=== PATIENT | male | born 1945 | race Caucasian/White ===

== ENCOUNTER 2016-09-13 16:12 | Inpatient (IN) | payer OTHER ==
--- NOTE | 2016-09-13 18:20 | PDOC ---
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 Patient has been experiencing symptoms for the past two days. He complains of pain, swelling, and redness that extends from his ankles to his thighs bilaterally. The patient has a secondary complaint of new shortness of breath that started two days ago. Denies chest pain, palpitations, dizziness, headache, lightheadedness, fever, chills, nausea, vomiting, or diarrhea. Patient was recently transfused at [facility] one week ago for anemia. <Lyssa Gonzalez - Last Filed: 09/13/16 22:50> <Blanca Mccartney - Last Filed: 09/14/16 03:38> - General Chief Complaint: Edema Stated Complaint: LEG PAIN Time Seen by Provider: 09/13/16 17:25 Past History <Lyssa Gonzalez - Last Filed: 09/13/16 22:50> - Past Medical History Anemia: Yes GI Disorders: Yes (gerd) HTN: Yes Hypercholesterolemia: Yes Psychiatric Problems: Yes - Psycho/Social/Smoking Cessation Hx Suicidal Ideation: No Smoking History: Never smoked <Blanca Mccartney - Last Filed: 09/14/16 03:38> - Past Medical History Allergies/Adverse Reactions: Allergies Allergy/AdvReac Type Severity Reaction Status Date / Time No Known Allergies Allergy Verified 09/13/16 16:19 Home Medications: Ambulatory Orders Acetaminophen [Pain Relief] 650 mg PO Q6H PRN 09/13/16 Bacitracin 30 gm TP DAILY 09/13/16 Bimatoprost [Lumigan] 1 drop IO DAILY 09/13/16 Brimonidine Tartrate [Alphagan 0.2% -] 1 drop OD TID 09/13/16 Cholecalciferol (Vitamin D3) [Vitamin D3] 50,000 unit PO WEEKLY 09/13/16 Dorzolamide/Timolol/Pf [Cosopt Pf Eye Drops] 1 each OP BID 09/13/16 Ferrous Sulfate 325 mg PO DAILY 09/13/16 Hydrocortisone 1% Cream [Hytone 1% Cream -] 1 applic TP DAILY 09/13/16 Metoprolol Tartrate 25 mg PO BID 09/13/16 Omeprazole 20 mg PO DAILY 09/13/16 Petrolatum,White [Aquaphor with Natural Healing] 50 gm TP DAILY 09/13/16 Simvastatin 10 mg PO HS 09/13/16 Tramadol HCl 50 mg PO BID PRN 09/13/16 Review of Systems - Review of Systems Comments:: 09/13/16 18:41 CONSTITUTIONAL: Absent: fever, chills, diaphoresis, generalized weakness, malaise, loss of appetite HEENT: Absent: rhinorrhea, nasal congestion, throat pain, throat swelling, difficulty swallowing, mouth swelling, ear pain, eye pain, visual changes CARDIOVASCULAR: Absent: chest pain, syncope, palpitations, irregular heart rate, lightheadedness , peripheral edema RESPIRATORY: Present: shortness of breath Absent: cough, dyspnea with exertion, orthopnea, wheezing, stridor, hemoptysis GASTROINTESTINAL: Absent: abdominal pain, abdominal distension, nausea, vomiting, diarrhea, constipation, melena, hematochezia GENITOURINARY: Absent: dysuria, frequency, urgency, hesitancy, hematuria, flank pain, genital pain MUSCULOSKELETAL: Present: lower extremity pain, swelling, redness Absent: myalgia, arthralgia SKIN: Absent: rash, itching, pallor HEMATOLOGIC/IMMUNOLOGIC: Absent: easy bleeding, easy bruising, lymphadenopathy, frequent infections ENDOCRINE: Absent: unexplained weight gain, unexplained weight loss, heat intolerance, cold intolerance NEUROLOGIC: Absent: headache, focal weakness or paresthesia, dizziness, unsteady gait, seizure, mental status changes, bladder or bowel incontinence. PSYCHIATRIC: Absent: anxiety, depression, suicidal or homicidal ideation, hallucinations <Lyssa Gonzalez - Last Filed: 09/13/16 22:50> *Physical Exam - Vital Signs Last Vital Signs Temp Pulse Resp BP Pulse Ox 98.3 F 104 H 18 160/101 98 09/13/16 16:20 09/13/16 16:20 09/13/16 16:20 09/13/16 16:20 09/13/16 16:20 - Physical Exam Comments: 09/13/16 18:42 GENERAL: Well developed, well nourished. Awake and alert. No acute distress. HEENT: Normocephalic, atraumatic. PERRLA, EOMI. No conjunctival pallor. Sclera are non- icteric. Moist mucous membranes. Oropharynx is clear. NECK: Supple. Full ROM. No JVD. Carotid pulses 2+ and symmetric, without bruits. No thyromegaly. No lymphadenopathy. CARDIOVASCULAR: Tachycardic. No murmurs, rubs, or gallops. Distal pulses are 2+ and symmetric. PULMONARY: No evidence of respiratory distress. Lungs clear to auscultation bilaterally. No wheezing, rales or rhonchi. ABDOMINAL: Soft. Non-tender. Non-distended. No rebound or guarding. No organomegaly. Normoactive bowel sounds. MUSCULOSKELETAL: Normal range of motion at all joints. No bony deformities or tenderness. No CVA tenderness. EXTREMITIES: 3+ pitting edema lower extremities bilaterally. Chronic venous stasis with venous stasis ulcers. Erythema from ankles to thighs bilaterally. SKIN: Warm and dry. Normal capillary refill. No rashes. No jaundice. NEUROLOGICAL: Alert, awake, appropriate. Poor historian. Cranial nerves 2-12 intact. Normal speech. PSYCHIATRIC: Cooperative. Good eye contact. Appropriate mood and affect. <Lyssa Gonzalez - Last Filed: 09/13/16 22:50> - Vital Signs Last Vital Signs Temp Pulse Resp BP Pulse Ox 98.3 F 104 H 18 160/101 98 09/13/16 16:20 09/13/16 16:20 09/13/16 16:20 09/13/16 16:20 09/13/16 16:20 <Blanca Mccartney - Last Filed: 09/14/16 03:38> Heart Score/ECG Review #1 09/13/16 22:50 Sinus tachycardia at 109 bpm Possible Inferior infarct, age undetermined Abnormal ECG <Lyssa Gonzalez - Last Filed: 09/13/16 22:50> ED Treatment Course - LABORATORY CBC & Chemistry Diagram: 09/13/16 18:55 09/13/16 18:55 <Lyssa Gonzalez - Last Filed: 09/13/16 22:50> - LABORATORY CBC & Chemistry Diagram: 09/13/16 18:55 09/13/16 18:55 <Blanca Mccartney - Last Filed: 09/14/16 03:38> *DC/Admit/Observation/Transfer - Attestations Scribe Attestion: 09/13/16 18:44 Documentation prepared by Lyssa Gonzalez, acting as medical microbiologist for Blanca Mccartney MD. <Lyssa Gonzalez - Last Filed: 09/13/16 22:50> - Discharge Dispostion Admit: Yes <Blanca Mccartney - Last Filed: 09/14/16 03:38> Diagnosis at time of Disposition: Venous (peripheral) insufficiency Cellulitis Qualifiers: Site of cellulitis: extremity Site of cellulitis of extremity: lower extremity Laterality: unspecified laterality Qualified Code(s): L03.119 - Cellulitis of unspecified part of limb Anemia Qualifiers: Anemia type: unspecified type Qualified Code(s): D64.9 - Anemia, unspecified - Referrals Referrals: Dania Ralph MD [Primary Care Provider] -
[2016-09-13] MEDS ORDERED: PIPERACILLIN/TAZOB 3.375 GM 3.375 GM in DEXTROSE 5%-WATER - 50 ML IVPB ONE (18:57)
[2016-09-13 19:11] LABS: VENOUS PH 7.37 (7.32-7.42)
[2016-09-13 19:12] LABS: VENOUS BLOOD GAS HCO3 26.3 meq/L (19-25)
[2016-09-13 19:29] LABS: URINE APPEARANCE CLEAR; URINE BILIRUBIN NEGATIVE (NEGATIVE); URINE BLOOD NEGATIVE (NEGATIVE); URINE COLOR STRAW; URINE GLUCOSE (UA) NEGATIVE (NEGATIVE); URINE KETONE NEGATIVE (NEGATIVE); URINE NITRITE NEGATIVE (NEGATIVE); URINE PROTEIN NEGATIVE (NEGATIVE); URINE UROBILINOGEN NEGATIVE E.U./dl (0.2-1.0)
[2016-09-13] MEDS ORDERED: PIPERACILLIN/TAZOB 3.375 GM 50 ML IVPB ONE (19:31)
[2016-09-13 19:32] LABS: URINE LEUK ESTERASE TRACE (NEGATIVE)
[2016-09-13 19:37] LABS: URINE RBC <1 /hpf (0-3); URINE WBC 6 /hpf (3-5)
[2016-09-13 19:49] LABS: BASOPHIL 1.1 % (0-2.0); EOSINOPHIL 2.7 % (0-4.5); MCH 23.6 pg (25.7-33.7); MEAN CELL VOLUME 76.1 fl (80-96); MEAN PLT VOLUME 7.3 fl (7.5-11.1); NEUTROPHILS 75.7 % (42.8-82.8); PLATELET COUNT 335 K/MM3 (134-434); RDW 18.1 % (11.9-15.9)
[2016-09-13 20:09] LABS: INR 1.08 (0.82-1.09); PROTHROMBIN TIME (PATIENT) 11.9 SEC (9.98-11.88)
[2016-09-13 20:12] LABS: ACTIVATED PTT 25.8 SECONDS (26.9-34.4)
[2016-09-13 20:21] LABS: ALBUMIN 2.6 g/dl (3.4-5.0); ANION GAP 9 (8-16); CALCIUM 8.9 mg/dL (8.5-10.1); CO2 26 mmol/L (21-32); GLUCOSE,RANDOM 83 mg/dL (74-106)
[2016-09-13 20:28] LABS: ALK PHOS 73 U/L (45-117); BILIRUBIN,TOTAL 0.2 mg/dL (0.2-1.0); COCKROFT - GAULT 59.53; CREATININE 1.6 mg/dL (0.7-1.3); SGOT/AST 27 U/L (15-37); SGPT/ALT 20 U/L (12-78); TOT PROT 6.3 g/dl (6.4-8.2); TROPONIN I < 0.02 ng/ml (0.00-0.05)
[2016-09-13] MEDS ORDERED: FUROSEMIDE 40 MG/4 ML INJECTABLE VIAL IVPUSH ONE (21:48)
[2016-09-13] MEDS ORDERED: METOPROLOL SUCCINATE 25 MG TAB.SR.24H (FP) PO ONE (21:49)
[2016-09-13] MEDS ORDERED: METOPROLOL SUCCINATE 50 MG TAB.SR.24H (FP) ONE (21:56)
[2016-09-13] MEDS ORDERED: FUROSEMIDE 40 MG/4 ML INJECTABLE VIAL ONE (21:57)
--- NOTE | 2016-09-13 22:20 | PN ---
<Yosi Alcantara - Last Filed: 09/13/16 22:19> Teaching Attending Note Name of Resident: Stefania Coronel ATTENDING PHYSICIAN STATEMENT I saw and evaluated the patient. I reviewed the resident's note and discussed the case with the resident. I agree with the resident's findings and plan as documented. SUBJECTIVE: OBJECTIVE: ASSESSMENT AND PLAN: <MarianneWard - Last Filed: 09/14/16 00:21> Teaching Attending Note ATTENDING PHYSICIAN STATEMENT I saw and evaluated the patient. I reviewed the resident's note and discussed the case with the resident. I agree with the resident's findings and plan as documented. 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 The patient reports associated shortness of breath for two days in duration. The patient was sent to the Emergency Department from [facility] to receive antibiotics. He complained of pain, swelling, and redness that extends from his ankles to his thighs bilaterally. Denied chest pain, palpitations, dizziness, headache, lightheadedness, fever, chills, nausea, vomiting, or diarrhea. PAST MEDICAL HISTORY: As per HPI. Patient transfused 1 week ago at [facility] for anemia. PAST SURGICAL HISTORY: No significant history reported FAMILY HISTORY: No pertinent history reported SOCIAL HISTORY: Denied smoking. ALLERGIES: NKDA MEDICATIONS: Reviewed OBJECTIVE: Last Vital Signs: 3 Temp Pulse Resp BP Pulse Ox 98.3 F 104 H 18 160/101 98 09/13/16 16:20 09/13/16 16:20 09/13/16 16:20 09/13/16 16:20 09/13/16 16:20 Physical Exam: GEN: NAD HEENT: NCAT, PERRL CARD: RRR, S1 S2 RESP: CTAB ABD:+ Obese, distended abdomen, soft, nontender to palpation. EXT: - CCE SKIN: Erythema and edema bilateral lower extremity reaching mid thigh with +2 pitting edema bilaterally also with weeping skin. +2 pulses bilateral. Labs: CBCD 3 WBC 9.0 K/mm3 (4.0-10.0) 09/13/16 18:55 RBC 3.55 M/mm3 (4.00-5.60) L 09/13/16 18:55 Hgb 8.4 GM/dL (11.7-16.9) L 09/13/16 18:55 Hct 27.0 % (35.4-49) L 09/13/16 18:55 MCV 76.1 fl (80-96) L 09/13/16 18:55 MCHC 31.0 g/dl (32.0-35.9) L 09/13/16 18:55 RDW 18.1 % (11.9-15.9) H 09/13/16 18:55 Plt Count 335 K/MM3 (134-434) 09/13/16 18:55 MPV 7.3 fl (7.5-11.1) L 09/13/16 18:55 CMP 3 Sodium 144 mmol/L (136-145) 09/13/16 18:55 Potassium 4.0 mmol/L (3.5-5.1) 09/13/16 18:55 Chloride 109 mmol/L (98-107) H 09/13/16 18:55 Carbon Dioxide 26 mmol/L (21-32) 09/13/16 18:55 Anion Gap 9 (8-16) 09/13/16 18:55 BUN 25 mg/dL (7-18) H 09/13/16 18:55 Creatinine 1.6 mg/dL (0.7-1.3) H 09/13/16 18:55 Creat Clearance w eGFR 43.20 (>60) 09/13/16 18:55 Calcium 8.9 mg/dL (8.5-10.1) 09/13/16 18:55 Total Bilirubin 0.2 mg/dL (0.2-1.0) 09/13/16 18:55 AST 27 U/L (15-37) 09/13/16 18:55 ALT 20 U/L (12-78) 09/13/16 18:55 Alkaline Phosphatase 73 U/L (45-117) 09/13/16 18:55 Total Protein 6.3 g/dl (6.4-8.2) L 09/13/16 18:55 Albumin 2.6 g/dl (3.4-5.0) L 09/13/16 18:55 Imaging: EXAM: X-RAY CHEST Impression: No focal lung consolidation or pleural effusions. Cardiomegaly and/ or pericardial effusion. THIS DOCUMENT HAS BEEN ELECTRONICALLY SIGNED Ronit Schreiber M.D. 09/13/2016 23: 42 EST. ASSESSMENT AND PLAN: 70 year old male past medical history who presents with bilateral lower extremity cellulitis 1. Bilaterally lower extremity cellulitis- Status post vancomycin zosyn in ED - Duplex bilateral lower extremities - ID consult - Continue antibiotics - Follow up cultures - Repeat lactic acid 2. SOB - increased bmp ? CHF - ECHO - Trend trops/EKG - Status post lasix 40 mg IV 3. Anemia - microcytic - Follow up iron studies - Stool cultures - Outpatient follow up with GI 4. CKD - unknown baseline creatinine - Monitor - Trend - Avoid nephrotoxins 5. [place] - Continue home medications 6. HTN - Continue home medications 7. FEN - Sodium restricted diet - Daily weights - Strict I&O Admit to med surg. Documentation prepared by Ward Lopes, acting as territory sales manager medical for Dr. Yosi Alcantara MD.
[2016-09-13] MEDS ORDERED: VANCOMYCIN 1,000 MG in DEXTROSE 5%-WATER - 250 ML IVPB STA (22:23)
--- NOTE | 2016-09-13 22:26 | HP ---
CHIEF COMPLAINT: "my legs are swollen" PCP: assigned doc at [facility] HISTORY OF PRESENT ILLNESS: This is a 70 yo M with PMH of anemia, GI ulcer (recent bleed 3 w ago), GERD, HTN , glaucoma, CKD, venous insufficiency and R eye blindness (glaucoma), who presents from [facility] due to b/l LE edemam, redness and pain x 2 days. The affected areas include circumrefentioal ankles, calfs and medial thighs. This has occured in [facility] past a few yrs ago, at [facility] time jona was treated with abx and received transfusion. [facility] and gi bleed, found to have bleedign gi ulcer for which he received endoscopy (unknown if any intervention done) and transfusions. He has since stopped bleeding in stool but never returned to baseline in terms of energy. reports continued dyspnea with exertion but not at rest. denies cough, orthopnea, palpitations, chest pain or weight gain. Denies f /c, dizziness, headache, lightheadedness, abd pain, increased abd size, nausea, vomiting, constipation, diarrhea, melena, hemoatochezia, dysuria. Deneis EtOH use, hepatitis history, easy bleeding or bruising. Last colonoscopy <5 yrs ago removed benign polyps. ER course was notable for: (1)labs (2)cxr (b/l congestion) ekg (wnl) (3)lasix 20, vanco, zosyn, toprol xl 25 Recent Travel: denies PAST MEDICAL HISTORY: as above PAST SURGICAL HISTORY: inguinal hernia repair Social History: [place] resident Smoking:denies Alcohol:denies Drugs: denies Hepatitis history: denies Family History: HTN Allergies No Known Allergies Allergy (Verified 09/13/16 16:19) HOME MEDICATIONS: Home Medications Medication Instructions Recorded Acetaminophen [Pain Relief] 650 mg PO Q6H PRN 09/13/16 Bacitracin 30 gm TP DAILY 09/13/16 Bimatoprost [Lumigan] 1 drop IO DAILY 09/13/16 Brimonidine Tartrate [Alphagan 1 drop OD TID 09/13/16 0.2% -] Cholecalciferol (Vitamin D3) 50,000 unit PO WEEKLY 09/13/16 [Vitamin D3] Dorzolamide/Timolol/Pf [Cosopt Pf 1 each OP BID 09/13/16 Eye Drops] Ferrous Sulfate 325 mg PO DAILY 09/13/16 Hydrocortisone 1% Cream [Hytone 1% 1 applic TP DAILY 09/13/16 Cream -] Metoprolol Tartrate 25 mg PO BID 09/13/16 Omeprazole 20 mg PO DAILY 09/13/16 Petrolatum,White [Aquaphor with 50 gm TP DAILY 09/13/16 Natural Healing] Simvastatin 10 mg PO HS 09/13/16 Tramadol HCl 50 mg PO BID PRN 09/13/16 REVIEW OF SYSTEMS CONSTITUTIONAL: Absent: fever, chills, diaphoresis, weight change HEENT: Absent: rhinorrhea, nasal congestion, throat pain CARDIOVASCULAR: Absent: chest pain, syncope, palpitations, irregular heart rate, lightheadedness , peripheral edema RESPIRATORY: Absent: cough, shortness of breath, orthopnea, wheezing, stridor, hemoptysis GASTROINTESTINAL: Absent: abdominal pain, abdominal distension, nausea, vomiting, diarrhea, constipation, melena, hematochezia GENITOURINARY: Absent: dysuria MUSCULOSKELETAL: Absent: myalgia, arthralgia SKIN: Absent: rash, itching, pallor HEMATOLOGIC/IMMUNOLOGIC: Absent: easy bleeding, easy bruising ENDOCRINE: Absent: unexplained weight gain, unexplained weight loss NEUROLOGIC: Absent: headache, focal weakness or paresthesias PSYCHIATRIC: Absent: anxiety, depression PHYSICAL EXAMINATION Vital Signs - 24 hr 09/13/16 16:20 Temperature 98.3 F Pulse Rate 104 H Respiratory 18 Rate Blood Pressure 160/101 O2 Sat by Pulse 98 Oximetry (%) GENERAL: Awake, alert, and fully oriented, in no acute distress. HEAD: Normal with no signs of trauma. EYES: Pupils equal, round and reactive to light, extraocular movements intact, sclera anicteric, conjunctiva clear. No lid lag. EARS, NOSE, THROAT: Moist mucous membranes. NECK: supple LUNGS: Breath sounds equal, clear to auscultation bilaterally. HEART: Regular rate and rhythm, normal S1 and S2 ABDOMEN: Soft, nontender, distended, normoactive bowel sounds, no guarding, no rebound, no masses. +hepatomegaly, + fluid wave, + caput medusa MUSCULOSKELETAL: No CVA tenderness. UPPER EXTREMITIES: 2+ pulses, warm, well-perfused. No cyanosis. No clubbing. No peripheral edema. LOWER EXTREMITIES: 2+ pulses, 3#+ pitting edema up to knee, weeping skin, erythema circumferenctial up to knee and medial up to groin b/l. tender, warm NEUROLOGICAL: Cranial nerves II-XII grossly intact. Normal speech. PSYCHIATRIC: Cooperative. Good eye contact. Appropriate mood and affect. SKIN: lesions as above Laboratory Results - last 24 hr 09/13/16 09/13/16 09/13/16 18:40 18:40 18:55 WBC 9.0 RBC 3.55 L Hgb 8.4 L Hct 27.0 L MCV 76.1 L MCHC 31.0 L RDW 18.1 H Plt Count 335 MPV 7.3 L Neutrophils % 75.7 Lymphocytes % 13.4 Monocytes % 7.1 Eosinophils % 2.7 Basophils % 1.1 INR 1.08 PTT (Actin FS) 25.8 L VBG pH POC VBG pCO2 POC VBG pO2 Mixed VBG HCO3 Sodium Potassium Chloride Carbon Dioxide Anion Gap BUN Creatinine Creat Clearance w eGFR Random Glucose Lactic Acid 1.0 Calcium Total Bilirubin AST ALT Alkaline Phosphatase Creatine Kinase Troponin I Total Protein Albumin Urine Color Urine Appearance Urine pH Ur Specific [place] Urine Protein Urine Glucose (UA) Urine Ketones Urine Blood Urine Nitrite Urine Bilirubin Urine Urobilinogen Ur Leukocyte Esterase Urine RBC Urine WBC 09/13/16 09/13/16 09/13/16 18:55 18:55 19:00 WBC RBC Hgb Hct MCV MCHC RDW Plt Count MPV Neutrophils % Lymphocytes % Monocytes % Eosinophils % Basophils % INR PTT (Actin FS) VBG pH 7.37 POC VBG pCO2 46.5 POC VBG pO2 18.7 L* Mixed VBG HCO3 26.3 H Sodium 144 Potassium 4.0 Chloride 109 H Carbon Dioxide 26 Anion Gap 9 BUN 25 H Creatinine 1.6 H Creat Clearance w eGFR 43.20 Random Glucose 83 Lactic Acid Calcium 8.9 Total Bilirubin 0.2 AST 27 ALT 20 Alkaline Phosphatase 73 Creatine Kinase 132 Troponin I < 0.02 Total Protein 6.3 L Albumin 2.6 L Urine Color Straw Urine Appearance Clear Urine pH 6.0 Ur Specific [place] <= 1.005 Urine Protein Negative Urine Glucose (UA) Negative Urine Ketones Negative Urine Blood Negative Urine Nitrite Negative Urine Bilirubin Negative Urine Urobilinogen Negative Ur Leukocyte Esterase Trace H Urine RBC <1 Urine WBC 6 ASSESSMENT/PLAN: This is a 70 yo M with PMH of anemia, GI ulcer (recent bleed 3 w ago), GERD, HTN , glaucoma, CKD, venous insufficiency and R eye blindness (glaucoma), who presents from [facility] due to b/l LE edemam, redness and pain x 2 days. Meds need to be reconciled LE cellulitis -no white count or fever -vanco/zosyn -dulplex r/o dvt -ID consult Volume overloaded -possibly cardiac cause: CXR congestion, cardiomegaly, RV appears enlarged; BNP 953; trop negative (trend) -TTE -lasix 20 IV in ER; will give another 40 IV -AM CXR -strict i and o/daily weights Anemia -HGB 8.9 recently transfused in setting of GIB -per PCP/ER doc conversation this is baseline; would confirm -denies rectal bleed; check stool for occult blood CKD -bun/creat 25/1.6 -per PCP/ER doc convo this is baseline; would confirm HTN -cont lopressor 25 bid GERD -PPI 40 d HLD -lipitor 10 hs Glaucoma -continue home eye drops FEN diurese lytes stable Na restricted diet no hep due to recent rectal bleed and no scd due to severe LE edema; PPi Dispo: adm med cade Problem List - Problem (1) Anemia Code(s): D64.9 - ANEMIA, UNSPECIFIED Qualifiers: Anemia type: unspecified type Qualified Code(s): D64.9 - Anemia, unspecified (2) Cellulitis Code(s): L03.90 - CELLULITIS, UNSPECIFIED Qualifiers: Site of cellulitis: extremity Site of cellulitis of extremity: lower extremity Laterality: unspecified laterality Qualified Code(s): L03.119 - Cellulitis of unspecified part of limb (3) Venous (peripheral) insufficiency Code(s): I87.2 - VENOUS INSUFFICIENCY (CHRONIC) (PERIPHERAL) (4) HTN (hypertension) Code(s): I10 - ESSENTIAL (PRIMARY) HYPERTENSION (5) Glaucoma Code(s): H40.9 - UNSPECIFIED GLAUCOMA (6) CKD (chronic kidney disease) Code(s): N18.9 - CHRONIC KIDNEY DISEASE, UNSPECIFIED (7) GERD (gastroesophageal reflux disease) Code(s): K21.9 - GASTRO-ESOPHAGEAL REFLUX DISEASE WITHOUT ESOPHAGITIS Visit type - Emergency Visit Emergency Visit: Yes ED Registration Date: 09/14/16 Care time: The patient presented to the Emergency Department on the above date and was hospitalized for further evaluation of their emergent condition. - New Patient This patient is new to me today: Yes Date on this admission: 09/14/16 - Critical Care Critical Care patient: No
[2016-09-13] MEDS ORDERED: FUROSEMIDE 40 MG/4 ML INJECTABLE VIAL IVPB ONE (23:41)
[2016-09-14] MEDS ORDERED: PIPERACILLIN/TAZOB 2.25 GM 2.25 GM in DEXTROSE 5%-WATER - 50 ML IVPB ONE ×2 (02:00→08:00)
[2016-09-14] MEDS ORDERED: oxyCODONE HCL 5 MG TABLET ONE (03:07)
[2016-09-14] MEDS ORDERED: FUROSEMIDE 40 MG/4 ML INJECTABLE VIAL ONE (03:07)
[2016-09-14] MEDS: oxyCODONE HCL 5 MG TABLET PO PRN ×2 (03:15→12:20)
[2016-09-14] MEDS: PATIENT'S OWN MEDICATION (NON-FORMULARY) (Dorzolamide/Timolol/Pf [Cosopt Pf Eye Drops] 1 E OP SCH (04:29)
[2016-09-14 06:42] VITALS: BMI 33.4
[2016-09-14 08:12] LABS: MCH 23.6 pg (25.7-33.7); MCHC 31.1 g/dl (32.0-35.9); MEAN CELL VOLUME 75.9 fl (80-96); MEAN PLT VOLUME 6.8 fl (7.5-11.1); PLATELET COUNT 299 K/MM3 (134-434); RDW 17.7 % (11.9-15.9); WHITE BLOOD COUNT 7.9 K/mm3 (4.0-10.0)
--- NOTE | 2016-09-14 08:14 | PN ---
Progress Note (short form) - Note Progress Note: ID Full note dictated Selected Entries 09/14/16 09/14/16 05:11 06:28 Temperature 98.1 F Pulse Rate 91 H Blood Pressure 125/76 Blood Pressure 116/84 [Left Arm] Exam with Bilateral edema and confluent cellulitis Microbiology Laboratory Tests 09/13/16 09/13/16 18:55 18:55 WBC 9.0 Hgb 8.4 L Hct 27.0 L Plt Count 335 Creat Clearance w eGFR 43.20 Assessment Cellulitis staph Strep ? Plan Cultures sent Cefazolin should be adequet [facility] Mani [facility] Problem List - Problems (1) CKD (chronic kidney disease) Code(s): N18.9 - CHRONIC KIDNEY DISEASE, UNSPECIFIED (2) Cellulitis Code(s): L03.90 - CELLULITIS, UNSPECIFIED Qualifiers: Site of cellulitis: extremity Site of cellulitis of extremity: lower extremity Laterality: unspecified laterality Qualified Code(s): L03.119 - Cellulitis of unspecified part of limb
[2016-09-14 08:39] LABS: CALCIUM 8.8 mg/dL (8.5-10.1); COCKROFT - GAULT 55.4; CREATININE 1.8 mg/dL (0.7-1.3); MAGNESIUM 1.9 mg/dL (1.8-2.4); PHOSPHOROUS 4.4 mg/dL (2.5-4.9)
--- NOTE | 2016-09-14 08:52 | CONS ---
INFECTIOUS DISEASE CONSULTATION DATE OF CONSULTATION: 09/14/2016 This is a 70-year-old male who was admitted with chief complaint of lower extremity redness and swelling for 2-3 days. Past medical history includes recent GI bleeding several weeks ago from an ulcer, GERD, hypertension, glaucoma, chronic kidney disease, venous insufficiency. He is brought now with redness and swelling of his legs in the absence of fever or chills. He was apparently recently at [facility] where he had an endoscopy done for upper GI bleeding. He may have received blood transfusions at that time. Here, he was afebrile and given a dose of vancomycin and Zosyn. Currently, he is alert, in no distress, sitting up, eating his breakfast. He denies any other localizing complaints. PAST MEDICAL HISTORY: As noted above. Also, include inguinal hernia repair. MEDICATIONS: Include multiple eye drops, metoprolol, omeprazole, simvastatin, tramadol. ALLERGIES: None known. SOCIAL HISTORY: Denies smoking, alcohol use. No substance abuse. HIV status unknown. FAMILY HISTORY: Reviewed and noncontributory. REVIEW OF SYSTEMS: Respiratory: No shortness of breath, cough, orthopnea. Cardiac: No chest pain, syncope, palpitations. Positive edema. Gastrointestinal: No abdominal pain, nausea, vomiting, blood per rectum. Genitourinary: No dysuria, hematuria, or urinary frequency. PHYSICAL EXAMINATION: Vital Signs: His temperature was 98.3, pulse 104, respirations 18, blood pressure 160/101. Neck: Supple without adenopathy. Lungs: Clear to P&A. Heart: S1, S2. Regular rhythm without audible murmur or gallop. Abdomen: Soft, nontender. No guarding or rebound. Extremities: With 2+ to 3+ pitting edema up to the knee. Confluent erythema also up to the knee bilaterally. LABORATORY DATA: The white count is 9.0, hemoglobin 8.4, platelets of 335. BUN 25, creatinine 1.6. Urinalysis: RBC 1, WBCs 6. Blood and urine cultures pending. ASSESSMENT: A 70-year-old male who presents with bilateral lower extremity cellulitis. No fever, chills, evidence for sepsis. Clinically, he appears stable at this time. Would treat him with cefazolin 1 g IV q.8 hours. I do not see the need for vancomycin and Zosyn at this time. Blood cultures have been sent. Encourage to elevate the legs. KOLE LEE M.D. CHING/[id number]
[2016-09-14] MEDS: PANTOPRAZOLE 40 MG TABLET (FP) PO SCH (12:21)
[2016-09-14] MEDS: CEFAZOLIN (PRE-DOCKED) 50 ML IVPB SCH ×2 (12:21→18:04)
[2016-09-14] MEDS: METOPROLOL TARTRATE 25 MG TABLET (FP) PO SCH ×2 (12:21→21:53)
--- NOTE | 2016-09-14 12:38 | PN ---
Physical Exam: SUBJECTIVE: Patient seen and examined at bedside. Patient c/o pain and swelling to BLE and bloating to abdomen. Denies PND, change in exercise tolerance or shortness of breath. OBJECTIVE: Vital Signs Period Temp Pulse Resp BP Sys/Shah Pulse Ox Last 24 Hr 98.1 F-98.2 F 91-100 18 116-125/76-84 96-97 GENERAL: The patient is awake, alert, and fully oriented, in no acute distress. HEAD: Normal with no signs of trauma. EYES: PERRL, extraocular movements intact, sclera anicteric, conjunctiva clear. No ptosis. ENT: Ears normal, nares patent, oropharynx clear without exudates, moist mucous membranes. NECK: Trachea midline, full range of motion, supple. LUNGS: Breath sounds equal, clear to auscultation bilaterally, no wheezes, no crackles, no accessory muscle use. HEART: Regular rate and rhythm, S1, S2 without murmur, rub or gallop. No JVD observed. ABDOMEN: Soft, nontender, distended, normoactive bowel sounds, no guarding, no rebound, no hepatosplenomegaly, no masses. +bloating EXTREMITIES: 2+ pulses, warm, well-perfused, 3+ piting edema extending to left groin and mid-thigh on the right. Erythema present to BLE extending into popliteal fossa on BLE. No streaking present. NEUROLOGICAL: Cranial nerves II through XII grossly intact. Normal speech, gait not observed. PSYCH: Normal mood, normal affect. SKIN: Warm, dry, normal turgor, no rashes or lesions noted Laboratory Results - last 24 hr 3 09/14/16 09/14/16 09/14/16 07:17 07:17 07:17 WBC 7.9 RBC 3.48 L Hgb 8.2 L Hct 26.4 L MCV 75.9 L MCHC 31.1 L RDW 17.7 H Plt Count 299 MPV 6.8 L Sodium 145 Potassium 3.3 L Chloride 107 Carbon Dioxide 26 Anion Gap 12 BUN 24 H Creatinine 1.8 H Random Glucose 92 Calcium 8.8 Phosphorus 4.4 Magnesium 1.9 Blood Type O POSITIVE Active Medications 3 Generic Name Dose Route Start Last Admin Trade Name Freq PRN Reason Stop Dose Admin Atorvastatin Calcium 10 mg 09/14/16 22:00 Lipitor - PO HS CHARLETTE Brimonidine Tartrate 1 drop 09/14/16 06:00 Alphagan 0.2% - OD TID CHARLETTE Cefazolin Sodium 50 mls @ 100 mls/hr 09/14/16 10:00 09/14/16 12:21 Ancef 1gm Ivpb (Pre-Docked) IVPB 100 mls/hr Q8H-IV CHARLETTE Administration Metoprolol Tartrate 25 mg 09/14/16 10:00 09/14/16 12:21 Lopressor - PO 25 mg BID CHARLETTE Administration Non-Formulary Medication 1 drop 09/14/16 10:00 Bimatoprost [Lumigan] IO DAILY CHARLETTE Non-Formulary Medication 1 each 09/14/16 00:30 09/14/16 04:29 Dorzolamide/Timolol/Pf [Cosopt Pf Eye Drops] OP Not Given BID CHARLETTE Oxycodone HCl 5 mg 09/13/16 23:41 09/14/16 12:20 Roxicodone - PO 5 mg Q4H PRN Administration PAIN Pantoprazole Sodium 40 mg 09/14/16 10:00 09/14/16 12:21 Protonix - PO 40 mg DAILY CHARLETTE Administration IMAGING: BLE u/s with doppler as read by Dr Rodriguez: There is no evidence of DVT in both lower extremities. Echo read by Chiquis: LV wall motion, size, thickness and function normal EF- 66.4% Trace to mild TR Trace to mild MR ASSESSMENT/PLAN: A: This is a 70 yo man with PMH HTN, GERD, glaucoma, HLD and recurrent cellulitis of BLE who presents with recurrence of weeping cellulitis to BLE. Given 3+ pitting pedal edema, elevated BNP and normal echo patient with diastolic HF. P: 1. Cellulitis - Continue cefazolin - elevate lower extremities - outline of cellulitis marked to evaluated progression/improvement of cellulitis - ID Mani following 2. Diastolic HF - start Lasix - trend trops - daily weights - cards Avtar consult ordered 3. HTN - well controlled - home meds 4. Glaucoma -home meds 5. HLD - home meds 6. F/E/N - cardiac diet - replete PRN 7. PPX - SQ Lovenox - PPI Dispo: This patient requires continued inpatient evaluation of acute medical conditions. Code Status: FULL CODE Visit type - Emergency Visit Emergency Visit: Yes ED Registration Date: 09/14/16 Care time: The patient presented to the Emergency Department on the above date and was hospitalized for further evaluation of their emergent condition. - New Patient This patient is new to me today: Yes Date on this admission: 09/14/16 - Critical Care Critical Care patient: No
[2016-09-14] MEDS: BRIMONIDINE TARTRATE 0.2% OPHTHALMIC 5 ML BOTTLE OD SCH ×2 (15:00→21:54)
[2016-09-14] MEDS ORDERED: ENOXAPARIN NA (PORCINE) 40 MG/0.4 ML DISP.SYRIN SQ SCH (15:15)
--- NOTE | 2016-09-14 15:55 | EKG ---
Test Reason : Blood Pressure : / mmHG Vent. Rate : 109 BPM Atrial Rate : 109 BPM P-R Int : 152 ms QRS Dur : 068 ms QT Int : 344 ms P-R-T Axes : 046 007 014 degrees QTc Int : 463 ms SINUS TACHYCARDIA POSSIBLE INFERIOR INFARCT , AGE UNDETERMINED ABNORMAL ECG NO PREVIOUS ECGS AVAILABLE Confirmed by ANGELA MOROCHO, STEPHANY ([id number]) on 09/14/2016 3:54:38 PM Referred By: Confirmed By:STEPHANY MILLER MD
--- NOTE | 2016-09-14 17:17 | CON.CARD ---
Consult Consult Specialty:: Cardiology Reason for Consultation:: Edema - History of Present Illness History of Present Illness: 70 yo M with anemia, GI ulcer (recent bleed 3 w ago), GERD, HTN, glaucoma, CKD, venous insufficiency and R eye blindness (glaucoma), lives at assisted living due to b/l LE edemam, redness and pain x 2 days. [facility] and [facility], found to have GI bleed which he received endoscopy and transfusions. He denies cough, orthopnea, palpitations , chest pain or dyspena. At baseline ambulats with a rolator. He has frequent lower extremity swelling managed with compression stockings. Echocardiogram today showed preserved LV systolic function and no significant valvular dysfunction. PASP reprtedyl was normal. ECG was noraml. Negative Lext duplex. BNP is mildly elevated. - History Source History Provided By: Patient, Medical Record Limitations to Obtaining History: No Limitations - Past Medical History Renal/: Yes: Renal Inusuff Heme/Onc: Yes: Anemia - Alcohol/Substance Use Hx Alcohol Use: No - Smoking History Smoking history: Never smoked Home Medications - Allergies Allergies/Adverse Reactions: Allergies Allergy/AdvReac Type Severity Reaction Status Date / Time No Known Allergies Allergy Verified 09/13/16 16:19 - Home Medications Home Medications: Ambulatory Orders Acetaminophen [Pain Relief] 650 mg PO Q6H PRN 09/13/16 Bacitracin 30 gm TP DAILY 09/13/16 Bimatoprost [Lumigan] 1 drop IO DAILY 09/13/16 Brimonidine Tartrate [Alphagan 0.2% -] 1 drop OD TID 09/13/16 Cholecalciferol (Vitamin D3) [Vitamin D3] 50,000 unit PO WEEKLY 09/13/16 Dorzolamide/Timolol/Pf [Cosopt Pf Eye Drops] 1 each OP BID 09/13/16 Ferrous Sulfate 325 mg PO DAILY 09/13/16 Hydrocortisone 1% Cream [Hytone 1% Cream -] 1 applic TP DAILY 09/13/16 Metoprolol Tartrate 25 mg PO BID 09/13/16 Omeprazole 20 mg PO DAILY 09/13/16 Petrolatum,White [Aquaphor with Natural Healing] 50 gm TP DAILY 09/13/16 Simvastatin 10 mg PO HS 09/13/16 Tramadol HCl 50 mg PO BID PRN 09/13/16 Review of Systems - Review of Systems Constitutional: reports: No Symptoms Eyes: reports: No Symptoms HENT: reports: No Symptoms Neck: reports: Decreased ROM Cardiovascular: reports: No Symptoms Respiratory: reports: No Symptoms Gastrointestinal: reports: No Symptoms Genitourinary: reports: No Symptoms Musculoskeletal: reports: Back Pain, Decreased ROM Neurological: reports: No Symptoms Endocrine: reports: No Symptoms Vital Signs: Vital Signs Temperature 97.4 F L 09/14/16 14:30 Pulse Rate 103 H 09/14/16 14:30 Respiratory Rate 18 09/14/16 08:00 Blood Pressure 156/98 09/14/16 14:30 O2 Sat by Pulse Oximetry (%) 96 09/14/16 09:00 Constitutional: Yes: Well Nourished, No Distress, Calm Eyes: Yes: WNL HENT: Yes: WNL Neck: Yes: WNL Respiratory: Yes: Regular, CTA Bilaterally Gastrointestinal: Yes: Normal Bowel Sounds Renal/: Yes: WNL Cardiovascular: Yes: Regular Rate and Rhythm JVD: No Carotid Bruit: No PMI: Non-Displaced Heart Sounds: Yes: S1, S2 Extremities: Yes: Erythema Edema: Yes Edema: LLE: 1+, RLE: 1+ - Other Data Labs, Other Data: CBC, BMP 09/14/16 07:17 09/14/16 07:17 INR, PTT INR 1.08 (0.82-1.09) 09/13/16 18:40 Troponin, BNP 09/13/16 09/13/16 18:40 18:55 Troponin I < 0.02 B-Natriuretic Peptide 953.50 H NSR no STT changes Echo: Report Reviewed Ejection Fraction %: LVEF > or = 40 % Imaging - Results Chest X-ray: Report Reviewed (No infiltrates.) EKG: Image Reviewed Problem List - Problems (1) CKD (chronic kidney disease) Code(s): N18.9 - CHRONIC KIDNEY DISEASE, UNSPECIFIED (2) Venous (peripheral) insufficiency Code(s): I87.2 - VENOUS INSUFFICIENCY (CHRONIC) (PERIPHERAL) Assessment/Plan Asked to evaluate patient for edema and mildly elevated Pro-BNP in the setting of moderate renal insufficiency. BNP elevation is probably elevated from his CKD and not likely due to HFpEF. Agree with low dose diuretics, Abx and eventual compression stockings. He has a chronic history of intermittent edema possibly due to venous insufficiency. Will see as needed.
[2016-09-14] MEDS: ATORVASTATIN CA 10 MG TABLET (FP) PO SCH (21:53)
[2016-09-15] MEDS: CEFAZOLIN (PRE-DOCKED) 50 ML IVPB SCH ×3 (01:51→17:50)
[2016-09-15] MEDS: BRIMONIDINE TARTRATE 0.2% OPHTHALMIC 5 ML BOTTLE OD SCH ×2 (05:45→21:41)
[2016-09-15] MEDS: FUROSEMIDE 40 MG/4 ML INJECTABLE VIAL IVPUSH SCH ×2 (05:45→14:15)
[2016-09-15] MEDS ORDERED: FUROSEMIDE 40 MG/4 ML INJECTABLE VIAL IVPUSH SCH (06:00)
[2016-09-15 08:24] LABS: EOSINOPHIL 2.8 % (0-4.5); MCH 23.5 pg (25.7-33.7); MCHC 31.4 g/dl (32.0-35.9); MEAN CELL VOLUME 74.9 fl (80-96); MEAN PLT VOLUME 6.9 fl (7.5-11.1); NEUTROPHILS 73.3 % (42.8-82.8); PLATELET COUNT 304 K/MM3 (134-434); WHITE BLOOD COUNT 7.8 K/mm3 (4.0-10.0)
[2016-09-15 08:59] LABS: CALCIUM 8.4 mg/dL (8.5-10.1); COCKROFT - GAULT 60.88; CREATININE 1.7 mg/dL (0.7-1.3)
[2016-09-15] MEDS: oxyCODONE HCL 5 MG TABLET PO PRN ×2 (09:03→21:53)
--- NOTE | 2016-09-15 09:38 | PN ---
Progress Note, Physician Chief Complaint: ID LE cellulitis improving Cefazolin day 2 - Current Medication List Current Medications: Active Medications Atorvastatin Calcium (Lipitor -) 10 mg PO HS ON LICENSE OF [facility] Last Admin: 09/14/16 21:53 Dose: 10 mg Brimonidine Tartrate (Alphagan 0.2% -) 1 drop OD TID ON LICENSE OF [facility] Last Admin: 09/15/16 05:45 Dose: 1 drop Furosemide (Lasix Injection -) 20 mg IVPUSH BID@0600,1400 ON LICENSE OF [facility] Last Admin: 09/15/16 05:45 Dose: 20 mg Cefazolin Sodium (Ancef 1gm Ivpb (Pre-Docked)) 50 mls @ 100 mls/hr IVPB Q8H-IV ON LICENSE OF [facility] Last Admin: 09/15/16 01:51 Dose: 100 mls/hr Metoprolol Tartrate (Lopressor -) 25 mg PO BID ON LICENSE OF [facility] Last Admin: 09/14/16 21:53 Dose: 25 mg Non-Formulary Medication (Bimatoprost [Lumigan]) 1 drop IO DAILY ON LICENSE OF [facility] Non-Formulary Medication (Dorzolamide/Timolol/Pf [Cosopt Pf Eye Drops]) 1 each OP BID ON LICENSE OF [facility] Last Admin: 09/14/16 04:29 Dose: Not Given Oxycodone HCl (Roxicodone -) 5 mg PO Q4H PRN PRN Reason: PAIN Last Admin: 09/15/16 09:03 Dose: 5 mg Pantoprazole Sodium (Protonix -) 40 mg PO DAILY ON LICENSE OF [facility] Last Admin: 09/14/16 12:21 Dose: 40 mg Potassium Chloride (Potassium Chloride Oral Liquid) 40 meq PO ONCE ONE Stop: 09/15/16 09:27 - Objective Vital Signs: Vital Signs Temperature 98.2 F 09/15/16 06:01 Pulse Rate 97 H 09/15/16 06:01 Respiratory Rate 20 09/15/16 06:01 Blood Pressure 134/95 09/15/16 06:01 O2 Sat by Pulse Oximetry (%) 96 09/14/16 22:00 Constitutional: Yes: Well Nourished, No Distress HENT: Yes: WNL, Atraumatic Neck: Yes: WNL, Supple Cardiovascular: Yes: Regular Rate and Rhythm, S1, S2 Respiratory: Yes: WNL, Regular, CTA Bilaterally Gastrointestinal: Yes: WNL, Normal Bowel Sounds, Soft. No: Tenderness, Tenderness, Rebound Extremities: Yes: Erythema Edema: Yes Labs: CBC, BMP 09/15/16 07:30 09/15/16 07:30 INR, PTT INR 1.08 (0.82-1.09) 09/13/16 18:40 Problem List - Problems (1) CKD (chronic kidney disease) Code(s): N18.9 - CHRONIC KIDNEY DISEASE, UNSPECIFIED (2) Cellulitis Code(s): L03.90 - CELLULITIS, UNSPECIFIED Qualifiers: Site of cellulitis: extremity Site of cellulitis of extremity: lower extremity Laterality: unspecified laterality Qualified Code(s): L03.119 - Cellulitis of unspecified part of limb Assessment/Plan Microbiology 09/13/16 18:50 Blood - Peripheral Venous Blood Culture - Preliminary NO GROWTH OBTAINED AFTER 24 HOURS, INCUBATION TO CONTINUE FOR 4 DAYS. 09/13/16 18:50 Blood - Peripheral Venous Blood Culture - Preliminary NO GROWTH OBTAINED AFTER 24 HOURS, INCUBATION TO CONTINUE FOR 4 DAYS. Laboratory Tests 09/15/16 09/15/16 07:30 07:30 WBC 7.8 Plt Count 304 BUN 25 H Creatinine 1.7 H Assessment Bilateral LE cellulitis draining superficial wounds ulcer Plan Continue to Elevate Once his wounds dry up should use compression stockings Cefazolin Mani MOROCHO
[2016-09-15] MEDS ORDERED: POTASSIUM CHLORIDE ORAL LIQUID 20 MEQ/15 ML PO ONE (10:00)
--- NOTE | 2016-09-15 10:10 | PN ---
Physical Exam: SUBJECTIVE: Patient seen and examined. Having some bilateral lower ext pain with relieved with Oxycodone OBJECTIVE: Lovenox d/cd as has recent history of GI bleeding Physical therapy requested PT OOB to chair Vital Signs Period Temp Pulse Resp BP Sys/Shah Pulse Ox Last 24 Hr 97.4 F-98.9 F 94-109 16-20 134-156/92-98 96 GENERAL: The patient is awake, alert, and fully oriented, in no acute distress. HEAD: Normal with no signs of trauma. EYES: PERRL, extraocular movements intact, sclera anicteric, conjunctiva clear. No ptosis. ENT: Ears normal, nares patent, oropharynx clear without exudates, moist mucous membranes. NECK: Trachea midline, full range of motion, supple. LUNGS: Breath sounds equal, clear to auscultation bilaterally, no wheezes, no crackles, no accessory muscle use. HEART: Regular rate and rhythm ABDOMEN: Soft, nontender, distended, normoactive bowel sounds EXTREMITIES: 2+ pulses, warm, well-perfused, 3+ bilateral pitting LE cellulitis draining superficial wounds and ulcerations NEUROLOGICAL: Normal speech, gait not observed. PSYCH: Normal mood, normal affect. Laboratory Results - last 24 hr 09/15/16 09/15/16 07:30 07:30 WBC 7.8 RBC 3.47 L Hgb 8.2 L Hct 26.0 L MCV 74.9 L MCHC 31.4 L RDW 18.0 H Plt Count 304 MPV 6.9 L Neutrophils % 73.3 Lymphocytes % 15.2 Monocytes % 7.7 Eosinophils % 2.8 Basophils % 1.0 Sodium 143 Potassium 3.4 L Chloride 107 Carbon Dioxide 26 Anion Gap 10 BUN 25 H Creatinine 1.7 H Random Glucose 95 Calcium 8.4 L Active Medications Generic Name Dose Route Start Last Admin Trade Name Freq PRN Reason Stop Dose Admin Atorvastatin Calcium 10 mg 09/14/16 22:00 09/14/16 21:53 Lipitor - PO 10 mg HS CHARLETTE Administration Brimonidine Tartrate 1 drop 09/14/16 06:00 09/15/16 05:45 Alphagan 0.2% - OD 1 drop TID CHARLETTE Administration Furosemide 20 mg 09/15/16 06:00 09/15/16 05:45 Lasix Injection - IVPUSH 20 mg BID@0600,1400 CHARLETTE Administration Cefazolin Sodium 50 mls @ 100 mls/hr 09/14/16 10:00 09/15/16 01:51 Ancef 1gm Ivpb (Pre-Docked) IVPB 100 mls/hr Q8H-IV CHARLETTE Administration Metoprolol Tartrate 25 mg 09/14/16 10:00 09/14/16 21:53 Lopressor - PO 25 mg BID CHARLETTE Administration Non-Formulary Medication 1 drop 09/14/16 10:00 Bimatoprost [Lumigan] IO DAILY CHARLETTE Non-Formulary Medication 1 each 09/14/16 00:30 09/14/16 04:29 Dorzolamide/Timolol/Pf [Cosopt Pf Eye Drops] OP Not Given BID CHARLETTE Oxycodone HCl 5 mg 09/13/16 23:41 09/15/16 09:03 Roxicodone - PO 5 mg Q4H PRN Administration PAIN Pantoprazole Sodium 40 mg 09/14/16 10:00 09/14/16 12:21 Protonix - PO 40 mg DAILY CHARLETTE Administration ASSESSMENT/PLAN: Patient is a 70 year old male with a past medical history of hypertension, GERD , recent GI bleed 3 weeks ago, venous insufficiency, glaucoma, HLD and recurrent cellulitis of bilateral lower extremity. He presents to the ER on with recurrence of bilateral lower ext. weeping cellulitis with redness and pain x 2 days. ID: Cellulitis of bilateral lower extremities - acute on chronic Assessment/Plan: Cellulitis of bilateral LE continues to improve, less redness , still having weeping edema On Cefazolin since 09/14 WBC within normal limits Lactic acid wnl Outline marking of cellulites noted ID following Elevated lower extremities on 2-3 pillows Monitor vitals, labs Cardiology: Diastolic (congestive) Heart failure - chronic Assessment/Plan: Elevated BNP Chest xray with vascular congestion + bilateral lower ext edema with cellulitis Treatment with Lasix 20mg push BID daily weights, strict intake and output, monitor labs Has history of lower ext edema managed with compression stockings Troponon negative x 1 BNP 953 Cardiology notes reviewed Hypertension - chronic Assessment/Plan: On Lopressor 25mg PO BID Monitor and titrate as needed Renal: Chronic Kidney Disease Assessment/Plan: Monitor BUN/Creat while on diuretics Monitor intake and output F.E.N. Fluids: tolerating PO Electrolytes: monitor and replete Nutrition: Heart healthy diet Prophylaxis: GI: Protonix DVT: recent hx of GI bleed, defer AC. SCDs bilaterally once cellulitis improves Disposition: Continues to require inpatient hospitalization. Full Code. Visit type - Emergency Visit Emergency Visit: Yes ED Registration Date: 09/14/16 Care time: The patient presented to the Emergency Department on the above date and was hospitalized for further evaluation of their emergent condition. - New Patient This patient is new to me today: Yes Date on this admission: 09/16/16 - Critical Care Critical Care patient: No - Discharge Referral Referred to [facility] No
[2016-09-15] MEDS ORDERED: PT OWN MED DRAWER 7, Y5N ONE (10:14)
[2016-09-15] MEDS: PANTOPRAZOLE 40 MG TABLET (FP) PO SCH (10:33)
[2016-09-15] MEDS: METOPROLOL TARTRATE 25 MG TABLET (FP) PO SCH ×2 (10:33→21:40)
[2016-09-15] MEDS: ATORVASTATIN CA 10 MG TABLET (FP) PO SCH (21:40)
[2016-09-16] MEDS: CEFAZOLIN (PRE-DOCKED) 50 ML IVPB SCH ×3 (02:21→17:36)
[2016-09-16] MEDS: FUROSEMIDE 40 MG/4 ML INJECTABLE VIAL IVPUSH SCH ×2 (05:42→13:07)
[2016-09-16] MEDS: BRIMONIDINE TARTRATE 0.2% OPHTHALMIC 5 ML BOTTLE OD SCH ×3 (05:43→21:00)
[2016-09-16 07:37] LABS: BASOPHIL 0.8 % (0-2.0); EOSINOPHIL 1.6 % (0-4.5); MCH 23.7 pg (25.7-33.7); MCHC 31.5 g/dl (32.0-35.9); MEAN CELL VOLUME 75.2 fl (80-96); MEAN PLT VOLUME 7.2 fl (7.5-11.1); NEUTROPHILS 75.8 % (42.8-82.8); PLATELET COUNT 335 K/MM3 (134-434); RDW 17.9 % (11.9-15.9); WHITE BLOOD COUNT 9.6 K/mm3 (4.0-10.0)
[2016-09-16 09:02] LABS: ALBUMIN 2.9 g/dl (3.4-5.0); CALCIUM 8.6 mg/dL (8.5-10.1); COCKROFT - GAULT 60.43; CREATININE 1.7 mg/dL (0.7-1.3)
[2016-09-16 09:04] LABS: BILIRUBIN,TOTAL 0.3 mg/dL (0.2-1.0); TOT PROT 6.7 g/dl (6.4-8.2)
[2016-09-16] MEDS: PANTOPRAZOLE 40 MG TABLET (FP) PO SCH (10:05)
[2016-09-16] MEDS: oxyCODONE HCL 5 MG TABLET PO PRN ×2 (10:05→20:55)
[2016-09-16] MEDS: METOPROLOL TARTRATE 25 MG TABLET (FP) PO SCH ×2 (10:06→21:01)
--- NOTE | 2016-09-16 13:10 | PN ---
Physical Exam: SUBJECTIVE: Patient seen and examined. He is eager to go back to the assisted living. Denies any pain or shortness of breath. States he feels well and misses his activities at the facility. OBJECTIVE: Bilateral lower ext cellulitis continues to improve, having weeping edema Vital Signs Period Temp Pulse Resp BP Sys/Shah Pulse Ox Last 24 Hr 97.8 F-98.3 F 100-110 18-20 133-165/87-96 96 GENERAL: The patient is awake, alert, and fully oriented, in no acute distress. HEAD: Normal with no signs of trauma. EYES: PERRL, extraocular movements intact, sclera anicteric, conjunctiva clear. No ptosis. ENT: Ears normal, nares patent, oropharynx clear without exudates, moist mucous membranes. NECK: Trachea midline, full range of motion, supple. LUNGS: Breath sounds equal, clear to auscultation bilaterally, no wheezes, no crackles, no accessory muscle use. HEART: Regular rate and rhythm ABDOMEN: Soft, nontender, distended, normoactive bowel sounds EXTREMITIES: +weeping edema, 2+ pulses, warm, well-perfused, 3+ bilateral pitting LE cellulitis draining superficial wounds and ulcerations NEUROLOGICAL: Normal speech, gait not observed. PSYCH: Normal mood, normal affect. Laboratory Results - last 24 hr 09/16/16 09/16/16 06:25 06:25 WBC 9.6 RBC 3.76 L Hgb 8.9 L Hct 28.3 L MCV 75.2 L MCHC 31.5 L RDW 17.9 H Plt Count 335 MPV 7.2 L Neutrophils % 75.8 Lymphocytes % 11.6 D Monocytes % 10.2 Eosinophils % 1.6 Basophils % 0.8 Sodium 142 Potassium 3.6 Chloride 102 Carbon Dioxide 30 Anion Gap 10 BUN 27 H Creatinine 1.7 H Creat Clearance w eGFR 40.28 Random Glucose 90 Calcium 8.6 Total Bilirubin 0.3 D AST 24 ALT 18 Alkaline Phosphatase 75 Total Protein 6.7 Albumin 2.9 L Active Medications Generic Name Dose Route Start Last Admin Trade Name Freq PRN Reason Stop Dose Admin Atorvastatin Calcium 10 mg 09/14/16 22:00 09/15/16 21:40 Lipitor - PO 10 mg HS CHARLETTE Administration Brimonidine Tartrate 1 drop 09/14/16 06:00 09/16/16 05:43 Alphagan 0.2% - OD 1 drop TID CHARLETTE Administration Furosemide 20 mg 09/15/16 06:00 09/16/16 05:42 Lasix Injection - IVPUSH 20 mg BID@0600,1400 CHARLETTE Administration Cefazolin Sodium 50 mls @ 100 mls/hr 09/14/16 10:00 09/16/16 10:07 Ancef 1gm Ivpb (Pre-Docked) IVPB 100 mls/hr Q8H-IV CHARLETTE Administration Metoprolol Tartrate 25 mg 09/14/16 10:00 09/16/16 10:06 Lopressor - PO 25 mg BID CHARLETTE Administration Non-Formulary Medication 1 drop 09/14/16 10:00 Bimatoprost [Lumigan] IO DAILY CHARLETTE Non-Formulary Medication 1 each 09/14/16 00:30 09/14/16 04:29 Dorzolamide/Timolol/Pf [Cosopt Pf Eye Drops] OP Not Given BID CHARLETTE Oxycodone HCl 5 mg 09/13/16 23:41 09/16/16 10:05 Roxicodone - PO 5 mg Q4H PRN Administration PAIN Pantoprazole Sodium 40 mg 09/14/16 10:00 09/16/16 10:05 Protonix - PO 40 mg DAILY CHARLETTE Administration ASSESSMENT/PLAN: Patient is a 70 year old male with a past medical history of hypertension, GERD , recent GI bleed 3 weeks ago, venous insufficiency, glaucoma, HLD and recurrent cellulitis of bilateral lower extremity. He presents to the ER on with recurrence of bilateral lower ext. weeping cellulitis with redness and pain x 2 days. ID: Cellulitis of bilateral lower extremities - acute on chronic Assessment/Plan: Cellulitis of bilateral LE continues to improve, less redness , still having weeping edema On Cefazolin since 09/14 WBC within normal limits Lactic acid wnl Outline marking of cellulites noted ID following Elevated lower extremities on 2-3 pillows Monitor vitals, labs Cardiology: Diastolic (congestive) Heart failure - chronic Assessment/Plan: Elevated BNP Chest xray with vascular congestion + bilateral lower ext edema with cellulitis Treatment with Lasix 20mg push BID daily weights, strict intake and output, monitor labs Has history of lower ext edema managed with compression stockings Troponon negative x 1 BNP 953 Cardiology notes reviewed Hypertension - chronic Assessment/Plan: On Lopressor 25mg PO BID Monitor and titrate as needed Renal: Chronic Kidney Disease Assessment/Plan: Monitor BUN/Creat while on diuretics Monitor intake and output F.E.N. Fluids: tolerating PO Electrolytes: monitor and replete Nutrition: Heart healthy diet Prophylaxis: GI: Protonix DVT: recent hx of GI bleed, defer AC. SCDs bilaterally once cellulitis improves Disposition: Continues to require inpatient hospitalization. Full Code. Visit type - Emergency Visit Emergency Visit: Yes ED Registration Date: 09/14/16 Care time: The patient presented to the Emergency Department on the above date and was hospitalized for further evaluation of their emergent condition. - New Patient This patient is new to me today: Yes Date on this admission: 09/16/16 - Critical Care Critical Care patient: No - Discharge Referral Referred to [facility] Med P.C.: No
--- NOTE | 2016-09-16 15:31 | PN ---
Progress Note, Physician History of Present Illness: Reports significant improvement in LE cellulitis Feels much better No c/o leg pain - Current Medication List Current Medications: Active Medications Atorvastatin Calcium (Lipitor -) 10 mg PO HS [facility] Last Admin: 09/15/16 21:40 Dose: 10 mg Brimonidine Tartrate (Alphagan 0.2% -) 1 drop OD TID [facility] Last Admin: 09/16/16 13:08 Dose: 1 drop Furosemide (Lasix Injection -) 20 mg IVPUSH BID@0600,1400 [facility] Last Admin: 09/16/16 13:07 Dose: 20 mg Cefazolin Sodium (Ancef 1gm Ivpb (Pre-Docked)) 50 mls @ 100 mls/hr IVPB Q8H-IV [facility] Last Admin: 09/16/16 10:07 Dose: 100 mls/hr Metoprolol Tartrate (Lopressor -) 25 mg PO BID [facility] Last Admin: 09/16/16 10:06 Dose: 25 mg Non-Formulary Medication (Bimatoprost [Lumigan]) 1 drop IO DAILY [facility] Non-Formulary Medication (Dorzolamide/Timolol/Pf [Cosopt Pf Eye Drops]) 1 each OP BID [facility] Last Admin: 09/14/16 04:29 Dose: Not Given Oxycodone HCl (Roxicodone -) 5 mg PO Q4H PRN PRN Reason: PAIN Last Admin: 09/16/16 10:05 Dose: 5 mg Pantoprazole Sodium (Protonix -) 40 mg PO DAILY [facility] Last Admin: 09/16/16 10:05 Dose: 40 mg - Objective Vital Signs: Vital Signs Temperature 97.3 F L 09/16/16 14:51 Pulse Rate 94 H 09/16/16 14:51 Respiratory Rate 18 09/16/16 09:00 Blood Pressure 114/96 09/16/16 14:51 O2 Sat by Pulse Oximetry (%) 96 09/15/16 22:00 Constitutional: Yes: No Distress, Obese Cardiovascular: Yes: Regular Rate and Rhythm, S1, S2 Respiratory: Yes: CTA Bilaterally Gastrointestinal: Yes: Normal Bowel Sounds, Soft, Abdomen, Obese Extremities: Yes: Other (resolving erythema LE bilaterally) Edema: Yes Edema: LLE: 2+, RLE: 2+ Labs: CBC, BMP 09/16/16 06:25 09/16/16 06:25 INR, PTT INR 1.08 (0.82-1.09) 09/13/16 18:40 Assessment/Plan Bilateral LE cellulitis- improving Azotemia Continue cefazolin IV Anticipate switch to po in am
[2016-09-16] MEDS ORDERED: PT OWN MED DRAWER 7, Y5N ONE (20:54)
[2016-09-16] MEDS: ATORVASTATIN CA 10 MG TABLET (FP) PO SCH (21:01)
[2016-09-17] MEDS: CEFAZOLIN (PRE-DOCKED) 50 ML IVPB SCH ×2 (02:12→09:45)
[2016-09-17] MEDS ORDERED: PT OWN MED DRAWER 7, Y5N ONE ×2 (06:13→14:10)
[2016-09-17] MEDS: BRIMONIDINE TARTRATE 0.2% OPHTHALMIC 5 ML BOTTLE OD SCH ×4 (06:21→14:25)
[2016-09-17] MEDS: FUROSEMIDE 40 MG/4 ML INJECTABLE VIAL IVPUSH SCH ×2 (06:21→14:24)
[2016-09-17 08:09] LABS: BASOPHIL 0.9 % (0-2.0); EOSINOPHIL 3.5 % (0-4.5); MCH 23.8 pg (25.7-33.7); MCHC 31.9 g/dl (32.0-35.9); MEAN CELL VOLUME 74.7 fl (80-96); NEUTROPHILS 71.2 % (42.8-82.8); PLATELET COUNT 328 K/MM3 (134-434); WHITE BLOOD COUNT 8.4 K/mm3 (4.0-10.0)
[2016-09-17 08:36] LABS: ALBUMIN 2.7 g/dl (3.4-5.0)
[2016-09-17 08:40] LABS: BILIRUBIN,TOTAL 0.3 mg/dL (0.2-1.0); CALCIUM 8.6 mg/dL (8.5-10.1); COCKROFT - GAULT 55.18; CREATININE 1.8 mg/dL (0.7-1.3); TOT PROT 6.3 g/dl (6.4-8.2)
[2016-09-17] MEDS: PANTOPRAZOLE 40 MG TABLET (FP) PO SCH (09:45)
[2016-09-17] MEDS: METOPROLOL TARTRATE 25 MG TABLET (FP) PO SCH (09:45)
[2016-09-17] MEDS ORDERED: POTASSIUM CHLORIDE TABS 20 MEQ TABLET.ER (FP) PO SCH (11:00)
--- NOTE | 2016-09-17 13:55 | PN ---
Progress Note, Physician History of Present Illness: OOB in chair No c/o leg pain No fever/ chills - Current Medication List Current Medications: Active Medications Atorvastatin Calcium (Lipitor -) 10 mg PO HS [facility] Last Admin: 09/16/16 21:01 Dose: 10 mg Brimonidine Tartrate (Alphagan 0.2% -) 1 drop OD TID [facility] Last Admin: 09/17/16 07:43 Dose: Not Given Furosemide (Lasix Injection -) 20 mg IVPUSH BID@0600,1400 [facility] Last Admin: 09/17/16 06:21 Dose: 20 mg Cefazolin Sodium (Ancef 1gm Ivpb (Pre-Docked)) 50 mls @ 100 mls/hr IVPB Q8H-IV [facility] Last Admin: 09/17/16 09:45 Dose: 100 mls/hr Metoprolol Tartrate (Lopressor -) 25 mg PO BID [facility] Last Admin: 09/17/16 09:45 Dose: 25 mg Non-Formulary Medication (Bimatoprost [Lumigan]) 1 drop IO DAILY [facility] Non-Formulary Medication (Dorzolamide/Timolol/Pf [Cosopt Pf Eye Drops]) 1 each OP BID [facility] Last Admin: 09/14/16 04:29 Dose: Not Given Oxycodone HCl (Roxicodone -) 5 mg PO Q4H PRN PRN Reason: PAIN Last Admin: 09/16/16 20:55 Dose: 5 mg Pantoprazole Sodium (Protonix -) 40 mg PO DAILY [facility] Last Admin: 09/17/16 09:45 Dose: 40 mg Potassium Chloride (K-Dur -) 20 meq PO DAILY [facility] - Objective Vital Signs: Vital Signs Temperature 97.9 F 09/17/16 09:42 Pulse Rate 91 H 09/17/16 11:19 Respiratory Rate 18 09/17/16 09:42 Blood Pressure 134/90 09/17/16 09:42 O2 Sat by Pulse Oximetry (%) 95 09/17/16 11:19 Constitutional: Yes: No Distress Cardiovascular: Yes: Regular Rate and Rhythm, S1, S2 Respiratory: Yes: CTA Bilaterally Gastrointestinal: Yes: Normal Bowel Sounds, Soft, Abdomen, Obese. No: Tenderness Extremities: Yes: Other (resolving erythema/ warmth LE bilaterally) Edema: Yes Edema: LLE: 2+, RLE: 2+ Labs: CBC, BMP 06/03/17 06:30 09/17/16 06:30 INR, PTT INR 1.08 (0.82-1.09) 09/13/16 18:40 Assessment/Plan Bilateral LE cellulitis- improving Azotemia Discontinue cefazolin IV Keflex 500mg po tid x 7d Outpatient follow up
[2016-09-17] MEDS ORDERED: CEPHALEXIN MONOHYDRATE 500 MG CAPSULE (UD) PO SCH (14:00)
--- NOTE | 2016-09-17 14:22 | DS ---
Physical Exam: SUBJECTIVE: Patient seen and examined. States he feels well. Asking to go back to assisted living today. OBJECTIVE: Discharge back to [facility] today Vital Signs Period Temp Pulse Resp BP Sys/Shah Pulse Ox Last 24 Hr 97.3 F-98.5 F 88-112 18-20 114-140/84-96 95-96 PHYSICAL EXAM GENERAL: The patient is awake, alert, and fully oriented, in no acute distress. HEAD: Normal with no signs of trauma. EYES: PERRL, extraocular movements intact, sclera anicteric, conjunctiva clear. No ptosis. ENT: Ears normal, nares patent, oropharynx clear without exudates, moist mucous membranes. NECK: Trachea midline, full range of motion, supple. LUNGS: Breath sounds equal, clear to auscultation bilaterally, no wheezes, no crackles, no accessory muscle use. HEART: Regular rate and rhythm ABDOMEN: Soft, nontender, distended, normoactive bowel sounds EXTREMITIES: no weeping edema, 2+ pulses, warm, well-perfused, 2+ bilateral pitting LE cellulitis improving PSYCH: Normal mood, normal affect. LABS Laboratory Results - last 24 hr 09/17/16 09/17/16 06:30 06:30 WBC 8.4 RBC 3.57 L Hgb 8.5 L Hct 26.6 L MCV 74.7 L MCHC 31.9 L RDW 18.0 H Plt Count 328 MPV 7.0 L Neutrophils % 71.2 Lymphocytes % 15.4 D Monocytes % 9.0 Eosinophils % 3.5 D Basophils % 0.9 Sodium 142 Potassium 3.5 Chloride 103 Carbon Dioxide 30 Anion Gap 9 BUN 31 H Creatinine 1.8 H Creat Clearance w eGFR 37.71 Random Glucose 85 Calcium 8.6 Total Bilirubin 0.3 AST 25 ALT 13 D Alkaline Phosphatase 70 Total Protein 6.3 L Albumin 2.7 L HOSPITAL COURSE: Date of Admission:09/14/16 Date of Discharge: 09/17/16 ASSESSMENT/PLAN: Patient is a 70 year old male with a past medical history of hypertension, GERD , recent GI bleed 3 weeks ago, venous insufficiency, glaucoma, HLD and recurrent cellulitis of bilateral lower extremity. He presents to the ER on with recurrence of bilateral lower ext. weeping cellulitis with redness and pain x 2 days. ID: Cellulitis of bilateral lower extremities - improving Assessment/Plan: Cellulitis of bilateral LE continues to improve, less redness , no weeping edema today On Cefazolin since 09/14, but will be discharged on Keflex 300mg TID x 7 days WBC within normal limits, afebrile Lactic acid wnl Cleared by ID for discharge Cardiology: Diastolic (congestive) Heart failure - chronic Assessment/Plan: Elevated BNP Chest xray with vascular congestion + bilateral lower ext edema with cellulitis Treatment with Lasix 20mg BID to continue as outpatient Patient to follow up with his electrical maintenance supervisor as an outpatient Repeat CBC/CMP/BunCreat as outpatient to monitor kidney function Potassium supplements daily Hypertension - chronic Assessment/Plan: On Lopressor 25mg PO BID Monitor and titrate as needed Renal: Chronic Kidney Disease Assessment/Plan: PCP follow up on discharge Disposition: Discharge back to [facility] Independent/Assisted living with PCP and continued cardiology follow up. Minutes to complete discharge: 60 Discharge Summary Reason For Visit: CELLULITIS ANEMIA VENOUS INSUFFIENCY Current Active Problems Anemia (Acute) CKD (chronic kidney disease) (Acute) Cellulitis (Acute) GERD (gastroesophageal reflux disease) (Acute) Glaucoma (Acute) HTN (hypertension) (Acute) Venous (peripheral) insufficiency (Acute) Condition: Improved - Instructions Diet, Activity, Other Instructions: Mr. Foster: Your have been prescribed antibiotics of Keflex 500mg by mouth three times daily (every 8 hours) for 7 days total. Please examine your legs daily for continued improvement. If for some reason your leg swelling and redness worsen, please return to the ER. Once your legs fully heal, please continue the compression devices. You have also been started on Lasix 20mg twice per day. Please follow up with your electrical maintenance supervisor within 1 week after discharge for continued care. Lasix helps release any swelling in your legs but it can also deplete your potassium. Please take your potassium supplement daily. You will also need repeat blood work with your primary care physician within 3 days after discharge to check your CBC, CMP and your kidney function. Please take the Ultram (Tramadol) for any pain or discomfort. You have this medication profiled with your existing pharmacy. Please follow up with your electrical maintenance supervisor for continued care. If you have questions, please call me. Kathy Reeves INSTRUCTIONAL DESIGN TECHNOLOGIST [phone] Referrals: Dania Ralph MD [Primary Care Provider] - Disposition: [facility] - Home Medications Comprehensive Discharge Medication List: Ambulatory Orders Acetaminophen [Pain Relief] 650 mg PO Q6H PRN 09/13/16 Bacitracin 30 gm TP DAILY 09/13/16 Bimatoprost [Lumigan] 1 drop IO DAILY 09/13/16 Brimonidine Tartrate [Alphagan 0.2% -] 1 drop OD TID 09/13/16 Cholecalciferol (Vitamin D3) [Vitamin D3] 50,000 unit PO WEEKLY 09/13/16 Dorzolamide/Timolol/Pf [Cosopt Pf Eye Drops] 1 each OP BID 09/13/16 Ferrous Sulfate 325 mg PO DAILY 09/13/16 Hydrocortisone 1% Cream [Hytone 1% Cream -] 1 applic TP DAILY 09/13/16 Metoprolol Tartrate 25 mg PO BID 09/13/16 Omeprazole 20 mg PO DAILY 09/13/16 Petrolatum,White [Aquaphor with Natural Healing] 50 gm TP DAILY 09/13/16 Simvastatin 10 mg PO HS 09/13/16 Tramadol HCl 50 mg PO BID PRN 09/13/16 Atorvastatin Ca [Lipitor] 10 mg PO HS #30 tablet 09/17/16 Cephalexin Monohydrate [Keflex -] 500 mg PO TID #30 cap 09/17/16 Furosemide [Lasix] 20 mg PO BID #60 tablet 09/17/16 Potassium Chloride [K-Dur -] 20 meq PO DAILY #30 tab 09/17/16 This patient is new to me today: No Emergency Visit: Yes ED Registration Date: 09/14/16 Care time: The patient presented to the Emergency Department on the above date and was hospitalized for further evaluation of their emergent condition. Critical Care patient: No - Discharge Referral Referred to [facility] Med P.C.: No
[2016-09-17 15:01] VITALS: BP 139/93; PULSE 102; TEMP 98
[2016-09-17] MEDS: PATIENT'S OWN MEDICATION (NON-FORMULARY) (Dorzolamide/Timolol/Pf [Cosopt Pf Eye Drops] 1 E OP SCH (18:25)
[2016-09-17] MEDS: PATIENT'S OWN MEDICATION (NON-FORMULARY) (Bimatoprost [Lumigan] 1 DROP) IO SCH (18:25)
== END 2016-09-17 15:16 | disposition home or self-care (01) | DRG 603 ==
LOC: JER 16:12 → JERBED 09-14 03:39 → J6S 09-14 05:50
PROVIDERS: ADMIT Internal Medicine; ATTEND Nurse Practitioner Family
DX: L03.116 Cellulitis of left lower limb (principal); I50.32 Chronic diastolic (congestive) heart failure; L03.115 Cellulitis of right lower limb; D64.9 Anemia, unspecified; K21.9 Gastro-esophageal reflux disease without esophagitis; H40.9 Unspecified glaucoma; I87.2 Venous insufficiency (chronic) (peripheral); E78.5 Hyperlipidemia, unspecified; R00.0 Tachycardia, unspecified; D63.1 Anemia in chronic kidney disease; N18.9 Chronic kidney disease, unspecified
CPT/HCPCS: 36415; 71010-TC; 80048; 80053; 81003; 81015; 82550; 82803; 83605; 83735; 83880; 84100; 84484; 85025; 85027; 85610; 85730; 86850; 86900; 86901; 87040; 87086; 87186; 93005; 93010; 93306-TC; 93970-TC; 97116-GP; 97162; 99285-25

== ENCOUNTER 2016-09-17 17:39 | Observation (INO) | payer OTHER ==
--- NOTE | 2016-09-17 18:51 | PDOC ---
History of Present Illness - General Chief Complaint: RX Refill Stated Complaint: SICK Time Seen by Provider: 09/17/16 18:37 - History of Present Illness Initial Comments: 09/17/16 19:38 CHIEF COMPLAINT: leg pain, rx refill HISTORY OF PRESENT ILLNESS: 70 yo M with PMH of anemia, GI ulcer (recent bleed 3 w ago), GERD, HTN, glaucoma, CKD, venous insufficiency and R eye blindness ( glaucoma), was discharged this morning from this hospital after diagnosis of cellulitis and inpatient stay x 3 days for IV antibiotics and bounced back from assisted living facility due to inability to fill medication. Patient currently complains of pain to his legs. Discussed with assistant paralegal at [facility] living [facility], who states that there is no corrections caseworker to accept patient back to the facility until Monday and therefore he may not return until then. REVIEW OF SYSTEMS General/Constitutional: Denies fever or chills. Denies weakness Musculoskeletal: Pain to legs. PHYSICAL EXAM General Appearance: Well-appearing, appropriately dressed, OOB and ambulating around ER with walker. Respiratory/Chest: Lungs CTAB. Cardiovascular: RRR. S1, S2. Musculoskeletal/Extremities: Cellulitis to b/l LE. Normal inspection. FROM of all extremities, normal capillary refill. Pelvis Stable. No CVA tenderness. No tenderness to extremities, pedal edema, swelling, erythema or deformity. Integumentary: See MSK. Appropriate color, dry, warm. No cyanosis, erythema, jaundice or rash Neurologic: editor II-XII intact. Fully oriented, alert. Appropriate mood/affect. Motor strength 5/5. No appreciable EOM palsy, facial droop or sensory deficit. Past History - Past Medical History Allergies/Adverse Reactions: Allergies Allergy/AdvReac Type Severity Reaction Status Date / Time No Known Allergies Allergy Verified 09/17/16 18:01 Home Medications: Ambulatory Orders Acetaminophen [Pain Relief] 650 mg PO Q6H PRN 09/13/16 Bacitracin 30 gm TP DAILY 09/13/16 Bimatoprost [Lumigan] 1 drop IO DAILY 09/13/16 Brimonidine Tartrate [Alphagan 0.2% -] 1 drop OD TID 09/13/16 Cholecalciferol (Vitamin D3) [Vitamin D3] 50,000 unit PO WEEKLY 09/13/16 Dorzolamide/Timolol/Pf [Cosopt Pf Eye Drops] 1 each OP BID 09/13/16 Ferrous Sulfate 325 mg PO DAILY 09/13/16 Omeprazole 20 mg PO DAILY 09/13/16 Petrolatum,White [Aquaphor with Natural Healing] 50 gm TP DAILY 09/13/16 Simvastatin 10 mg PO HS 09/13/16 Tramadol HCl 50 mg PO BID PRN 09/13/16 Anemia: Yes GI Disorders: Yes (gerd) HTN: Yes Hypercholesterolemia: Yes Psychiatric Problems: Yes Other medical history: cellulitis both legs - Psycho/Social/Smoking Cessation Hx Anxiety: No Suicidal Ideation: No Smoking History: Never smoked Information on smoking cessation initiated: No Hx Alcohol Use: No Drug/Substance Use Hx: No Substance Use Type: None *Physical Exam - Vital Signs Last Vital Signs Temp Pulse Resp BP Pulse Ox 98.1 F 118 H 18 130/88 97 09/17/16 17:53 09/17/16 17:53 09/17/16 17:53 09/17/16 17:53 09/17/16 18:33 Medical Decision Making - Medical Decision Making 09/17/16 19:16 Patient was discharged from hospitalist service today but sent back from assisted living due to inability to obtain medications until Monday. Patient was prescribed Keflex and Lasix. Will give one dose of medications here and return to assisted living. Assisted living refuses to accept patient. Per RN supervisor dairy sanitation, will admit for observation for medication until patient can be readmitted to facility. 09/17/16 19:55 Discussed case with hospitalist attending Alexa, who accepts patient for observation. *DC/Admit/Observation/Transfer Diagnosis at time of Disposition: Cellulitis - Discharge Dispostion Admit: Yes
[2016-09-17] MEDS ORDERED: FUROSEMIDE 20 MG TABLET (FP) PO ONE (19:18)
[2016-09-17] MEDS ORDERED: CEPHALEXIN MONOHYDRATE 500 MG CAPSULE (UD) PO ONE (19:18)
[2016-09-17] MEDS ORDERED: oxyCODONE HCL 5 MG TABLET PO ONE (19:27)
--- NOTE | 2016-09-17 19:59 | HP ---
Admitting History and Physical - Admission Chief Complaint: cellulitis History of Present Illness: 70 yo M with PMH of anemia, GI ulcer (recent bleed 3 w ago), GERD, HTN, glaucoma , CKD, venous insufficiency and R eye blindness (glaucoma), was discharged this morning from this hospital after diagnosis of cellulitis and inpatient stay x 3 days for IV antibiotics and bounced back from assisted living facility due to inability to fill medication, moreover there was a problem with communication between social media campaign manager at [facility]. He reports "electric" pain to BL knees and thighs 11/24. Reports improvement with oxycodone. NO aggravating factors. Josiah f/v/c/n/ d. Denies sob, CP, heart palps, syncope. PMH/PSH: anemia, GI ulcer (recent bleed 3 w ago), GERD, HTN, glaucoma, CKD, venous insufficiency and R eye blindness (glaucoma), cellulitis Social History: [place] resident Smoking:denies Alcohol:denies Drugs: denies Hepatitis history: denies Family History: HTN Ros neg except for HPI PE: Gen- obese, in nad Hent-at/nc, trena, neck supple trachea midline Resp- lungs ctab, no wheeze, no ronchi, no rales, no cyanosis Cards- tachy, no JVD, BLE edema +2, peripheral pulses palpable BLE SKin- erythema BLE, open area to R chan, small blisters to BLE. increased warmth BLE. Psych- cooperative, no agitation Neuro- cn2-12 grossly intact, no facial droop, speech clear no seizures GI- obese, soft non-tender, no rebound no guarding, no rigidity Prob list cellulitis anemia CKD Venous insufficiency Gerd imaging reviewed ekg A/p- 70 yo M with PMH of anemia, GI ulcer (recent bleed 3 w ago), GERD, HTN, glaucoma, CKD, venous insufficiency and R eye blindness (glaucoma), was discharged this morning from this hospital after diagnosis of cellulitis and inpatient stay x 3 days for IV antibiotics and bounced back from assisted living facility due to inability to fill medication, moreover there was a problem with communication between social media campaign manager at [facility]. 1. Cellulitis both LE Apparent diminishment of redness to BLE as evidenced by demarcation of redness on previous admission Had IV ABX x 3days while INPT here Leg elevation Continue Keflex as prescribed on DC 2. Anemia possibly related to CKD V Recent GIB H/H Appears stable No s/s of bleeding Cont Iron supplement Monitor CBC 3. CKD Appears stable during recent stay Monitor BMP 4. Venous insufficiency Continue Lasix 5. Tachycardia ? Pain, ?infection, ?PE Sinus rhythm, NO significant change prior EKG Echo from 08/2015 showed no sig valve disease, or systolic dysfunction No prior history of PE, Duplex neg for DVT Denies SOB, CP -PE less likely FU troponin Consider Cardiology consult 6. Gerd Cont PPI DVT prophy OOB, Hep SQ Dispo- Bounce back from [facility]. Will need coordination with [facility] social media campaign manager for dispo. History Source: Patient, Medical Record Limitations to Obtaining History: No Limitations - Past Medical History Renal/: Yes: Renal Inusuff Heme/Onc: Yes: Anemia - Smoking History Smoking history: Never smoked - Alcohol/Substance Use Hx Alcohol Use: No Home Medications - Allergies Allergies/Adverse Reactions: Allergies Allergy/AdvReac Type Severity Reaction Status Date / Time No Known Allergies Allergy Verified 09/17/16 18:01 - Home Medications Home Medications: Ambulatory Orders Acetaminophen [Pain Relief] 650 mg PO Q6H PRN 09/13/16 Bacitracin 30 gm TP DAILY 09/13/16 Bimatoprost [Lumigan] 1 drop IO DAILY 09/13/16 Brimonidine Tartrate [Alphagan 0.2% -] 1 drop OD TID 09/13/16 Cholecalciferol (Vitamin D3) [Vitamin D3] 50,000 unit PO WEEKLY 09/13/16 Dorzolamide/Timolol/Pf [Cosopt Pf Eye Drops] 1 each OP BID 09/13/16 Ferrous Sulfate 325 mg PO DAILY 09/13/16 Omeprazole 20 mg PO DAILY 09/13/16 Petrolatum,White [Aquaphor with Natural Healing] 50 gm TP DAILY 09/13/16 Simvastatin 10 mg PO HS 09/13/16 Tramadol HCl 50 mg PO BID PRN 09/13/16 Physical Examination Vital Signs: Vital Signs Temperature 98.1 F 09/17/16 17:53 Pulse Rate 118 H 09/17/16 17:53 Respiratory Rate 18 09/17/16 17:53 Blood Pressure 130/88 09/17/16 17:53 O2 Sat by Pulse Oximetry (%) 97 09/17/16 18:33 Visit type - Emergency Visit Emergency Visit: Yes ED Registration Date: 09/17/16 Care time: The patient presented to the Emergency Department on the above date and was hospitalized for further evaluation of their emergent condition. - New Patient This patient is new to me today: Yes Date on this admission: 09/18/16 - Critical Care Critical Care patient: No
[2016-09-17] MEDS ORDERED: traMADol HCL 50 MG TABLET PO PRN (20:07)
[2016-09-17] MEDS ORDERED: ONDANSETRON 4 MG/2 ML VIAL IVPB PRN (20:13)
[2016-09-17] MEDS ORDERED: FUROSEMIDE 40 MG TABLET (FP) ONE (20:23)
[2016-09-17] MEDS ORDERED: oxyCODONE HCL 5 MG TABLET ONE (20:24)
[2016-09-17] MEDS ORDERED: CEPHALEXIN MONOHYDRATE 250 MG CAPSULE (FP) ONE (20:24)
[2016-09-17] MEDS ORDERED: METOPROLOL TARTRATE 25 MG TABLET (FP) PO SCH (22:00)
[2016-09-17] MEDS: ATORVASTATIN CA 10 MG TABLET (FP) PO SCH (23:02)
[2016-09-18 02:33] VITALS: BMI 33.4
[2016-09-18] MEDS: ACETAMINOPHEN 325 MG TABLET (FP) PO PRN ×2 (03:49→21:19)
[2016-09-18] MEDS: oxyCODONE HCL 5 MG TABLET PO PRN ×2 (03:50→21:18)
[2016-09-18 04:11] LABS: ANION GAP 14 (8-16); CALCIUM 8.5 mg/dL (8.5-10.1); CO2 27 mmol/L (21-32); COCKROFT - GAULT 52.5; CREATININE 1.9 mg/dL (0.7-1.3); GLUCOSE,RANDOM 88 mg/dL (74-106)
[2016-09-18] MEDS: CEPHALEXIN MONOHYDRATE 500 MG CAPSULE (UD) PO SCH ×3 (06:00→21:18)
[2016-09-18] MEDS ORDERED: BRIMONIDINE TARTRATE 0.2% OPHTHALMIC 5 ML BOTTLE OD SCH (06:00)
[2016-09-18] MEDS: FUROSEMIDE 20 MG TABLET (FP) PO SCH ×2 (06:00→13:48)
[2016-09-18] MEDS: BRIMONIDINE TARTRATE 0.2% OPHTHALMIC 5 ML BOTTLE OU SCH ×3 (06:55→21:17)
[2016-09-18] MEDS ORDERED: METOPROLOL TARTRATE 25 MG TABLET (FP) PO SCH (07:16)
[2016-09-18] MEDS ORDERED: METOPROLOL TARTRATE 50 MG TABLET (FP) PO SCH (07:21)
[2016-09-18 07:50] LABS: TROPONIN I < 0.02 ng/ml (0.00-0.05)
[2016-09-18 08:57] LABS: EOSINOPHIL 2.5 % (0-4.5); MCH 23.8 pg (25.7-33.7); MEAN CELL VOLUME 74.4 fl (80-96); MEAN PLT VOLUME 7.2 fl (7.5-11.1); NEUTROPHILS 75.3 % (42.8-82.8); PLATELET COUNT 341 K/MM3 (134-434); WHITE BLOOD COUNT 9.5 K/mm3 (4.0-10.0)
[2016-09-18] MEDS ORDERED: PATIENT'S OWN MEDICATION (NON-FORMULARY) (Dorzolamide/Timolol/Pf [Cosopt Pf Eye Drops] 1 E OP SCH (10:00)
[2016-09-18] MEDS ORDERED: PANTOPRAZOLE 20 MG TABLET (FP) PO SCH ×2 (10:00→10:47)
[2016-09-18] MEDS: METOPROLOL TARTRATE 50 MG TABLET (FP) PO SCH ×2 (10:20→21:18)
[2016-09-18] MEDS: HEPARIN NA (PORCINE) 5,000 UNITS/ML 1ML VIAL SQ SCH ×2 (10:20→21:18)
[2016-09-18] MEDS: FERROUS SO4 325 MG TABLET (FP) PO SCH (10:20)
[2016-09-18] MEDS: TIMOLOL 0.5% OPHTHALMIC SOL 5 ML BOTTLE OU SCH (10:23)
[2016-09-18] MEDS: DORZOLAMIDE 2% HCL OPHTHALMIC SOLUTION 10 ML BOTTLE OU SCH (10:25)
--- NOTE | 2016-09-18 10:49 | PN ---
Physical Exam: SUBJECTIVE: Patient seen and examined. He is sitting in the chair, in no acute distress. Eager to return to the assisted living facility. Was discharge yesterday but since no dairy grazer was available, he was returned to [facility] under observation. OBJECTIVE: Discharge yesterday, but pt returned from the facility after no dairy grazer was available to accept patient ER notes reviewed Vital Signs Period Temp Pulse Resp BP Sys/Shah Pulse Ox Last 24 Hr 98.1 F 113 18-18 147/98 97 GENERAL: The patient is awake, alert, and fully oriented, in no acute distress. HEAD: Normal with no signs of trauma. EYES: PERRL, extraocular movements intact, sclera anicteric, conjunctiva clear. No ptosis. ENT: Ears normal, nares patent, oropharynx clear without exudates, moist mucous membranes. NECK: Trachea midline, full range of motion, supple. LUNGS: Breath sounds equal, clear to auscultation bilaterally, no wheezes, no crackles, no accessory muscle use. HEART: Regular rate and rhythm ABDOMEN: Soft, nontender, distended, normoactive bowel sounds EXTREMITIES: no weeping edema, 2+ pulses, warm, well-perfused, 2+ bilateral pitting LE cellulitis improving PSYCH: Normal mood, normal affect. Laboratory Results - last 24 hr 09/18/16 09/18/16 03:00 07:30 WBC 9.5 RBC 3.63 L Hgb 8.6 L Hct 27.0 L MCV 74.4 L MCHC 32.0 RDW 18.0 H Plt Count 341 MPV 7.2 L Neutrophils % 75.3 Lymphocytes % 13.4 Monocytes % 7.8 Eosinophils % 2.5 Basophils % 1.0 Sodium 143 Potassium 4.0 Chloride 102 Carbon Dioxide 27 Anion Gap 14 BUN 41 H D Creatinine 1.9 H Random Glucose 88 Calcium 8.5 Creatine Kinase 77 Troponin I < 0.02 Active Medications Generic Name Dose Route Start Last Admin Trade Name Freq PRN Reason Stop Dose Admin Acetaminophen 650 mg 09/17/16 20:13 09/18/16 03:49 Tylenol - PO 650 mg Q6H PRN Administration FEVER OR PAIN Atorvastatin Calcium 10 mg 09/17/16 22:00 09/17/16 23:02 Lipitor - PO 10 mg HS CHARLETTE Administration Brimonidine Tartrate 1 drop 09/18/16 06:00 09/18/16 06:55 Alphagan 0.2% - OU 1 drop TID CHARLETTE Administration Cephalexin HCl 500 mg 09/18/16 06:00 09/18/16 06:00 Keflex - PO 500 mg TID CHARLETTE Administration Dorzolamide HCl 1 drop 09/18/16 10:00 09/18/16 10:25 Trusopt 2% OU 1 drop DAILY CHARLETTE Administration Ferrous Sulfate 325 mg 09/18/16 10:00 09/18/16 10:20 Feosol - PO 325 mg DAILY CHARLETTE Administration Furosemide 20 mg 09/18/16 06:00 09/18/16 06:00 Lasix - PO 20 mg BID@0600,1400 CHARLETTE Administration Heparin Sodium (Porcine) 5,000 unit 09/18/16 10:00 09/18/16 10:20 Heparin - SQ 5,000 unit BID CHARLETTE Administration Latanoprost 1 drop 09/18/16 22:00 Xalatan 0.005% Eye Drops - OU HS [facility] Metoprolol Tartrate 25 mg 09/18/16 07:31 09/18/16 10:20 Lopressor - PO 25 mg BID [facility] Administration Ondansetron HCl 4 mg 09/17/16 20:13 Zofran Injection IVPB Q4H PRN NAUSEA AND/OR VOMITING Oxycodone HCl 5 mg 09/17/16 20:33 09/18/16 03:50 Roxicodone - PO 5 mg Q6H PRN Administration PAIN Pantoprazole Sodium 40 mg 09/18/16 10:47 Protonix - PO DAILY [facility] Pantoprazole Sodium 20 mg 09/18/16 10:48 Protonix - PO 09/18/16 10:49 ONCE ONE Timolol Maleate 1 drop 09/18/16 10:00 09/18/16 10:23 Timoptic 0.5% OU 1 drop DAILY CHARLETTE Administration Tramadol HCl 50 mg 09/17/16 20:07 Ultram - PO BID PRN PAIN ASSESSMENT/PLAN: Patient is a 70 year old male with a past medical history of hypertension, GERD , recent GI bleed 3 weeks ago, venous insufficiency, glaucoma, HLD and recurrent cellulitis of bilateral lower extremity. He presents to the ER on with recurrence of bilateral lower ext. weeping cellulitis with redness and pain x 2 days. ID: Cellulitis of bilateral lower extremities - improving Assessment/Plan: Cellulitis of bilateral LE continues to improve, less redness , no weeping edema today On Cefazolin since 09/14 Was discharged on 09/17 with Keflex 300mg TID x 7 days WBC within normal limits, afebrile Lactic acid wnl on last admission Cleared by ID for discharge, but pt returned from facility and placed under observation Anticipate discharge tomorrow Cardiology: Diastolic (congestive) Heart failure - chronic Assessment/Plan: Elevated BNP Chest xray with vascular congestion + bilateral lower ext edema with cellulitis Treatment with Lasix 20mg BID to continue as outpatient Patient to follow up with his bread dough mixer as an outpatient Repeat CBC/CMP/BunCreat as outpatient to monitor kidney function Potassium supplements daily Hypertension - chronic Assessment/Plan: On Lopressor 25mg PO BID Monitor and titrate as needed Tachycardia - likely chronic Assessment/Plan: Likely secondary to anemia Negative for DVT, denies chest pain Troponins x 2 negative Software Analyst evaluated patient today Pt to follow up with his bread dough mixer within 1 week after discharge On metroprol 25mg BID Renal Chronic Kidney Disease Assessment/Plan: On Lasix, unknown baseline creatinine Creat 1.8, on Lasix 20mg BID for CHF Monitor BMP Hematology Anemia likely related to chronic kidney disease Assessment/Plan: Recent GI bleed apx 3 weeks prior s/p 2 units of prbc No signs of bleeding, continue iron supplements Monitor CBC as outpatient hmg/hc.10/11 On Ferrous sulfate 325mg daily Increase Protonix to 40mg daily Patient remains asymptomatic Last colonoscpy 4 years ago, will send GI referral on d/c, pt in agreement Disposition: Discharge back to [facility] Independent/Assisted living with PCP and continued cardiology follow up. Patient should also see a GI physician for follow up on anemia and GI ulcers. Protonix increased to 40mg daily. Visit type - Emergency Visit Emergency Visit: Yes ED Registration Date: 09/17/16 Care time: The patient presented to the Emergency Department on the above date and was hospitalized for further evaluation of their emergent condition. - New Patient This patient is new to me today: No - Critical Care Critical Care patient: No - Discharge Referral Referred to [facility] Med P.C.: No
[2016-09-18] MEDS ORDERED: PANTOPRAZOLE 20 MG TABLET (FP) PO ONE (11:10)
--- NOTE | 2016-09-18 16:28 | EKG ---
Test Reason : Blood Pressure : / mmHG Vent. Rate : 111 BPM Atrial Rate : 111 BPM P-R Int : 128 ms QRS Dur : 068 ms QT Int : 340 ms P-R-T Axes : 026 008 045 degrees QTc Int : 462 ms POOR DATA QUALITY, INTERPRETATION MAY BE ADVERSELY AFFECTED SINUS TACHYCARDIA POSSIBLE LEFT ATRIAL ENLARGEMENT POSSIBLE INFERIOR INFARCT (CITED ON OR BEFORE 13-SEP-2016) ABNORMAL ECG WHEN COMPARED WITH ECG OF 13-SEP-2016 19:21, NO SIGNIFICANT CHANGE WAS FOUND Confirmed by RYNAN WIN MD ([id number]) on 09/18/2016 4:27:38 PM Referred By: Confirmed By:RYANN WIN MD
[2016-09-18] MEDS ORDERED: PT OWN MED DRAWER 7, Y5N ONE ×2 (17:28→21:06)
--- NOTE | 2016-09-18 17:28 | CON.CARD ---
Consult Consult Specialty:: Cardiology Referred by:: Hospitalist Reason for Consultation:: Cardiac evaluation - Past Medical History Renal/: Yes: Renal Inusuff - Alcohol/Substance Use Hx Alcohol Use: No - Smoking History Smoking history: Never smoked Home Medications - Allergies Allergies/Adverse Reactions: Allergies Allergy/AdvReac Type Severity Reaction Status Date / Time No Known Allergies Allergy Verified 09/17/16 18:01 - Home Medications Home Medications: Ambulatory Orders Acetaminophen [Pain Relief] 650 mg PO Q6H PRN 09/13/16 Bacitracin 30 gm TP DAILY 09/13/16 Bimatoprost [Lumigan] 1 drop IO DAILY 09/13/16 Brimonidine Tartrate [Alphagan 0.2% -] 1 drop OD TID 09/13/16 Cholecalciferol (Vitamin D3) [Vitamin D3] 50,000 unit PO WEEKLY 09/13/16 Dorzolamide/Timolol/Pf [Cosopt Pf Eye Drops] 1 each OP BID 09/13/16 Ferrous Sulfate 325 mg PO DAILY 09/13/16 Omeprazole 20 mg PO DAILY 09/13/16 Petrolatum,White [Aquaphor with Natural Healing] 50 gm TP DAILY 09/13/16 Simvastatin 10 mg PO HS 09/13/16 Tramadol HCl 50 mg PO BID PRN 09/13/16 Vital Signs: Vital Signs Temperature 97.7 F 09/18/16 14:00 Pulse Rate 101 H 09/18/16 14:00 Respiratory Rate 18 09/18/16 14:00 Blood Pressure 150/99 09/18/16 14:00 O2 Sat by Pulse Oximetry (%) 97 09/18/16 13:16 - Other Data Labs, Other Data: CBC, BMP 09/18/16 07:30 09/18/16 03:00 Troponin, BNP 09/18/16 03:00 Troponin I < 0.02 Troponin, BNP 09/18/16 03:00 Troponin I < 0.02
[2016-09-18] MEDS: ATORVASTATIN CA 10 MG TABLET (FP) PO SCH (21:18)
[2016-09-18] MEDS ORDERED: LATANOPROST 0.005% OPHTH SOLN 2.5ML BOTTLE OU SCH (22:00)
[2016-09-19] MEDS: FUROSEMIDE 20 MG TABLET (FP) PO SCH ×2 (06:18→14:09)
[2016-09-19] MEDS: CEPHALEXIN MONOHYDRATE 500 MG CAPSULE (UD) PO SCH ×2 (06:18→14:09)
[2016-09-19] MEDS: BRIMONIDINE TARTRATE 0.2% OPHTHALMIC 5 ML BOTTLE OU SCH ×2 (06:18→14:12)
[2016-09-19] MEDS ORDERED: PT OWN MED DRAWER 7, Y5N ONE (09:43)
[2016-09-19] MEDS: METOPROLOL TARTRATE 50 MG TABLET (FP) PO SCH (09:46)
[2016-09-19] MEDS: HEPARIN NA (PORCINE) 5,000 UNITS/ML 1ML VIAL SQ SCH (09:46)
[2016-09-19] MEDS: FERROUS SO4 325 MG TABLET (FP) PO SCH (09:46)
[2016-09-19] MEDS: TIMOLOL 0.5% OPHTHALMIC SOL 5 ML BOTTLE OU SCH (09:47)
[2016-09-19] MEDS: DORZOLAMIDE 2% HCL OPHTHALMIC SOLUTION 10 ML BOTTLE OU SCH (09:48)
[2016-09-19] MEDS ORDERED: PANTOPRAZOLE 40 MG TABLET (FP) PO SCH (10:00)
--- NOTE | 2016-09-19 12:26 | DS ---
Physical Exam: SUBJECTIVE: Patient seen and examined OBJECTIVE: Vital Signs Period Temp Pulse Resp BP Sys/Shah Pulse Ox Last 24 Hr 97 F-98.2 F 80-107 18-20 138-154/63-99 97-97 PHYSICAL EXAM GENERAL: The patient is awake, alert, and fully oriented, in no acute distress. HEAD: Normal with no signs of trauma. EYES: PERRL, extraocular movements intact, sclera anicteric, conjunctiva clear. No ptosis. ENT: Ears normal, nares patent, oropharynx clear without exudates, moist mucous membranes. NECK: Trachea midline, full range of motion, supple. LUNGS: Breath sounds equal, clear to auscultation bilaterally, no wheezes, no crackles, no accessory muscle use. HEART: Regular rate and rhythm ABDOMEN: Soft, nontender, distended, normoactive bowel sounds EXTREMITIES: no weeping, 2+ pulses, warm, well-perfused, 2+ bilateral pitting edema LABS CBCD WBC 9.5 K/mm3 (4.0-10.0) 09/18/16 07:30 RBC 3.63 M/mm3 (4.00-5.60) L 09/18/16 07:30 Hgb 8.6 GM/dL (11.7-16.9) L 09/18/16 07:30 Hct 27.0 % (35.4-49) L 09/18/16 07:30 MCV 74.4 fl (80-96) L 09/18/16 07:30 MCHC 32.0 g/dl (32.0-35.9) 09/18/16 07:30 RDW 18.0 % (11.9-15.9) H 09/18/16 07:30 Plt Count 341 K/MM3 (134-434) 09/18/16 07:30 MPV 7.2 fl (7.5-11.1) L 09/18/16 07:30 CMP Sodium 143 mmol/L (136-145) 09/18/16 03:00 Potassium 4.0 mmol/L (3.5-5.1) 09/18/16 03:00 Chloride 102 mmol/L (98-107) 09/18/16 03:00 Carbon Dioxide 27 mmol/L (21-32) 09/18/16 03:00 Anion Gap 14 (8-16) 09/18/16 03:00 BUN 41 mg/dL (7-18) H D 09/18/16 03:00 Creatinine 1.9 mg/dL (0.7-1.3) H 09/18/16 03:00 Calcium 8.5 mg/dL (8.5-10.1) 09/18/16 03:00 HOSPITAL COURSE: Date of Admission:09/17/16 Date of Discharge: 09/19/16 Patient is a 70 year old male with a past medical history of hypertension, GERD , recent GI bleed 3 weeks ago, venous insufficiency, glaucoma, HLD and recurrent cellulitis of bilateral lower extremity. He was hospitalized from -09/17/16 for bilateral lower extremity cellulitis. He was treated with IV Cefazolin and then discharged to [facility] on Monday09/17/16 with a prescription for Keflex for an additional 7 days of treatment. Upon arriving at [facility] transport was advised the [facility] does not accept residents back on the weekends. Patient was returned to the hospital where he remained over the weekend. Cellulitis of bilateral lower extremities Continued Keflex Diastolic heart failure, chronic Continued PO lasix Hypertension Continued lopressor 25mg PO BID Chronic Kidney Disease Stable Minutes to complete discharge: 35 Discharge Summary Reason For Visit: CELLULITIS Current Active Problems Cellulitis (Acute) Condition: Improved - Instructions Diet, Activity, Other Instructions: Mr. Foster: Your have been prescribed antibiotics of Keflex 500mg by mouth three times daily (every 8 hours) for 7 days total. Please examine your legs daily for continued improvement. If for some reason your leg swelling and redness worsen, please return to the ER. Once your legs fully heal, please continue the compression devices. You have also been started on Lasix 20mg twice per day. Please follow up with your investigator cash shortage within 1 week after discharge for continued care. Lasix helps release any swelling in your legs but it can also deplete your potassium. Please take your potassium supplement daily. You will also need repeat blood work with your primary care physician within 3 days after discharge to check your CBC, CMP and your kidney function. Please take the Ultram (Tramadol) for any pain or discomfort. You have this medication profiled with your existing pharmacy. Please follow up with your investigator cash shortage for continued care. Referrals: Dania Ralph MD [Staff Physician] - Disposition: CARE HOME FACILITY - Home Medications Comprehensive Discharge Medication List: Ambulatory Orders Acetaminophen [Pain Relief] 650 mg PO Q6H PRN 09/13/16 Bacitracin 30 gm TP DAILY 09/13/16 Bimatoprost [Lumigan] 1 drop IO DAILY 09/13/16 Brimonidine Tartrate [Alphagan 0.2% -] 1 drop OD TID 09/13/16 Cholecalciferol (Vitamin D3) [Vitamin D3] 50,000 unit PO WEEKLY 09/13/16 Dorzolamide/Timolol/Pf [Cosopt Pf Eye Drops] 1 each OP BID 09/13/16 Ferrous Sulfate 325 mg PO DAILY 09/13/16 Omeprazole 20 mg PO DAILY 09/13/16 Petrolatum,White [Aquaphor with Natural Healing] 50 gm TP DAILY 09/13/16 Simvastatin 10 mg PO HS 09/13/16 Tramadol HCl 50 mg PO BID PRN 09/13/16 Cephalexin Monohydrate [Keflex -] 500 mg PO TID #18 tab 09/19/16 Furosemide [Lasix -] 20 mg PO BID #60 tablet 09/19/16 Metoprolol Tartrate [Lopressor -] 25 mg PO BID #60 tablet 09/19/16 This patient is new to me today: Yes Date on this admission: 09/21/16 Emergency Visit: No Critical Care patient: No - Discharge Referral Referred to [facility] No
[2016-09-19 17:16] VITALS: BP 138/92; PULSE 98; TEMP 98.2
== END 2016-09-19 18:05 ==
LOC: JER 17:39 → JERBED 19:55 → INTOOBSV 19:55 → UNDOADMIN 20:00 → JERBED 20:00 → J6S 21:18
PROVIDERS: ADMIT Internal Medicine; ATTEND Nurse Practitioner Acute Care
PROC: 3E013GC Introduction of Other Therapeutic Substance into Subcutaneous Tissue, Percutaneous Approach (ICD-10-PCS; principal; 2016-09-17)
DX: L03.116 Cellulitis of left lower limb (principal); L03.115 Cellulitis of right lower limb; I12.9 Hypertensive chronic kidney disease with stage 1 through stage 4 chronic kidney disease, or unspecified chronic kidney disease; N18.9 Chronic kidney disease, unspecified; K21.9 Gastro-esophageal reflux disease without esophagitis; K25.9 Gastric ulcer, unspecified as acute or chronic, without hemorrhage or perforation; H26.9 Unspecified cataract; I87.2 Venous insufficiency (chronic) (peripheral); H54.41 Blindness, right eye, normal vision left eye; D64.9 Anemia, unspecified; R00.0 Tachycardia, unspecified
CPT/HCPCS: 36415; 80048; 82550; 84484; 85025; 93005; 93010; 99283-25; G0378; J1644

== ENCOUNTER 2016-09-29 20:45 | Inpatient (IN) | payer OTHER ==
[2016-09-29 20:58] VITALS: BMI 31.9
[2016-09-29] MEDS ORDERED: VANCOMYCIN 1,500 MG in DEXTROSE 5%-WATER - 500 ML IVPB ONE (21:28)
[2016-09-29] MEDS ORDERED: ACETAMINOPHEN 500 MG TABLET (FP) PO ONE (22:18)
--- NOTE | 2016-09-29 22:19 | PDOC ---
History of Present Illness - History of Present Illness Initial Comments: 09/29/16 22:47 Patient is a 70 year old male from [facility] with significant medical hx of HTN, GERD, recent GI bleed (3 weeks ago), venous insufficiency, glaucoma, and recurrent cellulitis of lower extremities who is returning to the ED for bilateral cellulitis. Patient has been hospitalized twice for cellulitis over the past month. He was admitted from 09/14-09/17 and again from 09/17-09/19. He was treated with IV Cefazolin during his first stay and discharged back to the assisted living facility with a prescription for seven day course of Keflex. The patient returned to the hospital because the [facility] does not accept patients back over the weekend. Patient is arriving today complaining of chills , weakness, and lower extremity pain, swelling, and redness. The patient states that he completed his seven day course of antibiotics but his symptoms have not resolved. Patient has a rectal temperature of 101 in the ED. <Lyssa Gonzalez - Last Filed: 09/29/16 22:47> <Timothy Echeverria - Last Filed: 09/30/16 01:46> - General Chief Complaint: Weakness Stated Complaint: FEVER Time Seen by Provider: 09/29/16 20:49 Past History <Lyssa Gonzalez - Last Filed: 09/29/16 22:47> - Past Medical History Anemia: Yes GI Disorders: Yes (gerd) HTN: Yes Hypercholesterolemia: Yes Psychiatric Problems: Yes - Psycho/Social/Smoking Cessation Hx Anxiety: No Suicidal Ideation: No Smoking History: Unknown if ever smoked Have you smoked in the past 12 months: No Information on smoking cessation initiated: No Hx Alcohol Use: No Drug/Substance Use Hx: No Substance Use Type: None <Timothy Echeverria - Last Filed: 09/30/16 01:46> - Past Medical History Allergies/Adverse Reactions: Allergies Allergy/AdvReac Type Severity Reaction Status Date / Time No Known Allergies Allergy Verified 09/29/16 20:49 Home Medications: Ambulatory Orders Acetaminophen [Pain Relief] 650 mg PO Q6H PRN 09/13/16 Bacitracin 30 gm TP DAILY 09/13/16 Bimatoprost [Lumigan] 1 drop IO DAILY 09/13/16 Brimonidine Tartrate [Alphagan 0.2% -] 1 drop OD TID 09/13/16 Cholecalciferol (Vitamin D3) [Vitamin D3] 50,000 unit PO WEEKLY 09/13/16 Dorzolamide/Timolol/Pf [Cosopt Pf Eye Drops] 1 each OP BID 09/13/16 Ferrous Sulfate 325 mg PO DAILY 09/13/16 Omeprazole 20 mg PO DAILY 09/13/16 Petrolatum,White [Aquaphor with Natural Healing] 50 gm TP DAILY 09/13/16 Simvastatin 10 mg PO HS 09/13/16 Tramadol HCl 50 mg PO BID PRN 09/13/16 Cephalexin Monohydrate [Keflex -] 500 mg PO TID #18 tab 09/19/16 Furosemide [Lasix -] 20 mg PO BID #60 tablet 09/19/16 Metoprolol Tartrate [Lopressor -] 25 mg PO BID #60 tablet 09/19/16 Review of Systems - Review of Systems Comments:: 09/29/16 22:48 CONSTITUTIONAL: Fever, chills, weakness EYES: No visual changes ENT: No ear pain, no sore throat CARDIOVASCULAR: No chest pain, no palpitations RESPIRATORY: No cough, no SOB GI: No abdominal pain, no nausea, no vomiting, no constipation, no diarrhea GENITOURINARY: No dysuria, no frequency, no hematuria MUSKULOSKELETAL: No backpain, no joint pain EXTREMITIES: Bilateral lower extremity swelling, redness, and pain SKIN: No rash NEURO: No headache <Lyssa Gonzalez - Last Filed: 09/29/16 22:47> *Physical Exam - Vital Signs Last Vital Signs Temp Pulse Resp BP Pulse Ox 98.9 F 120 H 24 137/93 100 09/29/16 20:49 09/29/16 21:55 09/29/16 20:49 09/29/16 20:49 09/29/16 21:55 <Lyssa Gonzalez - Last Filed: 09/29/16 22:47> - Vital Signs Last Vital Signs Temp Pulse Resp BP Pulse Ox 98.9 F 122 H 24 137/93 97 09/29/16 20:49 09/29/16 20:49 09/29/16 20:49 09/29/16 20:49 09/29/16 20:49 - Physical Exam Comments: 09/30/16 01:20 EXAMINATION CONSTITUTIONAL: Awake, alert, morbidly obesse, in mild distress HEAD: Normocephalic; atraumatic EYES: PERRL; EOM intact ENMT: External appears normal; mm-dry NECK: Supple; non-tender; no jvd CARD: tachycardic; Normal S1, S2; no murmurs, rubs, or gallops RESP: Normal chest excursion with respiration; breath sounds clear and equal bilaterally; no wheezes, rhonchi, or rales ABD: Soft, non-distended; non-tender; no palpable organomegaly, no palpable hernias : + extensive erythema within the perineum wtih satelite lesions c/w candidiasis EXT:+ well demarcated erythema of the lower extr b/l (L>R); warm to touch, tender to palpation b/l; with several clear fluid filled vesicles b/l; distal pulses intact SKIN: Warm, dry, see above NEURO: No focal neurological deficiencies. <Timothy Echeverria - Last Filed: 09/30/16 01:46> ED Treatment Course - LABORATORY CBC & Chemistry Diagram: 09/29/16 21:55 09/29/16 22:16 - ADDITIONAL ORDERS Additional order review: 09/29/16 21:55 RBC 3.42 L MCV 73.5 L MCHC 31.6 L RDW 17.5 H MPV 7.7 Neutrophils % 63.6 Lymphocytes % 16.4 D Monocytes % 18.1 H D Eosinophils % 1.0 Basophils % 0.9 <Lyssa Gonzalez - Last Filed: 09/29/16 22:47> - LABORATORY CBC & Chemistry Diagram: 09/29/16 21:55 09/29/16 21:55 - RADIOLOGY Radiology Studies Ordered: Category Date Time Status CHEST X-RAY PORTABLE* [RAD] Stat Radiology 09/29/16 21:26 Ordered <Timothy Echeverria - Last Filed: 09/30/16 01:46> Medical Decision Making - Medical Decision Making 09/30/16 01:44 Patient is morbidly obese 70-year-old male with multiple combination presents with fever, shaking chills and worsening lower extremity cellulitis that has failed outpatient treatment with by mouth cephalexin. In the ER, patient is febrile, tachycardic, in mild to moderate distress. Physical evaluation of lower extremities reveals worsening erythema (more pronounced on the left), extending beyond the previously noted gorman. Patient also has extensive perineal erythema with numerous satellite lesions consistent with cutaneous candidiasis. CBC reveals no evidence of leukocytosis and persistent moderate anemia with hematocrit of 25. Lactic acid is within normal limit. Urinalysis reveals pyuria with numerous yeast and red cells. Blood and urine cultures been obtained. Patient has received IV fluids and acetaminophen. We'll administer IV vancomycin for suspected gram-positive cellulitis and IV Zosyn for gram- negative coverage of urosepsis. We'll also administer nystatin cream to the perineum. Will admit. <Timothy Echeverria - Last Filed: 09/30/16 01:46> *DC/Admit/Observation/Transfer - Attestations Scribe Attestion: 09/29/16 22:48 Documentation prepared by Lyssa Gonzalez, acting as medical appliance maker for Timothy Echeverria MD. <Lyssa Gonzalez - Last Filed: 09/29/16 22:47> - Discharge Dispostion Admit: Yes <Timothy Echeverria - Last Filed: 09/30/16 01:46> Diagnosis at time of Disposition: Candidiasis of perineum Cellulitis Qualifiers: Site of cellulitis: extremity Site of cellulitis of extremity: lower extremity Laterality: unspecified laterality Qualified Code(s): L03.119 - Cellulitis of unspecified part of limb Urinary tract infection Qualifiers: Urinary tract infection type: acute cystitis Hematuria presence: with hematuria Qualified Code(s): N30.01 - Acute cystitis with hematuria Acute renal failure Qualifiers: Acute renal failure type: unspecified Qualified Code(s): N17.9 - Acute kidney failure, unspecified - Discharge Dispostion Condition at time of disposition: Fair - Referrals Referrals: Dania Ralph MD [Primary Care Provider] -
[2016-09-29 22:36] LABS: BASOPHIL 0.9 % (0-2.0); MCH 23.2 pg (25.7-33.7); MCHC 31.6 g/dl (32.0-35.9); MEAN CELL VOLUME 73.5 fl (80-96); MEAN PLT VOLUME 7.7 fl (7.5-11.1); NEUTROPHILS 63.6 % (42.8-82.8); PLATELET COUNT 288 K/MM3 (134-434); RDW 17.5 % (11.9-15.9); WHITE BLOOD COUNT 6.3 K/mm3 (4.0-10.0)
[2016-09-29] MEDS ORDERED: ACETAMINOPHEN 325 MG TABLET (FP) ONE (22:42)
[2016-09-29 22:46] LABS: URINE APPEARANCE CLOUDY; URINE BILIRUBIN NEGATIVE (NEGATIVE); URINE COLOR YELLOW; URINE GLUCOSE (UA) NEGATIVE (NEGATIVE); URINE KETONE NEGATIVE (NEGATIVE); URINE NITRITE NEGATIVE (NEGATIVE); URINE UROBILINOGEN NEGATIVE E.U./dl (0.2-1.0)
[2016-09-29 22:51] LABS: INR 1.22 (0.82-1.09); PROTHROMBIN TIME (PATIENT) 13.5 SEC (9.98-11.88)
[2016-09-29 22:56] LABS: URINE BLOOD 2+ (NEGATIVE); URINE LEUK ESTERASE 3+ (NEGATIVE); URINE PROTEIN 2+ (NEGATIVE)
[2016-09-29 23:03] LABS: URINE BACTERIA RARE /hpf (NONE SEEN); URINE RBC 13 /hpf (0-3); URINE WBC 951 /hpf (3-5); YEAST MANY
[2016-09-29 23:04] LABS: ALBUMIN 2.6 g/dl (3.4-5.0); ANION GAP 12 (8-16); BILIRUBIN,TOTAL 0.4 mg/dL (0.2-1.0); CALCIUM 8.5 mg/dL (8.5-10.1); CO2 24 mmol/L (21-32); GLUCOSE,RANDOM 118 mg/dL (74-106); SGOT/AST 20 U/L (15-37); SGPT/ALT 16 U/L (12-78); TOT PROT 6.5 g/dl (6.4-8.2)
[2016-09-29 23:05] LABS: ALK PHOS 67 U/L (45-117)
[2016-09-29] MEDS ORDERED: SODIUM CHLORIDE 500 ML IV STA (23:39)
[2016-09-29] MEDS ORDERED: PIPERACILLIN/TAZOB 2.25 GM 2.25 GM in DEXTROSE 5%-WATER - 50 ML IVPB ONE (23:40)
[2016-09-29] MEDS ORDERED: NYSTATIN 100000 UNIT/GM TOPICAL OINTMENT 15 GM TUBE TP ONE (23:45)
--- NOTE | 2016-09-30 00:10 | PN ---
<Samara Blood - Last Filed: 09/30/16 00:10> Teaching Attending Note Name of Resident: Whitney Zepeda <Rafaela Chávez - Last Filed: 09/30/16 02:55> Teaching Attending Note ATTENDING PHYSICIAN STATEMENT I saw and evaluated the patient. I reviewed the resident's note and discussed the case with the resident. I agree with the resident's findings and plan as documented. SUBJECTIVE: 70 yo M with a PMHx of recurrent LE cellulitis who presents with worsening bilateral LE cellulitis today. The patient reports pain, swelling and redness to his lower extremities with associated chills and weakness. Patient notes he was recently hospitalized for the same complaint on 09/17-09/19 and was treated with IV Cefazolin. Patient was discharged with seven day course of Keflex which he has completed. Patient denies any relief after the abx course and presents for further evaluation. He denies chest pain, headache or dizziness. He denies nausea, vomit, diarrhea or constipation. He denies dysuria, frequency, urgency or hematuria. 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 PERRLA, EOMI. Moist mucosa. No JVD LUNGS: No distress, speaks full sentences, clear to auscultation bilaterally HEART: Regular rate and rhythm, normal S1 and S2, no murmurs, rubs or gallops, peripheral pulses normal and equal bilaterally. ABDOMEN: +Distended. Soft, nontender, normoactive bowel sounds. No guarding, no rebound. No masses EXTREMITIES: +Bilateral extremities erythematous up to the knee. Bilateral LE warmth and erythema with 1+ pitting edema. Normal inspection, Normal range of motion. No clubbing or cyanosis. NEUROLOGICAL: Cranial nerves II through XII grossly intact. Normal speech, normal gait, no focal sensorimotor deficits SKIN: Warm, Dry, normal turgor, no rashes or lesions noted. Laboratory Results - last 24 hr 09/29/16 09/29/16 09/29/16 21:55 21:55 21:55 WBC 6.3 D RBC 3.42 L Hgb 7.9 L Hct 25.1 L MCV 73.5 L MCHC 31.6 L RDW 17.5 H Plt Count 288 MPV 7.7 Neutrophils % 63.6 Lymphocytes % 16.4 D Monocytes % 18.1 H D Eosinophils % 1.0 Basophils % 0.9 INR 1.22 H Sodium Potassium Chloride Carbon Dioxide Anion Gap BUN Creatinine Creat Clearance w eGFR Random Glucose Lactic Acid Calcium Total Bilirubin AST ALT Alkaline Phosphatase Total Protein Albumin Urine Color Yellow Urine Appearance Cloudy Urine pH 6.0 Urine Protein 2+ H Urine Glucose (UA) Negative Urine Ketones Negative Urine Blood 2+ H Urine Nitrite Negative Urine Bilirubin Negative Urine Urobilinogen Negative Ur Leukocyte Esterase 3+ H D Urine RBC 13 Urine WBC 951 Urine Bacteria Rare Urine Yeast Many 09/29/16 09/29/16 21:55 21:55 WBC RBC Hgb Hct MCV MCHC RDW Plt Count MPV Neutrophils % Lymphocytes % Monocytes % Eosinophils % Basophils % INR Sodium 142 Potassium 3.6 Chloride 106 Carbon Dioxide 24 Anion Gap 12 BUN 40 H Creatinine 3.0 H D Creat Clearance w eGFR 20.91 Random Glucose 118 H D Lactic Acid 1.4 Calcium 8.5 Total Bilirubin 0.4 D AST 20 ALT 16 D Alkaline Phosphatase 67 Total Protein 6.5 Albumin 2.6 L Urine Color Urine Appearance Urine pH Urine Protein Urine Glucose (UA) Urine Ketones Urine Blood Urine Nitrite Urine Bilirubin Urine Urobilinogen Ur Leukocyte Esterase Urine RBC Urine WBC Urine Bacteria Urine Yeast Imaging: Chest XR Impression: Official read still pending ASSESSMENT AND PLAN: Sepsis secondary to cellulitis and UTI IVF NS Vanco and Zosyn renally adjusted ID consult- Mani Follow cultures Tylenol PRN SHIVAM Stage II Get Urine electrolytes Calculate FeNa Renal US Anemia Monitor hemoglobin FOBT DVT PPx Compression stockings Documentation prepared by Rafaela Chávez, acting as nuclear medicine medical director for Samara Blood MD.
[2016-09-30] MEDS ORDERED: traMADol HCL 50 MG TABLET PO PRN (00:53)
[2016-09-30] MEDS ORDERED: RANITIDINE HCL 150 MG TABLET (FP) PO ONE (00:54)
[2016-09-30] MEDS: SODIUM CHLORIDE 1,000 ML IV SCH ×2 (01:46→22:03)
[2016-09-30] MEDS ORDERED: RANITIDINE HCL 150 MG TABLET (FP) PO SCH (01:56)
--- NOTE | 2016-09-30 04:01 | HP ---
CHIEF COMPLAINT: fever, chills PCP: HISTORY OF PRESENT ILLNESS: This is a 70 year old male from [facility] with a significant past medical history of recurrent bilateral cellulitis, venous insufficiency presents tot he emergency room complaining of fever, chills and bilateral pain and redness. Patient was recently here (09/14-09/17 and again from 09/17-09/19) at [facility] , treated for bilateral leg cellulitis (cefazolin), discharged on 7 days of keflex, which he completed. Patient states that at his facility, he felt feverish and chills so he was sent her by ambulance. He has noticed that is has been getting harder for him to walk due to the pain of bilateral legs. Patient denies chest pain, sob, abdominal pain Patient admits to increased urinary frequency q1h; denies dysuria or hematuria ER course was notable for: rectal temp of 101; tachycardia; RR 24 (1)hemoglobin7/9/Hct 25 (2)BUN/Cr 40/3.0 (3)UA +LE; +WBC, +RBC Recent Travel: PAST MEDICAL HISTORY: HTN, GERD, recent GI bleed (3 weeks ago), venous insufficiency, glaucoma, and recurrent cellulitis of lower extremities PAST SURGICAL HISTORY: Social History: Smoking:no Alcohol:no Drugs: no Family History: Allergies No Known Allergies Allergy (Verified 09/29/16 20:49) HOME MEDICATIONS: Home Medications Medication Instructions Recorded Acetaminophen [Pain Relief] 650 mg PO Q6H PRN 09/13/16 Bacitracin 30 gm TP DAILY 09/13/16 Bimatoprost [Lumigan] 1 drop IO DAILY 09/13/16 Brimonidine Tartrate [Alphagan 1 drop OD TID 09/13/16 0.2% -] Cholecalciferol (Vitamin D3) 50,000 unit PO WEEKLY 09/13/16 [Vitamin D3] Dorzolamide/Timolol/Pf [Cosopt Pf 1 each OP BID 09/13/16 Eye Drops] Ferrous Sulfate 325 mg PO DAILY 09/13/16 Omeprazole 20 mg PO DAILY 09/13/16 Petrolatum,White [Aquaphor with 50 gm TP DAILY 09/13/16 Natural Healing] Simvastatin 10 mg PO HS 09/13/16 Tramadol HCl 50 mg PO BID PRN 09/13/16 Cephalexin Monohydrate [Keflex -] 500 mg PO TID #18 tab 09/19/16 Furosemide [Lasix -] 20 mg PO BID #60 tablet 09/19/16 Metoprolol Tartrate [Lopressor -] 25 mg PO BID #60 tablet 09/19/16 REVIEW OF SYSTEMS CONSTITUTIONAL: Positive: fever, chills, Absent: diaphoresis, generalized weakness, malaise, loss of appetite, weight change HEENT: Absent: rhinorrhea, nasal congestion, throat pain, throat swelling, difficulty swallowing, mouth swelling, ear pain, eye pain, visual changes CARDIOVASCULAR: Absent: chest pain, syncope, palpitations, irregular heart rate, lightheadedness , peripheral edema RESPIRATORY: Absent: cough, shortness of breath, dyspnea with exertion, orthopnea, wheezing, stridor, hemoptysis GASTROINTESTINAL: Absent: abdominal pain, abdominal distension, nausea, vomiting, diarrhea, constipation, melena, hematochezia GENITOURINARY: Absent: dysuria, frequency, urgency, hesitancy, hematuria, flank pain, genital pain MUSCULOSKELETAL: POSitive:bilateral leg pain, swelling Absent: myalgia, arthralgia, joint swelling, back pain, neck pain SKIN: Positive: erythema b/l legs; Absent: rash, itching, pallor HEMATOLOGIC/IMMUNOLOGIC: Absent: easy bleeding, easy bruising, lymphadenopathy, frequent infections ENDOCRINE: Absent: unexplained weight gain, unexplained weight loss, heat intolerance, cold intolerance NEUROLOGIC: Absent: headache, focal weakness or paresthesias, dizziness, unsteady gait, seizure, mental status changes, bladder or bowel incontinence PSYCHIATRIC: Absent: anxiety, depression, suicidal or homicidal ideation, hallucinations. PHYSICAL EXAMINATION Vital Signs - 24 hr 09/30/16 02:33 Temperature 99 F Pulse Rate [ 97 H Right Radial] Respiratory 28 H Rate Blood Pressure 134/92 [Right Arm] O2 Sat by Pulse 100 Oximetry (%) GENERAL: Awake, alert, and fully oriented, in no acute distress. HEAD: Normal with no signs of trauma. NECK: Normal range of motion, supple without lymphadenopathy, JVD, or masses. LUNGS: Breath sounds equal, clear to auscultation bilaterally. No wheezes, and no crackles. No accessory muscle use. HEART: Regular rate and rhythm, normal S1 and S2 without murmur, rub or gallop. ABDOMEN: Soft, nontender, distended, normoactive bowel sounds, no guarding, no rebound, no masses. No hepatomegaly or splenomegaly. UPPER EXTREMITIES: 2+ pulses, warm, well-perfused. No cyanosis. No clubbing. No peripheral edema. LOWER EXTREMITIES: 2+ pulses, warm, well-perfused. No calf tenderness. Bilateral leg erythema extending proximally to the knees, trace edema b/l; small skin tear of left chan [id number] no draining or pus NEUROLOGICAL: Cranial nerves II-XII intact. Normal speech. Normal gait. PSYCHIATRIC: Cooperative. Good eye contact. Appropriate mood and affect. Skin: bilateral skin irritation? vs fungal infection of groin; red raised areas Current Medications Generic Name Dose Route Start Last Admin Trade Name Freq PRN Reason Stop Dose Admin Acetaminophen 650 mg 09/30/16 00:48 Tylenol - PO Q4H PRN FEVER OR PAIN Atorvastatin Calcium 10 mg 09/30/16 22:00 Lipitor - PO HS CHARLETTE Ferrous Sulfate 325 mg 09/30/16 10:00 Feosol - PO DAILY CHARLETTE Furosemide 20 mg 09/30/16 06:00 Lasix - PO BIDLASIX CHARLETTE Sodium Chloride 1,000 mls @ 100 mls/hr 09/30/16 01:00 09/30/16 01:46 Normal Saline - IV 100 mls/hr ASDIR CHARLETTE Administration Vancomycin HCl 1,250 mg/ 250 mls @ 250 mls/hr 09/30/16 22:00 Dextrose IVPB 09/30/16 22:59 ONCE ONE Protocol Metoprolol Tartrate 25 mg 09/30/16 10:00 Lopressor - PO BID CHARLETTE Pantoprazole Sodium 20 mg 09/30/16 10:00 Protonix - PO DAILY CHARLETTE Piperacillin Sod/Tazobactam Sod 3.375 gm 09/30/16 06:00 Zosyn 3.375gm Ivpb (Pre-Docked) IVPB Q8H-IV CHARLETTE Protocol Ranitidine HCl 150 mg 09/30/16 01:56 Zantac - PO DAILY CHARLETTE ASSESSMENT/PLAN: 70 year old male with recurrent bilateral leg cellulitis, failed outpatient treatment, with urinary tract infection. #sepsis secondary to leg cellulitis and UTI: -IVF, Tylenol 650mg q4h prn -stat dose vanc/zosyn given in ER -continue IV vanco ordered 1250mg IV due to current renal functioning; check trough before 4th dose -continue IV zosyn 3.35mg IV q5h -ID consulted -await blood and urine culuture -previous urine culture positive for pseudomonus; sensitive #Acute on chronic kidney injury possibly secondary to sepsis -previous admissions Cr 1.6-1.9 -currently Cr 3.0 -urine electrolytes; urine creatinine -calculate FeNA -renal/bladder US #Chronic anemia: -trend H/H -transfuse of <7.0 -cont iron supplement #hypertension: -furosemide 20mg daily #erythema bilateral groin region: -may be secondary to irritation from urine -or possible fungal infection -topical nystatin FEN: Fluids: NS 100mls/hr Electrolytes:wnl Diet: low sodium VTE: compression stocking; hold due to recent bleed; Disposition: cont management / med surg Problem List - Problem (1) Urinary tract infection Code(s): N39.0 - URINARY TRACT INFECTION, SITE NOT SPECIFIED Qualifiers: Urinary tract infection type: acute cystitis Hematuria presence: with hematuria Qualified Code(s): N30.01 - Acute cystitis with hematuria (2) Anemia Code(s): D64.9 - ANEMIA, UNSPECIFIED Qualifiers: Anemia type: unspecified type Qualified Code(s): D64.9 - Anemia, unspecified (3) CKD (chronic kidney disease) Code(s): N18.9 - CHRONIC KIDNEY DISEASE, UNSPECIFIED (4) GERD (gastroesophageal reflux disease) Code(s): K21.9 - GASTRO-ESOPHAGEAL REFLUX DISEASE WITHOUT ESOPHAGITIS (5) Glaucoma Code(s): H40.9 - UNSPECIFIED GLAUCOMA (6) HTN (hypertension) Code(s): I10 - ESSENTIAL (PRIMARY) HYPERTENSION Qualifiers: Hypertension type: essential hypertension Qualified Code(s): I10 - Essential (primary) hypertension (7) Venous (peripheral) insufficiency Code(s): I87.2 - VENOUS INSUFFICIENCY (CHRONIC) (PERIPHERAL) (8) Sepsis affecting skin Code(s): A41.9 - SEPSIS, UNSPECIFIED ORGANISM (9) Rash Code(s): R21 - RASH AND OTHER NONSPECIFIC SKIN ERUPTION Visit type - Emergency Visit Emergency Visit: Yes ED Registration Date: 09/30/16 Care time: The patient presented to the Emergency Department on the above date and was hospitalized for further evaluation of their emergent condition. - New Patient This patient is new to me today: Yes Date on this admission: 09/30/16 - Critical Care Critical Care patient: No
[2016-09-30] MEDS ORDERED: HEPARIN NA (PORCINE) 5,000 UNITS/ML 1ML VIAL SQ SCH (06:00)
[2016-09-30] MEDS ORDERED: FUROSEMIDE 20 MG TABLET (FP) PO SCH (06:00)
[2016-09-30] MEDS ORDERED: PIPERACILLIN/TAZOB 3.375 GM/50 ML PRE-DOCKED IVPB ONE (06:15)
[2016-09-30] MEDS ORDERED: INSULIN SLIDING SCALE (NOVOLOG) 1 VIAL SQ SCH (07:00)
--- NOTE | 2016-09-30 07:53 | PN ---
Physical Exam: SUBJECTIVE: Patient seen and examined at bed side at bed side this morning. Patient mentioned that he started noticing redness on the lower extremity since few days, which has been progressively getting worse. He has a h/o cellulitis in the past and wanted to know the ultimate cure. Patient mentioned he did have chills but no recorded temp or rigors. No urinary symptoms. Today, he says the swelling and redness is the same as compared to yesterday. He normally walks with a cane but since the illness hasn't been able to walk at all. Was given Lasix for lower ext edema and he was compliant with the meds. Denies chest pain, sob, cough, palpitation, abdominal pain, nausea or vomiting. OBJECTIVE: Vital Signs Period Temp Pulse Resp BP Sys/Shah Pulse Ox Last 24 Hr 97.7 F-99 F 93-97 20-28 130-144/83-92 100-100 GENERAL: Moderately obese male, lying comfortably in bed, awake, alert, and fully oriented, in no acute distress. HEAD: Normal with no signs of trauma. EYES: EOM intact, no pallor or icterus, Complete loss of vision in the right eye. ENT: Ears normal, moist mucous membranes. NECK: Supple. LUNGS: Breath sounds equal, clear to auscultation bilaterally, no wheezes, no crackles, no accessory muscle use. HEART: Regular rate and rhythm, S1, S2 without murmur, rub or gallop. ABDOMEN: Soft, nontender, nondistended, normoactive bowel sounds, no guarding, no rebound, no hepatosplenomegaly, no masses. EXTREMITIES: B/L lower extremity pitting edema upto the mid calf Left>right; erythmatous below the knee upto the ankle, small skin tear on the chan, tender to palpation , 2+ pulses, warm, well-perfused, chronic venous stasis-color change. NEUROLOGICAL: No facial droop, bulk/tone normal; Power-upper ext-5/5; lower ext- 3/5 (likely due to the swelling and tenderness couldn't perform well), Cranial nerves II through XII grossly intact. Normal speech, gait not observed. PSYCH: Normal mood, normal affect. SKIN: Warm, dry, normal turgor, no rashes or lesions noted Active Medications Generic Name Dose Route Start Last Admin Trade Name Freq PRN Reason Stop Dose Admin Acetaminophen 650 mg 09/30/16 00:48 Tylenol - PO Q4H PRN FEVER OR PAIN Atorvastatin Calcium 10 mg 09/30/16 22:00 Lipitor - PO HS CHARLETTE Ferrous Sulfate 325 mg 09/30/16 10:00 Feosol - PO DAILY CHARLETTE Furosemide 20 mg 09/30/16 06:00 09/30/16 06:09 Lasix - PO 20 mg BIDLASIX CHARLETTE Administration Sodium Chloride 1,000 mls @ 100 mls/hr 09/30/16 01:00 09/30/16 01:46 Normal Saline - IV 100 mls/hr ASDIR CHARLETTE Administration Vancomycin HCl 1,250 mg/ 250 mls @ 166.667 mls/hr 09/30/16 22:00 Dextrose IVPB 09/30/16 23:29 ONCE ONE Protocol Metoprolol Tartrate 25 mg 09/30/16 10:00 Lopressor - PO BID CHARLETTE Pantoprazole Sodium 20 mg 09/30/16 10:00 Protonix - PO DAILY CHARLETTE Piperacillin Sod/Tazobactam Sod 3.375 gm 09/30/16 06:00 Zosyn 3.375gm Ivpb (Pre-Docked) IVPB Q8H-IV CHARLETTE Protocol ASSESSMENT/PLAN: Patient is a 70 year old male, a resident of assisted living in [facility], with recurrent bilateral leg cellulitis, failed outpatient treatment, with urinary tract infection. # Sepsis secondary to leg cellulitis Recurrent cellulitis, failed outpatient treatment. Has no urinary symptoms On IV NS @ 100mls/hr IV zosyn 3.35mg IV Q8H, as per ID ID consult appreciated Urine culture/ Blood culture pending A1c pending # Asymptomatic UTI with retention of urine USG renal and bladder USG: Urinary bladder overly distented with a vol of 2441 cc; B/L renal hydronephrosis UA WBC 951; RBC 13, 2 + ptn IV hydration and IV Zosyn (Day 1. to change as per urine c/s) previous urine culture positive for pseudomonus; sensitive # New onset DVT on right popliteal vein with total occlusion of distal left popliteal vein Duplex of B/L lower ext. Protocol started with Heparin, normal platelet count Do not know if its provoke or unprovoked, needs more investigation # SHIVAM likely due to prerenal vs obstructive Baseline creatinine 1.6 ( 09/13/16) Stopped Lasix (was on lasix for b/l leg swelling) Renal ultrasound: Moderate b/l renal hydronephrosis Bladder scan 999mls # Microcytic Anemia H/H 7.4/23.7 Watch for bleeding as patient is on Heparin Iron studies Transfuse if Hb , 7gm/dl or if he is actively bleeding # Fungal infection in the groin area Topical nystatin # FEN: IV NS 100mls/hr Electrolytes to be repeated tomorrow. Low sodium diet # Prophylaxis For DVT: Already For GI: Pantoprazole 20mg Daily # Code Status: Full Code # Dispo: Admitted in Med-Surg. Duration of stay unknown. Call placed to [facility] (Assisted living)- [phone] to confirm medication, couldn't reach them. Please try again tomorrow. Illness, Investigation and Plan of care explained to the patient. He verbalized understanding. Case seen and examined with Dr. Lebron. Visit type - Emergency Visit Emergency Visit: Yes ED Registration Date: 09/30/16 Care time: The patient presented to the Emergency Department on the above date and was hospitalized for further evaluation of their emergent condition. - New Patient This patient is new to me today: Yes Date on this admission: 09/30/16 - Critical Care Critical Care patient: No
--- NOTE | 2016-09-30 09:37 | EKG ---
Test Reason : Blood Pressure : / mmHG Vent. Rate : 111 BPM Atrial Rate : 111 BPM P-R Int : 150 ms QRS Dur : 068 ms QT Int : 344 ms P-R-T Axes : 051 000 039 degrees QTc Int : 467 ms SINUS TACHYCARDIA Possible right ventricular hypertrophy Confirmed by JOEY PATEL MD ([id number]) on 09/30/2016 9:37:10 AM Referred By: Confirmed By:JOEY PATEL MD
[2016-09-30] MEDS: PANTOPRAZOLE 20 MG TABLET (FP) PO SCH (09:42)
[2016-09-30] MEDS: FERROUS SO4 325 MG TABLET (FP) PO SCH (09:42)
[2016-09-30] MEDS: METOPROLOL TARTRATE 25 MG TABLET (FP) PO SCH ×2 (09:42→22:04)
[2016-09-30] MEDS: ACETAMINOPHEN 325 MG TABLET (FP) PO PRN ×2 (09:44→23:39)
[2016-09-30] MEDS ORDERED: PT OWN MED DRAWER 7, Y5N ONE (09:44)
--- NOTE | 2016-09-30 11:55 | PN ---
Progress Note (short form) - Note Progress Note: ID Consult dictated Recurrent LE cellulitis UTI Azotemia Pending c/s, empiric vanco/ zosyn, adjusted for renal failure
[2016-09-30] MEDS ORDERED: VANCOMYCIN 1 GRAM (PRE-DOCKED) 250 ML IVPB ONE (11:57)
--- NOTE | 2016-09-30 12:38 | CONS ---
DATE OF CONSULTATION: DATE OF DICTATION: 09/30/2016 HISTORY OF PRESENT ILLNESS: The patient is a 70-year-old male with a history of lower extremity venous stasis dermatitis and recurrent cellulitis of the lower extremities, now readmitted with bilateral lower extremity cellulitis. The patient was recently hospitalized at [facility] from September 14 through September 19 with bilateral lower extremity cellulitis. He was empirically treated with IV cefazolin with clinical improvement. He was discharged to his assisted living facility on p.o. Keflex. Patient reports that despite the oral antibiotic therapy he noted recurrent lower extremity erythema, warmth, and swelling associated with subjective fever. He returned to the emergency room where according to the notes he had a fever of 101. This, however, could not be verified according to the present notes. He complains of generalized weakness, subjective fever, and chills. He denies any traumatic injury. No urinary tract complaints. He denies dysuria or hematuria. Urinalysis in the emergency room revealed many white cells. PAST MEDICAL HISTORY: Positive for hypertension, gastroesophageal reflux, GI bleeding, history of chronic venostasis dermatitis, lower extremities bilaterally. ALLERGIES: No known allergies. MEDICATIONS: Include Tylenol, bacitracin, Lumigan, iron, omeprazole, simvastatin, tramadol, Lasix, Lopressor. SOCIAL HISTORY: He resides in an assisted living facility. Denies active tobacco or alcohol use. SYSTEMS REVIEW:Neurologic: No loss of consciousness, seizure activity, focal weakness. Cardiac: Negative chest pain or palpitations.Respiratory: Negative for cough or sputum production. Gastrointestinal: Negative vomiting or diarrhea. Genitourinary: Positive pyuria. Denies dysuria or hematuria. LABORATORY DATA: White count 6.3, hematocrit 25.1, platelet count 288. BUN 40, creatinine 3.0. Urinalysis: 951 white cells. Cultures are pending. Previous urine culture had grown Pseudomonas which was felt to be a contaminant or colonizer. PHYSICAL EXAMINATION: General: He is awake and alert. He is not acutely toxic appearing. Vital Signs: Temperature 98.7, blood pressure 144/83, pulse 96, regular, respiration 20 per minute. HEENT: Sclerae anicteric. Cardiac: Heart sounds S1, S2. Lungs: Clear bilaterally. No rhonchi, rales, or wheezing. Abdomen: Obese, soft, nontender. No mass, rebound, or rigidity. There is a fungal rash present in the inguinal areas bilaterally.Extremities: Lower extremity edema 2+ bilaterally with evidence of chronic venostasis dermatitis. Positive erythema, warmth, and swelling involving bilateral lower extremities, left greater than right. No crepitus or fluctuance. No lymphangitic streaking. IMPRESSION: 1. Recurrent lower extremity cellulitis. 2. Chronic venostasis dermatitis. 3. Urinary tract infection. 4. Azotemia. 5. Fungal infection of the groin. RECOMMENDATIONS: Pending cultures, empiric antibiotic coverage with vancomycin and Zosyn adjusted for renal failure. Elevation. Analgesics. Diuretic therapy. Will follow. Thank you for the kind referral. JOEY PUGH M.D. [id number]
[2016-09-30] MEDS: PIPERACILLIN/TAZOB 2.25 GM 50 ML IVPB SCH ×2 (13:15→17:49)
[2016-09-30 13:25] LABS: BASOPHIL 1.9 % (0-2.0); EOSINOPHIL 5.7 % (0-4.5); MCH 23.2 pg (25.7-33.7); MCHC 31.1 g/dl (32.0-35.9); MEAN CELL VOLUME 74.7 fl (80-96); MEAN PLT VOLUME 7.1 fl (7.5-11.1); NEUTROPHILS 57.9 % (42.8-82.8); PLATELET COUNT 239 K/MM3 (134-434); RDW 17.6 % (11.9-15.9); WHITE BLOOD COUNT 4.6 K/mm3 (4.0-10.0)
[2016-09-30] MEDS ORDERED: ENOXAPARIN NA (PORCINE) 40 MG/0.4 ML DISP.SYRIN SQ SCH (15:30)
[2016-09-30] MEDS: HEPARIN - 25,000 UNIT in SODIUM CHLORIDE 495 ML IV SCH (17:16)
--- NOTE | 2016-09-30 17:40 | PN ---
Teaching Attending Note Name of Resident: Chel Mack ATTENDING PHYSICIAN STATEMENT I saw and evaluated the patient. I reviewed the resident's note and discussed the case with the resident. I agree with the resident's findings and plan as documented. SUBJECTIVE: c/o swelling of b/l LE OBJECTIVE: Vital Signs Temperature 98.1 F 09/30/16 16:59 Pulse Rate 89 09/30/16 16:59 Respiratory Rate 20 09/30/16 16:59 Blood Pressure 132/67 09/30/16 16:59 O2 Sat by Pulse Oximetry (%) 100 09/30/16 07:39 GENERAL: Moderately obese male, lying comfortably in bed, awake, alert, and fully oriented, in no acute distress. HEAD: Normal with no signs of trauma. EYES: EOM intact, no pallor or icterus, Complete loss of vision in the right eye. ENT: Ears normal, moist mucous membranes. NECK: Supple. LUNGS: Breath sounds equal, clear to auscultation bilaterally, no wheezes, no crackles, no accessory muscle use. HEART: Regular rate and rhythm, S1, S2 without murmur, rub or gallop. ABDOMEN: Soft, nontender, nondistended, normoactive bowel sounds, no guarding, no rebound, no hepatosplenomegaly, no masses. EXTREMITIES: B/L lower extremity pitting edema upto the mid calf Left>right; erythmatous below the knee upto the ankle, small skin tear on the chan, tender to palpation , 2+ pulses, warm, well-perfused, chronic venous stasis-color change. Left leg edema > right NEUROLOGICAL: No facial droop, bulk/tone normal; Power-upper ext-5/5; lower ext- 3/5 (likely due to the swelling and tenderness couldn't perform well), Cranial nerves II through XII grossly intact. Normal speech, gait not observed. PSYCH: Normal mood, normal affect. SKIN: b/l LE erythema and cellulitis CBC, BMP 09/30/16 12:55 09/29/16 21:55 ASSESSMENT AND PLAN: 1. B/L le swelling - secondary to B/L DVT with possible superimposed recurrent cellulitis. Provoked by venous stasis and infection . * occult blood stool * initiate anticoagulation with heparin * if ARF resolves may consider Xarelto * IV antibiotics * cultures 2. ARF - multifactorial - secondary to diuretics and urinary retention. * chavez * IVF * monitor creatinine 3. UTI - likely 2/2 UA retention 4. Anemia, microcytic - * stool occult blood * monitor CBC * iron profile * transfuse if further drop * will consider IV iron
[2016-09-30 21:43] LABS: URINE CREATININE 29.6 mg/dL (20-370)
[2016-09-30] MEDS ORDERED: VANCOMYCIN 1,250 MG in DEXTROSE 5%-WATER - 250 ML IVPB ONE (22:00)
[2016-09-30] MEDS: ATORVASTATIN CA 10 MG TABLET (FP) PO SCH (22:04)
[2016-09-30] MEDS: BRIMONIDINE TARTRATE 0.2% OPHTHALMIC 5 ML BOTTLE OU SCH (23:38)
[2016-10-01] MEDS: HEPARIN NA (PORCINE) 5,000 UNITS/ML 1ML VIAL IVPUSH PRN ×3 (02:29→17:50)
[2016-10-01] MEDS: PIPERACILLIN/TAZOB 2.25 GM 50 ML IVPB SCH ×3 (02:30→18:23)
[2016-10-01] MEDS: SODIUM CHLORIDE 1,000 ML IV SCH (03:39)
[2016-10-01] MEDS ORDERED: PT OWN MED DRAWER 7, Y5N ONE ×6 (06:11→23:37)
[2016-10-01] MEDS: BRIMONIDINE TARTRATE 0.2% OPHTHALMIC 5 ML BOTTLE OU SCH ×3 (06:33→22:05)
[2016-10-01] MEDS: PIPERACILLIN/TAZOB 3.375 GM/50 ML PRE-DOCKED IVPB SCH (07:29)
[2016-10-01] MEDS: TAMSULOSIN HCL 0.4 MG CAP.ER.24H (FP) PO SCH (07:57)
[2016-10-01 08:38] LABS: EOSINOPHIL 5.1 % (0-4.5); MCH 23.7 pg (25.7-33.7); MCHC 32.3 g/dl (32.0-35.9); MEAN CELL VOLUME 73.4 fl (80-96); MEAN PLT VOLUME 7.6 fl (7.5-11.1); PLATELET COUNT 250 K/MM3 (134-434); RDW 17.4 % (11.9-15.9); WHITE BLOOD COUNT 4.7 K/mm3 (4.0-10.0)
--- NOTE | 2016-10-01 08:40 | PN ---
Physical Exam: SUBJECTIVE: Patient seen and examined. c/o pain in his legs. wants to get out bed to chair. denies SOB, chest pain, headache, abdominal pain, n/v, fevers. OBJECTIVE: Vital Signs Period Temp Pulse Resp BP Sys/Shah Pulse Ox Last 24 Hr 98.1 F-99.0 F 86-108 20-20 132-140/67-88 GENERAL: The patient is awake, alert, and fully oriented, in no acute distress. EYES:EOMI, sclera anicteric, conjunctiva clear. No ptosis. ENT: oropharynx clear without exudates, moist mucous membranes. LUNGS: Breath sounds equal, clear to auscultation bilaterally, no wheezes, no crackles, no accessory muscle use. HEART: Regular rate and rhythm, S1, S2 without murmur, rub or gallop. ABDOMEN: Soft, nontender, + fluid wave with engorged abdominal veins, normoactive bowel sounds, no guarding, EXTREMITIES: 2+ radail and DP pulses, warm, well-perfused, no edema, left anterior lower leg with 1cm x 1cm scab and erythema decreased from marker line, right lower leg with decreased erythema from marker line. ttp in right knee. Laboratory Results - last 24 hr 09/30/16 09/30/16 10/01/16 12:55 18:06 00:16 WBC 4.6 RBC 3.18 L Hgb 7.4 L Hct 23.7 L MCV 74.7 L MCHC 31.1 L RDW 17.6 H Plt Count 239 MPV 7.1 L Neutrophils % 57.9 Lymphocytes % 18.4 Monocytes % 16.1 H Eosinophils % 5.7 H D Basophils % 1.9 PTT (Actin FS) 28.3 Ur Random Sodium 81 Ur Random Potassium 13.5 Ur Random Chloride 74 Urine Creatinine 29.6 Active Medications Generic Name Dose Route Start Last Admin Trade Name Freq PRN Reason Stop Dose Admin Acetaminophen 650 mg 09/30/16 00:48 09/30/16 23:39 Tylenol - PO 650 mg Q4H PRN Administration FEVER OR PAIN Atorvastatin Calcium 10 mg 09/30/16 22:00 09/30/16 22:04 Lipitor - PO 10 mg HS CHARLETTE Administration Brimonidine Tartrate 1 drop 09/30/16 22:45 10/01/16 06:33 Alphagan 0.2% - OU 1 drop TID CHARLETTE Administration Ferrous Sulfate 325 mg 09/30/16 10:00 09/30/16 09:42 Feosol - PO 325 mg DAILY CHARLETTE Administration Heparin Sodium (Porcine) 1,000 unit 09/30/16 16:04 Heparin - IVPUSH PRN PRN Heparin Heparin Sodium (Porcine) 5,000 unit 09/30/16 16:04 10/01/16 02:29 Heparin - IVPUSH 5,000 unit PRN PRN Administration Heparin Sodium Chloride 1,000 mls @ 100 mls/hr 09/30/16 01:00 10/01/16 03:39 Normal Saline - IV Not Given ASDIR CHARLETTE Piperacillin Sod/Tazobactam Sod 50 mls @ 100 mls/hr 09/30/16 12:00 10/01/16 02: 30 Zosyn 2.25gm Ivpb (Pre-Docked) IVPB 100 mls/hr Q8H-IV CHARLETTE Administration Protocol Heparin Sodium (Porcine) 25, 500 mls @ 20 mls/hr 09/30/16 16:15 10/01/16 02:29 000 unit/ Sodium Chloride IV 1,150 unit/hr TITR CHARLETTE Titration Protocol 1,000 UNIT/HR Metoprolol Tartrate 25 mg 09/30/16 10:00 09/30/16 22:04 Lopressor - PO 25 mg BID CHARLETTE Administration Pantoprazole Sodium 20 mg 09/30/16 10:00 09/30/16 09:42 Protonix - PO 20 mg DAILY CHARLETTE Administration Tamsulosin HCl 0.4 mg 10/01/16 08:30 10/01/16 07:57 Flomax - PO 0.4 mg DAILY@0830 CHARLETTE Administration ASSESSMENT/PLAN: 70 year old man with anemia, GIB, GERD, HTN, glaucoma, CKD, venous insufficiency and R eye blindness (glaucoma) who is a resident of assisted living in [facility], with recurrent bilateral leg cellulitis, failed outpatient treatment, found to have DVT, UTI and urinary retention. # DVT on right popliteal vein with total occlusion of distal left popliteal vein Duplex of B/L lower ext seen this admission on heparin drip, once renal function has recovered, plan to start lovenox, repeat BMP tomorrow to reassess - r/o GI bleed, serial stool occult and h/h monitoring #B/l lower leg cellulitis - improved, IV zosyn 3.35mg IV Q8H, as per ID # SHIVAM likely due to prerenal vs obstructive with hydronephrosis IVF, changed to 1/2 NS due to elevated sodium, potassium repleted #urinary retention flomax daily trial void tomorrow # Microcytic Anemia transfuse if Hb < 7gm/dl or if he is actively bleeding # Fungal infection in the groin area Topical nystatin #GERD ppi 20mg daily Diet Low sodium diet Activity: encourage OOB to chair Visit type - Emergency Visit Emergency Visit: No - New Patient This patient is new to me today: Yes Date on this admission: 10/01/16 - Critical Care Critical Care patient: No
[2016-10-01 08:57] LABS: ANION GAP 12 (8-16); CO2 24 mmol/L (21-32); CREATININE 1.6 mg/dL (0.7-1.3); GLUCOSE,RANDOM 96 mg/dL (74-106)
[2016-10-01] MEDS: FERROUS SO4 325 MG TABLET (FP) PO SCH (09:18)
[2016-10-01] MEDS: PANTOPRAZOLE 20 MG TABLET (FP) PO SCH (09:18)
[2016-10-01] MEDS: METOPROLOL TARTRATE 25 MG TABLET (FP) PO SCH ×2 (09:18→22:05)
[2016-10-01] MEDS ORDERED: POTASSIUM CHLORIDE ORAL LIQUID 20 MEQ/15 ML PO ONE (12:15)
[2016-10-01] MEDS: SODIUM CHLORIDE 0.45% 1,000 ML IV SCH (13:11)
[2016-10-01] MEDS ORDERED: IRON SUCROSE INJECTION 100 MG in SODIUM CHLORIDE 95 ML IVPB ONE (15:43)
--- NOTE | 2016-10-01 16:10 | PN ---
Teaching Attending Note Name of Resident: Dave Forrest ATTENDING PHYSICIAN STATEMENT I saw and evaluated the patient. I reviewed the resident's note and discussed the case with the resident. I agree with the resident's findings and plan as documented. SUBJECTIVE:reports fatigue , no CP, no bleeding pain is not controlled OBJECTIVE: Vital Signs Temperature 97.8 F 10/01/16 15:24 Pulse Rate 99 H 10/01/16 15:24 Respiratory Rate 20 10/01/16 15:24 Blood Pressure 111/77 10/01/16 15:24 O2 Sat by Pulse Oximetry (%) 100 10/01/16 09:00 GENERAL: Moderately obese male, lying comfortably in bed, awake, alert, and fully oriented, in no acute distress. HEAD: Normal with no signs of trauma. EYES: EOM intact, no pallor or icterus, Complete loss of vision in the right eye. ENT: Ears normal, moist mucous membranes. NECK: Supple. LUNGS: Breath sounds equal, clear to auscultation bilaterally, no wheezes, no crackles, no accessory muscle use. HEART: Regular rate and rhythm, S1, S2 without murmur, rub or gallop. ABDOMEN: Soft, nontender, nondistended, normoactive bowel sounds, no guarding, no rebound, no hepatosplenomegaly, no masses. EXTREMITIES: B/L lower extremity pitting edema upto the mid calf Left>right; erythmatous below the knee upto the ankle, small skin tear on the chan, tender to palpation , 2+ pulses, warm, well-perfused, chronic venous stasis-color change. Left leg edema > right NEUROLOGICAL: No facial droop, bulk/tone normal; Power-upper ext-5/5; lower ext- 3/5 (likely due to the swelling and tenderness couldn't perform well), Cranial nerves II through XII grossly intact. Normal speech, gait not observed. PSYCH: Normal mood, normal affect. SKIN: b/l LE erythema and cellulitis CBC, BMP 10/01/16 06:35 10/01/16 06:35 ASSESSMENT AND PLAN: 1. B/L le swelling - secondary to B/L DVT with possible superimposed recurrent cellulitis. DVT is provoked by venous stasis, prolonged immobilization and infection . Needs anticoagulation . Xarelto could be an option but patient states history of gastritis/? ulcers and colonic polyps and has microcytic anemia. Occult bleeding needs to be ruled out . * if ARF resolves may consider Xarelto * IV antibiotics * cultures * change heparin drip to Lovenox since renal function has improved 2. ARF - multifactorial - secondary to diuretics and urinary retention. * chavez * IVF * monitor creatinine 3. UTI -2/2 chronic urinary retention * on IV antibiotics 4. Anemia, microcytic -iron deficiency, no active bleeding noted . * stool occult blood ordered * monitor CBC * iron profile * transfuse if further drop * IV Iron 5. Urinary retention - likely BPH * voiding trial on monday night, if fails -will d/c with chavez with referral to urology * flomax 6. Hypokalemia * supplement K IV * repeat K and mag
[2016-10-01] MEDS: KCL 10 MEQ IVPB 100 ML IVPB SCH ×3 (16:12→23:42)
[2016-10-01] MEDS: HEPARIN - 25,000 UNIT in SODIUM CHLORIDE 495 ML IV SCH (16:20)
[2016-10-01] MEDS: ACETAMINOPHEN 325 MG TABLET (FP) PO PRN (19:46)
[2016-10-01] MEDS: ATORVASTATIN CA 10 MG TABLET (FP) PO SCH (22:05)
[2016-10-01] MEDS ORDERED: KCL 10 MEQ IVPB 100 ML IVPB SCH (23:45)
[2016-10-02] MEDS: HEPARIN NA (PORCINE) 5,000 UNITS/ML 1ML VIAL IVPUSH PRN
[2016-10-02] MEDS: PIPERACILLIN/TAZOB 2.25 GM 50 ML IVPB SCH ×3 (01:44→18:19)
[2016-10-02] MEDS: SODIUM CHLORIDE 0.45% 1,000 ML IV SCH ×2 (03:30→11:19)
[2016-10-02] MEDS ORDERED: PT OWN MED DRAWER 7, Y5N ONE ×3 (05:21→18:38)
[2016-10-02] MEDS: BRIMONIDINE TARTRATE 0.2% OPHTHALMIC 5 ML BOTTLE OU SCH ×3 (05:43→21:41)
[2016-10-02 08:25] LABS: EOSINOPHIL 4.4 % (0-4.5); MCH 23.3 pg (25.7-33.7); MCHC 31.6 g/dl (32.0-35.9); MEAN CELL VOLUME 73.7 fl (80-96); MEAN PLT VOLUME 7.4 fl (7.5-11.1); NEUTROPHILS 70.6 % (42.8-82.8); PLATELET COUNT 266 K/MM3 (134-434); RDW 16.9 % (11.9-15.9); WHITE BLOOD COUNT 7.3 K/mm3 (4.0-10.0)
[2016-10-02] MEDS: TAMSULOSIN HCL 0.4 MG CAP.ER.24H (FP) PO SCH (08:38)
[2016-10-02 08:44] LABS: TROPONIN I < 0.02 ng/ml (0.00-0.05)
[2016-10-02] MEDS: PANTOPRAZOLE 20 MG TABLET (FP) PO SCH (09:59)
[2016-10-02] MEDS: FERROUS SO4 325 MG TABLET (FP) PO SCH (09:59)
[2016-10-02] MEDS: METOPROLOL TARTRATE 25 MG TABLET (FP) PO SCH ×2 (09:59→21:41)
--- NOTE | 2016-10-02 12:18 | PN ---
Physical Exam: SUBJECTIVE: Patient seen and examined oob to chair. OBJECTIVE: Vital Signs Period Temp Pulse Resp BP Sys/Shah Pulse Ox Last 24 Hr 97.8 F-98.4 F 81-99 20-20 111-135/77-86 100 GENERAL: The patient is awake, alert, and fully oriented, in no acute distress. HEAD: Normal with no signs of trauma. EYES: PERRL, extraocular movements intact, sclera anicteric, conjunctiva clear. No ptosis. LUNGS: Breath sounds equal, clear to auscultation bilaterally, no wheezes, no crackles, no accessory muscle use. HEART: Regular rate and rhythm, S1, S2 without murmur, rub or gallop. ABDOMEN: Soft, nontender, nondistended, normoactive bowel sounds, no guarding, no rebound, no hepatosplenomegaly, no masses. : chavez in place draining clear yellow urine EXTREMITIES: 2+ pulses, warm, well-perfused, no edema. Venous stasis changes bilaterally. No erythema. NEUROLOGICAL: Cranial nerves II through XII grossly intact. Normal speech, gait not observed. Laboratory Results - last 24 hr 10/01/16 10/01/16 10/02/16 16:05 23:00 06:30 WBC RBC Hgb Hct MCV MCHC RDW Plt Count MPV Neutrophils % Lymphocytes % Monocytes % Eosinophils % Basophils % PTT (Actin FS) 43.2 H 40.7 H 50.1 H Creatine Kinase Troponin I 10/02/16 10/02/16 06:30 06:30 WBC 7.3 D RBC 3.31 L Hgb 7.7 L Hct 24.4 L MCV 73.7 L MCHC 31.6 L RDW 16.9 H Plt Count 266 MPV 7.4 L Neutrophils % 70.6 Lymphocytes % 16.0 D Monocytes % 8.0 Eosinophils % 4.4 Basophils % 1.0 PTT (Actin FS) Creatine Kinase 35 L Troponin I < 0.02 Active Medications Generic Name Dose Route Start Last Admin Trade Name Freq PRN Reason Stop Dose Admin Acetaminophen 650 mg 09/30/16 00:48 10/01/16 19:46 Tylenol - PO 650 mg Q4H PRN Administration FEVER OR PAIN Atorvastatin Calcium 10 mg 09/30/16 22:00 10/01/16 22:05 Lipitor - PO 10 mg HS CHARLETTE Administration Brimonidine Tartrate 1 drop 09/30/16 22:45 10/02/16 05:43 Alphagan 0.2% - OU 1 drop TID CHARLETTE Administration Ferrous Sulfate 325 mg 09/30/16 10:00 10/02/16 09:59 Feosol - PO 325 mg DAILY CHARLETTE Administration Heparin Sodium (Porcine) 1,000 unit 09/30/16 16:04 10/02/16 00:00 Heparin - IVPUSH 1,000 unit PRN PRN Administration Heparin Heparin Sodium (Porcine) 5,000 unit 09/30/16 16:04 10/01/16 11:49 Heparin - IVPUSH 5,000 unit PRN PRN Administration Heparin Piperacillin Sod/Tazobactam Sod 50 mls @ 100 mls/hr 09/30/16 12:00 10/02/16 09: 59 Zosyn 2.25gm Ivpb (Pre-Docked) IVPB 100 mls/hr Q8H-IV CHARLETTE Administration Protocol Heparin Sodium (Porcine) 25, 500 mls @ 20 mls/hr 09/30/16 16:15 10/02/16 08:38 000 unit/ Sodium Chloride IV 1,400 unit/hr TITR CHARLETTE Titration Protocol 1,000 UNIT/HR Sodium Chloride 1,000 mls @ 100 mls/hr 10/01/16 11:00 10/02/16 03:30 1/2 Normal Saline IV 100 mls/hr ASDIR CHARLETTE Administration Metoprolol Tartrate 25 mg 09/30/16 10:00 10/02/16 09:59 Lopressor - PO 25 mg BID CHARLETTE Administration Pantoprazole Sodium 20 mg 09/30/16 10:00 10/02/16 09:59 Protonix - PO 20 mg DAILY CHARLETTE Administration Tamsulosin HCl 0.4 mg 10/01/16 08:30 10/02/16 08:38 Flomax - PO 0.4 mg DAILY@0830 CHARLETTE Administration ASSESSMENT/PLAN 70 year-old male with a PMH of HTN, recent GI bleed (3 weeks ago), venous insufficiency, recurrent LE cellulitis , and CKD. Admitted for bilateral DVT and cellulitis. Bilateral DVT, likely provoked --on heparin drip --patient states he is wheelchair bound at assisted living facility, prolonged immobilization, infection --long-term anticoagulation needs to be addressed Microcytic anemia h/o GI bleed --h/h 7.7-->7.9 since admission --occult stool ordered --continue protonix --continue Feosol Acute kidney injury Bilateral hydronephrosis Urinary retention --US renal and bladder showed post-void residual 2441 ccs; bilateral hydronephrosis --Cr 3.0 on admission, now 1.3 (baseline 1.6) --d/c chavez in morning, voiding trial --continue Flomax Pseudomonas UTI --09/29 urine culture + pseudomonas --continue Zosyn Hypokalemia --repleted Fungal infection in the groin area --topical nystatin F/E/N Fluids: stop IV fluids; PO intake adequate Electrolytes: replete as indicated Nutrition: low sodium diet DVT prophylaxis: on heparin drip Physical therapy evaluation Daily PT Dispo: continues to require inpatient care. Full Code. Visit type - Emergency Visit Emergency Visit: Yes ED Registration Date: 09/30/16 Care time: The patient presented to the Emergency Department on the above date and was hospitalized for further evaluation of their emergent condition. - New Patient This patient is new to me today: Yes Date on this admission: 10/02/16 - Critical Care Critical Care patient: No
[2016-10-02 13:43] LABS: ANION GAP 12 (8-16); CO2 22 mmol/L (21-32); CREATININE 1.3 mg/dL (0.7-1.3); GLUCOSE,RANDOM 97 mg/dL (74-106)
[2016-10-02] MEDS ORDERED: POTASSIUM CHLORIDE TABS 20 MEQ TABLET.ER (FP) PO ONE (14:15)
[2016-10-02] MEDS: HEPARIN - 25,000 UNIT in SODIUM CHLORIDE 495 ML IV SCH (16:20)
[2016-10-02] MEDS ORDERED: INSULIN (NOVOLOG) ASPART 100 UNITS/ML 10ML VIAL ONE (18:38)
[2016-10-02] MEDS ORDERED: INSULIN DETEMIR 100 UNITS/ML MDV SQ ONE (18:38)
[2016-10-02] MEDS: ATORVASTATIN CA 10 MG TABLET (FP) PO SCH (21:41)
[2016-10-03] MEDS: SODIUM CHLORIDE 0.45% 1,000 ML IV SCH ×3 (02:17→15:30)
[2016-10-03] MEDS: HEPARIN - 25,000 UNIT in SODIUM CHLORIDE 495 ML IV SCH ×2 (02:18→18:50)
[2016-10-03] MEDS: PIPERACILLIN/TAZOB 2.25 GM 50 ML IVPB SCH ×4 (02:19→17:17)
[2016-10-03] MEDS: ACETAMINOPHEN 325 MG TABLET (FP) PO PRN (05:21)
[2016-10-03] MEDS: BRIMONIDINE TARTRATE 0.2% OPHTHALMIC 5 ML BOTTLE OU SCH ×3 (06:25→22:37)
[2016-10-03 07:28] LABS: MCH 23.2 pg (25.7-33.7); MCHC 31.7 g/dl (32.0-35.9); MEAN CELL VOLUME 73.3 fl (80-96); MEAN PLT VOLUME 7.2 fl (7.5-11.1); PLATELET COUNT 281 K/MM3 (134-434); RDW 17.2 % (11.9-15.9); WHITE BLOOD COUNT 8.9 K/mm3 (4.0-10.0)
[2016-10-03 07:31] LABS: MCH 23.2 pg (25.7-33.7); MCHC 31.6 g/dl (32.0-35.9); MEAN CELL VOLUME 73.4 fl (80-96); MEAN PLT VOLUME 7.3 fl (7.5-11.1); PLATELET COUNT 281 K/MM3 (134-434); RDW 17.1 % (11.9-15.9); WHITE BLOOD COUNT 9.2 K/mm3 (4.0-10.0)
[2016-10-03] MEDS: HEPARIN NA (PORCINE) 5,000 UNITS/ML 1ML VIAL IVPUSH PRN ×2 (08:44→15:48)
[2016-10-03 09:00] LABS: ALBUMIN 2.2 g/dl (3.4-5.0); ALK PHOS 60 U/L (45-117); ANION GAP 10 (8-16); BILIRUBIN,TOTAL 0.2 mg/dL (0.2-1.0); CO2 23 mmol/L (21-32); CREATININE 1.1 mg/dL (0.7-1.3); GLUCOSE,RANDOM 80 mg/dL (74-106); MAGNESIUM 1.4 mg/dL (1.8-2.4); SGOT/AST 17 U/L (15-37); SGPT/ALT 17 U/L (12-78); TOT PROT 5.8 g/dl (6.4-8.2)
[2016-10-03] MEDS: TAMSULOSIN HCL 0.4 MG CAP.ER.24H (FP) PO SCH (09:28)
[2016-10-03] MEDS: FERROUS SO4 325 MG TABLET (FP) PO SCH (09:28)
[2016-10-03] MEDS: METOPROLOL TARTRATE 25 MG TABLET (FP) PO SCH ×2 (09:28→22:37)
[2016-10-03 10:08] LABS: SERUM IRON 11 ug/dL (38-169); TOTAL IRON BINDING CAPACITY 234 ug/dL (250-450); UIBC 223 ug/dL (111-343)
[2016-10-03] MEDS: PANTOPRAZOLE SODIUM 100 ML IVPB SCH (10:51)
[2016-10-03] MEDS ORDERED: oxyCODONE HCL 5 MG TABLET PO ONE (11:34)
[2016-10-03 14:01] LABS: ANISOCYTOSIS 2+; HYPOCHROMIA 2+; MICROCYTOSIS 1+; PLATELET COMMENT2 NO CLOTTING DETECTED; PLATELET ESTIMATE ADEQUATE (NORMAL); POLYCHROMASIA 1+
--- NOTE | 2016-10-03 15:01 | PN ---
Progress Note, Physician History of Present Illness: OOB in chair No c/o leg pain No fever/ chills Dalton catheter in place; urine clear - Current Medication List Current Medications: Active Medications Acetaminophen (Tylenol -) 650 mg PO Q4H PRN PRN Reason: FEVER OR PAIN Last Admin: 10/03/16 05:21 Dose: 650 mg Atorvastatin Calcium (Lipitor -) 10 mg PO HS CHARLETTE Last Admin: 10/02/16 21:41 Dose: 10 mg Brimonidine Tartrate (Alphagan 0.2% -) 1 drop OU TID CHARLETTE Last Admin: 10/03/16 06:25 Dose: 1 drop Ferrous Sulfate (Feosol -) 325 mg PO DAILY [facility] Last Admin: 10/03/16 09:28 Dose: 325 mg Heparin Sodium (Porcine) (Heparin -) 1,000 unit IVPUSH PRN PRN PRN Reason: Heparin Last Admin: 10/03/16 08:44 Dose: 1,000 unit Heparin Sodium (Porcine) (Heparin -) 5,000 unit IVPUSH PRN PRN PRN Reason: Heparin Last Admin: 10/01/16 11:49 Dose: 5,000 unit Piperacillin Sod/Tazobactam Sod (Zosyn 2.25gm Ivpb (Pre-Docked)) 50 mls @ 100 mls/hr IVPB Q8H-IV CHARLETTE PRN Reason: Protocol Last Admin: 10/03/16 09:28 Dose: 100 mls/hr Heparin Sodium (Porcine) 25, (000 unit/ Sodium Chloride) 500 mls @ 20 mls/hr IV TITR CHARLETTE; 1,000 UNIT/HR PRN Reason: Protocol Last Titration: 10/03/16 08:39 Dose: 1,600 unit/hr Sodium Chloride (1/2 Normal Saline) 1,000 mls @ 100 mls/hr IV ASDIR CHARLETTE Last Admin: 10/03/16 12:05 Dose: Not Given Pantoprazole Sodium (Protonix 40mg Ivpb (Pre-Docked)) 100 mls @ 200 mls/hr IVPB DAILY [facility] Last Admin: 10/03/16 10:51 Dose: 200 mls/hr Metoprolol Tartrate (Lopressor -) 25 mg PO BID [facility] Last Admin: 10/03/16 09:28 Dose: 25 mg Tamsulosin HCl (Flomax -) 0.4 mg PO DAILY@0830 [facility] Last Admin: 10/03/16 09:28 Dose: 0.4 mg - Objective Vital Signs: Vital Signs Temperature 98.4 F 10/03/16 09:30 Pulse Rate 94 H 10/03/16 09:30 Respiratory Rate 20 10/03/16 09:30 Blood Pressure 134/78 10/03/16 09:30 O2 Sat by Pulse Oximetry (%) 100 10/03/16 09:00 Constitutional: Yes: No Distress Cardiovascular: Yes: Regular Rate and Rhythm, S1, S2 Respiratory: Yes: CTA Bilaterally Gastrointestinal: Yes: Normal Bowel Sounds, Soft. No: Tenderness Extremities: Yes: Other (decreased swelling, LE bilaterally Erythema LE resolved. + Stasis dermatitis) Labs: CBC, BMP 10/03/16 06:00 10/03/16 06:00 INR, PTT INR 1.22 (0.82-1.09) H 09/29/16 21:55 Assessment/Plan Recurrent LE cellulitis Bilateral LE DVT Urinary retention Azotemia- resolved UTI Pseudomonas Continue zosyn additional 24hr
[2016-10-03] MEDS ORDERED: PT OWN MED DRAWER 7, Y5N ONE ×2 (15:26→21:52)
--- NOTE | 2016-10-03 16:27 | PN ---
Teaching Attending Note Name of Resident: Chel Mack ATTENDING PHYSICIAN STATEMENT I saw and evaluated the patient. I reviewed the resident's note and discussed the case with the resident. I agree with the resident's findings and plan as documented. SUBJECTIVE: reports intermittent melena since his last admission to [facility] 3 weeks ago , has no abd pain, has no fever or chills. very poor historian. has no N/V. denies other bleed. was transfused blood due to melena . never had colonoscopy . no SOB. OBJECTIVE: NAD CV : RRR lungs CTAB ext : resolving erythema over legs . no TTP . minimal edema on legs , no increased warmth ASSESSMENT AND PLAN: 70 y/o man with h/o recent GI bleed , HTN, recurrent LE cellulitis , who presented with LE edema and erythema , he was found to have b/l LE cellulitis and DVT 1- b/l LE cellulitis : cont zosyn . much imporved 2- b/l LE DVT : cont heparin gtt. d/w pt his options of AC x 3-6 months vs IVC filter . he chose IVC filter heme w/u as out pt 3- microcytic anemia : likley from iron def , 2/2 GI bleed. ferritin is NL likely due to recent transfusion will need repeat iron studies 4- GI bleed : last EGD at [facility] . d/w Dr. Calix, who performed it , showed gastritis with erosions . colonoscopy never done for colo on Monday start clears . 5- pseudomonas UTI: cont zosyn 6- urinary retention with B/l Armstrong: could be due to BPH and UTI. will give voiding trial tomorrow cont ABx cont flomax PT eval
--- NOTE | 2016-10-03 16:28 | PN ---
Progress Note (short form) - Note Progress Note: GI CONSULTATION: PLEASE SEE COMPLETE DICTATION PT KNOWN TO ME FROM RECENT [facility]ITAL[facility] 08/2016 FOR MELANA/GI BLEED WITH HGB 6.5 REQ. 2 U PRBC;S EGD NOTED MILD GASTRITIS AND SHALLOW ANTRAL EROSIONS----UNCLEAR THE SOURCE OF BLEED AND COLONOSCOPY WAS STRONGLY ADVISED PT D/C AND TO BE DONE OUTPATIENT---HE HAS NOT F/U WITH US AND HAD AN APPOINTMENT 09/14/16 BUT HE DID NOT SHOW FOR APPOINTMENT NOW WITH CELLULITIS AND DVT ON A/C HGB 8 UNCHANGED FROM RECENT NO RECENT BLEEDING STOOL DOYLE G++ RECC: WOULD ADVISE DX COLONOSCOPY PRIOR TO CARE HOME A/C START CLEARS OUR TEAM WILL ARRANGE FOR 10/05 NPO AT ID TUE FOR COLON 10/05 ON 10/04 AT 1PM GOLYTLY 4 LITERS PO ON 10/04 AT 7PM DULCOLAX TABS 4 PO x 1 WILL HOLD HEPARIN 90 MIN PRIOR TO COLONOSCOPY THANKSCAMILO MD
--- NOTE | 2016-10-03 17:36 | PN ---
Addendum entered and electronically signed by Rosy Mackny, EVA 10/03/16 17 :59: Colace and Senna ordered for constipation. Original Note: Physical Exam: SUBJECTIVE: Patient seen and examined at bed side this morning. Said he wanted something for his b/l leg pain. He said oxycodone helped him during his last hospitalization. Denies chest pain, sob, cough, palpitation, abdominal pain, nausea or vomiting. Hasn't moved his bowel. Bladder habit normal. Sleep disturbed. Appetite normal. OBJECTIVE: Vital Signs Period Temp Pulse Resp BP Sys/Shah Pulse Ox Last 24 Hr 97.9 F-98.4 F 89-107 20-20 124-134/78-86 100-100 GENERAL: Moderately obese male, lying comfortably in bed, awake, alert, and fully oriented, in no acute distress. HEAD: Normal with no signs of trauma. EYES: EOM intact, no pallor or icterus, Complete loss of vision in the right eye. ENT: Ears normal, moist mucous membranes. NECK: Supple. LUNGS: Breath sounds equal, clear to auscultation bilaterally, no wheezes, no crackles, no accessory muscle use. HEART: Regular rate and rhythm, S1, S2 without murmur, rub or gallop. ABDOMEN: Soft, nontender, nondistended, normoactive bowel sounds, no guarding, no rebound, no hepatosplenomegaly, no masses. EXTREMITIES: B/L lower extremity pitting edema upto the mid calf Left>right resolving; erythmatous below the knee upto the ankle, small skin tear on the chan, tender to palpation, 2+ pulses, warm, well-perfused, chronic venous stasis-color change. NEUROLOGICAL: No facial droop, bulk/tone normal; Power-upper ext-5/5; lower ext- 3/5 (likely due to the swelling and tenderness couldn't perform well), Cranial nerves II through XII grossly intact. Normal speech, gait not observed. PSYCH: Normal mood, normal affect. SKIN: Warm, dry, normal turgor, no rashes or lesions noted Laboratory Results - last 24 hr 10/01/16 10/03/16 10/03/16 06:35 06:00 06:00 WBC 8.9 RBC 3.36 L Hgb 7.8 L Hct 24.6 L MCV 73.3 L MCHC 31.7 L RDW 17.2 H Plt Count 281 MPV 7.2 L Neutrophils % Lymphocytes % Monocytes % Eosinophils % Band Neutrophils Platelet Estimate Platelet Comment Polychromasia Hypochromic-Microcytic Anisocytosis Microcytosis PTT (Actin FS) 45.7 H Sodium Potassium Chloride Carbon Dioxide Anion Gap BUN Creatinine Creat Clearance w eGFR Random Glucose Calcium Magnesium Iron 11 L TIBC 234 L Iron Saturation 5 L Ferritin Total Bilirubin AST ALT Alkaline Phosphatase Total Protein Albumin 10/03/16 10/03/16 10/03/16 06:00 06:00 14:00 WBC 9.2 RBC 3.42 L Hgb 7.9 L Hct 25.1 L MCV 73.4 L MCHC 31.6 L RDW 17.1 H Plt Count 281 MPV 7.3 L Neutrophils % 60.0 Lymphocytes % 20.0 D Monocytes % 7.0 Eosinophils % 10.0 H D Band Neutrophils 3.0 Platelet Estimate Adequate Platelet Comment No clotting detected Polychromasia 1+ Hypochromic-Microcytic 2+ Anisocytosis 2+ Microcytosis 1+ PTT (Actin FS) Sodium 142 Potassium 3.4 L Chloride 109 H Carbon Dioxide 23 Anion Gap 10 BUN 13 Creatinine 1.1 Creat Clearance w eGFR > 60 Random Glucose 80 Calcium 8.0 L Magnesium 1.4 L D Iron TIBC Iron Saturation Ferritin 159.321 Total Bilirubin 0.2 D AST 17 ALT 17 Alkaline Phosphatase 60 Total Protein 5.8 L Albumin 2.2 L 10/03/16 15:00 WBC RBC Hgb Hct MCV MCHC RDW Plt Count MPV Neutrophils % Lymphocytes % Monocytes % Eosinophils % Band Neutrophils Platelet Estimate Platelet Comment Polychromasia Hypochromic-Microcytic Anisocytosis Microcytosis PTT (Actin FS) 46.0 H Sodium Potassium Chloride Carbon Dioxide Anion Gap BUN Creatinine Creat Clearance w eGFR Random Glucose Calcium Magnesium Iron TIBC Iron Saturation Ferritin Total Bilirubin AST ALT Alkaline Phosphatase Total Protein Albumin Active Medications Generic Name Dose Route Start Last Admin Trade Name Freq PRN Reason Stop Dose Admin Acetaminophen 650 mg 09/30/16 00:48 10/03/16 05:21 Tylenol - PO 650 mg Q4H PRN Administration FEVER OR PAIN Atorvastatin Calcium 10 mg 09/30/16 22:00 10/02/16 21:41 Lipitor - PO 10 mg HS CHARLETTE Administration Brimonidine Tartrate 1 drop 09/30/16 22:45 10/03/16 15:30 Alphagan 0.2% - OU 1 drop TID CHARLETTE Administration Ferrous Sulfate 325 mg 09/30/16 10:00 10/03/16 09:28 Feosol - PO 325 mg DAILY CHARLETTE Administration Heparin Sodium (Porcine) 1,000 unit 09/30/16 16:04 10/03/16 15:48 Heparin - IVPUSH 1,000 unit PRN PRN Administration Heparin Heparin Sodium (Porcine) 5,000 unit 09/30/16 16:04 10/01/16 11:49 Heparin - IVPUSH 5,000 unit PRN PRN Administration Heparin Piperacillin Sod/Tazobactam Sod 50 mls @ 100 mls/hr 09/30/16 12:00 10/03/16 17: 17 Zosyn 2.25gm Ivpb (Pre-Docked) IVPB 100 mls/hr Q8H-IV CHARLETTE Administration Protocol Heparin Sodium (Porcine) 25, 500 mls @ 20 mls/hr 09/30/16 16:15 10/03/16 15:50 000 unit/ Sodium Chloride IV 1,700 unit/hr TITR CHARLETTE Titration Protocol 1,000 UNIT/HR Sodium Chloride 1,000 mls @ 100 mls/hr 10/01/16 11:00 10/03/16 15:30 1/2 Normal Saline IV 100 mls/hr ASDIR CHARLETTE Administration Pantoprazole Sodium 100 mls @ 200 mls/hr 10/03/16 10:00 10/03/16 10:51 Protonix 40mg Ivpb (Pre-Docked) IVPB 200 mls/hr DAILY CHARLETTE Administration Metoprolol Tartrate 25 mg 09/30/16 10:00 10/03/16 09:28 Lopressor - PO 25 mg BID CHARLETTE Administration Tamsulosin HCl 0.4 mg 10/01/16 08:30 10/03/16 09:28 Flomax - PO 0.4 mg DAILY@0830 CHARLETTE Administration ASSESSMENT/PLAN: Patient is a 70 year old male, a resident of assisted living in [facility], with recurrent bilateral leg cellulitis, failed outpatient treatment, with urinary tract infection, HTN, recent GI bleed (3 weeks ago), venous insufficiency, recurrent LE cellulitis , and CKD # Sepsis secondary to leg cellulitis- Resolving Recurrent cellulitis, failed outpatient treatment. Has no urinary symptoms On IV 1/2NS @ 100mls/hr IV zosyn 3.35mg IV Q8H Day 4, as per ID Blood culture negative # Urinary tract infection with urinary retention-Pseudomonas Patient is asymptomatic IV hydration and IV Zosyn (sensitive as per c/s) Dalton in place, voiding trials tomorrow. # SHIVAM likely due to prerenal vs obstructive Baseline creatinine 1.6 ( 09/13/16) Stopped Lasix (was on lasix for b/l leg swelling) Renal ultrasound: Moderate b/l renal hydronephrosis # New onset DVT on right popliteal vein with total occlusion of distal left popliteal vein Duplex of B/L lower ext. Protocol started with Heparin, normal platelet count. Since patient has a recent h/o GI Bleed, recent PRBC transfusion, not a candidate of joint terminal attack controller anticoagulation. Hence, IR guided IVC filter to be placed possibly tomorrow. Do not know if its provoke or unprovoked, needs more investigation # Recent GI Bleed (3 weeks ago) EGD was done [address] Robin, has a h/o melena/GI bleed with Hb of 6.5, s/p 2 U PRBC; GI consult appreciated who recommended: Clears tomorrow, colonoscopy on 10/05 ; hold heparin 90 mins prior colonoscopy and preparation for colonoscopy No active bleeding this admission # Microcytic Anemia H/H 7.9/25.1 Watch for bleeding as patient is on Heparin Transfuse if Hb , 7gm/dl or if he is actively bleeding # Fungal infection in the groin area and the nails Topical nystatin # FEN: IV 1/2 NS 100mls/hr Electrolytes to be repeated tomorrow. Low sodium diet # Prophylaxis For DVT: Already For GI: Pantoprazole 20mg Daily # Code Status: Full Code # Dispo: Admitted in Med-Surg. Duration of stay unknown. Call placed to [facility] (Assisted living)- [phone] to confirm medication and to get some more information, couldn't reach them today 10/03/16. Will try again tomorrow. Illness, Investigation and Plan of care explained to the patient. He verbalized understanding. Case seen and examined with Dr. Wooten. Visit type - Emergency Visit Emergency Visit: Yes ED Registration Date: 09/30/16 Care time: The patient presented to the Emergency Department on the above date and was hospitalized for further evaluation of their emergent condition. - New Patient This patient is new to me today: No - Critical Care Critical Care patient: No
[2016-10-03] MEDS ORDERED: SENNOSIDES 8.6MG TABLET (FP) PO PRN (17:59)
[2016-10-03] MEDS ORDERED: DOCUSATE SODIUM 100 MG CAPSULE (FP) PO PRN (17:59)
[2016-10-03] MEDS: ATORVASTATIN CA 10 MG TABLET (FP) PO SCH (22:37)
[2016-10-03] MEDS ORDERED: guaiFENesin/CODEINE 10 ML UNIT-DOSE CUPS PO ONE (23:27)
[2016-10-04] MEDS: PIPERACILLIN/TAZOB 2.25 GM 50 ML IVPB SCH ×3 (02:01→18:22)
[2016-10-04] MEDS: BRIMONIDINE TARTRATE 0.2% OPHTHALMIC 5 ML BOTTLE OU SCH ×3 (06:31→21:30)
--- NOTE | 2016-10-04 06:45 | CONS ---
DATE OF CONSULTATION: 10/03/2016 REASON FOR CONSULTATION: I was asked by Dr. Wooten to evaluate the patient for anemia. HISTORY OF PRESENT ILLNESS: The patient is a 70-year-old white male who is a fair informant. Apparently, I had seen him recently at [facility] exactly one month ago. At that time, he presented with GI bleeding. He had a past medical history of hypertension, anemia, reflux, ulcer disease, and he reported having an NSAID-related GI bleed several years ago. He warranted blood transfusions at that time. He underwent an endoscopy. He is not certain of the findings. He believes he had a colonoscopy at [place] a few years ago, and again, he was unaware of the findings. When I saw the patient a month ago, he was having black stool on and off for two weeks, weakness and dizziness. He was noted to be quite anemic when he presented. He had a post-hydration hemoglobin of 6.9. He received 2 units of packed cells, and it went to 8.2. At that time, the remainder of the CBC was normal. When I had seen him, he was hemodynamically stable, he was not on any anticoagulation, and he had been taking some NSAIDs only. I performed an upper endoscopy that revealed some shallow gastric ulcerations and gastritis without other significant findings. I was uncertain that was the etiology of his bleed, and I had strongly advised an outpatient colonoscopy. At that time, he was certainly guaiac positive, as I said he had presented with melena, but he had not followed up with us. It is unclear whether he had been compliant with his medication. The patient tells me now that he had come to [facility]. He had developed a bad cellulitis bilaterally and was being treated for that and was found to have bilateral deep vein venous thromboses. The patient is now on IV heparin and is going to be on long-term anticoagulation per his report. The patients other past medical history is noted for dyslipidemia and depression. He has not had any significant nausea, vomiting, or abdominal pain. He has not seen black tarry stools or bright red blood per rectum. He has not had change in bowel habits. He denies significant straining, forcing, or diarrhea. MEDICATIONS: The patients current medications in the hospital include Alphagan Eye Drops, Flomax, Tylenol, Zosyn, heparin IV, Lipitor, Lopressor, iron, Protonix, and IV fluid. PHYSICAL EXAMINATION: General: The patient is in absolutely no acute distress. He is sitting up. He is breathing easily. Vital signs: He is afebrile. His vital signs are stable. His heart rate has been in the 90s. His blood pressure is 124/79. HEENT: Sclerae anicteric. Neck: Supple. Heart: Regular. Abdomen: Soft. There are bowel sounds. It is not distended. There is no mass, rebound, or guarding. There is no tenderness to deep palpation at all. Rectal: Examination reveals stool that is bai and guaiac positive. LABORATORY DATA: Notable in that his hemoglobin has been 7.9 throughout the few days he has been in the hospital with a platelet count of 281,000, and a white count of 9.2. His INR is 1.2, and his chemistries are unrevealing except for a potassium of 3.4. His BUN and creatinine are normal as are his liver enzymes. IMPRESSION: It is my impression that the patient is a 70-year-old gentleman with hypertension, dyslipidemia, who presented to [facility] with a gastrointestinal bleed a month ago. He had been on nonsteroidals at that time. The upper endoscopy was really nonrevealing. He was advised to have colonoscopy and has not done such. It is unclear when his last colonoscopy was performed. He did require packed cell blood transfusions at that time. He now comes in with bilateral deep venous thrombosis to [place] and was started on anticoagulation, and the concern is that he will be on anticoagulation, and we need to assess his colon to make sure he does not have an occult lesion that has been slowly bleeding. At the present time, he is hemodynamically stable. He is not having active bleeding. The stool was bai, but guaiac positive, and while he is on heparin, it would probably be a fine time to evaluate the colon. I suggest that we could stop the heparin for about 90 minutes prior to colonoscopy. The patient agrees to take a bowel prep tomorrow and will proceed with a colonoscopy on Monday. We will continue to be available to aid and manage this patient. At the present time, I have discussed with the hospitalist, Dr. Wooten. We will start the patient on a clear liquid diet and then initiate a bowel prep on October 04. REINALDO PAGE M.D. CLEVE/[id number]
[2016-10-04 06:54] LABS: MCH 22.7 pg (25.7-33.7); MCHC 30.5 g/dl (32.0-35.9); MEAN CELL VOLUME 74.5 fl (80-96); MEAN PLT VOLUME 7.2 fl (7.5-11.1); PLATELET COUNT 280 K/MM3 (134-434); RDW 17.2 % (11.9-15.9); WHITE BLOOD COUNT 11.5 K/mm3 (4.0-10.0)
[2016-10-04 08:12] LABS: ANION GAP 8 (8-16); CALCIUM 7.9 mg/dL (8.5-10.1); CO2 24 mmol/L (21-32); CREATININE 1.2 mg/dL (0.7-1.3); GLUCOSE,RANDOM 85 mg/dL (74-106)
[2016-10-04 08:33] LABS: MAGNESIUM 1.3 mg/dL (1.8-2.4)
[2016-10-04] MEDS ORDERED: MAGNESIUM SULF 50% (8.12 MEQ/2 ML-1 GM VIAL) IVPB ONE (08:39)
[2016-10-04] MEDS ORDERED: oxyCODONE HCL 5 MG TABLET PO ONE (08:45)
[2016-10-04] MEDS: FERROUS SO4 325 MG TABLET (FP) PO SCH (09:00)
[2016-10-04] MEDS: TAMSULOSIN HCL 0.4 MG CAP.ER.24H (FP) PO SCH (09:02)
[2016-10-04] MEDS: METOPROLOL TARTRATE 25 MG TABLET (FP) PO SCH ×2 (09:02→21:30)
[2016-10-04] MEDS ORDERED: POLYETHYLENE GLYCOL 3350 119 GM BTL PO SCH (10:00)
[2016-10-04] MEDS: PANTOPRAZOLE SODIUM 100 ML IVPB SCH (11:01)
--- NOTE | 2016-10-04 11:05 | PN ---
Progress Note, Physician History of Present Illness: OOB in chair No c/o leg pain Chavez catheter just removed Awaiting IVC filter, colonscopy Afebrile; WBC slightly elevated - Current Medication List Current Medications: Active Medications Acetaminophen (Tylenol -) 650 mg PO Q4H PRN PRN Reason: FEVER OR PAIN Last Admin: 10/03/16 05:21 Dose: 650 mg Atorvastatin Calcium (Lipitor -) 10 mg PO HS CHARLETTE Last Admin: 10/03/16 22:37 Dose: 10 mg Brimonidine Tartrate (Alphagan 0.2% -) 1 drop OU TID CHARLETTE Last Admin: 10/04/16 06:31 Dose: 1 drop Docusate Sodium (Colace -) 100 mg PO BID PRN PRN Reason: CONSTIPATION Ferrous Sulfate (Feosol -) 325 mg PO DAILY [facility] Last Admin: 10/04/16 09:00 Dose: 325 mg Heparin Sodium (Porcine) (Heparin -) 1,000 unit IVPUSH PRN PRN PRN Reason: Heparin Last Admin: 10/03/16 15:48 Dose: 1,000 unit Heparin Sodium (Porcine) (Heparin -) 5,000 unit IVPUSH PRN PRN PRN Reason: Heparin Last Admin: 10/01/16 11:49 Dose: 5,000 unit Piperacillin Sod/Tazobactam Sod (Zosyn 2.25gm Ivpb (Pre-Docked)) 50 mls @ 100 mls/hr IVPB Q8H-IV CHARLETTE PRN Reason: Protocol Last Admin: 10/04/16 10:49 Dose: 100 mls/hr Heparin Sodium (Porcine) 25, (000 unit/ Sodium Chloride) 500 mls @ 20 mls/hr IV TITR CHARLETTE; 1,000 UNIT/HR PRN Reason: Protocol Last Titration: 10/04/16 08:37 Dose: 1,700 unit/hr Metoprolol Tartrate (Lopressor -) 25 mg PO BID CHARLETTE Last Admin: 10/04/16 09:02 Dose: 25 mg Pantoprazole Sodium (Protonix -) 40 mg PO DAILY [facility] Polyethylene Glycol (Miralax (For Daily Use) -) 17 gm PO BID CHARLETTE Last Admin: 10/04/16 09:02 Dose: Not Given Senna (Senna -) 2 tab PO HS PRN PRN Reason: CONSTIPATION Tamsulosin HCl (Flomax -) 0.4 mg PO DAILY@0830 [facility] Last Admin: 10/04/16 09:02 Dose: 0.4 mg - Objective Vital Signs: Vital Signs Temperature 99.1 F 10/04/16 06:07 Pulse Rate 95 H 10/04/16 06:07 Respiratory Rate 10/04/16 06:07 Blood Pressure 127/83 10/04/16 06:07 O2 Sat by Pulse Oximetry (%) 97 10/03/16 21:00 Constitutional: Yes: No Distress Eyes: Yes: Conjunctiva Clear Cardiovascular: Yes: Regular Rate and Rhythm, S1, S2 Respiratory: Yes: CTA Bilaterally Gastrointestinal: Yes: Normal Bowel Sounds, Soft, Abdomen, Obese. No: Tenderness Extremities: Yes: Other (decreased LE edema bilaterally; erythema resolved) Labs: CBC, BMP 10/04/16 06:15 10/04/16 06:15 INR, PTT INR 1.22 (0.82-1.09) H 09/29/16 21:55 Assessment/Plan Recurrent LE cellulitis- resolved Bilateral LE DVT Urinary retention S/P removal of chavez catheter Azotemia- resolved UTI Pseudomonas Continue zosyn additional 48hr
[2016-10-04] MEDS: HEPARIN - 25,000 UNIT in SODIUM CHLORIDE 495 ML IV SCH (11:08)
--- NOTE | 2016-10-04 12:17 | PN ---
Teaching Attending Note Name of Resident: Chel Mack ATTENDING PHYSICIAN STATEMENT I saw and evaluated the patient. I reviewed the resident's note and discussed the case with the resident. I agree with the resident's findings and plan as documented. SUBJECTIVE: no pain , no fever or chills. has constipation no bleeding OBJECTIVE: NAD CV : RRR lungs CTAB ext : resolving erythema over legs . no TTP . minimal edema on legs , no increased warmth ASSESSMENT AND PLAN: 70 y/o man with h/o recent GI bleed , HTN, recurrent LE cellulitis , who presented with LE edema and erythema , he was found to have b/l LE cellulitis and DVT 1- B/l LE cellulitis : cont zosyn . WBC is slightly higher today , but no fever . Will monitor 2- B/l LE DVT : cont heparin gtt. Again, d/w pt his options of AC x 3-6 months vs IVC filter . he chose IVC filter which is probably a safer option given his GI bleed , and hb of 7.6 heme w/u as out pt 3- Microcytic anemia : likley from iron def , 2/2 GI bleed. ferritin is NL likely due to recent transfusion and acute phase reactant will need repeat iron studies as out pt 4- GI bleed : last EGD at [facility] showed gastritis with erosions . Colonoscopy tomorrow clears and bowel prep today . DC IVF tomorrow 5- Pseudomonas UTI: cont zosyn 6- Urinary retention with B/l [place]: could be due to BPH and UTI. remove chavez for voiding trial cont ABx cont flomax PT eval Dispo : pending work up
--- NOTE | 2016-10-04 13:38 | PN ---
Physical Exam: SUBJECTIVE: Patient seen and examined at bed side this morning. Patient said he hasn't moved the bowel since few days. Has lower extremity pain, yesterday it resolved after one dose of oxycodone. Denies chest pain, sob, cough, palpitation , abdominal pain, nausea or vomiting. Sleep/Appetite normal. OBJECTIVE: Vital Signs Period Temp Pulse Resp BP Sys/Shah Pulse Ox Last 24 Hr 97.9 F-99.1 F 95-114 20-20 99-129/70-83 97 GENERAL: Moderately obese male, lying comfortably in bed, awake, alert, and fully oriented, in no acute distress. HEAD: Normal with no signs of trauma. EYES: EOM intact, no pallor or icterus, Complete loss of vision in the right eye. ENT: Ears normal, moist mucous membranes. NECK: Supple. LUNGS: Breath sounds equal, clear to auscultation bilaterally, no wheezes, no crackles, no accessory muscle use. HEART: Regular rate and rhythm, S1, S2 without murmur, rub or gallop. ABDOMEN: Soft, nontender, nondistended, normoactive bowel sounds, no guarding, no rebound, no hepatosplenomegaly, no masses. EXTREMITIES: B/L lower extremity pitting edema upto the mid calf Left>right resolving; erythmatous below the knee upto the ankle, small skin tear on the chan, tender to palpation, 2+ pulses, warm, well-perfused, chronic venous stasis-color change. NEUROLOGICAL: No facial droop, bulk/tone normal; Power-upper ext-5/5; lower ext- 3/5 (likely due to the swelling and tenderness couldn't perform well), Cranial nerves II through XII grossly intact. Normal speech, gait not observed. PSYCH: Normal mood, normal affect. SKIN: Warm, dry, normal turgor, no rashes or lesions noted Laboratory Results - last 24 hr 10/01/16 10/03/16 10/03/16 06:35 06:00 14:00 WBC 9.2 RBC 3.42 L Hgb 7.9 L Hct 25.1 L MCV 73.4 L MCHC 31.6 L RDW 17.1 H Plt Count 281 MPV 7.3 L Neutrophils % 60.0 Lymphocytes % 20.0 D Monocytes % 7.0 Eosinophils % 10.0 H D Band Neutrophils 3.0 Platelet Estimate Adequate Platelet Comment No clotting detected Polychromasia 1+ Hypochromic-Microcytic 2+ Anisocytosis 2+ Microcytosis 1+ PTT (Actin FS) Sodium Potassium Chloride Carbon Dioxide Anion Gap BUN Creatinine Random Glucose Calcium Magnesium Transferrin 182 L Ferritin 159.321 10/03/16 10/03/16 10/04/16 15:00 21:40 06:15 WBC 11.5 H RBC 3.36 L Hgb 7.6 L Hct 25.0 L MCV 74.5 L MCHC 30.5 L RDW 17.2 H Plt Count 280 MPV 7.2 L Neutrophils % Lymphocytes % Monocytes % Eosinophils % Band Neutrophils Platelet Estimate Platelet Comment Polychromasia Hypochromic-Microcytic Anisocytosis Microcytosis PTT (Actin FS) 46.0 H 51.1 H Sodium Potassium Chloride Carbon Dioxide Anion Gap BUN Creatinine Random Glucose Calcium Magnesium Transferrin Ferritin 10/04/16 10/04/16 10/04/16 06:15 06:15 06:15 WBC RBC Hgb Hct MCV MCHC RDW Plt Count MPV Neutrophils % Lymphocytes % Monocytes % Eosinophils % Band Neutrophils Platelet Estimate Platelet Comment Polychromasia Hypochromic-Microcytic Anisocytosis Microcytosis PTT (Actin FS) 57.0 H Sodium 142 Potassium 3.6 Chloride 110 H Carbon Dioxide 24 Anion Gap 8 BUN 18 D Creatinine 1.2 Random Glucose 85 Calcium 7.9 L Magnesium 1.3 L Cancelled Transferrin Ferritin Active Medications Generic Name Dose Route Start Last Admin Trade Name Freq PRN Reason Stop Dose Admin Acetaminophen 650 mg 09/30/16 00:48 10/03/16 05:21 Tylenol - PO 650 mg Q4H PRN Administration FEVER OR PAIN Atorvastatin Calcium 10 mg 09/30/16 22:00 10/03/16 22:37 Lipitor - PO 10 mg HS CHARLETTE Administration Brimonidine Tartrate 1 drop 09/30/16 22:45 10/04/16 06:31 Alphagan 0.2% - OU 1 drop TID CHARLETTE Administration Docusate Sodium 100 mg 10/03/16 17:59 Colace - PO BID PRN CONSTIPATION Ferrous Sulfate 325 mg 09/30/16 10:00 10/04/16 09:00 Feosol - PO 325 mg DAILY CHARLETTE Administration Heparin Sodium (Porcine) 1,000 unit 09/30/16 16:04 10/03/16 15:48 Heparin - IVPUSH 1,000 unit PRN PRN Administration Heparin Heparin Sodium (Porcine) 5,000 unit 09/30/16 16:04 10/01/16 11:49 Heparin - IVPUSH 5,000 unit PRN PRN Administration Heparin Piperacillin Sod/Tazobactam Sod 50 mls @ 100 mls/hr 09/30/16 12:00 10/04/16 10: 49 Zosyn 2.25gm Ivpb (Pre-Docked) IVPB 100 mls/hr Q8H-IV CHARLETTE Administration Protocol Heparin Sodium (Porcine) 25, 500 mls @ 20 mls/hr 09/30/16 16:15 10/04/16 11:08 000 unit/ Sodium Chloride IV 34 mls/hr TITR CHARLETTE Administration Protocol 1,000 UNIT/HR Metoprolol Tartrate 25 mg 09/30/16 10:00 10/04/16 09:02 Lopressor - PO 25 mg BID CHARLETTE Administration Pantoprazole Sodium 40 mg 10/04/16 11:30 Protonix - PO DAILY [facility] Polyethylene Glycol 17 gm 10/04/16 10:00 10/04/16 09:02 Miralax (For Daily Use) - PO Not Given BID CHARLETTE Senna 2 tab 10/03/16 17:59 Senna - PO HS PRN CONSTIPATION Tamsulosin HCl 0.4 mg 10/01/16 08:30 10/04/16 09:02 Flomax - PO 0.4 mg DAILY@0830 [facility] Administration ASSESSMENT/PLAN: Patient is a 70 year old male, a resident of assisted living in [facility], with recurrent bilateral leg cellulitis, failed outpatient treatment, with urinary tract infection, HTN, recent GI bleed (3 weeks ago), venous insufficiency, recurrent LE cellulitis , and CKD # Recent GI Bleed (3 weeks ago) EGD was done [address] Robin, has a h/o melena/GI bleed with Hb of 6.5, s/p 2 U PRBC; GI consult appreciated who recommended: Clears today, NPO after midnight, colonoscopy on 10/05; hold heparin 90 mins prior colonoscopy and preparation for colonoscopy- ordered Golytly 4Litres and Dulcolax 20mg once at 7pm. Colace, senna and miralax on hold. # Sepsis secondary to leg cellulitis- Resolving IV D5 @ 83mls/hr after midnight IV zosyn 3.35mg IV Q8H Day 5, as per ID Blood culture negative # Urinary tract infection with urinary retention-Pseudomonas Patient is asymptomatic IV hydration and IV Zosyn (sensitive as per c/s) Discontinued Chavez. # SHIVAM likely due to obstruction SHIVAM resolved after IV hydration and chavez placement. D/c Chavez. # New onset DVT on right popliteal vein with total occlusion of distal left popliteal vein s/p IVC filter placement (10/05/2016) Heparin stopped after IVC filter placement. IVC filter placed since patient is not a candidate of chcf anticoagulation due to GIbleed. H/H is 7.10/09. Patient has been explained different options of anticoagulation including the newer anticogulation, its risks and benefits, and he decided to have IVC filter to be placed. # Microcytic Anemia Ferritin is 159- may be high since its a acute phase reactant. Need to recheck ferritin once patient is stable. Transfuse if Hb , 7gm/dl or if he is actively bleeding # Tinea cruris and tinea pedis Topical nystatin # FEN: IV D5 @ 83 mls/hr Electrolytes to be repeated tomorrow. NPO after midnight for colonoscopy tomorrow 10/05 # Prophylaxis For DVT: IVC filter placed today, early ambulation, once cellulitis resolves will place SCD For GI: Pantoprazole 40mg Daily # Code Status: Full Code # Dispo: Admitted in Med-Surg. Duration of stay unknown. Call placed to [facility] (Assisted living)- [phone] and confirmed the medication. Illness, Investigation and Plan of care explained to the patient. He verbalized understanding. Case seen and examined with Dr. Wooten. Visit type - Emergency Visit Emergency Visit: Yes ED Registration Date: 09/30/16 Care time: The patient presented to the Emergency Department on the above date and was hospitalized for further evaluation of their emergent condition. - New Patient This patient is new to me today: No - Critical Care Critical Care patient: No
[2016-10-04] MEDS: PANTOPRAZOLE 40 MG TABLET (FP) PO SCH (13:43)
[2016-10-04] MEDS ORDERED: PEG3350/SOD SULF,BICARB,CL/KCL 4,000 ML SOLN.RECON PO ONE (14:46)
[2016-10-04] MEDS ORDERED: BISACODYL 5 MG TABLET.DR (FP) PO ONE (19:00)
[2016-10-04] MEDS: ATORVASTATIN CA 10 MG TABLET (FP) PO SCH (21:29)
[2016-10-05] MEDS: DEXTROSE 5%-WATER - 1,000 ML IV SCH ×2 (00:05→15:19)
[2016-10-05] MEDS: PIPERACILLIN/TAZOB 2.25 GM 50 ML IVPB SCH ×3 (01:08→17:57)
[2016-10-05] MEDS ORDERED: oxyCODONE HCL 5 MG TABLET PO ONE (01:20)
[2016-10-05] MEDS: BRIMONIDINE TARTRATE 0.2% OPHTHALMIC 5 ML BOTTLE OU SCH ×3 (05:33→21:59)
--- NOTE | 2016-10-05 07:15 | PN ---
Physical Exam: SUBJECTIVE: Patient seen and examined at bed side this morning. Patient said he moved his bowels couple of times after taking Golytely. Patient was about to leave for colonoscopy. Chavez catheter was removed yesterday morning, since he didn't urinate, it was put back in the evening. OBJECTIVE: Vital Signs Period Temp Pulse Resp BP Sys/Shah Pulse Ox Last 24 Hr 97.9 F-99.0 F 83-110 16-22 117-132/71-89 97-100 GENERAL: Moderately obese male, lying comfortably in bed, awake, alert, and fully oriented, in no acute distress. HEAD: Normal with no signs of trauma. EYES: EOM intact, no pallor or icterus, Complete loss of vision in the right eye. ENT: Ears normal, moist mucous membranes. NECK: Supple. LUNGS: Breath sounds equal, clear to auscultation bilaterally, no wheezes, no crackles, no accessory muscle use. HEART: Regular rate and rhythm, S1, S2 without murmur, rub or gallop. ABDOMEN: Soft, nontender, nondistended, normoactive bowel sounds, no guarding, no rebound, no hepatosplenomegaly, no masses. EXTREMITIES: B/L lower extremity pitting edema upto the mid calf Left>right resolving; erythmatous below the knee upto the ankle, small skin tear on the chan, tender to palpation, 2+ pulses, warm, well-perfused, chronic venous stasis-color change. NEUROLOGICAL: No facial droop, bulk/tone normal; Power-upper ext-5/5; lower ext- 3/5 (likely due to the swelling and tenderness couldn't perform well), Cranial nerves II through XII grossly intact. Normal speech, gait not observed. PSYCH: Normal mood, normal affect. SKIN: Warm, dry, normal turgor, no rashes or lesions noted Laboratory Results - last 24 hr 10/04/16 10/04/16 10/04/16 06:15 06:15 06:15 PTT (Actin FS) 57.0 H Sodium 142 Potassium 3.6 Chloride 110 H Carbon Dioxide 24 Anion Gap 8 BUN 18 D Creatinine 1.2 Random Glucose 85 Calcium 7.9 L Magnesium 1.3 L Cancelled Active Medications Generic Name Dose Route Start Last Admin Trade Name Freq PRN Reason Stop Dose Admin Acetaminophen 650 mg 09/30/16 00:48 10/03/16 05:21 Tylenol - PO 650 mg Q4H PRN Administration FEVER OR PAIN Atorvastatin Calcium 10 mg 09/30/16 22:00 10/04/16 21:29 Lipitor - PO 10 mg HS CHARLETTE Administration Brimonidine Tartrate 1 drop 09/30/16 22:45 10/05/16 05:33 Alphagan 0.2% - OU 1 drop TID CHARLETTE Administration Ferrous Sulfate 325 mg 09/30/16 10:00 10/04/16 09:00 Feosol - PO 325 mg DAILY [facility] Administration Piperacillin Sod/Tazobactam Sod 50 mls @ 100 mls/hr 09/30/16 12:00 10/05/16 01: 08 Zosyn 2.25gm Ivpb (Pre-Docked) IVPB 100 mls/hr Q8H-IV CHAR[facility]TTE Administration Protocol Dextrose 1,000 mls @ 83 mls/hr 10/05/16 00:01 10/05/16 00:05 D5w - IV 83 mls/hr Q12H CHARLETTE Administration Metoprolol Tartrate 25 mg 09/30/16 10:00 10/04/16 21:30 Lopressor - PO 25 mg BID CHARLETTE Administration Pantoprazole Sodium 40 mg 10/04/16 11:30 10/04/16 13:43 Protonix - PO 40 mg DAILY [facility] Administration Tamsulosin HCl 0.4 mg 10/01/16 08:30 10/04/16 09:02 Flomax - PO 0.4 mg DAILY@0830 [facility] Administration ASSESSMENT/PLAN: Patient is a 70 year old male, a resident of assisted living in [facility], with recurrent bilateral leg cellulitis, failed outpatient treatment, with urinary tract infection, HTN, recent GI bleed (3 weeks ago), venous insufficiency, recurrent LE cellulitis , and CKD # Recent GI Bleed (3 weeks ago) Colonoscopy done today 10/05/2016. As per Dr. Alvarado: Bleeding appears to be emanating proximal to the colon. The patient has consented for enteroscopy tomorrow. He was explained that he may need capsule endoscopy. Two polyps were removed and the sites endoclipped. # Sepsis secondary to leg cellulitis- Resolving IV zosyn 3.35mg IV Q8H Day 6, as per ID Blood culture negative # Urinary tract infection with urinary retention-Pseudomonas Patient is asymptomatic IV hydration and IV Zosyn (sensitive as per c/s) Chavez (10/05/2016) placed again yesterday since he didn't void after chavez was discontinued. # SHIVAM likely due to obstruction Resolved after IV hydration and chavez placement. # New onset DVT on right popliteal vein with total occlusion of distal left popliteal vein s/p IVC filter placement (10/05/2016) IVC filter placed since patient is not a candidate of correction anticoagulation due to GI bleed. # Microcytic Anemia Ferritin is 159- may be high since its a acute phase reactant. Need to recheck ferritin once patient is stable. Transfuse if Hb , 7gm/dl or if he is actively bleeding # Tinea cruris and tinea pedis Topical nystatin # FEN: IV fluids stopped since patient is eating today. Electrolytes to be repeated tomorrow. Sodium controlled diet, NPO after midnight for Enteroscopy tomorrow. # Prophylaxis For DVT: IVC filter placed 10/05/2016, early ambulation, once cellulitis resolves will place SCD For GI: Pantoprazole 40mg Daily # Code Status: Full Code # Dispo: Admitted in Med-Surg. Duration of stay unknown. Call placed to [facility] (Assisted living)- [phone] and confirmed the medication. Illness, Investigation and Plan of care explained to the patient. He verbalized understanding. Case seen and examined with Dr. Prado. Visit type - Emergency Visit Emergency Visit: Yes ED Registration Date: 09/30/16 Care time: The patient presented to the Emergency Department on the above date and was hospitalized for further evaluation of their emergent condition. - New Patient This patient is new to me today: No - Critical Care Critical Care patient: No - Discharge Referral Referred to [facility] Med P.C.: No
[2016-10-05 07:22] LABS: MCH 23.3 pg (25.7-33.7); MCHC 31.8 g/dl (32.0-35.9); MEAN CELL VOLUME 73.4 fl (80-96); PLATELET COUNT 283 K/MM3 (134-434); RDW 17.4 % (11.9-15.9); WHITE BLOOD COUNT 10.4 K/mm3 (4.0-10.0)
[2016-10-05 08:11] LABS: ALBUMIN 2.4 g/dl (3.4-5.0); ANION GAP 12 (8-16); CALCIUM 8.4 mg/dL (8.5-10.1); CO2 25 mmol/L (21-32); GLUCOSE,RANDOM 98 mg/dL (74-106); MAGNESIUM 1.7 mg/dL (1.8-2.4); SGOT/AST 36 U/L (15-37); SGPT/ALT 35 U/L (12-78)
[2016-10-05 08:13] LABS: ALK PHOS 63 U/L (45-117); BILIRUBIN,TOTAL 0.2 mg/dL (0.2-1.0); TOT PROT 5.9 g/dl (6.4-8.2)
[2016-10-05] MEDS: TAMSULOSIN HCL 0.4 MG CAP.ER.24H (FP) PO SCH (08:20)
[2016-10-05] MEDS: FERROUS SO4 325 MG TABLET (FP) PO SCH (09:19)
[2016-10-05] MEDS: PANTOPRAZOLE 40 MG TABLET (FP) PO SCH ×2 (09:19→14:06)
[2016-10-05] MEDS: METOPROLOL TARTRATE 25 MG TABLET (FP) PO SCH ×2 (09:22→21:58)
[2016-10-05] MEDS ORDERED: LIDOCAINE HCL/PF 2% SDV 5ML VIAL ONE (10:44)
[2016-10-05] MEDS ORDERED: PROPOFOL 20 ML ONE (10:44)
--- NOTE | 2016-10-05 12:04 | PN ---
Progress Note (short form) - Note Progress Note: GI NOte: Please see colonoscopy report. Bleeding appears to be emanating proximal to the colon. The patient has consented for enteroscopy tomorrow. I explained that he ultimateky may need capsule endoscopy with Dr Robin. Two polyps were removed and the sites endoclipped.
--- NOTE | 2016-10-05 13:24 | MSN ---
Progress Note (short form) - Note Progress Note: Subjective: Patient seen and examined at bedside this afternoon. Patient is seated in a chair having recently returned to his room after colonoscopy. After lunch he complains of his stomach feeling "full" and states that his legs are bothering him. He states that he has restless legs and that the need to shake his legs is relieved best by Oxycodone. He denies nausea, vomiting, chills, SOB, or chest pain. He mentioned that tomorrow he is going for an enteroscopy and would not be able to eat after midnight. Although he feels more comfortable holding his neck side bent to the right after placement of the IVC filter yesterday he denies pain. Objective: Vital Signs Period Temp Pulse Resp BP Sys/Shah Pulse Ox Last 24 Hr 97.9 F-98.5 F 84-110 12-20 118-147/60-89 97-100 General: Patient is seated comfortably in a chair, alert and orientated x3 Head: Normocephalic, atraumatic Eyes: EOMI; no vision in right eye; No scleral icterus, no conjunctival suffusion ENT: Ears normal; moist mucous membranes; No exudates or erythema Neck: Bandage on right anterior neck (site of catheter insertion); supple; trachea midline Lungs: Clear to auscultation b/l; no wheezes, rales or rhonci; no accessory muscle use Heart: Regular rate and rhythm; Normal S1/S2; no murmurs, rubs or gallops Abdomen: Soft; distended; non-tender; no organomegaly MSK: No joint deformities; Normal muscle bulk and tone Extremities: B/l LE edema up to mid-calf; LE erythema below knee; chronic venous statsis reddish-brown discoloration around ankles b/l; LE tender to palpation; 2+ pulses b/l, warm, well-perfused Skin: No nail clubbing; Scattered acrochordons on upper posterior thoracic region; tinea pedis Neurological: CN II-XII grossly intact; No facial droop; normal speech; tongue and uvula midline; gait not observed Psych: Normal mood and affect Laboratory Results - last 24 hr 10/05/16 10/05/16 10/05/16 06:30 06:30 06:30 WBC 10.4 H RBC 3.45 L Hgb 8.0 L Hct 25.3 L MCV 73.4 L MCHC 31.8 L RDW 17.4 H Plt Count 283 MPV 7.0 L PTT (Actin FS) 24.2 L D Sodium 143 Potassium 3.0 L Chloride 106 Carbon Dioxide 25 Anion Gap 12 BUN 13 D Creatinine 1.0 Creat Clearance w eGFR > 60 Random Glucose 98 Calcium 8.4 L Magnesium 1.7 L D Total Bilirubin 0.2 AST 36 D ALT 35 D Alkaline Phosphatase 63 Total Protein 5.9 L Albumin 2.4 L Current Medications Generic Name Dose Route Start Last Admin Trade Name Freq PRN Reason Stop Dose Admin Acetaminophen 650 mg 09/30/16 00:48 10/03/16 05:21 Tylenol - PO 650 mg Q4H PRN Administration FEVER OR PAIN Atorvastatin Calcium 10 mg 09/30/16 22:00 10/04/16 21:29 Lipitor - PO 10 mg HS CHARLETTE Administration Brimonidine Tartrate 1 drop 09/30/16 22:45 10/05/16 05:33 Alphagan 0.2% - OU 1 drop TID CHARLETTE Administration Ferrous Sulfate 325 mg 09/30/16 10:00 10/05/16 09:19 Feosol - PO Not Given DAILY CHARLETTE Piperacillin Sod/Tazobactam Sod 50 mls @ 100 mls/hr 09/30/16 12:00 10/05/16 09: 22 Zosyn 2.25gm Ivpb (Pre-Docked) IVPB 100 mls/hr Q8H-IV CHARLETTE Administration Protocol Dextrose 1,000 mls @ 83 mls/hr 10/05/16 00:01 10/05/16 00:05 D5w - IV 83 mls/hr Q12H CHARLETTE Administration Metoprolol Tartrate 25 mg 09/30/16 10:00 10/05/16 09:22 Lopressor - PO 25 mg BID CHARLETTE Administration Pantoprazole Sodium 40 mg 10/04/16 11:30 10/05/16 09:19 Protonix - PO Not Given DAILY CHARLETTE Tamsulosin HCl 0.4 mg 10/01/16 08:30 10/05/16 08:20 Flomax - PO Not Given DAILY@0830 [facility] Assessment and Plan: 70 yr old male with a history of b/l recurrent cellulitus of lower extremities, venous insufficiency, UTI, HTN and recent GI bleed (appox. 3 weeks ago) presented to ER following failure of outpatient antibiotic therapy for b/l LE celluitus and was also found to have UTI and urinary retention. 1. Sepsis secondary to b/l LE cellulitis * From admission; edema and erythema of LE has improved * Blood cultures are negative * WBC decreased from 11.4 (10-04) to 10.4 today; continue to monitor WBC * IV zosyn 3.25gm Q8H per ID 2. Recent GI bleed * 3 weeks ago after patient had melena an EGD () showed mild gastritis and shallow antral ulcers and was recommended to have a colonoscopy as EGD did not show clear source of bleeding * Dr. Robin performed colonscopy today (10-05-16)- found hemorrhoids and 2 polyps that were removed; believes that bleeding is from above the proximal colon and patient consented to enteroscopy tomorrow 3. DVT in R and L popliteal veins * IVC filter was placed (10-04) as patient was contraindicated for anticoagulation due to hx of recent GI bleed * Patient informed to follow-up with Dr. Cazares in 3 months to access IVC filter 4. Microcytic Anemia * Today Hemoglobin 8.0; ferritin increased (159) -May be b/c patient previously received 2 units PRBCs or ferritin may be elevated as an acute phase reactant * Transfuse if hemoglobin <7 gm/dL or if patient is bleeding 5. Urinary retention and UTI * UA- positive for pseudomonas; c/s-IV zosyn continued * Dalton catheter removed 6-20 am for voiding trial; Patient had not urinated after 8 hrs. and Dalton was reinserted and 1400 mL of urine was removed * Continue Tamsulosin 0.4 mg * Cystoscopy and ALFIE/PSA * Consult urology if no improvement 6. Chronic venous insufficiency * Insomnia due to aching/ agitated leg movements * Oxycodone 5 mg po once to improve symptoms as it has been effective on previous admissions 7. Tinea cruris and tinea pedis * Topical Nystatin 8. FEN * Hypokalemia; continue to monitor electrolytes; potassium 3.0; Give IV KCl 10 mEq x 2 bags and IV magnesium 2 gm once * Resume low sodium diet following colonoscopy; NPO at midnight in preparation for enteroscopy tomorrow 9. Prophylaxis * DVT-IVC filter placed; early ambulation * GI-Pantoprazole 40 mg qd 10. Dispo * Duration of stay unknown; return to [facility] on discharge
--- NOTE | 2016-10-05 13:53 | PN ---
Teaching Attending Note Name of Resident: Chel Mack ATTENDING PHYSICIAN STATEMENT I saw and evaluated the patient. I reviewed the resident's note and discussed the case with the resident. I agree with the resident's findings and plan as documented. SUBJECTIVE: Patient is comfortable with no acute distress, no nausea or vomiting. OBJECTIVE: Vital Signs Temperature 98.0 F 10/05/16 12:05 Pulse Rate 84 10/05/16 12:05 Respiratory Rate 20 10/05/16 12:05 Blood Pressure 147/77 10/05/16 12:05 O2 Sat by Pulse Oximetry (%) 98 10/05/16 12:05 CBCD WBC 10.4 K/mm3 (4.0-10.0) H 10/05/16 06:30 RBC 3.45 M/mm3 (4.00-5.60) L 10/05/16 06:30 Hgb 8.0 GM/dL (11.7-16.9) L 10/05/16 06:30 Hct 25.3 % (35.4-49) L 10/05/16 06:30 MCV 73.4 fl (80-96) L 10/05/16 06:30 MCHC 31.8 g/dl (32.0-35.9) L 10/05/16 06:30 RDW 17.4 % (11.9-15.9) H 10/05/16 06:30 Plt Count 283 K/MM3 (134-434) 10/05/16 06:30 MPV 7.0 fl (7.5-11.1) L 10/05/16 06:30 CMP Sodium 143 mmol/L (136-145) 10/05/16 06:30 Potassium 3.0 mmol/L (3.5-5.1) L 10/05/16 06:30 Chloride 106 mmol/L (98-107) 10/05/16 06:30 Carbon Dioxide 25 mmol/L (21-32) 10/05/16 06:30 Anion Gap 12 (8-16) 10/05/16 06:30 BUN 13 mg/dL (7-18) D 10/05/16 06:30 Creatinine 1.0 mg/dL (0.7-1.3) 10/05/16 06:30 Creat Clearance w eGFR > 60 (>60) 10/05/16 06:30 Random Glucose 98 mg/dL (74-106) 10/05/16 06:30 Calcium 8.4 mg/dL (8.5-10.1) L 10/05/16 06:30 Total Bilirubin 0.2 mg/dL (0.2-1.0) 10/05/16 06:30 AST 36 U/L (15-37) D 10/05/16 06:30 ALT 35 U/L (12-78) D 10/05/16 06:30 Alkaline Phosphatase 63 U/L (45-117) 10/05/16 06:30 Total Protein 5.9 g/dl (6.4-8.2) L 10/05/16 06:30 Albumin 2.4 g/dl (3.4-5.0) L 10/05/16 06:30 CARDIAC ENZYMES Creatine Kinase 35 IU/L (39-308) L 10/02/16 06:30 Troponin I < 0.02 ng/ml (0.00-0.05) 10/02/16 06:30 Current Medications Generic Name Dose Route Start Last Admin Trade Name Freq PRN Reason Stop Dose Admin Acetaminophen 650 mg 09/30/16 00:48 10/03/16 05:21 Tylenol - PO 650 mg Q4H PRN Administration FEVER OR PAIN Atorvastatin Calcium 10 mg 09/30/16 22:00 10/04/16 21:29 Lipitor - PO 10 mg HS CHARLETTE Administration Brimonidine Tartrate 1 drop 09/30/16 22:45 10/05/16 05:33 Alphagan 0.2% - OU 1 drop TID CHARLETTE Administration Ferrous Sulfate 325 mg 09/30/16 10:00 10/05/16 09:19 Feosol - PO Not Given DAILY CHARLETTE Piperacillin Sod/Tazobactam Sod 50 mls @ 100 mls/hr 09/30/16 12:00 10/05/16 09: 22 Zosyn 2.25gm Ivpb (Pre-Docked) IVPB 100 mls/hr Q8H-IV CHARLETTE Administration Protocol Dextrose 1,000 mls @ 83 mls/hr 10/05/16 00:01 10/05/16 00:05 D5w - IV 83 mls/hr Q12H CHARLETTE Administration Metoprolol Tartrate 25 mg 09/30/16 10:00 10/05/16 09:22 Lopressor - PO 25 mg BID [facility] Administration Pantoprazole Sodium 40 mg 10/04/16 11:30 10/05/16 09:19 Protonix - PO Not Given DAILY [facility] Tamsulosin HCl 0.4 mg 10/01/16 08:30 10/05/16 08:20 Flomax - PO Not Given DAILY@0830 [facility] Home Medications Medication Instructions Recorded Acetaminophen [Pain Relief] 650 mg PO Q6H PRN 09/13/16 Bacitracin 30 gm TP DAILY 09/13/16 Bimatoprost [Lumigan] 1 drop IO DAILY 09/13/16 Brimonidine Tartrate [Alphagan 1 drop OD TID 09/13/16 0.2% -] Cholecalciferol (Vitamin D3) 50,000 unit PO WEEKLY 09/13/16 [Vitamin D3] Dorzolamide/Timolol/Pf [Cosopt Pf 1 each OP BID 09/13/16 Eye Drops] Ferrous Sulfate 325 mg PO DAILY 09/13/16 Omeprazole 20 mg PO DAILY 09/13/16 Petrolatum,White [Aquaphor with 50 gm TP DAILY 09/13/16 Natural Healing] Simvastatin 10 mg PO HS 09/13/16 Tramadol HCl 50 mg PO BID PRN 09/13/16 Cephalexin Monohydrate [Keflex -] 500 mg PO TID #18 tab 09/19/16 Furosemide [Lasix -] 20 mg PO BID #60 tablet 09/19/16 Metoprolol Tartrate [Lopressor -] 25 mg PO BID #60 tablet 09/19/16 PE: per resident's note ASSESSMENT AND PLAN: Patient is a 70 year old male, a resident of assisted living in [facility], with recurrent bilateral leg cellulitis, failed outpatient treatment, with urinary tract infection, HTN, recent GI bleed (3 weeks ago), recurrent LE cellulitis , and CKD # Acute recent GI Bleed (3 weeks ago) s/p colonoscopy today 10/05/2016. As per Dr. Alvarado: Bleeding appears to be emanating proximal to the colon. Patient is going for enteroscopy in am. He was explained that he might need capsule endoscopy. s/p two polyps removal . # s/p sepsis secondary to leg cellulitis- Resolving on IV zosyn 3.35mg IV Q8H Day 6, as per ID. Blood culture is negative so far # Acute Urinary tract infection with urinary retention continue IV antibiotic, for consult # ARF resolved due to obstructive uropathy ,resolved after IV hydration and chavez placement. # Acute hypokalemia will replete # New onset DVT on right popliteal vein with total occlusion of distal left popliteal vein s/p IVC filter placement (10/05/2016) IVC filter placed since patient is not a candidate of rat exterminator anticoagulation due to GI bleed. # Microcytic Anemia ,transfuse if Hb below 7gm/dl or if he is actively bleeding # Tinea cruris and tinea pedis continue Nyastatin DVT Px IVC filter placed 10/05/2016 GI px: Pantoprazole 40mg Daily
[2016-10-05] MEDS ORDERED: MAGNESIUM SULF 50% (8.12 MEQ/2 ML-1 GM VIAL) IVPB ONE (15:00)
[2016-10-05] MEDS: KCL 10 MEQ IVPB 100 ML IVPB SCH ×2 (15:15→17:58)
[2016-10-05] MEDS: ATORVASTATIN CA 10 MG TABLET (FP) PO SCH (21:58)
[2016-10-06] MEDS: DEXTROSE 5%-WATER - 1,000 ML IV SCH ×2 (00:10→14:53)
[2016-10-06] MEDS: PIPERACILLIN/TAZOB 2.25 GM 50 ML IVPB SCH ×3 (02:25→17:08)
[2016-10-06] MEDS: BRIMONIDINE TARTRATE 0.2% OPHTHALMIC 5 ML BOTTLE OU SCH ×3 (06:10→21:44)
[2016-10-06 08:19] LABS: MCH 23.3 pg (25.7-33.7); MCHC 31.5 g/dl (32.0-35.9); MEAN PLT VOLUME 7.2 fl (7.5-11.1); PLATELET COUNT 292 K/MM3 (134-434); WHITE BLOOD COUNT 9.1 K/mm3 (4.0-10.0)
[2016-10-06 08:44] LABS: ANION GAP 9 (8-16); CALCIUM 8.1 mg/dL (8.5-10.1); CO2 25 mmol/L (21-32); GLUCOSE,RANDOM 104 mg/dL (74-106); MAGNESIUM 1.9 mg/dL (1.8-2.4); PHOSPHOROUS 2.5 mg/dL (2.5-4.9)
--- NOTE | 2016-10-06 08:53 | PN ---
Physical Exam: SUBJECTIVE: Patient seen and examined at bed side this morning. Patient just came back from Enteroscopy. Feels hungry and wanting to eat. No acute overnight events. OBJECTIVE: Vital Signs Period Temp Pulse Resp BP Sys/Shah Pulse Ox Last 24 Hr 98.0 F-99.2 F 84-102 12-20 114-147/60-87 97-100 GENERAL: Moderately obese male, lying comfortably in bed, awake, alert, and fully oriented, in no acute distress. HEAD: Normal with no signs of trauma. EYES: EOM intact, no pallor or icterus, Complete loss of vision in the right eye. ENT: Ears normal, moist mucous membranes. NECK: Supple. LUNGS: Breath sounds equal, clear to auscultation bilaterally, no wheezes, no crackles, no accessory muscle use. HEART: Regular rate and rhythm, S1, S2 without murmur, rub or gallop. ABDOMEN: Soft, nontender, nondistended, normoactive bowel sounds, no guarding, no rebound, no hepatosplenomegaly, no masses. EXTREMITIES: B/L lower extremity pitting edema upto the mid calf Left>right resolving; erythmatous below the knee upto the ankle, small skin tear on the chan, tender to palpation, 2+ pulses, warm, well-perfused, chronic venous stasis-color change. NEUROLOGICAL: No facial droop, bulk/tone normal; Power-upper ext-5/5; lower ext- 3/5 (likely due to the swelling and tenderness couldn't perform well), Cranial nerves II through XII grossly intact. Normal speech, gait not observed. PSYCH: Normal mood, normal affect. SKIN: Warm, dry, normal turgor, no rashes or lesions noted Laboratory Results - last 24 hr 10/06/16 10/06/16 10/06/16 07:00 07:00 07:00 WBC 9.1 RBC 3.42 L Hgb 8.0 L Hct 25.3 L MCV 74.0 L MCHC 31.5 L RDW 18.0 H Plt Count 292 MPV 7.2 L PTT (Actin FS) 24.0 L Sodium 140 Potassium 3.2 L Chloride 106 Carbon Dioxide 25 Anion Gap 9 BUN 16 D Creatinine 1.0 Random Glucose 104 Calcium 8.1 L Phosphorus 2.5 D Magnesium 1.9 Active Medications Generic Name Dose Route Start Last Admin Trade Name Freq PRN Reason Stop Dose Admin Acetaminophen 650 mg 09/30/16 00:48 10/03/16 05:21 Tylenol - PO 650 mg Q4H PRN Administration FEVER OR PAIN Atorvastatin Calcium 10 mg 09/30/16 22:00 10/05/16 21:58 Lipitor - PO 10 mg HS CHARLETTE Administration Brimonidine Tartrate 1 drop 09/30/16 22:45 10/06/16 06:10 Alphagan 0.2% - OU 1 drop TID CHARLETTE Administration Ferrous Sulfate 325 mg 09/30/16 10:00 10/05/16 09:19 Feosol - PO Not Given DAILY CHARLETTE Piperacillin Sod/Tazobactam Sod 50 mls @ 100 mls/hr 09/30/16 12:00 10/06/16 02: 25 Zosyn 2.25gm Ivpb (Pre-Docked) IVPB 100 mls/hr Q8H-IV CHARLETTE Administration Protocol Dextrose 1,000 mls @ 83 mls/hr 10/05/16 00:01 10/06/16 00:10 D5w - IV 83 mls/hr Q12H CHARLETTE Administration Metoprolol Tartrate 25 mg 09/30/16 10:00 10/05/16 21:58 Lopressor - PO 25 mg BID CHARLETTE Administration Pantoprazole Sodium 40 mg 10/04/16 11:30 10/05/16 14:06 Protonix - PO 40 mg DAILY CHARLETTE Administration Tamsulosin HCl 0.4 mg 10/01/16 08:30 10/05/16 08:20 Flomax - PO Not Given DAILY@0830 [facility] ASSESSMENT/PLAN: Patient is a 70 year old male, a resident of assisted living in [facility], with recurrent bilateral leg cellulitis, failed outpatient treatment, with urinary tract infection, HTN, recent GI bleed (3 weeks ago), venous insufficiency, recurrent LE cellulitis , and CKD # Recent GI Bleed (3 weeks ago) Enteroscopy done today 10/06/16. Colonoscopy done on 10/05/2016 s/p 2polypectomy with sites endoclipped. May need capsule endoscopy. # Sepsis secondary to leg cellulitis- Resolving IV zosyn 3.35mg IV Q8H Day 8, as per ID Blood culture negative # Urinary tract infection (Pseudomonas) with urinary retention (B/L hydronephrosis) Patient is asymptomatic IV hydration and IV Zosyn (sensitive as per c/s) Chavez placed again on 10/05/2016 since he didn't void after chavez was discontinued. Urology consult requested. # SHIVAM likely due to obstruction Resolved after IV hydration and chavez placement. # New onset DVT on right popliteal vein with total occlusion of distal left popliteal vein s/p IVC filter placement (10/05/2016) IVC filter placed since patient is not a candidate of fdc anticoagulation due to GI bleed. # Microcytic Anemia Ferritin is 159- may be high since its a acute phase reactant. Need to recheck ferritin once patient is stable. Transfuse if Hb , 7gm/dl or if he is actively bleeding # Tinea cruris and tinea pedis Topical nystatin # FEN: IV fluids stopped since patient started eating Electrolytes to be repeated tomorrow. Fat controlled diet # Prophylaxis For DVT: IVC filter placed 10/05/2016, early ambulation, once cellulitis resolves will place SCD For GI: Pantoprazole 40mg Daily # Code Status: Full Code # Dispo: Admitted in Med-Surg. Duration of stay unknown. Call placed to [facility] (Assisted living)- [phone] and confirmed the medication. Illness, Investigation and Plan of care explained to the patient. He verbalized understanding. Case seen and examined with Dr. Prado. Visit type - Emergency Visit Emergency Visit: Yes ED Registration Date: 09/30/16 Care time: The patient presented to the Emergency Department on the above date and was hospitalized for further evaluation of their emergent condition. - New Patient This patient is new to me today: No - Critical Care Critical Care patient: No
--- NOTE | 2016-10-06 09:32 | PN ---
Progress Note (short form) - Note Progress Note: Enteroscopy report placed in procedural section of physical chart and to be scanned into [facility] No source of bleeding identified Patient to follow-up with Dr. Robin for capsule endoscopy as outpatient
[2016-10-06] MEDS: FERROUS SO4 325 MG TABLET (FP) PO SCH (10:29)
[2016-10-06] MEDS: TAMSULOSIN HCL 0.4 MG CAP.ER.24H (FP) PO SCH (10:29)
[2016-10-06] MEDS: METOPROLOL TARTRATE 25 MG TABLET (FP) PO SCH ×2 (10:29→21:44)
--- NOTE | 2016-10-06 11:08 | PATH ---
Surgical Pathology Report Patient Name: EMILY JENSEN Med. Rec. #: [id number] /Age/Gender: 1945 (Age: 70) / M Account: [id number] Location: [facility] MED/SURG Taken: 10/05/2016 Received: 10/05/2016 Reported: 10/06/2016 Physicians: Candido Allen M.D. Specimen(s) Received A: PROXIMAL TRANSVERSE COLON POLYP B: DESCENDING COLON POLYP Clinical History GI bleed, melena Polyps, hemorrhoids Final Diagnosis A. COLON, PROXIMAL TRANSVERSE, POLYPECTOMY: MULTIPLE PORTIONS OF TUBULAR ADENOMA. B. COLON, DESCENDING, BIOPSY: COLONIC MUCOSA WITH NO PATHOLOGIC CHANGES. Comment: Recommend correlation with clinical findings and follow up as clinically indicated. Electronically Signed Douglas Lee M.D. Gross Description A. Received in formalin, labeled "colon polyp proximal transverse" are 5 bai, irregular to polypoid portions of soft tissue ranging from 0.1-0.5 cm. in greatest dimension. The specimens are submitted in toto in one cassette. B. Received in formalin, labeled "polyp descending colon" is a bai, irregular portion of soft tissue measuring 0.5 cm. in greatest dimension. The specimen is submitted in toto in one cassette. 10/05/201610/05/2016
[2016-10-06] MEDS: KCL 10 MEQ IVPB 100 ML IVPB SCH ×2 (11:13→12:38)
[2016-10-06] MEDS ORDERED: TAMSULOSIN HCL 0.4 MG CAP.ER.24H (FP) PO ONE (11:45)
--- NOTE | 2016-10-06 15:38 | PN ---
Teaching Attending Note Name of Resident: Chel Mack ATTENDING PHYSICIAN STATEMENT I saw and evaluated the patient. I reviewed the resident's note and discussed the case with the resident. I agree with the resident's findings and plan as documented. SUBJECTIVE: Patient is comfortable with no acute distress, no further bleed. OBJECTIVE: Vital Signs Temperature 98.2 F 10/06/16 14:52 Pulse Rate 84 10/06/16 14:52 Respiratory Rate 18 10/06/16 14:52 Blood Pressure 130/72 10/06/16 14:52 O2 Sat by Pulse Oximetry (%) 100 10/06/16 09:58 CBCD WBC 9.1 K/mm3 (4.0-10.0) 10/06/16 07:00 RBC 3.42 M/mm3 (4.00-5.60) L 10/06/16 07:00 Hgb 8.0 GM/dL (11.7-16.9) L 10/06/16 07:00 Hct 25.3 % (35.4-49) L 10/06/16 07:00 MCV 74.0 fl (80-96) L 10/06/16 07:00 MCHC 31.5 g/dl (32.0-35.9) L 10/06/16 07:00 RDW 18.0 % (11.9-15.9) H 10/06/16 07:00 Plt Count 292 K/MM3 (134-434) 10/06/16 07:00 MPV 7.2 fl (7.5-11.1) L 10/06/16 07:00 CMP Sodium 140 mmol/L (136-145) 10/06/16 07:00 Potassium 3.2 mmol/L (3.5-5.1) L 10/06/16 07:00 Chloride 106 mmol/L (98-107) 10/06/16 07:00 Carbon Dioxide 25 mmol/L (21-32) 10/06/16 07:00 Anion Gap 9 (8-16) 10/06/16 07:00 BUN 16 mg/dL (7-18) D 10/06/16 07:00 Creatinine 1.0 mg/dL (0.7-1.3) 10/06/16 07:00 Creat Clearance w eGFR > 60 (>60) 10/05/16 06:30 Random Glucose 104 mg/dL (74-106) 10/06/16 07:00 Calcium 8.1 mg/dL (8.5-10.1) L 10/06/16 07:00 Total Bilirubin 0.2 mg/dL (0.2-1.0) 10/05/16 06:30 AST 36 U/L (15-37) D 10/05/16 06:30 ALT 35 U/L (12-78) D 10/05/16 06:30 Alkaline Phosphatase 63 U/L (45-117) 10/05/16 06:30 Total Protein 5.9 g/dl (6.4-8.2) L 10/05/16 06:30 Albumin 2.4 g/dl (3.4-5.0) L 10/05/16 06:30 CARDIAC ENZYMES Creatine Kinase 35 IU/L (39-308) L 10/02/16 06:30 Troponin I < 0.02 ng/ml (0.00-0.05) 10/02/16 06:30 Current Medications Generic Name Dose Route Start Last Admin Trade Name Freq PRN Reason Stop Dose Admin Acetaminophen 650 mg 09/30/16 00:48 10/03/16 05:21 Tylenol - PO 650 mg Q4H PRN Administration FEVER OR PAIN Atorvastatin Calcium 10 mg 09/30/16 22:00 10/05/16 21:58 Lipitor - PO 10 mg HS CHARLETTE Administration Brimonidine Tartrate 1 drop 09/30/16 22:45 10/06/16 14:54 Alphagan 0.2% - OU 1 drop TID CHARLETTE Administration Ferrous Sulfate 325 mg 09/30/16 10:00 10/06/16 10:29 Feosol - PO 325 mg DAILY CHARLETTE Administration Piperacillin Sod/Tazobactam Sod 50 mls @ 100 mls/hr 09/30/16 12:00 10/06/16 10: 29 Zosyn 2.25gm Ivpb (Pre-Docked) IVPB 100 mls/hr Q8H-IV CHARLETTE Administration Protocol Dextrose 1,000 mls @ 83 mls/hr 10/05/16 00:01 10/06/16 14:53 D5w - IV 83 mls/hr Q12H CHARLETTE Administration Metoprolol Tartrate 25 mg 09/30/16 10:00 10/06/16 10:29 Lopressor - PO 25 mg BID CHARLETTE Administration Tamsulosin HCl 0.8 mg 10/07/16 08:30 Flomax - PO DAILY@0830 [facility] Home Medications Medication Instructions Recorded Acetaminophen [Pain Relief] 650 mg PO Q6H PRN 09/13/16 Bacitracin 30 gm TP DAILY 09/13/16 Bimatoprost [Lumigan] 1 drop IO DAILY 09/13/16 Brimonidine Tartrate [Alphagan 1 drop OD TID 09/13/16 0.2% -] Cholecalciferol (Vitamin D3) 50,000 unit PO WEEKLY 09/13/16 [Vitamin D3] Dorzolamide/Timolol/Pf [Cosopt Pf 1 each OP BID 09/13/16 Eye Drops] Ferrous Sulfate 325 mg PO DAILY 09/13/16 Omeprazole 20 mg PO DAILY 09/13/16 Petrolatum,White [Aquaphor with 50 gm TP DAILY 09/13/16 Natural Healing] Simvastatin 10 mg PO HS 09/13/16 Tramadol HCl 50 mg PO BID PRN 09/13/16 Cephalexin Monohydrate [Keflex -] 500 mg PO TID #18 tab 09/19/16 Furosemide [Lasix -] 20 mg PO BID #60 tablet 09/19/16 Metoprolol Tartrate [Lopressor -] 25 mg PO BID #60 tablet 09/19/16 PE: per resident's note ASSESSMENT AND PLAN: Patient is a 70 year old male, a resident of assisted living in [facility], with recurrent bilateral leg cellulitis, failed outpatient treatment, with urinary tract infection, HTN, recent GI bleed (3 weeks ago), recurrent LE cellulitis , and CKD # Acute recent GI Bleed (3 weeks ago) s/p colonoscopy today 10/05/2016. s/p enteroscopy as per GI; No source of bleeding identified Patient to follow-up with Dr. Robin for capsule endoscopy as outpatient. s/p two polyps removal on 10/05/2106. # s/p sepsis secondary to leg cellulitis- Resolving on IV zosyn 2.25gm IV Q8H Day 7, as per ID. Blood culture is negative so far # Acute Urinary tract infection with urinary retention continue IV antibiotic, for consult Also will increase the dose of Flomax to 0.8mg po daily. # ARF resolved due to obstructive uropathy ,resolved after IV hydration and chavez placement. # Acute hypokalemia will replete # New onset DVT on right popliteal vein with total occlusion of distal left popliteal vein s/p IVC filter placement (10/05/2016) IVC filter placed since patient is not a candidate of custodial anticoagulation due to GI bleed. # Microcytic Anemia ,transfuse if Hb below 7gm/dl or if he is actively bleeding # Tinea cruris and tinea pedis continue Nyastatin DVT Px IVC filter placed 10/05/2016 GI px: Pantoprazole 40mg Daily
[2016-10-06] MEDS: ATORVASTATIN CA 10 MG TABLET (FP) PO SCH (21:44)
[2016-10-07] MEDS: PIPERACILLIN/TAZOB 2.25 GM 50 ML IVPB SCH ×2 (03:07→09:50)
[2016-10-07] MEDS: BRIMONIDINE TARTRATE 0.2% OPHTHALMIC 5 ML BOTTLE OU SCH ×3 (06:09→21:30)
[2016-10-07] MEDS: TAMSULOSIN HCL 0.4 MG CAP.ER.24H (FP) PO SCH (09:50)
[2016-10-07] MEDS: FERROUS SO4 325 MG TABLET (FP) PO SCH (09:50)
[2016-10-07] MEDS: METOPROLOL TARTRATE 25 MG TABLET (FP) PO SCH ×2 (09:50→21:29)
--- NOTE | 2016-10-07 18:40 | PN ---
Teaching Attending Note Name of Resident: Chel Mack ATTENDING PHYSICIAN STATEMENT I saw and evaluated the patient. I reviewed the resident's note and discussed the case with the resident. I agree with the resident's findings and plan as documented. SUBJECTIVE: Patient is feeling better, with no acute distress OBJECTIVE: Vital Signs Temperature 98.0 F 10/07/16 16:00 Pulse Rate 105 H 10/07/16 16:00 Respiratory Rate 20 10/07/16 16:00 Blood Pressure 124/74 10/07/16 16:00 O2 Sat by Pulse Oximetry (%) 98 10/07/16 09:00 CBCD WBC 9.1 K/mm3 (4.0-10.0) 10/06/16 07:00 RBC 3.42 M/mm3 (4.00-5.60) L 10/06/16 07:00 Hgb 8.0 GM/dL (11.7-16.9) L 10/06/16 07:00 Hct 25.3 % (35.4-49) L 10/06/16 07:00 MCV 74.0 fl (80-96) L 10/06/16 07:00 MCHC 31.5 g/dl (32.0-35.9) L 10/06/16 07:00 RDW 18.0 % (11.9-15.9) H 10/06/16 07:00 Plt Count 292 K/MM3 (134-434) 10/06/16 07:00 MPV 7.2 fl (7.5-11.1) L 10/06/16 07:00 CMP Sodium 140 mmol/L (136-145) 10/06/16 07:00 Potassium 3.2 mmol/L (3.5-5.1) L 10/06/16 07:00 Chloride 106 mmol/L (98-107) 10/06/16 07:00 Carbon Dioxide 25 mmol/L (21-32) 10/06/16 07:00 Anion Gap 9 (8-16) 10/06/16 07:00 BUN 16 mg/dL (7-18) D 10/06/16 07:00 Creatinine 1.0 mg/dL (0.7-1.3) 10/06/16 07:00 Creat Clearance w eGFR > 60 (>60) 10/05/16 06:30 Random Glucose 104 mg/dL (74-106) 10/06/16 07:00 Calcium 8.1 mg/dL (8.5-10.1) L 10/06/16 07:00 Total Bilirubin 0.2 mg/dL (0.2-1.0) 10/05/16 06:30 AST 36 U/L (15-37) D 10/05/16 06:30 ALT 35 U/L (12-78) D 10/05/16 06:30 Alkaline Phosphatase 63 U/L (45-117) 10/05/16 06:30 Total Protein 5.9 g/dl (6.4-8.2) L 10/05/16 06:30 Albumin 2.4 g/dl (3.4-5.0) L 10/05/16 06:30 CARDIAC ENZYMES Creatine Kinase 35 IU/L (39-308) L 10/02/16 06:30 Troponin I < 0.02 ng/ml (0.00-0.05) 10/02/16 06:30 Current Medications Generic Name Dose Route Start Last Admin Trade Name Freq PRN Reason Stop Dose Admin Acetaminophen 650 mg 09/30/16 00:48 10/03/16 05:21 Tylenol - PO 650 mg Q4H PRN Administration FEVER OR PAIN Atorvastatin Calcium 10 mg 09/30/16 22:00 10/06/16 21:44 Lipitor - PO 10 mg HS CHARLETTE Administration Brimonidine Tartrate 1 drop 09/30/16 22:45 10/07/16 14:55 Alphagan 0.2% - OU 1 drop TID CHARLETTE Administration Ferrous Sulfate 325 mg 09/30/16 10:00 10/07/16 09:50 Feosol - PO 325 mg DAILY CHARLETTE Administration Metoprolol Tartrate 25 mg 09/30/16 10:00 10/07/16 09:50 Lopressor - PO 25 mg BID CHARLETTE Administration Tamsulosin HCl 0.8 mg 10/07/16 08:30 10/07/16 09:50 Flomax - PO 0.8 mg DAILY@0830 CHARLETTE Administration Home Medications Medication Instructions Recorded Acetaminophen [Pain Relief] 650 mg PO Q6H PRN 09/13/16 Bacitracin 30 gm TP DAILY 09/13/16 Bimatoprost [Lumigan] 1 drop IO DAILY 09/13/16 Brimonidine Tartrate [Alphagan 1 drop OD TID 09/13/16 0.2% -] Cholecalciferol (Vitamin D3) 50,000 unit PO WEEKLY 09/13/16 [Vitamin D3] Dorzolamide/Timolol/Pf [Cosopt Pf 1 each OP BID 09/13/16 Eye Drops] Ferrous Sulfate 325 mg PO DAILY 09/13/16 Omeprazole 20 mg PO DAILY 09/13/16 Petrolatum,White [Aquaphor with 50 gm TP DAILY 09/13/16 Natural Healing] Simvastatin 10 mg PO HS 09/13/16 Tramadol HCl 50 mg PO BID PRN 09/13/16 Cephalexin Monohydrate [Keflex -] 500 mg PO TID #18 tab 09/19/16 Furosemide [Lasix -] 20 mg PO BID #60 tablet 09/19/16 Metoprolol Tartrate [Lopressor -] 25 mg PO BID #60 tablet 09/19/16 PE: per resident's note ASSESSMENT AND PLAN: Patient is a 70 year old male, a resident of assisted living in [facility], with recurrent bilateral leg cellulitis, failed outpatient treatment, with urinary tract infection, HTN, recent GI bleed (3 weeks ago), recurrent LE cellulitis , and CKD # Acute Urinary tract infection with urinary retention continues on IV antibiotic, discontinued chavez but patient is not able to urinate will place the chavez back and will call the service of for consult again today. Increased the dose of Flomax to 0.8mg po daily. # Acute recent GI Bleed (3 weeks ago) s/p colonoscopy today 10/05/2016. s/p enteroscopy as per GI; No source of bleeding identified Patient to follow-up with Dr. Robin for capsule endoscopy as outpatient. s/p two polyps removal on 10/05/2106. # s/p sepsis secondary to leg cellulitis- resolved s/p IV zosyn 2.25gm completed 10/21 as per ID. Blood culture is negative so far # ARF resolved due to obstructive uropathy ,resolved after IV hydration and chavez placement. # Acute hypokalemia will replete # New onset DVT on right popliteal vein with total occlusion of distal left popliteal vein s/p IVC filter placement (10/05/2016) IVC filter placed since patient is not a candidate of care home anticoagulation due to GI bleed. # Microcytic Anemia ,transfuse if Hb below 7gm/dl or if he is actively bleeding # Tinea cruris and tinea pedis continue Nyastatin DVT Px IVC filter placed 10/05/2016 GI px: Pantoprazole 40mg Daily
--- NOTE | 2016-10-07 19:36 | PN ---
Physical Exam: SUBJECTIVE: Patient seen and examined at bed side this morning. No complaints. Feels better. Says that the assisted living will not accept patients during the weekends, social media content manager comes back on Monday. OBJECTIVE: Vital Signs Period Temp Pulse Resp BP Sys/Shah Pulse Ox Last 24 Hr 98.0 F-98.8 F 82-105 20-20 113-148/62-88 98-98 GENERAL: Moderately obese male, lying comfortably in bed, awake, alert, and fully oriented, in no acute distress. HEAD: Normal with no signs of trauma. EYES: EOM intact, no pallor or icterus, Complete loss of vision in the right eye. ENT: Ears normal, moist mucous membranes. NECK: Supple. LUNGS: Breath sounds equal, clear to auscultation bilaterally, no wheezes, no crackles, no accessory muscle use. HEART: Regular rate and rhythm, S1, S2 without murmur, rub or gallop. ABDOMEN: Soft, nontender, nondistended, normoactive bowel sounds, no guarding, no rebound, no hepatosplenomegaly, no masses. EXTREMITIES: B/L lower extremity pitting edema upto the mid calf Left>right resolving; erythmatous below the knee upto the ankle, small skin tear on the chan, tender to palpation, 2+ pulses, warm, well-perfused, chronic venous stasis-color change. NEUROLOGICAL: No facial droop, bulk/tone normal; Power-upper ext-5/5; lower ext- 3/5 (likely due to the swelling and tenderness couldn't perform well), Cranial nerves II through XII grossly intact. Normal speech, gait not observed. PSYCH: Normal mood, normal affect. SKIN: Warm, dry, normal turgor, no rashes or lesions noted Active Medications Generic Name Dose Route Start Last Admin Trade Name Freq PRN Reason Stop Dose Admin Acetaminophen 650 mg 09/30/16 00:48 10/03/16 05:21 Tylenol - PO 650 mg Q4H PRN Administration FEVER OR PAIN Atorvastatin Calcium 10 mg 09/30/16 22:00 10/06/16 21:44 Lipitor - PO 10 mg HS CHARLETTE Administration Brimonidine Tartrate 1 drop 09/30/16 22:45 10/07/16 14:55 Alphagan 0.2% - OU 1 drop TID CHARLETTE Administration Ferrous Sulfate 325 mg 09/30/16 10:00 10/07/16 09:50 Feosol - PO 325 mg DAILY CHARLETTE Administration Metoprolol Tartrate 25 mg 09/30/16 10:00 10/07/16 09:50 Lopressor - PO 25 mg BID CHARLETTE Administration Tamsulosin HCl 0.8 mg 10/07/16 08:30 10/07/16 09:50 Flomax - PO 0.8 mg DAILY@0830 CHARLETTE Administration ASSESSMENT/PLAN: Patient is a 70 year old male, a resident of assisted living in [facility], with recurrent bilateral leg cellulitis, failed outpatient treatment, with urinary tract infection, HTN, recent GI bleed (3 weeks ago), venous insufficiency, recurrent LE cellulitis , and CKD # Urinary tract infection (Pseudomonas) with urinary retention (B/L hydronephrosis) Patient is asymptomatic IV hydration and IV Zosyn (sensitive as per c/s) Chavez discontinued today, voiding trials. If patient cannot void, bladder scan and to place chavez again. Urology consult requested. # Recent GI Bleed (3 weeks ago) Enteroscopy done on 10/06/16 which didn't show bleeding. Colonoscopy done on s/p 2 polypectomy with sites endoclipped. May need capsule endoscopy as outpatient, as per GI. # Sepsis secondary to leg cellulitis- Resolving Completed IV Zosyn. Blood culture negative # SHIVAM likely due to obstruction Resolved after IV hydration and chavez placement. # New onset DVT on right popliteal vein with total occlusion of distal left popliteal vein s/p IVC filter placement (10/05/2016) IVC filter placed since patient is not a candidate of [place] anticoagulation due to GI bleed. # Microcytic Anemia Ferritin is 159- may be high since its a acute phase reactant. Need to recheck ferritin once patient is stable. Transfuse if Hb , 7gm/dl or if he is actively bleeding # Tinea cruris and tinea pedis Topical nystatin # FEN: IV fluids stopped since patient started eating Electrolytes to be repeated tomorrow. Fat controlled diet # Prophylaxis For DVT: IVC filter placed 10/05/2016, early ambulation, once cellulitis resolves will place SCD For GI: Pantoprazole 40mg Daily # Code Status: Full Code # Dispo: Admitted in Med-Surg. Duration of stay unknown. Call placed to [facility] (Assisted living)- [phone] and confirmed the medication. Illness, Investigation and Plan of care explained to the patient. He verbalized understanding. Case seen and examined with Dr. Prado. Visit type - Emergency Visit Emergency Visit: Yes ED Registration Date: 09/30/16 Care time: The patient presented to the Emergency Department on the above date and was hospitalized for further evaluation of their emergent condition. - New Patient This patient is new to me today: No - Critical Care Critical Care patient: No
[2016-10-07] MEDS: ACETAMINOPHEN 325 MG TABLET (FP) PO PRN (21:29)
[2016-10-07] MEDS: ATORVASTATIN CA 10 MG TABLET (FP) PO SCH (21:29)
[2016-10-08] MEDS: BRIMONIDINE TARTRATE 0.2% OPHTHALMIC 5 ML BOTTLE OU SCH ×3 (06:13→21:36)
[2016-10-08 08:21] LABS: MCH 23.8 pg (25.7-33.7); MCHC 32.2 g/dl (32.0-35.9); MEAN PLT VOLUME 7.1 fl (7.5-11.1); PLATELET COUNT 303 K/MM3 (134-434); RDW 18.4 % (11.9-15.9); WHITE BLOOD COUNT 9.2 K/mm3 (4.0-10.0)
[2016-10-08] MEDS: TAMSULOSIN HCL 0.4 MG CAP.ER.24H (FP) PO SCH ×2 (08:29→21:36)
[2016-10-08 08:33] LABS: ANION GAP 12 (8-16); CALCIUM 8.5 mg/dL (8.5-10.1); CO2 23 mmol/L (21-32); GLUCOSE,RANDOM 80 mg/dL (74-106)
[2016-10-08] MEDS: FERROUS SO4 325 MG TABLET (FP) PO SCH (09:35)
[2016-10-08] MEDS: METOPROLOL TARTRATE 25 MG TABLET (FP) PO SCH ×2 (09:35→21:36)
--- NOTE | 2016-10-08 12:15 | PN ---
Physical Exam: SUBJECTIVE: Patient seen and examined Chavez in place, without any difficulty. No fever or chills, no shortness of breath. OBJECTIVE: Vital Signs Temperature 99.6 F 10/08/16 10:00 Pulse Rate 103 H 10/08/16 10:00 Respiratory Rate 20 10/08/16 10:00 Blood Pressure 123/77 10/08/16 10:00 O2 Sat by Pulse Oximetry (%) 98 10/08/16 09:00 GENERAL: The patient is awake, alert, and fully oriented, in no acute distress. HEAD: Normal with no signs of trauma. EYES: PERRL, extraocular movements intact, sclera anicteric, conjunctiva clear. ENT: Ears normal, oropharynx clear without exudates, moist mucous membranes. NECK: Trachea midline, full range of motion, supple. LUNGS: Breath sounds equal, clear to auscultation bilaterally, no wheezes, no crackles, no accessory muscle use. HEART: Regular rate and rhythm, S1, S2 without murmur, rub or gallop. ABDOMEN: Soft, nontender, nondistended, normoactive bowel sounds, no guarding, hepatosplenomegaly, no masses. EXTREMITIES: 2+ pulses, warm, well-perfused, no edema. NEUROLOGICAL: Cranial nerves II through XII grossly intact. Normal speech, gait not observed. PSYCH: Normal mood, normal affect. SKIN: Warm, dry, normal turgor, no rashes or lesions noted : positive for Chavez WBC 9.2 K/mm3 (4.0-10.0) 10/08/16 06:45 RBC 3.45 M/mm3 (4.00-5.60) L 10/08/16 06:45 Hgb 8.2 GM/dL (11.7-16.9) L 10/08/16 06:45 Hct 25.5 % (35.4-49) L 10/08/16 06:45 MCV 74.0 fl (80-96) L 10/08/16 06:45 MCHC 32.2 g/dl (32.0-35.9) 10/08/16 06:45 RDW 18.4 % (11.9-15.9) H 10/08/16 06:45 Plt Count 303 K/MM3 (134-434) 10/08/16 06:45 MPV 7.1 fl (7.5-11.1) L 10/08/16 06:45 CMP Sodium 142 mmol/L (136-145) 10/08/16 06:30 Potassium 3.9 mmol/L (3.5-5.1) D 10/08/16 06:30 Chloride 107 mmol/L (98-107) 10/08/16 06:30 Carbon Dioxide 23 mmol/L (21-32) 10/08/16 06:30 Anion Gap 12 (8-16) 10/08/16 06:30 BUN 22 mg/dL (7-18) H D 10/08/16 06:30 Creatinine 1.0 mg/dL (0.7-1.3) 10/08/16 06:30 Creat Clearance w eGFR > 60 (>60) 10/05/16 06:30 Random Glucose 80 mg/dL (74-106) D 10/08/16 06:30 Calcium 8.5 mg/dL (8.5-10.1) 10/08/16 06:30 Total Bilirubin 0.2 mg/dL (0.2-1.0) 10/05/16 06:30 AST 36 U/L (15-37) D 10/05/16 06:30 ALT 35 U/L (12-78) D 10/05/16 06:30 Alkaline Phosphatase 63 U/L (45-117) 10/05/16 06:30 Total Protein 5.9 g/dl (6.4-8.2) L 10/05/16 06:30 Albumin 2.4 g/dl (3.4-5.0) L 10/05/16 06:30 CARDIAC ENZYMES Creatine Kinase 35 IU/L (39-308) L 10/02/16 06:30 Troponin I < 0.02 ng/ml (0.00-0.05) 10/02/16 06:30 Active Medications Generic Name Dose Route Start Last Admin Trade Name Freq PRN Reason Stop Dose Admin Acetaminophen 650 mg 09/30/16 00:48 10/07/16 21:29 Tylenol - PO 650 mg Q4H PRN Administration FEVER OR PAIN Atorvastatin Calcium 10 mg 09/30/16 22:00 10/07/16 21:29 Lipitor - PO 10 mg HS CHARLETTE Administration Brimonidine Tartrate 1 drop 09/30/16 22:45 10/08/16 06:13 Alphagan 0.2% - OU 1 drop TID CHARLETTE Administration Ferrous Sulfate 325 mg 09/30/16 10:00 10/08/16 09:35 Feosol - PO 325 mg DAILY CHARLETTE Administration Metoprolol Tartrate 25 mg 09/30/16 10:00 10/08/16 09:35 Lopressor - PO 25 mg BID CHARLETTE Administration Tamsulosin HCl 0.8 mg 10/07/16 08:30 10/08/16 08:29 Flomax - PO 0.8 mg DAILY@0830 CHARLETTE Administration Vital Signs Temperature 99.6 F 10/08/16 10:00 Pulse Rate 103 H 10/08/16 10:00 Respiratory Rate 20 10/08/16 10:00 Blood Pressure 123/77 10/08/16 10:00 O2 Sat by Pulse Oximetry (%) 98 10/08/16 09:00 ASSESSMENT/PLAN: Patient is a 70 year old male, a resident of assisted living in [facility], with recurrent bilateral leg cellulitis, failed outpatient treatment, with urinary tract infection, HTN, recent GI bleed (3 weeks ago), recurrent LE cellulitis , and CKD # Acute Urinary tract infection with urinary retention s/p IV antibiotic, discontinued chavez but patient is not able to urinate,placed the chavez back and will call the service of for consult again today. Increased the dose of Flomax to 0.8mg po daily. # Acute recent GI Bleed (3 weeks ago) s/p colonoscopy today 10/05/2016. s/p enteroscopy as per GI; No source of bleeding identified Patient to follow-up with Dr. Robin for capsule endoscopy as outpatient. s/p two polyps removal on 10/05/2106. # s/p sepsis secondary to leg cellulitis- resolved s/p IV zosyn 2.25gm completed 10/21. Blood culture is negative. # ARF resolved due to obstructive uropathy , resolved after IV hydration and chavez placement. # Acute hypokalemia will replete # New onset DVT on right popliteal vein with total occlusion of distal left popliteal vein s/p IVC filter placement (10/05/2016) IVC filter placed since patient is not a candidate of [facility] anticoagulation due to GI bleed. # Microcytic Anemia ,transfuse if Hb below 7gm/dl or if he is actively bleeding # Tinea cruris and tinea pedis continue Nyastatin # hX OF GERD CONTINUE pROTONIX 40MG PO DAILY DVT Px IVC filter placed 10/05/2016 GI px: Pantoprazole 40mg Daily Chavez CATHETER WAS PLACED BACK SINCE PATIENT IS UNABLE TO URINATE. Visit type - Emergency Visit Emergency Visit: Yes ED Registration Date: 09/30/16 Care time: The patient presented to the Emergency Department on the above date and was hospitalized for further evaluation of their emergent condition. - New Patient This patient is new to me today: No - Critical Care Critical Care patient: No
[2016-10-08] MEDS: PANTOPRAZOLE 40 MG TABLET (FP) PO SCH (13:43)
--- NOTE | 2016-10-08 17:09 | CON.GU ---
Consult - History of Present Illness History of Present Illness: 70 yo male with h/o recurrent cellulitis and uti and admitted for same. Noted to be in urinary retention and started on flomax, failed voiding trial yesterday. Pt denies any prior h/o BPH. No prior h/o surgery. Currently with chavez in place with clear urine - Past Medical History Cardio/Vascular: Yes: HTN, Hyperlipdemia Gastrointestinal: Yes: GERD, GI Bleed Renal/: Yes: Renal Inusuff - Alcohol/Substance Use Hx Alcohol Use: No - Smoking History Smoking history: Unknown if ever smoked Have you smoked in the past 12 months: No Home Medications - Allergies Allergies/Adverse Reactions: Allergies Allergy/AdvReac Type Severity Reaction Status Date / Time No Known Allergies Allergy Verified 09/29/16 20:49 - Home Medications Home Medications: Ambulatory Orders Acetaminophen [Pain Relief] 650 mg PO Q6H PRN 09/13/16 Bacitracin 30 gm TP DAILY 09/13/16 Bimatoprost [Lumigan] 1 drop IO DAILY 09/13/16 Brimonidine Tartrate [Alphagan 0.2% -] 1 drop OD TID 09/13/16 Cholecalciferol (Vitamin D3) [Vitamin D3] 50,000 unit PO WEEKLY 09/13/16 Dorzolamide/Timolol/Pf [Cosopt Pf Eye Drops] 1 each OP BID 09/13/16 Ferrous Sulfate 325 mg PO DAILY 09/13/16 Omeprazole 20 mg PO DAILY 09/13/16 Petrolatum,White [Aquaphor with Natural Healing] 50 gm TP DAILY 09/13/16 Simvastatin 10 mg PO HS 09/13/16 Tramadol HCl 50 mg PO BID PRN 09/13/16 Cephalexin Monohydrate [Keflex -] 500 mg PO TID #18 tab 09/19/16 Furosemide [Lasix -] 20 mg PO BID #60 tablet 09/19/16 Metoprolol Tartrate [Lopressor -] 25 mg PO BID #60 tablet 09/19/16 Physical Exam- Vital Signs: Vital Signs Temperature 98.1 F 10/08/16 15:04 Pulse Rate 106 H 10/08/16 15:04 Respiratory Rate 16 10/08/16 15:04 Blood Pressure 116/72 10/08/16 15:04 O2 Sat by Pulse Oximetry (%) 98 10/08/16 09:00 Renal/: Yes: Chavez Present Labs: CBC, BMP 10/08/16 06:45 10/08/16 06:30 Problem List - Problems (1) Urinary retention Assessment/Plan: will double flomax, and give repeat voiding trial in 2 days Code(s): R33.9 - RETENTION OF URINE, UNSPECIFIED
[2016-10-08] MEDS ORDERED: PT OWN MED DRAWER 7, Y5N ONE (20:40)
[2016-10-08] MEDS: ATORVASTATIN CA 10 MG TABLET (FP) PO SCH (21:36)
[2016-10-08] MEDS ORDERED: TAMSULOSIN HCL 0.4 MG CAP.ER.24H (FP) PO SCH (22:00)
[2016-10-09] MEDS: BRIMONIDINE TARTRATE 0.2% OPHTHALMIC 5 ML BOTTLE OU SCH ×3 (05:49→21:35)
[2016-10-09 07:36] LABS: ALBUMIN 2.4 g/dl (3.4-5.0); ANION GAP 10 (8-16); CALCIUM 8.3 mg/dL (8.5-10.1); CO2 23 mmol/L (21-32); GLUCOSE,RANDOM 83 mg/dL (74-106); MAGNESIUM 1.8 mg/dL (1.8-2.4)
[2016-10-09 07:41] LABS: ALK PHOS 64 U/L (45-117); BILIRUBIN,TOTAL 0.2 mg/dL (0.2-1.0); PHOSPHOROUS 2.4 mg/dL (2.5-4.9); SGOT/AST 16 U/L (15-37); SGPT/ALT 26 U/L (12-78); TOT PROT 5.9 g/dl (6.4-8.2)
[2016-10-09] MEDS: PANTOPRAZOLE 40 MG TABLET (FP) PO SCH (09:44)
[2016-10-09] MEDS: TAMSULOSIN HCL 0.4 MG CAP.ER.24H (FP) PO SCH ×2 (09:44→21:35)
[2016-10-09] MEDS: METOPROLOL TARTRATE 25 MG TABLET (FP) PO SCH ×2 (09:44→21:35)
[2016-10-09] MEDS: FERROUS SO4 325 MG TABLET (FP) PO SCH (09:44)
--- NOTE | 2016-10-09 16:25 | PN ---
Teaching Attending Note Name of Resident: Chel Mack ATTENDING PHYSICIAN STATEMENT I saw and evaluated the patient. I reviewed the resident's note and discussed the case with the resident. I agree with the resident's findings and plan as documented. SUBJECTIVE: Has no new complains, Chavez in place. OBJECTIVE: Vital Signs Temperature 98.4 F 10/09/16 14:23 Pulse Rate 110 H 10/09/16 14:23 Respiratory Rate 16 10/09/16 14:23 Blood Pressure 111/70 10/09/16 14:23 O2 Sat by Pulse Oximetry (%) 97 10/09/16 09:00 CBCD WBC 9.2 K/mm3 (4.0-10.0) 10/08/16 06:45 RBC 3.45 M/mm3 (4.00-5.60) L 10/08/16 06:45 Hgb 8.2 GM/dL (11.7-16.9) L 10/08/16 06:45 Hct 25.5 % (35.4-49) L 10/08/16 06:45 MCV 74.0 fl (80-96) L 10/08/16 06:45 MCHC 32.2 g/dl (32.0-35.9) 10/08/16 06:45 RDW 18.4 % (11.9-15.9) H 10/08/16 06:45 Plt Count 303 K/MM3 (134-434) 10/08/16 06:45 MPV 7.1 fl (7.5-11.1) L 10/08/16 06:45 CMP Sodium 141 mmol/L (136-145) 10/09/16 06:00 Potassium 4.0 mmol/L (3.5-5.1) 10/09/16 06:00 Chloride 108 mmol/L (98-107) H 10/09/16 06:00 Carbon Dioxide 23 mmol/L (21-32) 10/09/16 06:00 Anion Gap 10 (8-16) 10/09/16 06:00 BUN 20 mg/dL (7-18) H 10/09/16 06:00 Creatinine 1.0 mg/dL (0.7-1.3) 10/09/16 06:00 Creat Clearance w eGFR > 60 (>60) 10/09/16 06:00 Random Glucose 83 mg/dL (74-106) 10/09/16 06:00 Calcium 8.3 mg/dL (8.5-10.1) L 10/09/16 06:00 Total Bilirubin 0.2 mg/dL (0.2-1.0) 10/09/16 06:00 AST 16 U/L (15-37) D 10/09/16 06:00 ALT 26 U/L (12-78) D 10/09/16 06:00 Alkaline Phosphatase 64 U/L (45-117) 10/09/16 06:00 Total Protein 5.9 g/dl (6.4-8.2) L 10/09/16 06:00 Albumin 2.4 g/dl (3.4-5.0) L 10/09/16 06:00 CARDIAC ENZYMES Creatine Kinase 35 IU/L (39-308) L 10/02/16 06:30 Troponin I < 0.02 ng/ml (0.00-0.05) 10/02/16 06:30 Home Medications Medication Instructions Recorded Acetaminophen [Pain Relief] 650 mg PO Q6H PRN 09/13/16 Bacitracin 30 gm TP DAILY 09/13/16 Bimatoprost [Lumigan] 1 drop IO DAILY 09/13/16 Brimonidine Tartrate [Alphagan 1 drop OD TID 09/13/16 0.2% -] Cholecalciferol (Vitamin D3) 50,000 unit PO WEEKLY 09/13/16 [Vitamin D3] Dorzolamide/Timolol/Pf [Cosopt Pf 1 each OP BID 09/13/16 Eye Drops] Ferrous Sulfate 325 mg PO DAILY 09/13/16 Omeprazole 20 mg PO DAILY 09/13/16 Petrolatum,White [Aquaphor with 50 gm TP DAILY 09/13/16 Natural Healing] Simvastatin 10 mg PO HS 09/13/16 Tramadol HCl 50 mg PO BID PRN 09/13/16 Cephalexin Monohydrate [Keflex -] 500 mg PO TID #18 tab 09/19/16 Furosemide [Lasix -] 20 mg PO BID #60 tablet 09/19/16 Metoprolol Tartrate [Lopressor -] 25 mg PO BID #60 tablet 09/19/16 PE: per resident's note ASSESSMENT AND PLAN: Patient is a 70 year old male, a resident of assisted living in [facility], with recurrent bilateral leg cellulitis, failed outpatient treatment, with urinary tract infection, HTN, recent GI bleed (3 weeks ago), recurrent LE cellulitis , and CKD. # Acute Urinary retention s/p chavez catheter placement with increased dose of Flomax 0.8mg daily. patient will follow with upon discharge # Acute Urinary tract infection s/p IV antibiotic, discontinued chavez but patient is not able to urinate will place the chavez back. # Acute recent GI Bleed (3 weeks ago) s/p colonoscopy today 10/05/2016. s/p enteroscopy as per GI; No source of bleeding identified Patient to follow-up with Dr. Robin for capsule endoscopy as outpatient. s/p two polyps removal on 10/05/2106. # s/p sepsis secondary to leg cellulitis- resolved s/p IV zosyn 2.25gm completed 10/21 as per ID. Blood culture is negative so far # ARF resolved due to obstructive uropathy ,resolved after IV hydration and chavez placement. # New onset DVT on right popliteal vein with total occlusion of distal left popliteal vein s/p IVC filter placement (10/05/2016) IVC filter placed since patient is not a candidate of assisted anticoagulation due to GI bleed. # Microcytic Anemia ,transfuse if Hb below 7gm/dl or if he is actively bleeding # Tinea cruris and tinea pedis continue Nyastatin # hX OF GERD CONTINUE pROTONIX 40MG PO DAILY DVT Px IVC filter placed 10/05/2016 GI px: Pantoprazole 40mg Daily
--- NOTE | 2016-10-09 16:40 | PN ---
Physical Exam: SUBJECTIVE: Patient seen and examined at bed side this morning. No complaints. Denies chest pain, sob, cough, palpitation, abdominal pain, nausea or vomiting. Chavez in place OBJECTIVE: Vital Signs Period Temp Pulse Resp BP Sys/Shah Pulse Ox Last 24 Hr 97.6 F-98.5 F 92-110 16-20 103-124/54-82 97 GENERAL: Moderately obese male, lying comfortably in bed, awake, alert, and fully oriented, in no acute distress. HEAD: Normal with no signs of trauma. EYES: EOM intact, no pallor or icterus, Complete loss of vision in the right eye. ENT: Ears normal, moist mucous membranes. NECK: Supple. LUNGS: Breath sounds equal, clear to auscultation bilaterally, no wheezes, no crackles, no accessory muscle use. HEART: Regular rate and rhythm, S1, S2 without murmur, rub or gallop. ABDOMEN: Soft, nontender, nondistended, normoactive bowel sounds, no guarding, no rebound, no hepatosplenomegaly, no masses. EXTREMITIES: B/L lower extremity pitting edema upto the mid calf Left>right resolving; erythmatous below the knee upto the ankle, small skin tear on the chan, tender to palpation, 2+ pulses, warm, well-perfused, chronic venous stasis-color change. NEUROLOGICAL: No facial droop, bulk/tone normal; Power-upper ext-5/5; lower ext- 3/5 (likely due to the swelling and tenderness couldn't perform well), Cranial nerves II through XII grossly intact. Normal speech, gait not observed. PSYCH: Normal mood, normal affect. SKIN: Warm, dry, normal turgor, no rashes or lesions noted Laboratory Results - last 24 hr 10/09/16 06:00 Sodium 141 Potassium 4.0 Chloride 108 H Carbon Dioxide 23 Anion Gap 10 BUN 20 H Creatinine 1.0 Creat Clearance w eGFR > 60 Random Glucose 83 Calcium 8.3 L Phosphorus 2.4 L Magnesium 1.8 Total Bilirubin 0.2 AST 16 D ALT 26 D Alkaline Phosphatase 64 Total Protein 5.9 L Albumin 2.4 L Active Medications Generic Name Dose Route Start Last Admin Trade Name Freq PRN Reason Stop Dose Admin Acetaminophen 650 mg 09/30/16 00:48 10/07/16 21:29 Tylenol - PO 650 mg Q4H PRN Administration FEVER OR PAIN Atorvastatin Calcium 10 mg 09/30/16 22:00 10/08/16 21:36 Lipitor - PO 10 mg HS CHARLETTE Administration Brimonidine Tartrate 1 drop 09/30/16 22:45 10/09/16 13:31 Alphagan 0.2% - OU 1 drop TID CHARLETTE Administration Ferrous Sulfate 325 mg 09/30/16 10:00 10/09/16 09:44 Feosol - PO 325 mg DAILY CHARLETTE Administration Metoprolol Tartrate 25 mg 09/30/16 10:00 10/09/16 09:44 Lopressor - PO 25 mg BID CHARLETTE Administration Pantoprazole Sodium 40 mg 10/08/16 12:30 10/09/16 09:44 Protonix - PO 40 mg DAILY CHARLETTE Administration Tamsulosin HCl 0.4 mg 10/08/16 22:00 10/09/16 09:44 Flomax - PO 0.4 mg BID CHARLETTE Administration ASSESSMENT/PLAN: Patient is a 70 year old male, a resident of assisted living in [facility], with recurrent bilateral leg cellulitis, failed outpatient treatment, with urinary tract infection, Hypertension, recent GI bleed (3 weeks ago), venous insufficiency, recurrent LE cellulitis , and CKD # Sepsis secondary to leg cellulitis- Resolved Completed IV Zosyn. Blood culture negative # Urinary tract infection (Pseudomonas) with urinary retention (B/L hydronephrosis) Patient is asymptomatic Chavez placed again after failed voiding trials. Plan is to discontinue chavez tomorrow. Urology consult appreciated who suggested to increase the dose of flomax. # Recent GI Bleed (3 weeks ago) Enteroscopy done on 10/06/16 which didn't show bleeding. Colonoscopy done on s/p 2 polypectomy with sites endoclipped. May need capsule endoscopy as outpatient, as per GI. # SHIVAM likely due to obstruction Resolved after IV hydration and chavez placement. 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 # Microcytic Anemia Ferritin is 159- may be high since its a acute phase reactant. Need to recheck ferritin once patient is stable. Transfuse if Hb , 7gm/dl or if he is actively bleeding # Tinea cruris and tinea pedis Topical nystatin # FEN: IV fluids stopped since patient started eating Electrolytes to be repeated tomorrow. Fat controlled diet # Prophylaxis For DVT: IVC filter placed 10/05/2016, early ambulation, once cellulitis resolves will place SCD For GI: Pantoprazole 40mg Daily # Code Status: Full Code # Dispo: Admitted in Med-Surg. Possible discharge tomorrow. Call placed to [facility] (Assisted living)- [phone] and confirmed the medication. Illness, Investigation and Plan of care explained to the patient. He verbalized understanding. Case seen and examined with Dr. Prado. Visit type - Emergency Visit Emergency Visit: Yes ED Registration Date: 09/30/16 Care time: The patient presented to the Emergency Department on the above date and was hospitalized for further evaluation of their emergent condition. - New Patient This patient is new to me today: No - Critical Care Critical Care patient: No - Discharge Referral Referred to [facility] Med P.C.: No
[2016-10-09] MEDS: ATORVASTATIN CA 10 MG TABLET (FP) PO SCH (21:35)
[2016-10-10] MEDS ORDERED: oxyCODONE HCL 5 MG TABLET PO ONE (04:12)
[2016-10-10] MEDS: ACETAMINOPHEN 325 MG TABLET (FP) PO PRN (04:27)
[2016-10-10] MEDS: BRIMONIDINE TARTRATE 0.2% OPHTHALMIC 5 ML BOTTLE OU SCH ×2 (05:56→16:33)
[2016-10-10 08:03] LABS: MCH 23.8 pg (25.7-33.7); MCHC 31.6 g/dl (32.0-35.9); MEAN CELL VOLUME 75.3 fl (80-96); MEAN PLT VOLUME 6.9 fl (7.5-11.1); PLATELET COUNT 315 K/MM3 (134-434); RDW 18.5 % (11.9-15.9); WHITE BLOOD COUNT 10.1 K/mm3 (4.0-10.0)
[2016-10-10 08:20] LABS: ANION GAP 8 (8-16); CALCIUM 8.7 mg/dL (8.5-10.1); CO2 25 mmol/L (21-32); GLUCOSE,RANDOM 80 mg/dL (74-106); MAGNESIUM 1.8 mg/dL (1.8-2.4)
[2016-10-10] MEDS: METOPROLOL TARTRATE 25 MG TABLET (FP) PO SCH (09:33)
[2016-10-10] MEDS: TAMSULOSIN HCL 0.4 MG CAP.ER.24H (FP) PO SCH (09:33)
[2016-10-10] MEDS: FERROUS SO4 325 MG TABLET (FP) PO SCH (09:33)
[2016-10-10] MEDS: PANTOPRAZOLE 40 MG TABLET (FP) PO SCH (09:33)
--- NOTE | 2016-10-10 11:11 | DS ---
Physical Exam: SUBJECTIVE: Patient seen and examined at bed side. No complaints. Denies chest pain, sob, cough, palpitation, abdominal pain, nausea or vomiting. Chavez in place OBJECTIVE: Vital Signs Period Temp Pulse Resp BP Sys/Shah Pulse Ox Last 24 Hr 97.8 F-98.5 F 88-110 16-20 111-135/70-83 97 PHYSICAL EXAM GENERAL: Moderately obese male, lying comfortably in bed, awake, alert, and fully oriented, in no acute distress. Chavez catheter in place. HEAD: Normal with no signs of trauma. EYES: EOM intact, no pallor or icterus, Complete loss of vision in the right eye. ENT: Ears normal, moist mucous membranes. NECK: Supple. LUNGS: Breath sounds equal, clear to auscultation bilaterally, no wheezes, no crackles, no accessory muscle use. HEART: Regular rate and rhythm, S1, S2 without murmur, rub or gallop. ABDOMEN: Soft, nontender, nondistended, normoactive bowel sounds, no guarding, no rebound, no hepatosplenomegaly, no masses. EXTREMITIES: No peripheral edema. Erythema has resolved. Chronic venous stasis-color change. NEUROLOGICAL: No facial droop, bulk/tone normal; Power-upper ext-5/5; lower ext- 3/5 , Cranial nerves II through XII grossly intact. Normal speech, can walk with a walker without support. PSYCH: Normal mood, normal affect. SKIN: Warm, dry, normal turgor, no rashes or lesions noted LABS Laboratory Results - last 24 hr 10/10/16 10/10/16 06:30 06:30 WBC 10.1 H RBC 3.59 L Hgb 8.5 L Hct 27.1 L MCV 75.3 L MCHC 31.6 L RDW 18.5 H Plt Count 315 MPV 6.9 L Sodium 141 Potassium 4.5 Chloride 108 H Carbon Dioxide 25 Anion Gap 8 BUN 23 H Creatinine 1.0 Random Glucose 80 Calcium 8.7 Phosphorus 3.0 D Magnesium 1.8 Microbiology 09/29/16 21:55 Blood - Peripheral Venous Blood Culture - Final NO GROWTH AFTER 5 DAYS INCUBATION 09/29/16 21:55 Blood - Peripheral Venous Blood Culture - Final NO GROWTH AFTER 5 DAYS INCUBATION 09/29/16 21:55 Urine - Urine Clean Catch Urine Culture - Final Pseudomonas Aeruginosa HOSPITAL COURSE: Date of Admission:09/30/16 Date of Discharge: 10/10/16 Patient is a 70 year old male, a resident of assisted living in [facility], with recurrent bilateral leg cellulitis, failed outpatient treatment, with urinary tract infection, Hypertension, recent GI bleed (3 weeks ago), venous insufficiency, recurrent LE cellulitis , and CKD. Patient was admitted with the diagnosis of Sepsis secondary to leg cellulitis which was treated with IV Zosyn, Blood culture was negative and it resolved. UTI- urine culture was positive for Pseudomonas. It was sensitive for Zosyn. UTI resolved. Patient also had urinary retention. Ultrasound of bladder was done which showed around 2000 cc of urine, chavez was placed. Urology was consulted. Flomax was given. Chavez was discontinued with voiding trials but had to put the chavez back on 10/07/16 since he failed voiding trails. Sending the patient with chavez, f/up with urologist (Dr. Sarabia) as outpatient for possible cystoscopy. Recent GI Bleed (3 weeks prior to admission and had received 2 PRBCs)- However this admission, didn't have any signs of GI bleed. GI was consulted and found out that patient had a EGD done 3 wks prior to admission showing erosions and gastritis. Hence, colonscopy was done on 10/05/2016 s/p 2 polypectomy with sites endoclipped. Enteroscopy done on 10/06/16 which didn't show bleeding. May need capsule endoscopy as outpatient, as per GI, needs GI f/up as outpatient.. SHIVAM likely due to obstruction. Resolved after IV hydration and chavez placement. New onset DVT on right popliteal vein with total occlusion of distal left popliteal vein s/p IVC filter placement (10/05/2016). IVC filter placed since patient is not a candidate of terminal makeup operator anticoagulation due to GI bleed. Needs outpatient follow up with IR. Microcytic Anemia. Ferritin is 159- may be high since its a acute phase reactant. Needs to recheck ferritin once patient is stable. Didn't require transfusion at this admission. Continue Ferrous sulfate. Tinea cruris and tinea pedis-Topical nystatin Call placed to [facility] (Assisted living)- [phone], said they will not accept the patient with chavez. Hence Dr. Ralph (from [facility]) is requesting to send to the [facility] ) for a short term rehab. Illness, Investigation and Plan of care explained to the patient. He verbalized understanding. Case seen and examined with Dr. Prado. Minutes to complete discharge: 45 Discharge Summary Reason For Visit: ACUTE RENAL FAILURE Current Active Problems Acute renal failure (Acute) Candidiasis of perineum (Acute) Cellulitis (Acute) Rash (Acute) Sepsis affecting skin (Acute) Urinary retention (Acute) Urinary tract infection (Acute) Anemia (Chronic) CKD (chronic kidney disease) (Chronic) GERD (gastroesophageal reflux disease) (Chronic) Glaucoma (Chronic) HTN (hypertension) (Chronic) Venous (peripheral) insufficiency (Chronic) Condition: Fair - Instructions Diet, Activity, Other Instructions: You were admitted with the evaluation of cellulitis of the lower extremity for which you were treated with IV antibiotics and it has resolved. Duplex of the lower extremity was done which showed deep vein thrombosis of the lower extremity. Since you had a history of GI bleed, skilled nursing anticoagulation is not recommended, hence IVC filter was placed by Interventional radiology. Please follow up with your vascular physician and Interventional radiology. Colonoscopy was done which showed polyps and it was removed. You will need an outpatient follow up with GI doctor for possible capsule endoscopy. While you were admitted, you had urinary rentension. Since the voiding trials failed, we are sending you with the chavez. Please make sure you see a urologist (Dr. Sarabia) in his office for possible cystoscopy and management of the chavez. Please follow up with PCP in a week. Return to the Emergency Department if your symptoms get worsen or if you develop any new symptoms. Referrals: Duglas Robin MD [Staff Physician] - Christian Cazares MD [Staff Physician] - Dania Ralph MD [Primary Care Provider] - - Home Medications Comprehensive Discharge Medication List: Ambulatory Orders Acetaminophen [Pain Relief] 650 mg PO Q6H PRN 09/13/16 Bacitracin 30 gm TP DAILY 09/13/16 Bimatoprost [Lumigan] 1 drop IO DAILY 09/13/16 Brimonidine Tartrate [Alphagan 0.2% -] 1 drop OD TID 09/13/16 Cholecalciferol (Vitamin D3) [Vitamin D3] 50,000 unit PO WEEKLY 09/13/16 Dorzolamide/Timolol/Pf [Cosopt Pf Eye Drops] 1 each OP BID 09/13/16 Ferrous Sulfate 325 mg PO DAILY 09/13/16 Omeprazole 20 mg PO DAILY 09/13/16 Petrolatum,White [Aquaphor with Natural Healing] 50 gm TP DAILY 09/13/16 Simvastatin 10 mg PO HS 09/13/16 Tramadol HCl 50 mg PO BID PRN 09/13/16 Metoprolol Tartrate [Lopressor -] 25 mg PO BID #60 tablet 09/19/16 Oxycodone HCl 5 mg PO HS PRN #30 tablet MDD 1 10/10/16 Tamsulosin HCl 0.4 mg PO BID #30 cap.er.24h 10/10/16 This patient is new to me today: No Emergency Visit: Yes ED Registration Date: 09/30/16 Care time: The patient presented to the Emergency Department on the above date and was hospitalized for further evaluation of their emergent condition. Critical Care patient: No - Discharge Referral Referred to [facility] Med P.C.: No
[2016-10-10 14:26] VITALS: PULSE 99; TEMP 97.7
[2016-10-10 17:03] VITALS: BP 120/77
--- NOTE | 2016-10-10 20:54 | PN ---
Teaching Attending Note Name of Resident: Chel Mack ATTENDING PHYSICIAN STATEMENT I saw and evaluated the patient. I reviewed the resident's note and discussed the case with the resident. I agree with the resident's findings and plan as documented. SUBJECTIVE: Patient is going back to assisted living. OBJECTIVE: Vital Signs Temperature 97.7 F 10/10/16 16:15 Pulse Rate 99 H 10/10/16 16:15 Respiratory Rate 20 10/10/16 16:15 Blood Pressure 120/77 10/10/16 16:15 O2 Sat by Pulse Oximetry (%) 97 10/10/16 09:00 CBCD WBC 10.1 K/mm3 (4.0-10.0) H 10/10/16 06:30 RBC 3.59 M/mm3 (4.00-5.60) L 10/10/16 06:30 Hgb 8.5 GM/dL (11.7-16.9) L 10/10/16 06:30 Hct 27.1 % (35.4-49) L 10/10/16 06:30 MCV 75.3 fl (80-96) L 10/10/16 06:30 MCHC 31.6 g/dl (32.0-35.9) L 10/10/16 06:30 RDW 18.5 % (11.9-15.9) H 10/10/16 06:30 Plt Count 315 K/MM3 (134-434) 10/10/16 06:30 MPV 6.9 fl (7.5-11.1) L 10/10/16 06:30 CMP Sodium 141 mmol/L (136-145) 10/10/16 06:30 Potassium 4.5 mmol/L (3.5-5.1) 10/10/16 06:30 Chloride 108 mmol/L (98-107) H 10/10/16 06:30 Carbon Dioxide 25 mmol/L (21-32) 10/10/16 06:30 Anion Gap 8 (8-16) 10/10/16 06:30 BUN 23 mg/dL (7-18) H 10/10/16 06:30 Creatinine 1.0 mg/dL (0.7-1.3) 10/10/16 06:30 Creat Clearance w eGFR > 60 (>60) 10/09/16 06:00 Random Glucose 80 mg/dL (74-106) 10/10/16 06:30 Calcium 8.7 mg/dL (8.5-10.1) 10/10/16 06:30 Total Bilirubin 0.2 mg/dL (0.2-1.0) 10/09/16 06:00 AST 16 U/L (15-37) D 10/09/16 06:00 ALT 26 U/L (12-78) D 10/09/16 06:00 Alkaline Phosphatase 64 U/L (45-117) 10/09/16 06:00 Total Protein 5.9 g/dl (6.4-8.2) L 10/09/16 06:00 Albumin 2.4 g/dl (3.4-5.0) L 10/09/16 06:00 CARDIAC ENZYMES Creatine Kinase 35 IU/L (39-308) L 10/02/16 06:30 Troponin I < 0.02 ng/ml (0.00-0.05) 10/02/16 06:30 Home Medications Medication Instructions Recorded Acetaminophen [Pain Relief] 650 mg PO Q6H PRN 09/13/16 Bacitracin 30 gm TP DAILY 09/13/16 Bimatoprost [Lumigan] 1 drop IO DAILY 09/13/16 Brimonidine Tartrate [Alphagan 1 drop OD TID 09/13/16 0.2% -] Cholecalciferol (Vitamin D3) 50,000 unit PO WEEKLY 09/13/16 [Vitamin D3] Dorzolamide/Timolol/Pf [Cosopt Pf 1 each OP BID 09/13/16 Eye Drops] Ferrous Sulfate 325 mg PO DAILY 09/13/16 Omeprazole 20 mg PO DAILY 09/13/16 Petrolatum,White [Aquaphor with 50 gm TP DAILY 09/13/16 Natural Healing] Simvastatin 10 mg PO HS 09/13/16 Tramadol HCl 50 mg PO BID PRN 09/13/16 Metoprolol Tartrate [Lopressor -] 25 mg PO BID #60 tablet 09/19/16 Oxycodone HCl 5 mg PO HS PRN #30 tablet MDD 1 10/10/16 Tamsulosin HCl 0.4 mg PO BID #30 cap.er.24h 10/10/16 Microbiology 09/29/16 21:55 Blood - Peripheral Venous Blood Culture - Final NO GROWTH AFTER 5 DAYS INCUBATION 09/29/16 21:55 Blood - Peripheral Venous Blood Culture - Final NO GROWTH AFTER 5 DAYS INCUBATION 09/29/16 21:55 Urine - Urine Clean Catch Urine Culture - Final Pseudomonas Aeruginosa PE: per resident's note ASSESSMENT AND PLAN: Patient is a 70 year old male, a resident of assisted living in [facility], with recurrent bilateral leg cellulitis, failed outpatient treatment, with urinary tract infection, HTN, recent GI bleed (3 weeks ago), recurrent LE cellulitis , and CKD. # Acute Urinary retention s/p chavez catheter placement with increased dose of Flomax 0.8mg daily. patient will follow with # Acute Urinary tract infection s/p IV antibiotic, discontinued chavez but patient is not able to urinate will place the chavez back. # Acute recent GI Bleed (3 weeks ago) s/p colonoscopy today 10/05/2016. s/p enteroscopy as per GI; No source of bleeding identified Patient to follow-up with Dr. Robin for capsule endoscopy as outpatient. s/p two polyps removal on 10/05/2106. # s/p sepsis secondary to leg cellulitis- resolved s/p IV zosyn 2.25gm completed 10/21 . Blood culture is negative # ARF resolved due to obstructive uropathy ,resolved after IV hydration and chavez placement. # New onset DVT on right popliteal vein with total occlusion of distal left popliteal vein s/p IVC filter placement (10/05/2016) IVC filter placed since patient is not a candidate of senior care anticoagulation due to GI bleed. # Microcytic Anemia ,transfuse if Hb below 7gm/dl or if he is actively bleeding # Tinea cruris and tinea pedis continue Nyastatin # hX OF GERD CONTINUE pROTONIX 40MG PO DAILY DVT Px IVC filter placed 10/05/2016 Discharge patient with chavez to rehab, will follow with as an outpatient
== END 2016-10-10 17:00 | DRG 854 ==
LOC: JER 20:45 → JERBED 09-30 00:11 → UNDOADMIN 09-30 01:26 → J8W 09-30 03:34
PROVIDERS: ADMIT Internal Medicine; ATTEND Internal Medicine
PROC: 06H03DZ Insertion of Intraluminal Device into Inferior Vena Cava, Percutaneous Approach (ICD-10-PCS; 2016-09-30)
PROC: 3E033GC Introduction of Other Therapeutic Substance into Peripheral Vein, Percutaneous Approach (ICD-10-PCS; 2016-09-30)
PROC: 0DJ08ZZ Inspection of Upper Intestinal Tract, Via Natural or Artificial Opening Endoscopic (ICD-10-PCS; principal; 2016-10-05 11:00)
PROC: 0DBM8ZX Excision of Descending Colon, Via Natural or Artificial Opening Endoscopic, Diagnostic (ICD-10-PCS; 2016-10-06)
PROC: 0DBL8ZX Excision of Transverse Colon, Via Natural or Artificial Opening Endoscopic, Diagnostic (ICD-10-PCS; 2016-10-06)
DX: A41.9 Sepsis, unspecified organism (principal); L03.116 Cellulitis of left lower limb; L03.115 Cellulitis of right lower limb; B37.89 Other sites of candidiasis; N30.01 Acute cystitis with hematuria; N17.9 Acute kidney failure, unspecified; N13.30 Unspecified hydronephrosis; K92.2 Gastrointestinal hemorrhage, unspecified; I82.433 Acute embolism and thrombosis of popliteal vein, bilateral; K21.9 Gastro-esophageal reflux disease without esophagitis; K44.9 Diaphragmatic hernia without obstruction or gangrene; D12.4 Benign neoplasm of descending colon; D12.3 Benign neoplasm of transverse colon; H40.9 Unspecified glaucoma; I87.2 Venous insufficiency (chronic) (peripheral); E66.01 Morbid (severe) obesity due to excess calories; Z68.31 Body mass index [BMI] 31.0-31.9, adult; Z71.3 Dietary counseling and surveillance; I12.9 Hypertensive chronic kidney disease with stage 1 through stage 4 chronic kidney disease, or unspecified chronic kidney disease; N18.9 Chronic kidney disease, unspecified; H54.41 Blindness, right eye, normal vision left eye; B96.5 Pseudomonas (aeruginosa) (mallei) (pseudomallei) as the cause of diseases classified elsewhere; R33.9 Retention of urine, unspecified; D50.9 Iron deficiency anemia, unspecified; E87.6 Hypokalemia; E83.42 Hypomagnesemia; B35.6 Tinea cruris; B35.3 Tinea pedis
CPT/HCPCS: 36415; 37191; 71010-TC; 76775-TC; 76856-TC; 76998-TC; 80048; 80053; 81003; 81015; 82436; 82550; 82570; 82728; 83036; 83540; 83550; 83605; 83735; 84100; 84133; 84300; 84466; 84484; 85025; 85027; 85610; 85730; 87040; 87086; 87186; 88305-TC; 93005; 93010; 93970-TC; 97116-GP; 97162-GP; 99285-25; C1769; C1880; G0480; J1644; J1756

== ENCOUNTER 2016-12-01 12:08 | Inpatient (IN) | payer OTHER ==
--- NOTE | 2016-12-01 12:45 | PDOC ---
Attending Attestation - Resident Resident Name: Jordan Nguyen - ED Attending Attestation I have performed the following: I have examined & evaluated the patient, The case was reviewed & discussed with the resident, I agree w/resident's findings & plan, Exceptions are as noted - HPI HPI: 12/01/16 13:11 71y M hx of htn, hl, b/l LE edema, GERD presents with leg pain.The pt states he was feeling well yesterday, and last night, he developed b/l thigh pain/ swelling last night and some warmth. The warmth seems to have improved but he still has b/l leg pain. Pt also endorses feeling mild sob this morning but that has since resolved. Pt also endorsed mild nausea w/o vomiting. Pt jodie any fever/chills, recent falls/injuries, chest pain, cough, numbness/tingling/ weakness. - Physicial Exam PE: 12/01/16 13:18 GENERAL: The patient is awake, alert, and fully oriented, Nontoxic - in no acute distress. HEAD: Normocephalic, atraumatic. EYES: extraocular movements intact, sclera anicteric, conjunctiva clear. ENT: Normal voice, Moist mucous membranes. NECK: Normal range of motion, supple LUNGS: Breath sounds equal, clear to auscultation bilaterally. No wheezes, no rhonchi, no rales. HEART: tachycardic ABDOMEN: Soft, nontender, normoactive bowel sounds. No guarding, no rebound. . No CVA tenderness EXTREMITIES: erythema in shins b/l without significant warmth/tenderness, negative homans sign. +1 pitting edema b/l NEUROLOGICAL: No facial assymetry, Normal speech, moving all 4 extremities spontaneously and symmetrically PSYCH: Normal mood, normal affect. SKIN: Warm, Dry, normal turgor, - Medical Decision Making 12/01/16 13:19 differential includes but not limited to infectious - will obtain rectal temp if afebrile, possible dehdyration/orthotatic - will gently hydrate and check labs/renal function will r/o anemia will obtain US to r/o DVT ekg to r/o arrythmia willr easesses 12/01/16 14:01 pt febrile to 101 sepsis order set 12/01/16 16:01 pts labs reviewed lactic acid elevated, pt gettin gfluids and repeat lactic acid UA cw uti - likely Urospesis, possible gram negative sepsis pt s/p vanc/zosyn pt will be admitted to the ICU for further management of sepsis CRITICAL CARE DOCUMENTATION: I spent ~45 minutes of Critical Care time, excluding separately billable procedures, involving high complexity decision making to assess, manipulate and support vital system function(s) to treat single or multiple vital organ system failure and/or to prevent further life threatening deterioration of the patient' s condition. Heart Score/ECG Review - ECG Impressions Comment:: 12/01/16 13:13 Twelve-lead EKG was performed and reviewed by me. There is normal sinus rhythm with a rate of [address] change ssuggestive of acute ischemia
[2016-12-01 13:02] LABS: BASOPHIL 0.8 % (0-2.0); EOSINOPHIL 0.1 % (0-4.5); MCH 23.3 pg (25.7-33.7); MCHC 31.6 g/dl (32.0-35.9); MEAN CELL VOLUME 73.7 fl (80-96); MEAN PLT VOLUME 7.2 fl (7.5-11.1); NEUTROPHILS 82.5 % (42.8-82.8); PLATELET COUNT 327 K/MM3 (134-434); RDW 19.1 % (11.9-15.9); WHITE BLOOD COUNT 10.8 K/mm3 (4.0-10.0)
--- NOTE | 2016-12-01 13:07 | PDOC ---
History of Present Illness - General Chief Complaint: Edema Stated Complaint: SWOLLEN LEG Time Seen by Provider: 12/01/16 12:22 - History of Present Illness Initial Comments: 71 year old male with history of HTN, HLD, chronic lower extremity edema, and GERD presenting with complaints of warmth on his upper thighs and increased swelling. He states that last night his thighs felt a little more swollen and warm so he wanted to come in today to have it checked out given a remote history of lower extremity cellulitis and need for antibiotic treatment. He also is complaining of some subjective shortness of breath earlier in the day that resolved on its own. He recently moved into an assisted living facility because of difficulty with mobility in the setting of bilateral knee arthritis and lower extremity edema. He does ambulate with a walker but less frequently lately. He admits to some slight nausea earlier this morning and subsequently did not eat breakfast. Denies chest pain, fever, chills, vomiting, diarrhea, headache, cough, or other sick symptoms. 12/01/16 12:50 12/01/16 13:08 Past History - Past Medical History Allergies/Adverse Reactions: Allergies Allergy/AdvReac Type Severity Reaction Status Date / Time No Known Allergies Allergy Verified 09/29/16 20:49 Home Medications: Ambulatory Orders Acetaminophen [Pain Relief] 650 mg PO Q6H PRN 09/13/16 Bimatoprost [Lumigan] 1 drop IO DAILY 09/13/16 Brimonidine Tartrate [Alphagan 0.2% -] 1 drop OD TID 09/13/16 Cholecalciferol (Vitamin D3) [Vitamin D3] 50,000 unit PO WEEKLY 09/13/16 Dorzolamide/Timolol/Pf [Cosopt Pf Eye Drops] 1 each OP BID 09/13/16 Ferrous Sulfate 325 mg PO DAILY 09/13/16 Omeprazole 20 mg PO DAILY 09/13/16 Simvastatin 10 mg PO HS 09/13/16 Metoprolol Tartrate [Lopressor -] 25 mg PO BID #60 tablet 09/19/16 Oxycodone HCl 5 mg PO HS PRN #30 tablet MDD 1 10/10/16 Tamsulosin HCl 0.4 mg PO BID #30 cap.er.24h 10/10/16 Anemia: Yes GI Disorders: Yes (gerd) HTN: Yes Hypercholesterolemia: Yes Psychiatric Problems: Yes - Psycho/Social/Smoking Cessation Hx Anxiety: No Suicidal Ideation: No Smoking History: Never smoked Have you smoked in the past 12 months: No Information on smoking cessation initiated: No Hx Alcohol Use: No Drug/Substance Use Hx: No Substance Use Type: None Review of Systems - Review of Systems Constitutional: No: Chills, Diaphoresis, Fever, Loss of Appetite, Night Sweats HEENTM: No: Blurred Vision, Recent change in vision, Double Vision Respiratory: Yes: Shortness of Breath. No: Cough, Orthopnea, Wheezing, Productive cough, Hemoptysis Cardiac (ROS): Yes: Edema. No: Chest Pain, Irregular Heart Rate, Lightheadedness, Palpitations ABD/GI: Yes: Nausea, Poor Appetite. No: Constipated, Diarrhea, Poor Fluid Intake, Vomiting : No: Dysuria, Discharge, Flank Pain, Hematuria Integumentary: Yes: Erythema, Lesions. No: Change in Color Neurological: No: Headache *Physical Exam - Vital Signs Last Vital Signs Temp Pulse Resp BP Pulse Ox 98.7 F 130 H 24 121/78 95 12/01/16 12:16 12/01/16 12:16 12/01/16 12:16 12/01/16 12:16 12/01/16 12:16 - Physical Exam General Appearance: Yes: Nourished, Appropriately Dressed, Obese. No: Apparent Distress HEENT: positive: EOMI, Normal Voice, Other (Dry mucous membranes). negative: CAROL (Blind in right eye with glaucoma), Normal ENT Inspection, Photophobia Neck: positive: Trachea midline, Normal Thyroid, Supple. negative: Tender, Rigid Respiratory/Chest: positive: Lungs Clear, Normal Breath Sounds. negative: Chest Tender Cardiovascular: positive: Regular Rhythm, Edema, Tachycardia. negative: Regular Rate, S1, S2, JVD, Murmur Gastrointestinal/Abdominal: positive: Normal Bowel Sounds, Soft, Protuberent, Distended. negative: Tender, Organomegaly Musculoskeletal: positive: Other (Bilateral 2+ pitting edema to the upper third of his tibia). negative: Normal Inspection Extremity: positive: Swelling, Erythema. negative: Normal Inspection (Per above ), Calf Tenderness Integumentary: positive: Dry, Warm, Erythema (Slight erythema that appears chronic over the mid tibias bilaterally.). negative: Normal Color Neurologic: positive: Fully Oriented, Alert, Normal Mood/Affect ED Treatment Course - LABORATORY CBC & Chemistry Diagram: 12/01/16 12:40 12/01/16 12:40 Medical Decision Making - Medical Decision Making 71 year old male with PMH of HTN, HLD, GERD, and chronic bilateral lower extremity edema presenting with subjective SOB earlier in the day with thigh warmth and swelling. On physical exam his upper thighs were not swollen, erythematous, or warm. His lungs were clear and he was SATing 98% on RA without tachynpea. However, he is tachycardic to the 120s-130s. He has been tachycardic on previous visits to 110s and has a baseline in the mid 90s. His legs don't appear overtly cellulitic but will investigate further. He is complaining of some nausea earlier and decreased food intake so this tachycardia could be driven by dehydration as his mucous membranes were slightly dry on initial exam. PE is also a possibility but Del's sign was negative and he has bilateral lower extremity swelling without chest pain. Will begin our investigation with CBC, CMP, BNP, EKG, rectal temp, and 500NS/ 1 hr. If these results are negative, will pursue a D-Dimer or a CTA. 12/01/16 13:12 12/01/16 14:24 Patient was increasingly tachycardic, starting to hallucinate per nursing, shivering, and had a rectal temp of 101 so the sepsis pathway was initiated. 12/01/16 17:20 UTI returned positive for 3+ leuks, + nitrites, and 2K WBCs. Will admit patient for sepsis secondary to UTI given her tachycardia, tachypnea, elevated WBC, and urinary source. Patient admitted to Dr. Guzman in the ICU with ICU consult @ 17: 38. 12/01/16 17:30 *DC/Admit/Observation/Transfer Diagnosis at time of Disposition: Sepsis due to urinary tract infection - Discharge Dispostion Condition at time of disposition: Stable Admit: Yes - Attestations Physician Attestion: I, Dr. Jordan Nguyen, attest that this document has been prepared under my direction and personally reviewed by me in its entirety. I further attest, that it accurately reflects all work, treatment, procedures and medical decision -making performed by me. 12/01/16 17:40
[2016-12-01] MEDS ORDERED: SODIUM CHLORIDE 500 ML IV SCH (13:15)
[2016-12-01 13:31] LABS: ALK PHOS 83 U/L (45-117); ANION GAP 11 (8-16); BILIRUBIN,TOTAL 0.4 mg/dL (0.2-1.0); CALCIUM 8.9 mg/dL (8.5-10.1); CO2 23 mmol/L (21-32); CREATININE 1.3 mg/dL (0.7-1.3); GLUCOSE,RANDOM 105 mg/dL (74-106); SGOT/AST 15 U/L (15-37); SGPT/ALT 22 U/L (12-78); TOT PROT 6.8 g/dl (6.4-8.2)
[2016-12-01] MEDS ORDERED: ACETAMINOPHEN 325 MG TABLET (FP) ONE (13:48)
[2016-12-01] MEDS ORDERED: VANCOMYCIN 1,500 MG in DEXTROSE 5%-WATER - 500 ML IVPB ONE (14:06)
[2016-12-01] MEDS ORDERED: PIPERACILLIN/TAZOB 4.5 GM/100 ML PRE-DOCKED IVPB ONE (14:12)
[2016-12-01] MEDS ORDERED: PIPERACILLIN/TAZOB 4.5 GM 100 ML IVPB ONE (14:28)
[2016-12-01 14:32] LABS: VENOUS PH 7.4 (7.32-7.42)
[2016-12-01 14:33] LABS: VENOUS BLOOD GAS HCO3 22.5 meq/L (19-25)
--- NOTE | 2016-12-01 15:04 | EKG ---
Test Reason : Blood Pressure : / mmHG Vent. Rate : 129 BPM Atrial Rate : 129 BPM P-R Int : 142 ms QRS Dur : 068 ms QT Int : 306 ms P-R-T Axes : 047 -03 023 degrees QTc Int : 448 ms SINUS TACHYCARDIA OTHERWISE NORMAL ECG WHEN COMPARED WITH ECG OF 29-SEP-2016 23:23, NO SIGNIFICANT CHANGE WAS FOUND Confirmed by AURORA JEAN MD ([id number]) on 12/01/2016 3:03:29 PM Referred By: Confirmed By:AURORA JEAN MD
[2016-12-01 15:08] LABS: INR 1.12 (0.82-1.09); PROTHROMBIN TIME (PATIENT) 12.3 SEC (9.98-11.88)
[2016-12-01 15:11] LABS: ACTIVATED PTT 25.9 SECONDS (26.9-34.4); TROPONIN I 0.02 ng/ml (0.00-0.05)
[2016-12-01] MEDS ORDERED: SODIUM CHLORIDE 1,000 ML IV SCH (15:30)
[2016-12-01 15:31] LABS: PH,URINE 6.5 (5.0-8.0); URINE APPEARANCE CLEAR; URINE BILIRUBIN NEGATIVE (NEGATIVE); URINE BLOOD 2+ (NEGATIVE); URINE COLOR LT. YELLOW; URINE GLUCOSE (UA) NEGATIVE (NEGATIVE); URINE KETONE NEGATIVE (NEGATIVE); URINE UROBILINOGEN 0.2 mg/dL (0.2-1.0)
[2016-12-01 15:37] LABS: URINE LEUK ESTERASE 3+ (NEGATIVE); URINE NITRITE POSITIVE (NEGATIVE); URINE PROTEIN 1+ (NEGATIVE)
[2016-12-01 15:48] LABS: URINE RBC 14 /hpf (0-3); URINE WBC 1967 /hpf (3-5)
[2016-12-01] MEDS ORDERED: SODIUM CHLORIDE 500 ML IV STA (20:47)
[2016-12-01] MEDS ORDERED: IBUPROFEN 800 MG/8 ML IJ IVPB ONE (20:47)
[2016-12-01] MEDS ORDERED: ACETAMINOPHEN 325 MG TABLET (FP) PO PRN (21:35)
--- NOTE | 2016-12-01 21:38 | CONSULT ---
Consult Consult Specialty:: Pulm/CCM Reason for Consultation:: Urosepsis - History of Present Illness Chief Complaint: UTI History of Present Illness: 71yom with PMHx HTN, HLD, osteoarthritis recently hospitalized for BLE cellulitis and pseudomanas UTI in setting of post renal obstruction who presents to ER with c/o fever, poor appetite and pain in thighs x1day. He was found to have a UTI and is admitted to ICU with Urosepsis. Briefly Mr Foster was admitted in august and september this year with BLE cellulitis, pseudomonas UTI and post renal acute on chronic renal failure in setting of urinary obstruction d/t BPH. During his latest admission he was found to have a DVT and PE and is s/p IVC filter placement d/t GIB. He was discharged to an assisted living facility with a chavez cath and increased doses of tamsulosin. Unclear if chavez cath was continued at the facility. In the ER VS HR 147, temp 101.7, BP 140/70, O2sat 95% on RA. Labs notable for WBC 11.5, urineWBC 1967,3+ leuk esterase, lactate 3.4, Creat 1.0, BNP 669. CXR shows trace pulm congestion and Rt lung atelecasis. He was cultured given 500c fluid bolus, Zosyn and vanco IV. He was transferred to ICU for further management. Rec'd A+O x3, T 101.3F, HR 130, BP 116/86. Pt voiding w/o complaint. Fluid bolus x2 total given. Zosyn continued. - History Source History Provided By: Patient, Medical Record Limitations to Obtaining History: No Limitations - Past Medical History Cardio/Vascular: Yes: HTN, Hyperlipdemia Gastrointestinal: Yes: GERD, GI Bleed Renal/: Yes: Renal Inusuff, BPH Musculoskeletal: Yes: Osteoarthritis (bilat Knees) Dermatology: Yes: Cellulitis (BLE) - Alcohol/Substance Use Hx Alcohol Use: No - Smoking History Smoking history: Never smoked Have you smoked in the past 12 months: No - Social History Usual Living Arrangement: Assisted Living History of Recent Travel: No Home Medications - Allergies Allergies/Adverse Reactions: Allergies Allergy/AdvReac Type Severity Reaction Status Date / Time No Known Allergies Allergy Verified 09/29/16 20:49 - Home Medications Home Medications: Ambulatory Orders Acetaminophen [Pain Relief] 650 mg PO Q6H PRN 09/13/16 Bimatoprost [Lumigan] 1 drop IO DAILY 09/13/16 Brimonidine Tartrate [Alphagan 0.2% -] 1 drop OD TID 09/13/16 Cholecalciferol (Vitamin D3) [Vitamin D3] 50,000 unit PO WEEKLY 09/13/16 Dorzolamide/Timolol/Pf [Cosopt Pf Eye Drops] 1 each OP BID 09/13/16 Ferrous Sulfate 325 mg PO DAILY 09/13/16 Omeprazole 20 mg PO DAILY 09/13/16 Simvastatin 10 mg PO HS 09/13/16 Metoprolol Tartrate [Lopressor -] 25 mg PO BID #60 tablet 09/19/16 Oxycodone HCl 5 mg PO HS PRN #30 tablet MDD 1 10/10/16 Tamsulosin HCl 0.4 mg PO BID #30 cap.er.24h 10/10/16 Family Disease History - Family Disease History Family History: Unremarkable Review of Systems - Review of Systems Constitutional: reports: Chills, Fever, Loss of Appetite Eyes: reports: No Symptoms HENT: reports: No Symptoms Neck: reports: No Symptoms Cardiovascular: reports: No Symptoms Respiratory: reports: No Symptoms Gastrointestinal: reports: Nausea Genitourinary: reports: Burning, Dysuria Musculoskeletal: reports: Muscle Pain (Rt thigh pain) Neurological: reports: Headache Endocrine: reports: No Symptoms Psychiatric: reports: No Symptoms Physical Exam Vital Signs: Vital Signs Temperature 101.3 F H 12/01/16 20:51 Pulse Rate 147 H 12/01/16 15:20 Respiratory Rate 24 12/01/16 15:20 Blood Pressure 135/86 12/01/16 15:20 O2 Sat by Pulse Oximetry (%) 95 12/01/16 14:32 Constitutional: Yes: No Distress, Obese Eyes: Yes: Other (Rt eye pupils discolored non reactive to light, poor eyesight d/t glaucoma; lt eye fredy pupillary response reactive) HENT: Yes: Atraumatic, Normocephalic Neck: Yes: Supple Cardiovascular: Yes: Regular Rate and Rhythm, Tachycardia Respiratory: Yes: CTA Bilaterally, Diminished (Diminished bases), On Nasal O2 Gastrointestinal: Yes: Soft, Abdomen, Obese ...Rectal Exam: Yes: Deferred Renal/: Yes: WNL Extremities: Yes: Other (BLE edema R>L; BLE venous stasis discoloration) Edema: LLE: Trace, RLE: Trace Integumentary: Yes: Venous Stasis Changes, Other (Groin reddened m/l fungal rash.) Neurological: Yes: Alert, Oriented ...Motor Strength: WNL Psychiatric: Yes: Alert, Oriented Labs: CBC,CMP WBC 10.8 K/mm3 (4.0-10.0) H 12/01/16 12:40 RBC 4.67 M/mm3 (4.00-5.60) D 12/01/16 12:40 Hgb 10.9 GM/dL (11.7-16.9) L D 12/01/16 12:40 Hct 34.5 % (35.4-49) L D 12/01/16 12:40 MCV 73.7 fl (80-96) L 12/01/16 12:40 MCH 23.3 pg (25.7-33.7) L 12/01/16 12:40 MCHC 31.6 g/dl (32.0-35.9) L 12/01/16 12:40 RDW 19.1 % (11.9-15.9) H 12/01/16 12:40 Plt Count 327 K/MM3 (134-434) 12/01/16 12:40 MPV 7.2 fl (7.5-11.1) L 12/01/16 12:40 Neutrophils % 82.5 % (42.8-82.8) D 12/01/16 12:40 Lymphocytes % 5.0 % (8-40) L D 12/01/16 12:40 Monocytes % 11.6 % (3.8-10.2) H 12/01/16 12:40 Eosinophils % 0.1 % (0-4.5) D 12/01/16 12:40 Basophils % 0.8 % (0-2.0) 12/01/16 12:40 Sodium 142 mmol/L (136-145) 12/01/16 12:40 Potassium 3.6 mmol/L (3.5-5.1) 12/01/16 12:40 Chloride 108 mmol/L (98-107) H 12/01/16 12:40 Carbon Dioxide 23 mmol/L (21-32) 12/01/16 12:40 Anion Gap 11 (8-16) 12/01/16 12:40 BUN 16 mg/dL (7-18) D 12/01/16 12:40 Creatinine 1.3 mg/dL (0.7-1.3) D 12/01/16 12:40 Creat Clearance w eGFR 54.73 (>60) 12/01/16 12:40 Random Glucose 105 mg/dL (74-106) D 12/01/16 12:40 Lactic Acid 3.3 mmol/L (0.4-2.0) H* 12/01/16 17:00 Calcium 8.9 mg/dL (8.5-10.1) 12/01/16 12:40 Total Bilirubin 0.4 mg/dL (0.2-1.0) D 12/01/16 12:40 AST 15 U/L (15-37) 12/01/16 12:40 ALT 22 U/L (12-78) 12/01/16 12:40 Alkaline Phosphatase 83 U/L (45-117) D 12/01/16 12:40 Creatine Kinase 57 IU/L (39-308) 12/01/16 14:19 Troponin I 0.02 ng/ml (0.00-0.05) 12/01/16 14:19 B-Natriuretic Peptide 669.65 pg/ml (5-125) H 12/01/16 12:40 Total Protein 6.8 g/dl (6.4-8.2) 12/01/16 12:40 Albumin 3.0 g/dl (3.4-5.0) L D 12/01/16 12:40 Home Medications Medication Instructions Recorded Acetaminophen [Pain Relief] 650 mg PO Q6H PRN 09/13/16 Bimatoprost [Lumigan] 1 drop IO DAILY 09/13/16 Brimonidine Tartrate [Alphagan 1 drop OD TID 09/13/16 0.2% -] Cholecalciferol (Vitamin D3) 50,000 unit PO WEEKLY 09/13/16 [Vitamin D3] Dorzolamide/Timolol/Pf [Cosopt Pf 1 each OP BID 09/13/16 Eye Drops] Ferrous Sulfate 325 mg PO DAILY 09/13/16 Omeprazole 20 mg PO DAILY 09/13/16 Simvastatin 10 mg PO HS 09/13/16 Metoprolol Tartrate [Lopressor -] 25 mg PO BID #60 tablet 09/19/16 Oxycodone HCl 5 mg PO HS PRN #30 tablet MDD 1 10/10/16 Tamsulosin HCl 0.4 mg PO BID #30 cap.er.24h 10/10/16 Home Medication List Medication Instructions Recorded Confirmed Type Acetaminophen [Pain Relief] 650 mg PO Q6H PRN 09/13/16 12/01/16 History Bimatoprost [Lumigan] 1 drop IO DAILY 09/13/16 12/01/16 History Brimonidine Tartrate [Alphagan 1 drop OD TID 09/13/16 12/01/16 History 0.2% -] Cholecalciferol (Vitamin D3) 50,000 unit PO WEEKLY 09/13/16 12/01/16 History [Vitamin D3] Dorzolamide/Timolol/Pf [Cosopt Pf 1 each OP BID 09/13/16 12/01/16 History Eye Drops] Ferrous Sulfate 325 mg PO DAILY 09/13/16 12/01/16 History Omeprazole 20 mg PO DAILY 09/13/16 12/01/16 History Simvastatin 10 mg PO HS 09/13/16 12/01/16 History Active Medications Generic Name Dose Route Start Last Admin Trade Name Freq PRN Reason Stop Dose Admin Acetaminophen 650 mg 12/01/16 21:35 Tylenol - PO Q6H PRN FEVER OR PAIN Atorvastatin Calcium 10 mg 12/01/16 22:00 Lipitor - PO HS [facility] Brimonidine Tartrate 1 drop 12/01/16 22:00 Alphagan 0.2% - OD TID [facility] Dorzolamide HCl 1 drop 12/01/16 22:00 Trusopt 2% OU BID [facility] Ferrous Sulfate 325 mg 12/02/16 10:00 Feosol - PO DAILY [facility] Heparin Sodium (Porcine) 5,000 unit 12/01/16 22:00 Heparin - SQ BID [facility] Ceftriaxone Sodium 50 mls @ 100 mls/hr 12/02/16 10:00 Rocephin 1gm Ivpb (Pre-Docked) IVPB DAILY [facility] Dextrose/Sodium Chloride 1,000 mls @ 75 mls/hr 12/01/16 21:45 D5-1/2ns - IV ASDIR [facility] Non-Formulary Medication 1 drop 12/02/16 10:00 Bimatoprost [Lumigan] IO DAILY [facility] Pantoprazole Sodium 20 mg 12/02/16 10:00 Protonix - PO DAILY [facility] Tamsulosin HCl 0.4 mg 12/01/16 22:00 Flomax - PO BID [facility] Timolol Maleate 1 drop 12/01/16 22:00 Timoptic 0.5% OU BID [facility] Imaging - Results Chest X-ray: Report Reviewed (Bilat pleural congestion and RML atelectasis) Problem List - Problems (1) Sepsis secondary to UTI Code(s): A41.9 - SEPSIS, UNSPECIFIED ORGANISM N39.0 - URINARY TRACT INFECTION, SITE NOT SPECIFIED (2) Candidiasis of perineum Code(s): B37.49 - OTHER UROGENITAL CANDIDIASIS (3) Cellulitis Code(s): L03.90 - CELLULITIS, UNSPECIFIED Qualifiers: Site of cellulitis: extremity Site of cellulitis of extremity: lower extremity Laterality: unspecified laterality Qualified Code(s): L03.119 - Cellulitis of unspecified part of limb (4) Urinary retention Code(s): R33.9 - RETENTION OF URINE, UNSPECIFIED (5) Urinary tract infection Code(s): N39.0 - URINARY TRACT INFECTION, SITE NOT SPECIFIED Qualifiers: Urinary tract infection type: acute cystitis Hematuria presence: with hematuria Qualified Code(s): N30.01 - Acute cystitis with hematuria Assessment/Plan 71yom with PMHx HTN, HLD, osteoarthritis recently hospitalized for BLE cellulitis and psudomanas UTI in setting of post renal obstruction who is admitted now with fever, tachycardia, SHIVAM and lactic acidosis in setting of urosepsis. Plan: -O2 support as needed for O2 sat>92% -Fluid bolus as needed for MAP>60; elevated lactate -Continue Zosyn as previous pseudomonas UTI sensitive to zosyn -Tylenol for temp>101F -Condom cath for now -Chavez cath for bladder scan>250cc -Urology consult -Monitor UOP and BMP -Continue tamsulosin -Renal dose meds -Proph Heparin SQ and PPI
[2016-12-01] MEDS ORDERED: DEXTROSE 5%-0.45% SALINE 1,000 ML IV SCH (21:45)
[2016-12-01] MEDS ORDERED: ATORVASTATIN CA 10 MG TABLET (FP) PO SCH (22:00)
[2016-12-01] MEDS ORDERED: PATIENT'S OWN MEDICATION (NON-FORMULARY) (Dorzolamide/Timolol/Pf [Cosopt Pf Eye Drops] 1 E OP SCH (22:00)
[2016-12-01] MEDS: ACETAMINOPHEN 1000 MG/100 ML VIAL (NON FORMULARY) IVPB PRN (22:03)
[2016-12-01 22:49] LABS: CPK 76 IU/L (39-308)
[2016-12-01 22:50] LABS: TROPONIN I < 0.02 ng/ml (0.00-0.05)
[2016-12-01] MEDS ORDERED: LACTATED RINGERS SOLUTION 1,000 ML IV STA (23:09)
[2016-12-01 23:15] VITALS: BMI 32.1
[2016-12-01] MEDS: BRIMONIDINE TARTRATE 0.2% OPHTHALMIC 5 ML BOTTLE OD SCH (23:15)
[2016-12-02] MEDS: PIPERACILLIN/TAZOB 4.5 GM/100 ML PRE-DOCKED IVPB SCH ×2 (00:11→06:08)
[2016-12-02] MEDS: HEPARIN NA (PORCINE) 5,000 UNITS/ML 1ML VIAL SQ SCH ×3 (00:13→21:28)
[2016-12-02] MEDS: TAMSULOSIN HCL 0.4 MG CAP.ER.24H (FP) PO SCH ×3 (00:13→21:28)
[2016-12-02] MEDS: TIMOLOL 0.5% OPHTHALMIC SOL 5 ML BOTTLE OU SCH ×3 (00:14→21:29)
[2016-12-02] MEDS: DORZOLAMIDE 2% HCL OPHTHALMIC SOLUTION 10 ML BOTTLE OU SCH ×3 (00:15→21:30)
[2016-12-02] MEDS: MICONAZOLE NITRATE 28 GM TUBE TP SCH ×3 (00:15→21:38)
[2016-12-02] MEDS ORDERED: LIDOCAINE HCL 2% JELLY (30 ML/TUBE) TP ONE (01:48)
[2016-12-02] MEDS: ACETAMINOPHEN 1000 MG/100 ML VIAL (NON FORMULARY) IVPB PRN ×2 (06:03→14:37)
[2016-12-02] MEDS: BRIMONIDINE TARTRATE 0.2% OPHTHALMIC 5 ML BOTTLE OD SCH ×3 (06:05→21:29)
[2016-12-02] MEDS ORDERED: PT OWN MED DRAWER 7, Y5N ONE ×5 (06:10→13:28)
[2016-12-02] MEDS ORDERED: INSULIN (NOVOLOG) ASPART 100 UNITS/ML 10ML VIAL ONE (06:22)
[2016-12-02 06:41] LABS: BASOPHIL 0.3 % (0-2.0); EOSINOPHIL 0.1 % (0-4.5); MCH 22.6 pg (25.7-33.7); MCHC 30.8 g/dl (32.0-35.9); MEAN CELL VOLUME 73.3 fl (80-96); MEAN PLT VOLUME 6.9 fl (7.5-11.1); NEUTROPHILS 87.6 % (42.8-82.8); PLATELET COUNT 231 K/MM3 (134-434); RDW 19.2 % (11.9-15.9); WHITE BLOOD COUNT 15.5 K/mm3 (4.0-10.0)
[2016-12-02 07:11] LABS: ALBUMIN 2.1 g/dl (3.4-5.0); ANION GAP 9 (8-16); CALCIUM 7.6 mg/dL (8.5-10.1); CO2 23 mmol/L (21-32); GLUCOSE,RANDOM 109 mg/dL (74-106); SGOT/AST 16 U/L (15-37); SGPT/ALT 16 U/L (12-78)
[2016-12-02 07:13] LABS: ALK PHOS 56 U/L (45-117); BILIRUBIN,TOTAL 0.6 mg/dL (0.2-1.0)
--- NOTE | 2016-12-02 09:16 | PN ---
Progress Note (short form) - Note Progress Note: Cardiology Consult Dictated IMP: Sepsis, likely due to PNA and UTI Hypoxia ?CHF REC: 1. Broad spectrum abx as per Critical Care Team 2. Supplimental O2 3. Agree w/ CT chest to evaluate lung parenchyma 4. Would avoid diuresis at this point while septic and be judicious w/ IVF, follow clinically. 5. Echo today for EF assessment Thanks.
[2016-12-02] MEDS ORDERED: LATANOPROST 0.005% OPHTH SOLN 2.5ML BOTTLE OU SCH (10:00)
[2016-12-02] MEDS ORDERED: FERROUS SO4 325 MG TABLET (FP) PO SCH (10:00)
[2016-12-02] MEDS ORDERED: PANTOPRAZOLE 20 MG TABLET (FP) PO SCH (10:00)
[2016-12-02] MEDS ORDERED: CEFTRIAXONE 50 ML IVPB SCH (10:00)
--- NOTE | 2016-12-02 10:28 | CONS ---
DATE OF CONSULTATION: 12/02/2016 REQUESTING PHYSICIAN: Shira Guzman MD REASON FOR CONSULTATION: For evaluation for congestive heart failure. HISTORY OF PRESENT ILLNESS: The patient is a 71-year-old male admitted to the ICU with sepsis. He has a past medical history of hypertension, chronic bilateral lower extremity edema, GERD. He presents to the emergency room feeling well until last evening when he developed bilateral pain and swelling of the thighs with warmth and some erythema. He also feels mildly short of breath. He denies abdominal pain, nausea, or vomiting. He denies fevers, chills, or recent falls. He denies chest pain. He denies prior cardiac history, denies history of congestive heart failure. His chest x-ray shows what appears to be a significant consolidation in the right lower lobe. He was febrile to 102. Labs revealed a leukocytosis with white count of 15. He was cultured and given broad spectrum antibiotics, and brought to the ICU for further monitoring. I am asked to see him because his chest x-ray was read as possible congestive heart failure. Upon my review of the x-ray, there is a large consolidation in the right lower/middle lobe, poor inspiration with some increased interstitial markings. PAST MEDICAL HISTORY: GERD, hyperlipidemia, BPH, cellulitis of the lower extremities. Prior UTI. ALLERGIES: None. CURRENT MEDICATIONS: Tylenol 650 q.6 p.r.n., Lipitor 10 mg at bedtime, Alphagan Eye Drops, iron sulfate supplementation, subcutaneous heparin for DVT prophylaxis, Xalatan Eye Drops, Protonix, Zosyn IV. Patient also received a dose of vancomycin. FAMILY HISTORY: Noncontributory. SOCIAL HISTORY: Nonsmoker. PHYSICAL EXAMINATION: General: He is alert and oriented. Vital signs: Current temperature 99.6, pulse 97, blood pressure 96/65, O2 saturation 97% to 98% on 3-4 L. Neck: There is no JVD, no carotid bruits. Heart: S1, S2, tachycardic. Chest: Scattered rhonchi and expiratory rales bilaterally. Abdomen: Obese, but soft, nontender. Extremities: With 1-2+ bilateral edema and overlying erythema. LABORATORY DATA: EKG shows sinus tachycardia at 129 beats per minute. Cultures are pending. White count 15.5, hematocrit 28, platelets 231. INR 1.12. VBG 7.4, 37, and 19. Sodium 143, potassium 3.8, creatinine 1.0, lactic acid 3.3. LFTs normal. CK and troponin negative x2 sets. Total protein 5, albumin 2.1. Urinalysis 3+ leukocyte esterase, 1967 white blood cells. IMPRESSION: 1. Sepsis, possible due to urinary tract infection and pneumonia. 2. Abnormal chest x-ray with appearance of possible consolidation in the right middle/lower lobe, increased interstitial markings, hypoxemia. PLAN: Unclear if this represents congestive heart failure. His chest x-ray shows what appears to be a consolidation and increased interstitial markings. I agree with a CT scan for further evaluation of the pulmonary parenchyma as well as to rule out pulmonary embolism. CT will also elucidate if there are pleural effusions and vascular congestion. At this time, given the sepsis, I would hold off on aggressive diuresis. Continue to supplement O2, monitor blood pressure carefully, and follow clinically. Cultures are pending, broad spectrum antibiotics as per critical care team. Will follow. Thank you for the consultation. JOEY PATEL M.D. [id number]
--- NOTE | 2016-12-02 10:57 | PN ---
Teaching Attending Note Name of Resident: Xavier Cortes ATTENDING PHYSICIAN STATEMENT I saw and evaluated the patient. I reviewed the resident's note and discussed the case with the resident. I agree with the resident's findings and plan as documented. SUBJECTIVE: Patient seen and examined in the ICU. Awake and alert. No CP or SOB. Some dry cough. Some mild chronic discomfort in the LE. CXR : Rotated / Right infiltrate/atelectasis Intake & Output 11/29/16 11/30/16 12/01/16 12/02/16 23:59 23:59 23:59 23:59 Intake Total 50 2426 Output Total 2300 Balance 50 126 Weight 211 lb 3.245 oz Last Vital Signs Temp Pulse Resp BP Pulse Ox 100.8 F H 118 H 24 135/91 98 12/02/16 10:08 12/02/16 10:08 12/02/16 10:08 12/02/16 10:08 12/02/16 08:00 Active Medications Acetaminophen (Tylenol -) 650 mg PO Q6H PRN PRN Reason: FEVER OR PAIN Acetaminophen (Ofirmev Injection -) 1,000 mg IVPB Q6H PRN PRN Reason: FEVER OR PAIN Stop: 12/02/16 15:58 Last Admin: 12/02/16 06:03 Dose: 1,000 mg Atorvastatin Calcium (Lipitor -) 10 mg PO HS [facility] Last Admin: 12/02/16 00:13 Dose: 10 mg Brimonidine Tartrate (Alphagan 0.2% -) 1 drop OD TID [facility] Last Admin: 12/02/16 06:05 Dose: 1 drop Dorzolamide HCl (Trusopt 2%) 1 drop OU BID [facility] Last Admin: 12/02/16 10:36 Dose: 1 drop Ferrous Sulfate (Feosol -) 325 mg PO DAILY [facility] Last Admin: 12/02/16 09:35 Dose: 325 mg Heparin Sodium (Porcine) (Heparin -) 5,000 unit SQ BID [facility] Last Admin: 12/02/16 09:35 Dose: 5,000 unit Dextrose/Sodium Chloride (D5-1/2ns -) 1,000 mls @ 75 mls/hr IV ASDIR [facility] Last Admin: 12/01/16 23:00 Dose: 75 mls/hr Latanoprost (Xalatan 0.005% Eye Drops -) 1 drop OU DAILY [facility] Last Admin: 12/02/16 09:36 Dose: 1 drop Miconazole Nitrate (Miconazole Nitrate) 1 applic TP BID [facility] Last Admin: 12/02/16 00:15 Dose: 1 applic Pantoprazole Sodium (Protonix -) 20 mg PO DAILY [facility] Last Admin: 12/02/16 09:36 Dose: 20 mg Piperacillin Sod/Tazobactam Sod (Zosyn 4.5gm Ivpb (Pre-Docked)) 4.5 gm IVPB Q8H -IV [facility] Tamsulosin HCl (Flomax -) 0.4 mg PO BID [facility] Last Admin: 12/02/16 09:35 Dose: 0.4 mg Timolol Maleate (Timoptic 0.5%) 1 drop OU BID [facility] Last Admin: 12/02/16 09:35 Dose: 1 drop Constitutional: Yes: No Distress, Obese Eyes: Yes: Right pupils discolored/NRTL, ; Left : normal HENT: Yes: Atraumatic, Normocephalic Neck: Yes: Supple Cardiovascular: Yes: Regular Rate and Rhythm, Tachycardia Respiratory: Yes: Basilar rhonchi Right > Left, On Nasal O2 Gastrointestinal: Yes: Soft, Abdomen, Obese ...Rectal Exam: Yes: Deferred Renal/: Yes: WNL Extremities: Yes: BLE edema R>L; BLE venous stasis discoloration Edema: LLE: Trace, RLE: Trace Integumentary: Yes: Venous Stasis Changes Neurological: Yes: Alert, Oriented ...Motor Strength: WNL Psychiatric: Yes: Alert, Oriented Labs: Laboratory Results - last 24 hr 12/01/16 12/01/16 12/01/16 12:40 12:40 14:19 WBC 10.8 H RBC 4.67 D Hgb 10.9 L D Hct 34.5 L D MCV 73.7 L MCH 23.3 L MCHC 31.6 L RDW 19.1 H Plt Count 327 MPV 7.2 L Neutrophils % 82.5 D Lymphocytes % 5.0 L D Monocytes % 11.6 H Eosinophils % 0.1 D Basophils % 0.8 INR PTT (Actin FS) VBG pH POC VBG pCO2 POC VBG pO2 Mixed VBG HCO3 Sodium 142 Potassium 3.6 Chloride 108 H Carbon Dioxide 23 Anion Gap 11 BUN 16 D Creatinine 1.3 D Creat Clearance w eGFR 54.73 Random Glucose 105 D Lactic Acid Calcium 8.9 Total Bilirubin 0.4 D AST 15 ALT 22 Alkaline Phosphatase 83 D Creatine Kinase Troponin I B-Natriuretic Peptide 669.65 H Total Protein 6.8 Albumin 3.0 L D Urine Color Lt. yellow Urine Appearance Clear Urine pH 6.5 Ur Specific [place] 1.015 Urine Protein 1+ H Urine Glucose (UA) Negative Urine Ketones Negative Urine Blood 2+ H Urine Nitrite Positive Urine Bilirubin Negative Urine Urobilinogen 0.2 Ur Leukocyte Esterase 3+ H Urine RBC 14 Urine WBC 1967 Ur Epithelial Cells Rare Blood Type Antibody Screen 12/01/16 12/01/16 12/01/16 14:19 14:19 14:19 WBC RBC Hgb Hct MCV MCH MCHC RDW Plt Count MPV Neutrophils % Lymphocytes % Monocytes % Eosinophils % Basophils % INR 1.12 PTT (Actin FS) 25.9 L VBG pH POC VBG pCO2 POC VBG pO2 Mixed VBG HCO3 Sodium Potassium Chloride Carbon Dioxide Anion Gap BUN Creatinine Creat Clearance w eGFR Random Glucose Lactic Acid 3.4 H* Calcium Total Bilirubin AST ALT Alkaline Phosphatase Creatine Kinase 57 Troponin I 0.02 B-Natriuretic Peptide Total Protein Albumin Urine Color Urine Appearance Urine pH Ur Specific [place] Urine Protein Urine Glucose (UA) Urine Ketones Urine Blood Urine Nitrite Urine Bilirubin Urine Urobilinogen Ur Leukocyte Esterase Urine RBC Urine WBC Ur Epithelial Cells Blood Type Antibody Screen 12/01/16 12/01/16 12/01/16 14:19 14:20 17:00 WBC RBC Hgb Hct MCV MCH MCHC RDW Plt Count MPV Neutrophils % Lymphocytes % Monocytes % Eosinophils % Basophils % INR PTT (Actin FS) VBG pH 7.40 POC VBG pCO2 37.4 L POC VBG pO2 19.1 L* Mixed VBG HCO3 22.5 Sodium Potassium Chloride Carbon Dioxide Anion Gap BUN Creatinine Creat Clearance w eGFR Random Glucose Lactic Acid 3.3 H* Calcium Total Bilirubin AST ALT Alkaline Phosphatase Creatine Kinase Troponin I B-Natriuretic Peptide Total Protein Albumin Urine Color Urine Appearance Urine pH Ur Specific [place] Urine Protein Urine Glucose (UA) Urine Ketones Urine Blood Urine Nitrite Urine Bilirubin Urine Urobilinogen Ur Leukocyte Esterase Urine RBC Urine WBC Ur Epithelial Cells Blood Type O POSITIVE Antibody Screen Negative 12/01/16 12/02/16 12/02/16 21:59 05:30 05:30 WBC 15.5 H D RBC 3.82 L Hgb 8.6 L D Hct 28.0 L D MCV 73.3 L MCH 22.6 L MCHC 30.8 L RDW 19.2 H Plt Count 231 D MPV 6.9 L Neutrophils % 87.6 H Lymphocytes % 4.4 L Monocytes % 7.6 Eosinophils % 0.1 Basophils % 0.3 INR PTT (Actin FS) VBG pH POC VBG pCO2 POC VBG pO2 Mixed VBG HCO3 Sodium 143 Potassium 3.8 Chloride 111 H Carbon Dioxide 23 Anion Gap 9 BUN 17 Creatinine 1.0 D Creat Clearance w eGFR > 60 Random Glucose 109 H Lactic Acid Calcium 7.6 L Total Bilirubin 0.6 D AST 16 ALT 16 D Alkaline Phosphatase 56 D Creatine Kinase 76 Troponin I < 0.02 B-Natriuretic Peptide Total Protein 5.0 L D Albumin 2.1 L D Urine Color Urine Appearance Urine pH Ur Specific [place] Urine Protein Urine Glucose (UA) Urine Ketones Urine Blood Urine Nitrite Urine Bilirubin Urine Urobilinogen Ur Leukocyte Esterase Urine RBC Urine WBC Ur Epithelial Cells Blood Type Antibody Screen 12/02/16 05:30 WBC RBC Hgb Hct MCV MCH MCHC RDW Plt Count MPV Neutrophils % Lymphocytes % Monocytes % Eosinophils % Basophils % INR PTT (Actin FS) VBG pH POC VBG pCO2 POC VBG pO2 Mixed VBG HCO3 Sodium Potassium Chloride Carbon Dioxide Anion Gap BUN Creatinine Creat Clearance w eGFR Random Glucose Lactic Acid 1.5 Calcium Total Bilirubin AST ALT Alkaline Phosphatase Creatine Kinase Troponin I B-Natriuretic Peptide Total Protein Albumin Urine Color Urine Appearance Urine pH Ur Specific [place] Urine Protein Urine Glucose (UA) Urine Ketones Urine Blood Urine Nitrite Urine Bilirubin Urine Urobilinogen Ur Leukocyte Esterase Urine RBC Urine WBC Ur Epithelial Cells Blood Type Antibody Screen Problem List - Problems (1) Sepsis secondary to UTI Code(s): A41.9 - SEPSIS, UNSPECIFIED ORGANISM N39.0 - URINARY TRACT INFECTION, SITE NOT SPECIFIED (2) Candidiasis of perineum Code(s): B37.49 - OTHER UROGENITAL CANDIDIASIS (3) Cellulitis Code(s): L03.90 - CELLULITIS, UNSPECIFIED Qualifiers: Site of cellulitis: extremity Site of cellulitis of extremity: lower extremity Laterality: unspecified laterality Qualified Code(s): L03.119 - Cellulitis of unspecified part of limb (4) Urinary retention Code(s): R33.9 - RETENTION OF URINE, UNSPECIFIED (5) Urinary tract infection Code(s): N39.0 - URINARY TRACT INFECTION, SITE NOT SPECIFIED Qualifiers: Urinary tract infection type: acute cystitis Hematuria presence: with hematuria Qualified Code(s): N30.01 - Acute cystitis with hematuria Assessment/Plan ABX per ID CT chest w/o contrast IVF Follow cultures Strict I&O O2 as needed Tamsulosin VTE prophylaxis 4W/4S Dr Lockhart CCTime 35" The care of this patient involved high complexity decision making to prevent further life threatening deterioration of the patient's condition and/or to evaluate & treat vital organ system(s) failure or risk of failure.
[2016-12-02 11:23] LABS: MAGNESIUM 1.8 mg/dL (1.8-2.4); PHOSPHOROUS 4.2 mg/dL (2.5-4.9)
[2016-12-02 12:52] LABS: ANISOCYTOSIS 2+; HYPOCHROMIA 1+; MICROCYTOSIS 1+
[2016-12-02 12:53] LABS: TARGET CELLS FEW
--- NOTE | 2016-12-02 13:38 | PN ---
Progress Note, Physician History of Present Illness: Patient found sitting in bed in [facility]. He has no new complaints and states that he feels better today. - Current Medication List Current Medications: Active Medications Acetaminophen (Tylenol -) 650 mg PO Q6H PRN PRN Reason: FEVER OR PAIN Acetaminophen (Ofirmev Injection -) 1,000 mg IVPB Q6H PRN PRN Reason: FEVER OR PAIN Stop: 12/02/16 15:58 Last Admin: 12/02/16 06:03 Dose: 1,000 mg Atorvastatin Calcium (Lipitor -) 10 mg PO HS [facility] Last Admin: 12/02/16 00:13 Dose: 10 mg Brimonidine Tartrate (Alphagan 0.2% -) 1 drop OD TID [facility] Last Admin: 12/02/16 13:09 Dose: 1 drop Dorzolamide HCl (Trusopt 2%) 1 drop OU BID [facility] Last Admin: 12/02/16 10:36 Dose: 1 drop Ferrous Sulfate (Feosol -) 325 mg PO DAILY [facility] Last Admin: 12/02/16 09:35 Dose: 325 mg Heparin Sodium (Porcine) (Heparin -) 5,000 unit SQ BID [facility] Last Admin: 12/02/16 09:35 Dose: 5,000 unit Latanoprost (Xalatan 0.005% Eye Drops -) 1 drop OU DAILY [facility] Last Admin: 12/02/16 09:36 Dose: 1 drop Miconazole Nitrate (Miconazole Nitrate) 1 applic TP BID [facility] Last Admin: 12/02/16 13:09 Dose: 1 applic Piperacillin Sod/Tazobactam Sod (Zosyn 4.5gm Ivpb (Pre-Docked)) 4.5 gm IVPB Q8H -IV [facility] Ranitidine HCl (Zantac -) 150 mg PO BID [facility] Tamsulosin HCl (Flomax -) 0.4 mg PO BID [facility] Last Admin: 12/02/16 09:35 Dose: 0.4 mg Timolol Maleate (Timoptic 0.5%) 1 drop OU BID [facility] Last Admin: 12/02/16 09:35 Dose: 1 drop - Objective Vital Signs: Vital Signs Temperature 100.4 F H 12/02/16 12:00 Pulse Rate 118 H 12/02/16 12:00 Respiratory Rate 24 12/02/16 12:00 Blood Pressure 106/69 12/02/16 12:00 O2 Sat by Pulse Oximetry (%) 98 12/02/16 08:00 Constitutional: Yes: Well Nourished, No Distress, Calm HENT: Yes: Atraumatic, Normocephalic Neck: Yes: Supple, Trachea Midline Cardiovascular: Yes: Regular Rate and Rhythm Respiratory: Yes: Regular, Rhonchi (heard at the bases bilaterally; worse on right that left) Gastrointestinal: Yes: Normal Bowel Sounds, Soft Labs: CBC, BMP 12/02/16 05:30 12/02/16 05:30 INR, PTT INR 1.12 (0.82-1.09) 12/01/16 14:19 Problem List - Problems (1) Sepsis secondary to UTI Code(s): A41.9 - SEPSIS, UNSPECIFIED ORGANISM N39.0 - URINARY TRACT INFECTION, SITE NOT SPECIFIED (2) Cellulitis Code(s): L03.90 - CELLULITIS, UNSPECIFIED Qualifiers: Site of cellulitis: extremity Site of cellulitis of extremity: lower extremity Laterality: unspecified laterality Qualified Code(s): L03.119 - Cellulitis of unspecified part of limb (3) Urinary retention Code(s): R33.9 - RETENTION OF URINE, UNSPECIFIED Assessment/Plan Neuro: -alert and oriented x3 Pulmonary: -CXR shows pulmonary congestion and right sided atalectasis -CT chest without contrast to assess the extent of the pulmonary disease -b/l lower extremity doppler demonstrate previously existing non-occlusive clots in both popliteal arteries -patient has a history of chronic DVT (similar doppler results seen 09/2016) -Patient has an IVC filter in place 2/2 to GIB on AC -will treat the patient with prophylactic dose of heparin Integumentary: -erythema over both lower extremities from previous cellulitis -continue with abx shown below -miconazole nitrate topical BID Urology: -Patient with PMH of UTI 2/2 pseudomonas now with a positive u/a -Zosyn 4.5g IV Q8H -PMH obstruction 2/2 BPH -flomax .4mg daily FEN: -fluids discontinued today -will monitor electrolytes -sodium controlled diet Prophylaxsis: -protonix PO 20mg -Heparin 5k SQ BID for DVT prophylaxsis Dispo: -patient is stable for transfer to telemetry
--- NOTE | 2016-12-02 15:20 | HP ---
Admitting History and Physical - Past Medical History Cardiovascular: Yes: HTN, Hyperlipdemia Gastrointestinal: Yes: GERD, GI Bleed Renal/: Yes: Renal Inusuff, BPH Heme/Onc: Yes: Anemia Musculoskeletal: Yes: Osteoarthritis (bilat Knees) Dermatology: Yes: Cellulitis (BLE) - Smoking History Smoking history: Never smoked Have you smoked in the past 12 months: No - Alcohol/Substance Use Hx Alcohol Use: No - Social History History of Recent Travel: No Home Medications - Allergies Allergies/Adverse Reactions: Allergies Allergy/AdvReac Type Severity Reaction Status Date / Time No Known Allergies Allergy Verified 09/29/16 20:49 - Home Medications Home Medications: Ambulatory Orders Acetaminophen [Pain Relief] 650 mg PO Q6H PRN 09/13/16 Bimatoprost [Lumigan] 1 drop IO DAILY 09/13/16 Brimonidine Tartrate [Alphagan 0.2% -] 1 drop OD TID 09/13/16 Cholecalciferol (Vitamin D3) [Vitamin D3] 50,000 unit PO WEEKLY 09/13/16 Dorzolamide/Timolol/Pf [Cosopt Pf Eye Drops] 1 each OP BID 09/13/16 Ferrous Sulfate 325 mg PO DAILY 09/13/16 Omeprazole 20 mg PO DAILY 09/13/16 Simvastatin 10 mg PO HS 09/13/16 Metoprolol Tartrate [Lopressor -] 25 mg PO BID #60 tablet 09/19/16 Oxycodone HCl 5 mg PO HS PRN #30 tablet MDD 1 10/10/16 Tamsulosin HCl 0.4 mg PO BID #30 cap.er.24h 10/10/16 Family Disease History - Family Disease History Family History: Unremarkable Physical Examination Vital Signs: Vital Signs Temperature 100.4 F H 12/02/16 14:00 Pulse Rate 117 H 12/02/16 14:00 Respiratory Rate 21 12/02/16 14:00 Blood Pressure 112/70 12/02/16 14:00 O2 Sat by Pulse Oximetry (%) 98 12/02/16 08:00 Labs: CBC, BMP 12/02/16 05:30 12/02/16 05:30
[2016-12-02] MEDS ORDERED: oxyCODONE HCL 5 MG TABLET PO ONE (16:52)
--- NOTE | 2016-12-02 16:55 | CONSULT ---
Consult Consult Specialty:: infectious diseases Referred by:: dr delgado Reason for Consultation:: sepsis,uti - History of Present Illness Chief Complaint: fever,weakness burning in urine,leg pain History of Present Illness: 71yom with PMHx HTN, HLD, osteoarthritis recently hospitalized for BLE cellulitis and pseudomanas UTI in setting who was having fever and on work up had a septic picture and was admitted to the icu It seems when the patient came here the foleys was removed,patient was not able to pass any urine and the foleys was reinserted. patient was running fever and had elevated lactic acid a. During his latest admission he was found to have a DVT and PE and is s/p IVC filter placement d/t GIB. He was discharged to an assisted living facility with a chavez cath and increased doses of tamsulosin. Unclear if chavez cath was continued at the facility. patient has been seeing a urologist for his bph patient was given vanco and zosyn and was given iv fluids - History Source History Provided By: Patient, Medical Record Limitations to Obtaining History: Poor Historian - Past Medical History Cardio/Vascular: Yes: HTN, Hyperlipdemia Gastrointestinal: Yes: GERD, GI Bleed Renal/: Yes: Renal Inusuff, BPH Musculoskeletal: Yes: Osteoarthritis (bilat Knees) Dermatology: Yes: Cellulitis (BLE) - Alcohol/Substance Use Hx Alcohol Use: No - Smoking History Smoking history: Never smoked Have you smoked in the past 12 months: No - Social History Usual Living Arrangement: Assisted Living History of Recent Travel: No Home Medications - Allergies Allergies/Adverse Reactions: Allergies Allergy/AdvReac Type Severity Reaction Status Date / Time No Known Allergies Allergy Verified 09/29/16 20:49 - Home Medications Home Medications: Ambulatory Orders Acetaminophen [Pain Relief] 650 mg PO Q6H PRN 09/13/16 Bimatoprost [Lumigan] 1 drop IO DAILY 09/13/16 Brimonidine Tartrate [Alphagan 0.2% -] 1 drop OD TID 09/13/16 Cholecalciferol (Vitamin D3) [Vitamin D3] 50,000 unit PO WEEKLY 09/13/16 Dorzolamide/Timolol/Pf [Cosopt Pf Eye Drops] 1 each OP BID 09/13/16 Ferrous Sulfate 325 mg PO DAILY 09/13/16 Omeprazole 20 mg PO DAILY 09/13/16 Simvastatin 10 mg PO HS 09/13/16 Metoprolol Tartrate [Lopressor -] 25 mg PO BID #60 tablet 09/19/16 Oxycodone HCl 5 mg PO HS PRN #30 tablet MDD 1 10/10/16 Tamsulosin HCl 0.4 mg PO BID #30 cap.er.24h 10/10/16 Review of Systems - Review of Systems Constitutional: reports: Fever Eyes: reports: No Symptoms HENT: reports: No Symptoms Neck: reports: No Symptoms Cardiovascular: reports: No Symptoms Respiratory: reports: Cough Gastrointestinal: reports: No Symptoms Genitourinary: reports: No Symptoms Musculoskeletal: reports: Muscle Pain Integumentary: reports: No Symptoms Neurological: reports: No Symptoms Endocrine: reports: No Symptoms Hematology/Lymphatic: reports: No Symptoms Psychiatric: reports: No Symptoms Physical Exam Vital Signs: Vital Signs Temperature 99.9 F H 12/02/16 16:00 Pulse Rate 102 H 12/02/16 16:00 Respiratory Rate 21 12/02/16 16:00 Blood Pressure 112/70 12/02/16 16:00 O2 Sat by Pulse Oximetry (%) 98 12/02/16 08:00 Constitutional: Yes: Well Nourished, Calm, Mild Distress Eyes: Yes: Conjunctiva Clear Cardiovascular: Yes: Regular Rate and Rhythm Respiratory: Yes: Regular, Poor Air Entry, Rhonchi Gastrointestinal: Yes: Normal Bowel Sounds, Soft Renal/: Yes: Chavez Present Extremities: Yes: Other (rt tigh pain) Neurological: Yes: Alert, Oriented Psychiatric: Yes: Alert, Oriented Labs: CBC, BMP 12/02/16 05:30 12/02/16 05:30 Imaging - Results Chest X-ray: Report Reviewed, Image Reviewed Assessment/Plan one thing which is worrisoem in the patient is that if he has prostatitis he has bph and he did come in wiht septic looking picture Problem List - Problems (1) Sepsis secondary to UTI Code(s): A41.9 - SEPSIS, UNSPECIFIED ORGANISM N39.0 - URINARY TRACT INFECTION, SITE NOT SPECIFIED (2) Candidiasis of perineum Code(s): B37.49 - OTHER UROGENITAL CANDIDIASIS (3) Cellulitis Code(s): L03.90 - CELLULITIS, UNSPECIFIED Qualifiers: Site of cellulitis: extremity Site of cellulitis of extremity: lower extremity Laterality: unspecified laterality Qualified Code(s): L03.119 - Cellulitis of unspecified part of limb (4) Urinary retention Code(s): R33.9 - RETENTION OF URINE, UNSPECIFIED (5) Urinary tract infection Code(s): N39.0 - URINARY TRACT INFECTION, SITE NOT SPECIFIED Qualifiers: Urinary tract infection type: acute cystitis Hematuria presence: with hematuria Qualified Code(s): N30.01 - Acute cystitis with hematuria plan will continue zosyn hydration ct scan for evaluating chest--patient is going for it incentive [facility] icu on case await for final cx i suspect he might be growing pseudomonas again cc time 45 min
[2016-12-02] MEDS ORDERED: PIPERACILLIN/TAZOB 4.5 GM/100 ML PRE-DOCKED IVPB SCH (18:00)
[2016-12-02] MEDS: PIPERACILLIN/TAZOB 3.375 GM 50 ML IVPB SCH (18:28)
[2016-12-02] MEDS: ATORVASTATIN CA 10 MG TABLET (FP) PO SCH (21:28)
[2016-12-02] MEDS: RANITIDINE HCL 150 MG TABLET (FP) PO SCH (21:28)
[2016-12-02] MEDS: ACETAMINOPHEN 325 MG TABLET (FP) PO PRN (21:32)
[2016-12-02] MEDS ORDERED: RANITIDINE HCL 150 MG TABLET (FP) PO SCH (22:00)
[2016-12-02 22:34] LABS: CPK 49 IU/L (39-308); TROPONIN I < 0.02 ng/ml (0.00-0.05)
[2016-12-03] MEDS: PIPERACILLIN/TAZOB 3.375 GM 50 ML IVPB SCH ×3 (01:36→17:21)
[2016-12-03] MEDS: ACETAMINOPHEN 325 MG TABLET (FP) PO PRN ×2 (06:08→19:55)
[2016-12-03] MEDS: BRIMONIDINE TARTRATE 0.2% OPHTHALMIC 5 ML BOTTLE OD SCH ×3 (06:08→21:18)
[2016-12-03 06:48] LABS: MCHC 31.3 g/dl (32.0-35.9); MEAN CELL VOLUME 73.7 fl (80-96); MEAN PLT VOLUME 7.2 fl (7.5-11.1); PLATELET COUNT 260 K/MM3 (134-434); RDW 19.3 % (11.9-15.9); WHITE BLOOD COUNT 15.1 K/mm3 (4.0-10.0)
[2016-12-03 07:22] LABS: ALBUMIN 2.1 g/dl (3.4-5.0); ALK PHOS 73 U/L (45-117); ANION GAP 8 (8-16); BILIRUBIN,TOTAL 0.4 mg/dL (0.2-1.0); CALCIUM 8.1 mg/dL (8.5-10.1); CO2 24 mmol/L (21-32); CREATININE 0.9 mg/dL (0.7-1.3); GLUCOSE,RANDOM 97 mg/dL (74-106); SGOT/AST 13 U/L (15-37); SGPT/ALT 15 U/L (12-78); TOT PROT 5.4 g/dl (6.4-8.2)
[2016-12-03] MEDS: TAMSULOSIN HCL 0.4 MG CAP.ER.24H (FP) PO SCH ×2 (09:54→21:21)
[2016-12-03] MEDS: HEPARIN NA (PORCINE) 5,000 UNITS/ML 1ML VIAL SQ SCH ×2 (09:54→21:21)
[2016-12-03] MEDS: FERROUS SO4 325 MG TABLET (FP) PO SCH (09:54)
[2016-12-03] MEDS: RANITIDINE HCL 150 MG TABLET (FP) PO SCH ×2 (09:54→21:25)
[2016-12-03] MEDS: MICONAZOLE NITRATE 28 GM TUBE TP SCH ×2 (09:56→21:22)
[2016-12-03] MEDS: DORZOLAMIDE 2% HCL OPHTHALMIC SOLUTION 10 ML BOTTLE OU SCH ×2 (09:57→21:24)
[2016-12-03] MEDS: TIMOLOL 0.5% OPHTHALMIC SOL 5 ML BOTTLE OU SCH ×2 (09:57→21:23)
[2016-12-03] MEDS ORDERED: LATANOPROST 0.005% OPHTH SOLN 2.5ML BOTTLE OU SCH (10:00)
--- NOTE | 2016-12-03 10:17 | PN ---
Progress Note, Physician Chief Complaint: Pt A&Ox3; occasional "electric shocks" felt in legs, for which he wants Tylenol and oxycodone. History of Present Illness: 71y white man with PMhx of htn, hl, b/l LE edema, chronic UTIs, "cellulitis", oberweight, and GERD presents with leg pain and dysuria. The pt states he was feeling well yesterday, and last night, he developed b/l thigh pain/swelling last night and some warmth. The warmth seems to have improved but he still has b/l leg pain. Pt also endorses feeling mild sob this morning but that has since resolved. Pt also endorsed mild nausea w/o vomiting. Pt jodie any fever/ chills, recent falls/injuries, chest pain, cough, numbness/tingling/weakness. - Current Medication List Current Medications: Active Medications Acetaminophen (Tylenol -) 650 mg PO Q6H PRN PRN Reason: FEVER OR PAIN Last Admin: 12/03/16 06:08 Dose: 650 mg Atorvastatin Calcium (Lipitor -) 10 mg PO [facility] Last Admin: 12/02/16 21:28 Dose: 10 mg Brimonidine Tartrate (Alphagan 0.2% -) 1 drop OD TID [facility] Last Admin: 12/03/16 06:08 Dose: 1 drop Dorzolamide HCl (Trusopt 2%) 1 drop OU BID [facility] Last Admin: 12/03/16 09:57 Dose: 1 drop Ferrous Sulfate (Feosol -) 325 mg PO DAILY [facility] Last Admin: 12/03/16 09:54 Dose: 325 mg Heparin Sodium (Porcine) (Heparin -) 5,000 unit SQ BID [facility] Last Admin: 12/03/16 09:54 Dose: 5,000 unit Piperacillin Sod/Tazobactam Sod (Zosyn 3.375gm Ivpb (Pre-Docked)) 50 mls @ 100 mls/hr IVPB Q8H-IV [facility] PRN Reason: Protocol Last Admin: 12/03/16 09:54 Dose: 100 mls/hr Latanoprost (Xalatan 0.005% Eye Drops -) 1 drop OU [facility] Miconazole Nitrate (Miconazole Nitrate) 1 applic TP BID [facility] Last Admin: 12/03/16 09:56 Dose: 1 applic Ranitidine HCl (Zantac -) 150 mg PO BID [facility] Last Admin: 12/03/16 09:54 Dose: 150 mg Tamsulosin HCl (Flomax -) 0.4 mg PO BID [facility] Last Admin: 12/03/16 09:54 Dose: 0.4 mg Timolol Maleate (Timoptic 0.5%) 1 drop OU BID [facility] Last Admin: 12/03/16 09:57 Dose: 1 drop - Objective Vital Signs: Vital Signs Temperature 100.6 F H 12/03/16 06:00 Pulse Rate 106 H 12/03/16 06:00 Respiratory Rate 30 H 12/03/16 06:00 Blood Pressure 133/92 12/03/16 06:00 O2 Sat by Pulse Oximetry (%) 98 12/02/16 21:00 Constitutional: Yes: Calm Eyes: Yes: WNL HENT: Yes: WNL Neck: Yes: WNL Cardiovascular: Yes: Tachycardia Respiratory: Yes: Regular Gastrointestinal: Yes: Soft, Distention ...Rectal Exam: Yes: Deferred Genitourinary: No: Anuria Musculoskeletal: Yes: Muscle Weakness Edema: No Peripheral Pulses WNL: Yes Integumentary: Yes: WNL Neurological: Yes: WNL Psychiatric: Yes: WNL Labs: CBC, BMP 12/03/16 05:15 12/03/16 05:15 INR, PTT INR 1.12 (0.82-1.09) 12/01/16 14:19 Problem List - Problems (1) Sepsis secondary to UTI Assessment/Plan: on antibiotics per ID. Antipyretics Code(s): A41.9 - SEPSIS, UNSPECIFIED ORGANISM N39.0 - URINARY TRACT INFECTION, SITE NOT SPECIFIED (2) Candidiasis of perineum Code(s): B37.49 - OTHER UROGENITAL CANDIDIASIS (3) Cellulitis Code(s): L03.90 - CELLULITIS, UNSPECIFIED Qualifiers: Site of cellulitis: extremity Site of cellulitis of extremity: lower extremity Laterality: unspecified laterality Qualified Code(s): L03.119 - Cellulitis of unspecified part of limb (4) Rash Code(s): R21 - RASH AND OTHER NONSPECIFIC SKIN ERUPTION (5) GERD (gastroesophageal reflux disease) Code(s): K21.9 - GASTRO-ESOPHAGEAL REFLUX DISEASE WITHOUT ESOPHAGITIS (6) HTN (hypertension) Assessment/Plan: f/u BP serially; on no medications. Code(s): I10 - ESSENTIAL (PRIMARY) HYPERTENSION Qualifiers: Hypertension type: essential hypertension Qualified Code(s): I10 - Essential (primary) hypertension (7) Venous (peripheral) insufficiency Code(s): I87.2 - VENOUS INSUFFICIENCY (CHRONIC) (PERIPHERAL) (8) Sinus tachycardia Assessment/Plan: causes may include fever, anemia, pain, dehydration. Normal LVEF by ECHO. Code(s): R00.0 - TACHYCARDIA, UNSPECIFIED (9) Anemia Code(s): D64.9 - ANEMIA, UNSPECIFIED Qualifiers: Anemia type: unspecified type Qualified Code(s): D64.9 - Anemia, unspecified
--- NOTE | 2016-12-03 10:37 | PN ---
Progress Note (short form) - Note Progress Note: PULMONARY Still with low grade fevers. Denies shortness of breath or chest pain. CT chest without infiltrates, showing some atelectasis and large hiatal hernia. Last Vital Signs Temp Pulse Resp BP Pulse Ox 100.6 F H 106 H 30 H 133/92 98 12/03/16 06:00 12/03/16 06:00 12/03/16 06:00 12/03/16 06:00 12/02/16 21:00 Intake & Output 11/30/16 12/01/16 12/02/16 12/03/16 23:59 23:59 23:59 23:59 Intake Total 50 4101 500 Output Total 5200 2000 Balance 50 -1099 -1500 Weight 211 lb 3.245 oz Gen: NAD at rest Heart: tachycardic, regular Lung: decreased breath sounds at the bases Abd: soft, nontender Ext: +blanching erythema CBC, BMP 12/03/16 05:15 12/03/16 05:15 Active Medications Acetaminophen (Tylenol -) 650 mg PO Q6H PRN PRN Reason: FEVER OR PAIN Last Admin: 12/03/16 06:08 Dose: 650 mg Atorvastatin Calcium (Lipitor -) 10 mg PO HS [facility] Last Admin: 12/02/16 21:28 Dose: 10 mg Brimonidine Tartrate (Alphagan 0.2% -) 1 drop OD TID [facility] Last Admin: 12/03/16 06:08 Dose: 1 drop Dorzolamide HCl (Trusopt 2%) 1 drop OU BID [facility] Last Admin: 12/03/16 09:57 Dose: 1 drop Ferrous Sulfate (Feosol -) 325 mg PO DAILY [facility] Last Admin: 12/03/16 09:54 Dose: 325 mg Heparin Sodium (Porcine) (Heparin -) 5,000 unit SQ BID [facility] Last Admin: 12/03/16 09:54 Dose: 5,000 unit Piperacillin Sod/Tazobactam Sod (Zosyn 3.375gm Ivpb (Pre-Docked)) 50 mls @ 100 mls/hr IVPB Q8H-IV [facility] PRN Reason: Protocol Last Admin: 12/03/16 09:54 Dose: 100 mls/hr Latanoprost (Xalatan 0.005% Eye Drops -) 1 drop OU HS [facility] Miconazole Nitrate (Miconazole Nitrate) 1 applic TP BID [facility] Last Admin: 12/03/16 09:56 Dose: 1 applic Ranitidine HCl (Zantac -) 150 mg PO BID [facility] Last Admin: 12/03/16 09:54 Dose: 150 mg Tamsulosin HCl (Flomax -) 0.4 mg PO BID [facility] Last Admin: 12/03/16 09:54 Dose: 0.4 mg Timolol Maleate (Timoptic 0.5%) 1 drop OU BID [facility] Last Admin: 12/03/16 09:57 Dose: 1 drop A/P UTI Cellulitis Sepsis Hiatal Hernia Atelectasis h/o DVT/IVC filter BPH - contiue antibiotics - f/u pending cultures - incentive spirometry - O2 as needed - DVT prophylaxis
[2016-12-03] MEDS: oxyCODONE HCL 5 MG TABLET PO PRN ×2 (12:01→19:55)
[2016-12-03 12:20] LABS: CHOLESTEROL 142 mg/dL (50-200); LDL CHOLESTEROL (ONLY SJRH) 65 mg/dL (5-100)
[2016-12-03 12:27] LABS: THYROID STIMULATING HORMONE 1.06 uIU/ml (0.358-3.74)
--- NOTE | 2016-12-03 18:01 | PN ---
Progress Note, Physician History of Present Illness: Pt states he feels better. c/o b/l thigh pain intermittently. Mild cough. No other specific complaints. - Current Medication List Current Medications: Active Medications Acetaminophen (Tylenol -) 650 mg PO Q6H PRN PRN Reason: FEVER OR PAIN Last Admin: 12/03/16 06:08 Dose: 650 mg Atorvastatin Calcium (Lipitor -) 10 mg PO HS [facility] Last Admin: 12/02/16 21:28 Dose: 10 mg Brimonidine Tartrate (Alphagan 0.2% -) 1 drop OD TID [facility] Last Admin: 12/03/16 13:16 Dose: 1 drop Dorzolamide HCl (Trusopt 2%) 1 drop OU BID [facility] Last Admin: 12/03/16 09:57 Dose: 1 drop Ferrous Sulfate (Feosol -) 325 mg PO DAILY [facility] Last Admin: 12/03/16 09:54 Dose: 325 mg Heparin Sodium (Porcine) (Heparin -) 5,000 unit SQ BID [facility] Last Admin: 12/03/16 09:54 Dose: 5,000 unit Piperacillin Sod/Tazobactam Sod (Zosyn 3.375gm Ivpb (Pre-Docked)) 50 mls @ 100 mls/hr IVPB Q8H-IV [facility] PRN Reason: Protocol Last Admin: 12/03/16 17:21 Dose: 100 mls/hr Latanoprost (Xalatan 0.005% Eye Drops -) 1 drop OU [facility] Miconazole Nitrate (Miconazole Nitrate) 1 applic TP BID [facility] Last Admin: 12/03/16 09:56 Dose: 1 applic Oxycodone HCl (Roxicodone -) 5 mg PO Q6H PRN PRN Reason: PAIN Last Admin: 12/03/16 12:01 Dose: 5 mg Ranitidine HCl (Zantac -) 150 mg PO BID [facility] Last Admin: 12/03/16 09:54 Dose: 150 mg Tamsulosin HCl (Flomax -) 0.4 mg PO BID [facility] Last Admin: 12/03/16 09:54 Dose: 0.4 mg Timolol Maleate (Timoptic 0.5%) 1 drop OU BID [facility] Last Admin: 12/03/16 09:57 Dose: 1 drop - Objective Vital Signs: Vital Signs Temperature 99.3 F 08/19/17 17:26 Pulse Rate 92 H 12/03/16 17:26 Respiratory Rate 18 12/03/16 17:26 Blood Pressure 135/92 12/03/16 17:26 O2 Sat by Pulse Oximetry (%) 99 12/03/16 09:00 Constitutional: Yes: No Distress HENT: Yes: WNL Neck: Yes: Supple Cardiovascular: Yes: Tachycardia (slightly decreased breath sounds in base) Gastrointestinal: Yes: Normal Bowel Sounds, Soft Genitourinary: Yes: Dalton Present (clear yellow urine) Extremities: Yes: WNL Neurological: Yes: Alert Labs: CBC, BMP 12/03/16 05:15 12/03/16 05:15 INR, PTT INR 1.12 (0.82-1.09) 12/01/16 14:19 Microbiology 12/01/16 14:20 Blood Culture - Preliminary Blood - Peripheral Venous NO GROWTH OBTAINED AFTER 48 HOURS, INCUBATION TO CONTINUE FOR 3 DAYS. 12/01/16 14:19 Blood Culture - Preliminary Blood - Peripheral Venous NO GROWTH OBTAINED AFTER 48 HOURS, INCUBATION TO CONTINUE FOR 3 DAYS. 12/01/16 14:19 Urine Culture - Final Urine - Urine - Catheterized Proteus Mirabilis Pseudomonas Aeruginosa 12/02/16 06:04 Urine Culture - Preliminary Urine - Urine Dalton Non Lactose Fermenting Gnb - ....Imaging Cat Scan: Report Reviewed (no acute infiltrates. small b/l pleural effusions) Problem List - Problems (1) Sepsis secondary to UTI Code(s): A41.9 - SEPSIS, UNSPECIFIED ORGANISM N39.0 - URINARY TRACT INFECTION, SITE NOT SPECIFIED (2) Candidiasis of perineum Code(s): B37.49 - OTHER UROGENITAL CANDIDIASIS (3) Cellulitis Code(s): L03.90 - CELLULITIS, UNSPECIFIED Qualifiers: Site of cellulitis: extremity Site of cellulitis of extremity: lower extremity Laterality: unspecified laterality Qualified Code(s): L03.119 - Cellulitis of unspecified part of limb (4) Urinary retention Code(s): R33.9 - RETENTION OF URINE, UNSPECIFIED (5) Anemia Code(s): D64.9 - ANEMIA, UNSPECIFIED Qualifiers: Anemia type: unspecified type Qualified Code(s): D64.9 - Anemia, unspecified Assessment/Plan leukocytosis, wbc elevated but stable, currently afebrile - continue antibiotics for now - monitor wbc , temps - monitor closely records reviewed, pt seen and examined and imaging/lab results reviewed cc time 40 min
[2016-12-03] MEDS ORDERED: PT OWN MED DRAWER 7, Y5N ONE (21:08)
[2016-12-03] MEDS: ATORVASTATIN CA 10 MG TABLET (FP) PO SCH (21:22)
[2016-12-03] MEDS: LATANOPROST 0.005% OPHTH SOLN 2.5ML BOTTLE OU SCH (21:25)
--- NOTE | 2016-12-03 23:33 | PN ---
Progress Note, Physician - Current Medication List Current Medications: Active Medications Acetaminophen (Tylenol -) 650 mg PO Q6H PRN PRN Reason: FEVER OR PAIN Last Admin: 12/03/16 19:55 Dose: 650 mg Atorvastatin Calcium (Lipitor -) 10 mg PO HS [facility] Last Admin: 12/03/16 21:22 Dose: 10 mg Brimonidine Tartrate (Alphagan 0.2% -) 1 drop OD TID [facility] Last Admin: 12/03/16 21:18 Dose: 1 drop Dorzolamide HCl (Trusopt 2%) 1 drop OU BID [facility] Last Admin: 12/03/16 21:24 Dose: 1 drop Ferrous Sulfate (Feosol -) 325 mg PO DAILY [facility] Last Admin: 12/03/16 09:54 Dose: 325 mg Heparin Sodium (Porcine) (Heparin -) 5,000 unit SQ BID [facility] Last Admin: 12/03/16 21:21 Dose: 5,000 unit Piperacillin Sod/Tazobactam Sod (Zosyn 3.375gm Ivpb (Pre-Docked)) 50 mls @ 100 mls/hr IVPB Q8H-IV [facility] PRN Reason: Protocol Last Admin: 12/03/16 17:21 Dose: 100 mls/hr Latanoprost (Xalatan 0.005% Eye Drops -) 1 drop OU HS [facility] Last Admin: 12/03/16 21:25 Dose: 1 drop Miconazole Nitrate (Miconazole Nitrate) 1 applic TP BID [facility] Last Admin: 12/03/16 21:22 Dose: 1 applic Oxycodone HCl (Roxicodone -) 5 mg PO Q6H PRN PRN Reason: PAIN Last Admin: 12/03/16 19:55 Dose: 5 mg Ranitidine HCl (Zantac -) 150 mg PO BID [facility] Last Admin: 12/03/16 21:25 Dose: 150 mg Tamsulosin HCl (Flomax -) 0.4 mg PO BID [facility] Last Admin: 12/03/16 21:21 Dose: 0.4 mg Timolol Maleate (Timoptic 0.5%) 1 drop OU BID [facility] Last Admin: 12/03/16 21:23 Dose: 1 drop - Objective Vital Signs: Vital Signs Temperature 99.3 F 12/03/16 17:26 Pulse Rate 112 H 12/03/16 21:13 Respiratory Rate 18 12/03/16 21:13 Blood Pressure 139/93 12/03/16 21:13 O2 Sat by Pulse Oximetry (%) 99 12/03/16 21:00 Labs: CBC, BMP 12/03/16 05:15 12/03/16 05:15 INR, PTT INR 1.12 (0.82-1.09) 12/01/16 14:19
[2016-12-04] MEDS: PIPERACILLIN/TAZOB 3.375 GM 50 ML IVPB SCH ×3 (03:23→19:59)
[2016-12-04 06:33] LABS: MCHC 31.4 g/dl (32.0-35.9); MEAN CELL VOLUME 73.4 fl (80-96); MEAN PLT VOLUME 7.3 fl (7.5-11.1); PLATELET COUNT 271 K/MM3 (134-434); RDW 18.9 % (11.9-15.9); WHITE BLOOD COUNT 11.2 K/mm3 (4.0-10.0)
[2016-12-04 07:07] LABS: ALBUMIN 1.9 g/dl (3.4-5.0); ALK PHOS 80 U/L (45-117); ANION GAP 8 (8-16); BILIRUBIN,TOTAL 0.3 mg/dL (0.2-1.0); CALCIUM 8.3 mg/dL (8.5-10.1); CO2 25 mmol/L (21-32); CREATININE 0.9 mg/dL (0.7-1.3); GLUCOSE,RANDOM 112 mg/dL (74-106); SGOT/AST 11 U/L (15-37); SGPT/ALT 14 U/L (12-78); TOT PROT 5.5 g/dl (6.4-8.2)
[2016-12-04] MEDS: BRIMONIDINE TARTRATE 0.2% OPHTHALMIC 5 ML BOTTLE OD SCH ×3 (07:42→23:12)
[2016-12-04] MEDS: HEPARIN NA (PORCINE) 5,000 UNITS/ML 1ML VIAL SQ SCH ×2 (11:20→21:55)
[2016-12-04] MEDS: oxyCODONE HCL 5 MG TABLET PO PRN ×2 (11:21→20:12)
[2016-12-04] MEDS: FERROUS SO4 325 MG TABLET (FP) PO SCH (11:21)
[2016-12-04] MEDS: TAMSULOSIN HCL 0.4 MG CAP.ER.24H (FP) PO SCH ×2 (11:21→21:55)
[2016-12-04] MEDS: ACETAMINOPHEN 325 MG TABLET (FP) PO PRN ×2 (11:22→21:56)
[2016-12-04] MEDS: RANITIDINE HCL 150 MG TABLET (FP) PO SCH ×2 (11:23→21:55)
[2016-12-04] MEDS: MICONAZOLE NITRATE 28 GM TUBE TP SCH ×2 (11:27→23:11)
[2016-12-04] MEDS: TIMOLOL 0.5% OPHTHALMIC SOL 5 ML BOTTLE OU SCH ×2 (11:28→21:56)
[2016-12-04] MEDS: DORZOLAMIDE 2% HCL OPHTHALMIC SOLUTION 10 ML BOTTLE OU SCH ×2 (11:29→21:57)
--- NOTE | 2016-12-04 11:29 | PN ---
Progress Note, Physician History of Present Illness: Pt states he feels ok. Still with pain in thighs/knees responsive to pain medication. No other specific complaints. No fever, chills, cp, shortness of breath/cough - Current Medication List Current Medications: Active Medications Acetaminophen (Tylenol -) 650 mg PO Q6H PRN PRN Reason: FEVER OR PAIN Last Admin: 12/03/16 19:55 Dose: 650 mg Atorvastatin Calcium (Lipitor -) 10 mg PO HS [facility] Last Admin: 12/03/16 21:22 Dose: 10 mg Brimonidine Tartrate (Alphagan 0.2% -) 1 drop OD TID [facility] Last Admin: 12/04/16 07:42 Dose: 1 drop Dorzolamide HCl (Trusopt 2%) 1 drop OU BID [facility] Last Admin: 12/03/16 21:24 Dose: 1 drop Ferrous Sulfate (Feosol -) 325 mg PO DAILY [facility] Last Admin: 12/03/16 09:54 Dose: 325 mg Heparin Sodium (Porcine) (Heparin -) 5,000 unit SQ BID [facility] Last Admin: 12/03/16 21:21 Dose: 5,000 unit Piperacillin Sod/Tazobactam Sod (Zosyn 3.375gm Ivpb (Pre-Docked)) 50 mls @ 100 mls/hr IVPB Q8H-IV [facility] PRN Reason: Protocol Last Admin: 12/04/16 03:23 Dose: 100 mls/hr Latanoprost (Xalatan 0.005% Eye Drops -) 1 drop OU HS [facility] Last Admin: 12/03/16 21:25 Dose: 1 drop Miconazole Nitrate (Miconazole Nitrate) 1 applic TP BID [facility] Last Admin: 12/03/16 21:22 Dose: 1 applic Oxycodone HCl (Roxicodone -) 5 mg PO Q6H PRN PRN Reason: PAIN Last Admin: 12/03/16 19:55 Dose: 5 mg Ranitidine HCl (Zantac -) 150 mg PO BID [facility] Last Admin: 12/03/16 21:25 Dose: 150 mg Tamsulosin HCl (Flomax -) 0.4 mg PO BID [facility] Last Admin: 12/03/16 21:21 Dose: 0.4 mg Timolol Maleate (Timoptic 0.5%) 1 drop OU BID [facility] Last Admin: 12/03/16 21:23 Dose: 1 drop - Objective Vital Signs: Vital Signs Temperature 98.7 F 12/04/16 02:00 Pulse Rate 88 12/04/16 06:00 Respiratory Rate 18 12/04/16 06:00 Blood Pressure 148/96 12/04/16 06:00 O2 Sat by Pulse Oximetry (%) 99 12/03/16 21:00 Constitutional: Yes: No Distress. No: Well Nourished, Calm, Anxious, Ashen, Cachectic, Diaphoresis, Mild Distress, Moderate Distress, Severe Distress, Obese , Pallor, Poor Hygeine, Thin, Other Eyes: Yes: WNL. No: Conjunctiva Clear, EOM Intact, Cataracts, Diplopia, Occular Prosthesis, PERRL, Ptosis, Sclera Icterus, Tearing, Other HENT: Yes: WNL. No: Atraumatic, Normocephalic, Drooling, Epistaxis, Hoarseness , Nasal Congestion, Pharyngeal Erythema, Rhinnorhea, Thrush, Tonsillar Exudate, Other Neck: Yes: WNL Cardiovascular: Yes: Regular Rate and Rhythm. No: WNL, Bradycardia, Tachycardia , Pulse Irregular, Bruit, JVD, Gallop, Murmur, Rub, S1, S2, S3, S4, Varicosities , Other Respiratory: Yes: CTA Bilaterally Gastrointestinal: Yes: Normal Bowel Sounds, Soft. No: WNL, Abdomen, Obese, Ascites, Distention, Hematemesis, Hemorrhoids, Hepatomegaly, Hernia, Hyperactive Bowel Sounds, Hypoactive Bowel Sounds, Melena, Palpable Mass, Pulsatile Mass, Rectal Bleeding, Splenomegaly, Tenderness, Tenderness, Epigastrium, Tenderness, Rebound, Vomiting, Other Genitourinary: Yes: Dalton Present. No: WNL, Anuria, Bladder Distention, CVA Tenderness - Left, CVA Tenderness - Right, Hematuria, Incontinence, Menses Present, Oliguria, Polyuria, , Scrotal Edema, Urethral Discharge, Vaginal Bleeding, Vaginal Discharge, Other Musculoskeletal: No: WNL, Back Pain, Joint Stiffness, Joint Swelling, Muscle Pain, Muscle Weakness, Other Extremities: Yes: Erythema (b/l LE erythema), Other Integumentary: Yes: WNL. No: Body Piercing, Bruising, Erythema, Incision, Jaundice, Laceration, Petechiae, Pressure Ulcer, Rash, Skin Tear, Tattoos, Tenting, Onychomycosis, Venous Stasis Changes, Other Neurological: Yes: Alert. No: WNL, Oriented, Aphasia, Asterixis, Ataxia, Babinski positive, Babinski negative, Confusion, Cran Nerves II-XII Intact, Dysarthria, Facial Droop, Lethargy, Loss of Sensation, Numbness, Paresthesia, Pre-Existing Deficit, Seizure, Tingling, Tremors, Unresponsive, Unsteady Gait, Weakness, Other Psychiatric: Yes: Alert Labs: CBC, BMP 12/04/16 05:15 12/04/16 05:15 INR, PTT INR 1.12 (0.82-1.09) 12/01/16 14:19 Problem List - Problems (1) Sepsis secondary to UTI Code(s): A41.9 - SEPSIS, UNSPECIFIED ORGANISM N39.0 - URINARY TRACT INFECTION, SITE NOT SPECIFIED (2) Candidiasis of perineum Code(s): B37.49 - OTHER UROGENITAL CANDIDIASIS (3) Cellulitis Code(s): L03.90 - CELLULITIS, UNSPECIFIED Qualifiers: Site of cellulitis: extremity Site of cellulitis of extremity: lower extremity Laterality: unspecified laterality Qualified Code(s): L03.119 - Cellulitis of unspecified part of limb (4) Urinary retention Code(s): R33.9 - RETENTION OF URINE, UNSPECIFIED (5) Anemia Code(s): D64.9 - ANEMIA, UNSPECIFIED Qualifiers: Anemia type: unspecified type Qualified Code(s): D64.9 - Anemia, unspecified Assessment/Plan Polymicrobial UTI Leukocytosis improving - pt clinically stable - continue Zosyn continue monitor
[2016-12-04] MEDS ORDERED: PT OWN MED DRAWER 7, Y5N ONE ×2 (19:02→21:54)
--- NOTE | 2016-12-04 21:03 | PN ---
Progress Note, Physician History of Present Illness: Pt sitting in chair - Current Medication List Current Medications: Active Medications Acetaminophen (Tylenol -) 650 mg PO Q6H PRN PRN Reason: FEVER OR PAIN Last Admin: 12/04/16 11:22 Dose: 650 mg Atorvastatin Calcium (Lipitor -) 10 mg PO HS [facility] Last Admin: 12/03/16 21:22 Dose: 10 mg Brimonidine Tartrate (Alphagan 0.2% -) 1 drop OD TID [facility] Last Admin: 12/04/16 14:40 Dose: 1 drop Dorzolamide HCl (Trusopt 2%) 1 drop OU BID [facility] Last Admin: 12/04/16 11:29 Dose: 1 drop Ferrous Sulfate (Feosol -) 325 mg PO DAILY [facility] Last Admin: 12/04/16 11:21 Dose: 325 mg Heparin Sodium (Porcine) (Heparin -) 5,000 unit SQ BID [facility] Last Admin: 12/04/16 11:20 Dose: 5,000 unit Piperacillin Sod/Tazobactam Sod (Zosyn 3.375gm Ivpb (Pre-Docked)) 50 mls @ 100 mls/hr IVPB Q8H-IV [facility] PRN Reason: Protocol Last Admin: 12/04/16 19:59 Dose: 100 mls/hr Latanoprost (Xalatan 0.005% Eye Drops -) 1 drop OU HS [facility] Last Admin: 12/03/16 21:25 Dose: 1 drop Miconazole Nitrate (Miconazole Nitrate) 1 applic TP BID [facility] Last Admin: 12/04/16 11:27 Dose: 1 applic Oxycodone HCl (Roxicodone -) 5 mg PO Q6H PRN PRN Reason: PAIN Last Admin: 12/04/16 20:12 Dose: 5 mg Ranitidine HCl (Zantac -) 150 mg PO BID [facility] Last Admin: 12/04/16 11:23 Dose: 150 mg Tamsulosin HCl (Flomax -) 0.4 mg PO BID [facility] Last Admin: 12/04/16 11:21 Dose: 0.4 mg Timolol Maleate (Timoptic 0.5%) 1 drop OU BID [facility] Last Admin: 12/04/16 11:28 Dose: 1 drop - Objective Vital Signs: Vital Signs Temperature 97.8 F 12/04/16 14:50 Pulse Rate 92 H 12/04/16 14:50 Respiratory Rate 18 12/04/16 14:50 Blood Pressure 138/77 12/04/16 14:50 O2 Sat by Pulse Oximetry (%) 95 12/04/16 20:51 Constitutional: Yes: Well Nourished Neck: Yes: WNL, Supple Cardiovascular: Yes: WNL, Regular Rate and Rhythm Respiratory: Yes: WNL, Regular, CTA Bilaterally Gastrointestinal: Yes: WNL, Normal Bowel Sounds, Soft, Abdomen, Obese Labs: CBC, BMP 12/04/16 05:15 12/04/16 05:15 INR, PTT INR 1.12 (0.82-1.09) 12/01/16 14:19 Problem List - Problems (1) Sepsis secondary to UTI Assessment/Plan: Due to UTI Cont iv zosyn WBC decreasing Check wbc in am antibxs as per ID Will carlee chavez Code(s): A41.9 - SEPSIS, UNSPECIFIED ORGANISM N39.0 - URINARY TRACT INFECTION, SITE NOT SPECIFIED (2) HTN (hypertension) Code(s): I10 - ESSENTIAL (PRIMARY) HYPERTENSION Qualifiers: Hypertension type: essential hypertension Qualified Code(s): I10 - Essential (primary) hypertension (3) Anemia Assessment/Plan: H/H stable Cont feoso4 Code(s): D64.9 - ANEMIA, UNSPECIFIED Qualifiers: Anemia type: unspecified type Qualified Code(s): D64.9 - Anemia, unspecified (4) CKD (chronic kidney disease) Code(s): N18.9 - CHRONIC KIDNEY DISEASE, UNSPECIFIED (5) GERD (gastroesophageal reflux disease) Code(s): K21.9 - GASTRO-ESOPHAGEAL REFLUX DISEASE WITHOUT ESOPHAGITIS (6) BPH (benign prostatic hyperplasia) Code(s): N40.0 - BENIGN PROSTATIC HYPERPLASIA WITHOUT LOWER URINRY TRACT SYMP
[2016-12-04] MEDS: ATORVASTATIN CA 10 MG TABLET (FP) PO SCH (21:55)
--- NOTE | 2016-12-04 22:21 | PN ---
Progress Note, Physician Chief Complaint: Pt A&Ox3; good appetite today, though he tends to "pick at" food at home; less pain in legs after taking oxycodone. History of Present Illness: 71y white man with PMhx of htn, hl, b/l LE edema, chronic UTIs, "cellulitis", oberweight, and GERD presents with leg pain and dysuria. The pt states he was feeling well yesterday, and last night, he developed b/l thigh pain/swelling last night and some warmth. The warmth seems to have improved but he still has b/l leg pain. Pt also endorses feeling mild sob this morning but that has since resolved. Pt also endorsed mild nausea w/o vomiting. Pt jodie any fever/ chills, recent falls/injuries, chest pain, cough, numbness/tingling/weakness. - Current Medication List Current Medications: Active Medications Acetaminophen (Tylenol -) 650 mg PO Q6H PRN PRN Reason: FEVER OR PAIN Last Admin: 12/04/16 21:56 Dose: 650 mg Atorvastatin Calcium (Lipitor -) 10 mg PO HS [facility] Last Admin: 12/04/16 21:55 Dose: 10 mg Brimonidine Tartrate (Alphagan 0.2% -) 1 drop OD TID [facility] Last Admin: 12/04/16 14:40 Dose: 1 drop Dorzolamide HCl (Trusopt 2%) 1 drop OU BID [facility] Last Admin: 12/04/16 21:57 Dose: 1 drop Ferrous Sulfate (Feosol -) 325 mg PO DAILY [facility] Last Admin: 12/04/16 11:21 Dose: 325 mg Heparin Sodium (Porcine) (Heparin -) 5,000 unit SQ BID [facility] Last Admin: 12/04/16 21:55 Dose: 5,000 unit Piperacillin Sod/Tazobactam Sod (Zosyn 3.375gm Ivpb (Pre-Docked)) 50 mls @ 100 mls/hr IVPB Q8H-IV [facility] PRN Reason: Protocol Last Admin: 12/04/16 19:59 Dose: 100 mls/hr Latanoprost (Xalatan 0.005% Eye Drops -) 1 drop OU HS [facility] Last Admin: 12/03/16 21:25 Dose: 1 drop Miconazole Nitrate (Miconazole Nitrate) 1 applic TP BID [facility] Last Admin: 12/04/16 11:27 Dose: 1 applic Oxycodone HCl (Roxicodone -) 5 mg PO Q6H PRN PRN Reason: PAIN Last Admin: 12/04/16 20:12 Dose: 5 mg Ranitidine HCl (Zantac -) 150 mg PO BID [facility] Last Admin: 12/04/16 21:55 Dose: 150 mg Tamsulosin HCl (Flomax -) 0.4 mg PO BID [facility] Last Admin: 12/04/16 21:55 Dose: 0.4 mg Timolol Maleate (Timoptic 0.5%) 1 drop OU BID [facility] Last Admin: 12/04/16 21:56 Dose: 1 drop - Objective Vital Signs: Vital Signs Temperature 97.8 F 12/04/16 14:50 Pulse Rate 92 H 12/04/16 14:50 Respiratory Rate 18 12/04/16 14:50 Blood Pressure 138/77 12/04/16 14:50 O2 Sat by Pulse Oximetry (%) 95 12/04/16 20:51 Constitutional: Yes: Calm Eyes: Yes: WNL HENT: Yes: WNL Neck: Yes: WNL Cardiovascular: Yes: Regular Rate and Rhythm Respiratory: Yes: Diminished Gastrointestinal: Yes: Soft, Distention ...Rectal Exam: Yes: Deferred Genitourinary: No: Anuria Musculoskeletal: Yes: Muscle Weakness Extremities: Yes: WNL Edema: No Peripheral Pulses WNL: Yes Integumentary: Yes: WNL Neurological: Yes: WNL Psychiatric: Yes: WNL Labs: CBC, BMP 12/04/16 05:15 12/04/16 05:15 INR, PTT INR 1.12 (0.82-1.09) 12/01/16 14:19 Abnormal Lab Results 12/04/16 12/04/16 05:15 05:15 WBC 11.2 H RBC 3.88 L Hgb 9.0 L Hct 28.5 L MCV 73.4 L MCH 23.0 L MCHC 31.4 L RDW 18.9 H MPV 7.3 L Chloride 108 H Random Glucose 112 H Calcium 8.3 L AST 11 L Total Protein 5.5 L Albumin 1.9 L - ....Imaging Cat Scan: Image Reviewed (pericardial cyst; mild ascending aortic aneurysm (4.0 cm)) Ultrasound: Report Reviewed (ECHO: normal LVEF and RVEF; mild-moderate pulmonary HTN) Problem List - Problems (1) Sepsis secondary to UTI Assessment/Plan: on antibiotics per ID. Antipyretics Code(s): A41.9 - SEPSIS, UNSPECIFIED ORGANISM N39.0 - URINARY TRACT INFECTION, SITE NOT SPECIFIED (2) Candidiasis of perineum Code(s): B37.49 - OTHER UROGENITAL CANDIDIASIS (3) Cellulitis Code(s): L03.90 - CELLULITIS, UNSPECIFIED Qualifiers: Site of cellulitis: extremity Site of cellulitis of extremity: lower extremity Laterality: unspecified laterality Qualified Code(s): L03.119 - Cellulitis of unspecified part of limb (4) Rash Code(s): R21 - RASH AND OTHER NONSPECIFIC SKIN ERUPTION (5) GERD (gastroesophageal reflux disease) Code(s): K21.9 - GASTRO-ESOPHAGEAL REFLUX DISEASE WITHOUT ESOPHAGITIS (6) HTN (hypertension) Assessment/Plan: f/u BP serially; on no medications. Code(s): I10 - ESSENTIAL (PRIMARY) HYPERTENSION Qualifiers: Hypertension type: essential hypertension Qualified Code(s): I10 - Essential (primary) hypertension (7) Venous (peripheral) insufficiency Code(s): I87.2 - VENOUS INSUFFICIENCY (CHRONIC) (PERIPHERAL) (8) Sinus tachycardia Assessment/Plan: causes may include fever, anemia, pain, dehydration. Normal LVEF by ECHO. Judicious hydration (sepsis, but diastolic CHF, and small bilateral pleural effusions on CT chest). F/u EKG. Code(s): R00.0 - TACHYCARDIA, UNSPECIFIED (9) Anemia Code(s): D64.9 - ANEMIA, UNSPECIFIED Qualifiers: Anemia type: unspecified type Qualified Code(s): D64.9 - Anemia, unspecified
[2016-12-04] MEDS: LATANOPROST 0.005% OPHTH SOLN 2.5ML BOTTLE OU SCH (23:11)
[2016-12-05] MEDS ORDERED: PIPERACILLIN/TAZOBACTAM 3.375 GM VIAL IVPB ONE ×2 (01:24→11:12)
[2016-12-05] MEDS ORDERED: DEXTROSE 5%-WATER - 50 ML IVPB ONE ×2 (01:24→11:12)
[2016-12-05] MEDS: PIPERACILLIN/TAZOB 3.375 GM 3.375 GM in DEXTROSE 5%-WATER - 50 ML IVPB SCH ×3 (01:25→17:50)
[2016-12-05] MEDS: BRIMONIDINE TARTRATE 0.2% OPHTHALMIC 5 ML BOTTLE OD SCH ×3 (05:41→22:05)
[2016-12-05 09:04] LABS: MCHC 31.4 g/dl (32.0-35.9); MEAN CELL VOLUME 73.2 fl (80-96); MEAN PLT VOLUME 7.1 fl (7.5-11.1); PLATELET COUNT 324 K/MM3 (134-434); RDW 18.8 % (11.9-15.9); WHITE BLOOD COUNT 8.5 K/mm3 (4.0-10.0)
[2016-12-05] MEDS ORDERED: PT OWN MED DRAWER 7, Y5N ONE ×3 (09:31→21:25)
[2016-12-05] MEDS: FERROUS SO4 325 MG TABLET (FP) PO SCH (09:34)
[2016-12-05] MEDS: ACETAMINOPHEN 325 MG TABLET (FP) PO PRN ×2 (09:35→19:39)
[2016-12-05] MEDS: TAMSULOSIN HCL 0.4 MG CAP.ER.24H (FP) PO SCH ×2 (09:35→21:55)
[2016-12-05] MEDS: oxyCODONE HCL 5 MG TABLET PO PRN ×2 (09:35→19:40)
[2016-12-05] MEDS: RANITIDINE HCL 150 MG TABLET (FP) PO SCH ×2 (09:36→21:55)
[2016-12-05] MEDS: METOPROLOL TARTRATE 25 MG TABLET (FP) PO SCH ×2 (09:36→21:55)
[2016-12-05] MEDS: HEPARIN NA (PORCINE) 5,000 UNITS/ML 1ML VIAL SQ SCH ×2 (09:36→21:56)
[2016-12-05] MEDS: MICONAZOLE NITRATE 28 GM TUBE TP SCH ×2 (09:39→22:01)
[2016-12-05] MEDS: TIMOLOL 0.5% OPHTHALMIC SOL 5 ML BOTTLE OU SCH ×2 (09:40→21:57)
[2016-12-05] MEDS: DORZOLAMIDE 2% HCL OPHTHALMIC SOLUTION 10 ML BOTTLE OU SCH ×2 (09:42→21:56)
[2016-12-05 10:07] LABS: ALBUMIN 2.4 g/dl (3.4-5.0); ALK PHOS 98 U/L (45-117); ANION GAP 10 (8-16); BILIRUBIN,TOTAL 0.3 mg/dL (0.2-1.0); CALCIUM 9.1 mg/dL (8.5-10.1); CO2 25 mmol/L (21-32); CREATININE 0.8 mg/dL (0.7-1.3); GLUCOSE,RANDOM 129 mg/dL (74-106); SGOT/AST 22 U/L (15-37); SGPT/ALT 25 U/L (12-78); TOT PROT 6.2 g/dl (6.4-8.2)
--- NOTE | 2016-12-05 10:42 | PN ---
Progress Note, Physician History of Present Illness: seen and examined today in nad. no overnight events. no new complaints. - Current Medication List Current Medications: Active Medications Acetaminophen (Tylenol -) 650 mg PO Q6H PRN PRN Reason: FEVER OR PAIN Last Admin: 12/05/16 09:35 Dose: 650 mg Atorvastatin Calcium (Lipitor -) 10 mg PO HS [facility] Last Admin: 12/04/16 21:55 Dose: 10 mg Brimonidine Tartrate (Alphagan 0.2% -) 1 drop OD TID [facility] Last Admin: 12/05/16 05:41 Dose: 1 drop Dorzolamide HCl (Trusopt 2%) 1 drop OU BID [facility] Last Admin: 12/05/16 09:42 Dose: 1 drop Ferrous Sulfate (Feosol -) 325 mg PO DAILY [facility] Last Admin: 12/05/16 09:34 Dose: 325 mg Heparin Sodium (Porcine) (Heparin -) 5,000 unit SQ BID [facility] Last Admin: 12/05/16 09:36 Dose: 5,000 unit Piperacillin Sod/Tazobactam (Sod 3.375 gm/ Dextrose) 50 mls @ 100 mls/hr IVPB Q8H-IV [facility] PRN Reason: Protocol Last Admin: 12/05/16 01:25 Dose: 100 mls/hr Latanoprost (Xalatan 0.005% Eye Drops -) 1 drop OU HS [facility] Last Admin: 12/04/16 23:11 Dose: 1 drop Metoprolol Tartrate (Lopressor -) 25 mg PO BID [facility] Last Admin: 12/05/16 09:36 Dose: 25 mg Miconazole Nitrate (Miconazole Nitrate) 1 applic TP BID [facility] Last Admin: 12/05/16 09:39 Dose: 1 applic Oxycodone HCl (Roxicodone -) 5 mg PO Q6H PRN PRN Reason: PAIN Last Admin: 12/05/16 09:35 Dose: 5 mg Ranitidine HCl (Zantac -) 150 mg PO BID [facility] Last Admin: 12/05/16 09:36 Dose: 150 mg Tamsulosin HCl (Flomax -) 0.4 mg PO BID [facility] Last Admin: 12/05/16 09:35 Dose: 0.4 mg Timolol Maleate (Timoptic 0.5%) 1 drop OU BID [facility] Last Admin: 12/05/16 09:40 Dose: 1 drop - Objective Vital Signs: Vital Signs Temperature 98.2 F 12/05/16 08:00 Pulse Rate 87 12/05/16 08:00 Respiratory Rate 18 12/05/16 08:00 Blood Pressure 154/93 12/05/16 08:00 O2 Sat by Pulse Oximetry (%) 95 12/04/16 20:51 Constitutional: Yes: No Distress, Calm Eyes: Yes: Conjunctiva Clear, EOM Intact HENT: Yes: Atraumatic, Normocephalic Neck: Yes: Supple, Trachea Midline Cardiovascular: Yes: Regular Rate and Rhythm, S1, S2. No: Bradycardia, Tachycardia, Pulse Irregular, Bruit, JVD, Gallop, Murmur, Rub, S3, S4, Varicosities Respiratory: Yes: Regular, Diminished. No: Rales, Rhonchi, Wheezes Gastrointestinal: Yes: Normal Bowel Sounds, Soft. No: Distention, Tenderness Extremities: Yes: Erythema Edema: LLE: Trace, RLE: Trace Peripheral Pulses WNL: Yes Peripheral Pulses: Left Doralis Pedis: 2+, Right Dorsalis Pedis: 2+ Neurological: Yes: Alert, Oriented Psychiatric: Yes: Alert, Oriented Labs: CBC, BMP 12/05/16 08:55 12/05/16 08:55 INR, PTT INR 1.12 (0.82-1.09) 12/01/16 14:19 - ....Imaging Chest X-ray: Report Reviewed, Image Reviewed EKG: Report Reviewed, Image Reviewed Other: Report Reviewed, Image Reviewed Assessment/Plan IMP: Sepsis, likely due to PNA and UTI Hypoxia Possible diastolic CHF REC: Echo showed normal LV systolic function, mild to mod valv abnl Currently overall euvolemic does not require diuresis No additional inpatient cardiac work up is needed at this point, recc close outpatient f/up
--- NOTE | 2016-12-05 10:58 | EKG ---
Test Reason : Blood Pressure : / mmHG Vent. Rate : 120 BPM Atrial Rate : 120 BPM P-R Int : 152 ms QRS Dur : 070 ms QT Int : 310 ms P-R-T Axes : 056 -06 036 degrees QTc Int : 438 ms SINUS TACHYCARDIA OTHERWISE NORMAL ECG WHEN COMPARED WITH ECG OF 01-DEC-2016 12:23, NO SIGNIFICANT CHANGE WAS FOUND Confirmed by MARITZA MURPHY MD ([id number]) on 12/05/2016 10:57:52 AM Referred By: RYANN WIN Confirmed By:MARITZA MURPHY MD
--- NOTE | 2016-12-05 12:49 | PN ---
Progress Note, Physician History of Present Illness: PULMONARY ALERT,NAD,-SOB,-COUGH,-CP - Current Medication List Current Medications: Active Medications Acetaminophen (Tylenol -) 650 mg PO Q6H PRN PRN Reason: FEVER OR PAIN Last Admin: 12/05/16 09:35 Dose: 650 mg Atorvastatin Calcium (Lipitor -) 10 mg PO HS [facility] Last Admin: 12/04/16 21:55 Dose: 10 mg Brimonidine Tartrate (Alphagan 0.2% -) 1 drop OD TID [facility] Last Admin: 12/05/16 05:41 Dose: 1 drop Dorzolamide HCl (Trusopt 2%) 1 drop OU BID [facility] Last Admin: 12/05/16 09:42 Dose: 1 drop Ferrous Sulfate (Feosol -) 325 mg PO DAILY [facility] Last Admin: 12/05/16 09:34 Dose: 325 mg Heparin Sodium (Porcine) (Heparin -) 5,000 unit SQ BID [facility] Last Admin: 12/05/16 09:36 Dose: 5,000 unit Piperacillin Sod/Tazobactam (Sod 3.375 gm/ Dextrose) 50 mls @ 100 mls/hr IVPB Q8H-IV [facility] PRN Reason: Protocol Last Admin: 12/05/16 11:32 Dose: 100 mls/hr Latanoprost (Xalatan 0.005% Eye Drops -) 1 drop OU [facility] Last Admin: 12/04/16 23:11 Dose: 1 drop Metoprolol Tartrate (Lopressor -) 25 mg PO BID [facility] Last Admin: 12/05/16 09:36 Dose: 25 mg Miconazole Nitrate (Miconazole Nitrate) 1 applic TP BID [facility] Last Admin: 12/05/16 09:39 Dose: 1 applic Oxycodone HCl (Roxicodone -) 5 mg PO Q6H PRN PRN Reason: PAIN Last Admin: 12/05/16 09:35 Dose: 5 mg Ranitidine HCl (Zantac -) 150 mg PO BID [facility] Last Admin: 12/05/16 09:36 Dose: 150 mg Tamsulosin HCl (Flomax -) 0.4 mg PO BID [facility] Last Admin: 12/05/16 09:35 Dose: 0.4 mg Timolol Maleate (Timoptic 0.5%) 1 drop OU BID [facility] Last Admin: 12/05/16 09:40 Dose: 1 drop - Objective Vital Signs: Vital Signs Temperature 98.2 F 12/05/16 08:00 Pulse Rate 87 12/05/16 08:00 Respiratory Rate 18 12/05/16 08:00 Blood Pressure 154/93 12/05/16 08:00 O2 Sat by Pulse Oximetry (%) 96 12/05/16 09:00 Constitutional: Yes: Well Nourished, Calm Eyes: Yes: WNL HENT: Yes: WNL Neck: Yes: WNL Cardiovascular: Yes: Regular Rate and Rhythm, S1, S2 Respiratory: Yes: CTA Bilaterally Gastrointestinal: Yes: Normal Bowel Sounds, Soft Extremities: Yes: WNL Edema: No Labs: CBC, BMP 12/05/16 08:55 12/05/16 08:55 INR, PTT INR 1.12 (0.82-1.09) 12/01/16 14:19 Assessment/Plan A/P UTI Cellulitis Sepsis Hiatal Hernia Atelectasis h/o DVT/IVC filter BPH - antibiotics - incentive spirometry - O2 as needed - DVT prophylaxis DR BRISCOE
--- NOTE | 2016-12-05 13:57 | PN ---
Progress Note, Physician Chief Complaint: stable improving - Current Medication List Current Medications: Active Medications Acetaminophen (Tylenol -) 650 mg PO Q6H PRN PRN Reason: FEVER OR PAIN Last Admin: 12/05/16 09:35 Dose: 650 mg Atorvastatin Calcium (Lipitor -) 10 mg PO HS [facility] Last Admin: 12/04/16 21:55 Dose: 10 mg Brimonidine Tartrate (Alphagan 0.2% -) 1 drop OD TID [facility] Last Admin: 12/05/16 13:37 Dose: 1 drop Dorzolamide HCl (Trusopt 2%) 1 drop OU BID [facility] Last Admin: 12/05/16 09:42 Dose: 1 drop Ferrous Sulfate (Feosol -) 325 mg PO DAILY [facility] Last Admin: 12/05/16 09:34 Dose: 325 mg Heparin Sodium (Porcine) (Heparin -) 5,000 unit SQ BID [facility] Last Admin: 12/05/16 09:36 Dose: 5,000 unit Piperacillin Sod/Tazobactam (Sod 3.375 gm/ Dextrose) 50 mls @ 100 mls/hr IVPB Q8H-IV [facility] PRN Reason: Protocol Last Admin: 12/05/16 11:32 Dose: 100 mls/hr Latanoprost (Xalatan 0.005% Eye Drops -) 1 drop OU HS [facility] Last Admin: 12/04/16 23:11 Dose: 1 drop Metoprolol Tartrate (Lopressor -) 25 mg PO BID [facility] Last Admin: 12/05/16 09:36 Dose: 25 mg Miconazole Nitrate (Miconazole Nitrate) 1 applic TP BID [facility] Last Admin: 12/05/16 09:39 Dose: 1 applic Oxycodone HCl (Roxicodone -) 5 mg PO Q6H PRN PRN Reason: PAIN Last Admin: 12/05/16 09:35 Dose: 5 mg Ranitidine HCl (Zantac -) 150 mg PO BID [facility] Last Admin: 12/05/16 09:36 Dose: 150 mg Tamsulosin HCl (Flomax -) 0.4 mg PO BID [facility] Last Admin: 12/05/16 09:35 Dose: 0.4 mg Timolol Maleate (Timoptic 0.5%) 1 drop OU BID [facility] Last Admin: 12/05/16 09:40 Dose: 1 drop - Objective Vital Signs: Vital Signs Temperature 98.2 F 12/05/16 08:00 Pulse Rate 87 12/05/16 08:00 Respiratory Rate 18 12/05/16 08:00 Blood Pressure 154/93 12/05/16 08:00 O2 Sat by Pulse Oximetry (%) 96 12/05/16 09:00 Constitutional: Yes: No Distress, Calm Cardiovascular: Yes: Regular Rate and Rhythm Respiratory: Yes: Regular, CTA Bilaterally Gastrointestinal: Yes: Normal Bowel Sounds, Soft Genitourinary: Yes: Dalton Present Musculoskeletal: Yes: Other Extremities: Yes: Other Neurological: Yes: Alert, Oriented Psychiatric: Yes: Alert Labs: CBC, BMP 12/05/16 08:55 12/05/16 08:55 INR, PTT INR 1.12 (0.82-1.09) 12/01/16 14:19 Assessment/Plan one thing which is worrisoem in the patient is that if he has prostatitis he has bph and he did come in wiht septic looking picture Problem List - Problems (1) Sepsis secondary to UTI Code(s): A41.9 - SEPSIS, UNSPECIFIED ORGANISM N39.0 - URINARY TRACT INFECTION, SITE NOT SPECIFIED (2) Candidiasis of perineum Code(s): B37.49 - OTHER UROGENITAL CANDIDIASIS (3) Cellulitis Code(s): L03.90 - CELLULITIS, UNSPECIFIED Qualifiers: Site of cellulitis: extremity Site of cellulitis of extremity: lower extremity Laterality: unspecified laterality Qualified Code(s): L03.119 - Cellulitis of unspecified part of limb (4) Urinary retention Code(s): R33.9 - RETENTION OF URINE, UNSPECIFIED (5) Urinary tract infection Code(s): N39.0 - URINARY TRACT INFECTION, SITE NOT SPECIFIED Qualifiers: Urinary tract infection type: acute cystitis Hematuria presence: with hematuria Qualified Code(s): N30.01 - Acute cystitis with hematuria all cx results noted plan continue zosyn continue rest of the mgmt rest as per primary team
[2016-12-05 14:55] LABS: TOTAL CELLS COUNTED 100
[2016-12-05 14:56] LABS: NUCLEATED RED BLOOD CELL 1 % (0-0); PLATELET ESTIMATE ADEQUATE
[2016-12-05] MEDS: ATORVASTATIN CA 10 MG TABLET (FP) PO SCH (21:55)
[2016-12-05] MEDS: LATANOPROST 0.005% OPHTH SOLN 2.5ML BOTTLE OU SCH (21:57)
--- NOTE | 2016-12-05 22:22 | PN ---
Progress Note, Physician History of Present Illness: No new complaints - Current Medication List Current Medications: Active Medications Acetaminophen (Tylenol -) 650 mg PO Q6H PRN PRN Reason: FEVER OR PAIN Last Admin: 12/05/16 19:39 Dose: 650 mg Atorvastatin Calcium (Lipitor -) 10 mg PO HS [facility] Last Admin: 12/05/16 21:55 Dose: 10 mg Brimonidine Tartrate (Alphagan 0.2% -) 1 drop OD TID [facility] Last Admin: 12/05/16 22:05 Dose: 1 drop Dorzolamide HCl (Trusopt 2%) 1 drop OU BID [facility] Last Admin: 12/05/16 21:56 Dose: 1 drop Ferrous Sulfate (Feosol -) 325 mg PO DAILY [facility] Last Admin: 12/05/16 09:34 Dose: 325 mg Heparin Sodium (Porcine) (Heparin -) 5,000 unit SQ BID [facility] Last Admin: 12/05/16 21:56 Dose: 5,000 unit Piperacillin Sod/Tazobactam (Sod 3.375 gm/ Dextrose) 50 mls @ 100 mls/hr IVPB Q8H-IV [facility] PRN Reason: Protocol Last Admin: 12/05/16 17:50 Dose: 100 mls/hr Latanoprost (Xalatan 0.005% Eye Drops -) 1 drop OU [facility] Last Admin: 12/05/16 21:57 Dose: 1 drop Metoprolol Tartrate (Lopressor -) 25 mg PO BID [facility] Last Admin: 12/05/16 21:55 Dose: 25 mg Miconazole Nitrate (Miconazole Nitrate) 1 applic TP BID [facility] Last Admin: 12/05/16 22:01 Dose: 1 applic Oxycodone HCl (Roxicodone -) 5 mg PO Q6H PRN PRN Reason: PAIN Last Admin: 12/05/16 19:40 Dose: 5 mg Ranitidine HCl (Zantac -) 150 mg PO BID [facility] Last Admin: 12/05/16 21:55 Dose: 150 mg Tamsulosin HCl (Flomax -) 0.4 mg PO BID [facility] Last Admin: 12/05/16 21:55 Dose: 0.4 mg Timolol Maleate (Timoptic 0.5%) 1 drop OU BID [facility] Last Admin: 12/05/16 21:57 Dose: 1 drop - Objective Vital Signs: Vital Signs Temperature 98 F 12/05/16 22:00 Pulse Rate 94 H 12/05/16 22:00 Respiratory Rate 18 12/05/16 22:00 Blood Pressure 145/95 12/05/16 22:00 O2 Sat by Pulse Oximetry (%) 96 12/05/16 09:00 Constitutional: Yes: Well Nourished Neck: Yes: WNL, Supple Cardiovascular: Yes: WNL, Regular Rate and Rhythm Respiratory: Yes: WNL, Regular, CTA Bilaterally Gastrointestinal: Yes: WNL, Normal Bowel Sounds, Soft Labs: CBC, BMP 12/05/16 08:55 12/05/16 08:55 INR, PTT INR 1.12 (0.82-1.09) 12/01/16 14:19 Problem List - Problems (1) Sepsis secondary to UTI Assessment/Plan: Due to UTI Cont iv zosyn Pt passing urine PT eval Antibx management as per ID Code(s): A41.9 - SEPSIS, UNSPECIFIED ORGANISM N39.0 - URINARY TRACT INFECTION, SITE NOT SPECIFIED (2) HTN (hypertension) Code(s): I10 - ESSENTIAL (PRIMARY) HYPERTENSION Qualifiers: Hypertension type: essential hypertension Qualified Code(s): I10 - Essential (primary) hypertension (3) Anemia Code(s): D64.9 - ANEMIA, UNSPECIFIED Qualifiers: Anemia type: unspecified type Qualified Code(s): D64.9 - Anemia, unspecified (4) CKD (chronic kidney disease) Code(s): N18.9 - CHRONIC KIDNEY DISEASE, UNSPECIFIED (5) GERD (gastroesophageal reflux disease) Code(s): K21.9 - GASTRO-ESOPHAGEAL REFLUX DISEASE WITHOUT ESOPHAGITIS (6) BPH (benign prostatic hyperplasia) Code(s): N40.0 - BENIGN PROSTATIC HYPERPLASIA WITHOUT LOWER URINRY TRACT SYMP
[2016-12-06] MEDS ORDERED: PIPERACILLIN/TAZOBACTAM 3.375 GM VIAL IVPB ONE ×3 (01:39→18:16)
[2016-12-06] MEDS ORDERED: DEXTROSE 5%-WATER - 50 ML IVPB ONE ×3 (01:39→18:16)
[2016-12-06] MEDS: PIPERACILLIN/TAZOB 3.375 GM 3.375 GM in DEXTROSE 5%-WATER - 50 ML IVPB SCH ×3 (01:53→18:19)
[2016-12-06] MEDS ORDERED: POTASSIUM CHLORIDE TABS 20 MEQ TABLET.ER (FP) PO ONE (02:18)
[2016-12-06] MEDS: BRIMONIDINE TARTRATE 0.2% OPHTHALMIC 5 ML BOTTLE OD SCH ×3 (06:37→22:10)
[2016-12-06] MEDS ORDERED: PT OWN MED DRAWER 7, Y5N ONE ×2 (09:33→13:25)
[2016-12-06] MEDS: FERROUS SO4 325 MG TABLET (FP) PO SCH (09:36)
[2016-12-06] MEDS: oxyCODONE HCL 5 MG TABLET PO PRN ×2 (09:36→18:18)
[2016-12-06] MEDS: ACETAMINOPHEN 325 MG TABLET (FP) PO PRN ×2 (09:36→18:18)
[2016-12-06] MEDS: METOPROLOL TARTRATE 25 MG TABLET (FP) PO SCH ×2 (09:36→22:10)
[2016-12-06] MEDS: TIMOLOL 0.5% OPHTHALMIC SOL 5 ML BOTTLE OU SCH ×2 (09:37→22:10)
[2016-12-06] MEDS: MICONAZOLE NITRATE 28 GM TUBE TP SCH ×2 (09:38→22:04)
[2016-12-06] MEDS: HEPARIN NA (PORCINE) 5,000 UNITS/ML 1ML VIAL SQ SCH ×2 (09:38→22:09)
[2016-12-06] MEDS: DORZOLAMIDE 2% HCL OPHTHALMIC SOLUTION 10 ML BOTTLE OU SCH ×2 (09:38→22:10)
[2016-12-06] MEDS: RANITIDINE HCL 150 MG TABLET (FP) PO SCH ×2 (09:41→22:10)
[2016-12-06] MEDS: TAMSULOSIN HCL 0.4 MG CAP.ER.24H (FP) PO SCH ×2 (09:41→22:10)
--- NOTE | 2016-12-06 14:57 | PN ---
Progress Note, Physician History of Present Illness: patient doing well no complaints - Current Medication List Current Medications: Active Medications Acetaminophen (Tylenol -) 650 mg PO Q6H PRN PRN Reason: FEVER OR PAIN Last Admin: 12/06/16 09:36 Dose: 650 mg Atorvastatin Calcium (Lipitor -) 10 mg PO HS [facility] Last Admin: 12/05/16 21:55 Dose: 10 mg Brimonidine Tartrate (Alphagan 0.2% -) 1 drop OD TID [facility] Last Admin: 12/06/16 13:38 Dose: 1 drop Dorzolamide HCl (Trusopt 2%) 1 drop OU BID [facility] Last Admin: 12/06/16 09:38 Dose: 1 drop Ferrous Sulfate (Feosol -) 325 mg PO DAILY [facility] Last Admin: 12/06/16 09:36 Dose: 325 mg Heparin Sodium (Porcine) (Heparin -) 5,000 unit SQ BID [facility] Last Admin: 12/06/16 09:38 Dose: 5,000 unit Piperacillin Sod/Tazobactam (Sod 3.375 gm/ Dextrose) 50 mls @ 100 mls/hr IVPB Q8H-IV [facility] PRN Reason: Protocol Last Admin: 12/06/16 09:41 Dose: 100 mls/hr Latanoprost (Xalatan 0.005% Eye Drops -) 1 drop OU [facility] Last Admin: 12/05/16 21:57 Dose: 1 drop Metoprolol Tartrate (Lopressor -) 25 mg PO BID [facility] Last Admin: 12/06/16 09:36 Dose: 25 mg Miconazole Nitrate (Miconazole Nitrate) 1 applic TP BID [facility] Last Admin: 12/06/16 09:38 Dose: 1 applic Oxycodone HCl (Roxicodone -) 5 mg PO Q6H PRN PRN Reason: PAIN Last Admin: 12/06/16 09:36 Dose: 5 mg Ranitidine HCl (Zantac -) 150 mg PO BID [facility] Last Admin: 12/06/16 09:41 Dose: 150 mg Tamsulosin HCl (Flomax -) 0.4 mg PO BID [facility] Last Admin: 12/06/16 09:41 Dose: 0.4 mg Timolol Maleate (Timoptic 0.5%) 1 drop OU BID [facility] Last Admin: 12/06/16 09:37 Dose: 1 drop - Objective Vital Signs: Vital Signs Temperature 98.1 F 12/06/16 13:49 Pulse Rate 82 12/06/16 13:49 Respiratory Rate 18 12/06/16 08:00 Blood Pressure 123/72 12/06/16 13:49 O2 Sat by Pulse Oximetry (%) 96 12/06/16 09:00 Constitutional: Yes: No Distress, Calm Cardiovascular: Yes: Regular Rate and Rhythm Respiratory: Yes: Regular, CTA Bilaterally Gastrointestinal: Yes: Normal Bowel Sounds, Soft Musculoskeletal: Yes: WNL Extremities: Yes: WNL Neurological: Yes: Alert, Oriented Psychiatric: Yes: Alert, Oriented Labs: CBC, BMP 12/05/16 08:55 12/05/16 08:55 INR, PTT INR 1.12 (0.82-1.09) 12/01/16 14:19 Assessment/Plan one thing which is worrisoem in the patient is that if he has prostatitis he has bph and he did come in wiht septic looking picture Problem List - Problems (1) Sepsis secondary to UTI Code(s): A41.9 - SEPSIS, UNSPECIFIED ORGANISM N39.0 - URINARY TRACT INFECTION, SITE NOT SPECIFIED (2) Candidiasis of perineum Code(s): B37.49 - OTHER UROGENITAL CANDIDIASIS (3) Cellulitis Code(s): L03.90 - CELLULITIS, UNSPECIFIED Qualifiers: Site of cellulitis: extremity Site of cellulitis of extremity: lower extremity Laterality: unspecified laterality Qualified Code(s): L03.119 - Cellulitis of unspecified part of limb (4) Urinary retention Code(s): R33.9 - RETENTION OF URINE, UNSPECIFIED (5) Urinary tract infection Code(s): N39.0 - URINARY TRACT INFECTION, SITE NOT SPECIFIED Qualifiers: Urinary tract infection type: acute cystitis Hematuria presence: with hematuria Qualified Code(s): N30.01 - Acute cystitis with hematuria all cx results noted this patient has been admitted multiple times in short duration he has enlarged prostate and i think that is the main isues i would give him zosyn for a total of 2 weeks
--- NOTE | 2016-12-06 16:26 | PN ---
Progress Note, Physician History of Present Illness: pulmonary alert,nad,-sob,-cough - Current Medication List Current Medications: Active Medications Acetaminophen (Tylenol -) 650 mg PO Q6H PRN PRN Reason: FEVER OR PAIN Last Admin: 12/06/16 09:36 Dose: 650 mg Atorvastatin Calcium (Lipitor -) 10 mg PO HS [facility] Last Admin: 12/05/16 21:55 Dose: 10 mg Brimonidine Tartrate (Alphagan 0.2% -) 1 drop OD TID [facility] Last Admin: 12/06/16 13:38 Dose: 1 drop Dorzolamide HCl (Trusopt 2%) 1 drop OU BID [facility] Last Admin: 12/06/16 09:38 Dose: 1 drop Ferrous Sulfate (Feosol -) 325 mg PO DAILY [facility] Last Admin: 12/06/16 09:36 Dose: 325 mg Heparin Sodium (Porcine) (Heparin -) 5,000 unit SQ BID [facility] Last Admin: 12/06/16 09:38 Dose: 5,000 unit Piperacillin Sod/Tazobactam (Sod 3.375 gm/ Dextrose) 50 mls @ 100 mls/hr IVPB Q8H-IV [facility] PRN Reason: Protocol Last Admin: 12/06/16 09:41 Dose: 100 mls/hr Latanoprost (Xalatan 0.005% Eye Drops -) 1 drop OU [facility] Last Admin: 12/05/16 21:57 Dose: 1 drop Metoprolol Tartrate (Lopressor -) 25 mg PO BID [facility] Last Admin: 12/06/16 09:36 Dose: 25 mg Miconazole Nitrate (Miconazole Nitrate) 1 applic TP BID [facility] Last Admin: 12/06/16 09:38 Dose: 1 applic Oxycodone HCl (Roxicodone -) 5 mg PO Q6H PRN PRN Reason: PAIN Last Admin: 12/06/16 09:36 Dose: 5 mg Ranitidine HCl (Zantac -) 150 mg PO BID [facility] Last Admin: 12/06/16 09:41 Dose: 150 mg Tamsulosin HCl (Flomax -) 0.4 mg PO BID [facility] Last Admin: 12/06/16 09:41 Dose: 0.4 mg Timolol Maleate (Timoptic 0.5%) 1 drop OU BID [facility] Last Admin: 12/06/16 09:37 Dose: 1 drop - Objective Vital Signs: Vital Signs Temperature 98.1 F 12/06/16 13:49 Pulse Rate 82 12/06/16 13:49 Respiratory Rate 18 12/06/16 08:00 Blood Pressure 123/72 12/06/16 13:49 O2 Sat by Pulse Oximetry (%) 96 12/06/16 09:00 Constitutional: Yes: Well Nourished, Calm Eyes: Yes: WNL HENT: Yes: WNL Neck: Yes: WNL Cardiovascular: Yes: Regular Rate and Rhythm, S1, S2 Respiratory: Yes: CTA Bilaterally Gastrointestinal: Yes: Normal Bowel Sounds, Soft Extremities: Yes: WNL Edema: No Labs: CBC, BMP Assessment/Plan A/P UTI Cellulitis s/p Sepsis Hiatal Hernia Atelectasis h/o DVT/IVC filter BPH - antibiotics asm per ID - incentive spirometry - O2 as needed - DVT prophylaxis DR BRISCOE
[2016-12-06] MEDS: ATORVASTATIN CA 10 MG TABLET (FP) PO SCH (22:10)
[2016-12-06] MEDS: LATANOPROST 0.005% OPHTH SOLN 2.5ML BOTTLE OU SCH (22:11)
--- NOTE | 2016-12-06 22:37 | PN ---
Progress Note, Physician History of Present Illness: No new complaints - Current Medication List Current Medications: Active Medications Acetaminophen (Tylenol -) 650 mg PO Q6H PRN PRN Reason: FEVER OR PAIN Last Admin: 12/06/16 18:18 Dose: 650 mg Atorvastatin Calcium (Lipitor -) 10 mg PO HS [facility] Last Admin: 12/06/16 22:10 Dose: 10 mg Brimonidine Tartrate (Alphagan 0.2% -) 1 drop OD TID [facility] Last Admin: 12/06/16 22:10 Dose: 1 drop Dorzolamide HCl (Trusopt 2%) 1 drop OU BID [facility] Last Admin: 12/06/16 22:10 Dose: 1 drop Ferrous Sulfate (Feosol -) 325 mg PO DAILY [facility] Last Admin: 12/06/16 09:36 Dose: 325 mg Heparin Sodium (Porcine) (Heparin -) 5,000 unit SQ BID [facility] Last Admin: 12/06/16 22:09 Dose: 5,000 unit Piperacillin Sod/Tazobactam (Sod 3.375 gm/ Dextrose) 50 mls @ 100 mls/hr IVPB Q8H-IV [facility] PRN Reason: Protocol Last Admin: 12/06/16 18:19 Dose: 100 mls/hr Latanoprost (Xalatan 0.005% Eye Drops -) 1 drop OU [facility] Last Admin: 12/06/16 22:11 Dose: 1 drop Metoprolol Tartrate (Lopressor -) 25 mg PO BID [facility] Last Admin: 12/06/16 22:10 Dose: 25 mg Miconazole Nitrate (Miconazole Nitrate) 1 applic TP BID [facility] Last Admin: 12/06/16 09:38 Dose: 1 applic Oxycodone HCl (Roxicodone -) 5 mg PO Q6H PRN PRN Reason: PAIN Last Admin: 12/06/16 18:18 Dose: 5 mg Ranitidine HCl (Zantac -) 150 mg PO BID [facility] Last Admin: 12/06/16 22:10 Dose: 150 mg Tamsulosin HCl (Flomax -) 0.4 mg PO BID [facility] Last Admin: 12/06/16 22:10 Dose: 0.4 mg Timolol Maleate (Timoptic 0.5%) 1 drop OU BID [facility] Last Admin: 12/06/16 22:10 Dose: 1 drop - Objective Vital Signs: Vital Signs Temperature 98.1 F 12/06/16 17:00 Pulse Rate 86 12/06/16 17:00 Respiratory Rate 20 12/06/16 17:00 Blood Pressure 124/82 12/06/16 17:00 O2 Sat by Pulse Oximetry (%) 96 12/06/16 09:00 Constitutional: Yes: No Distress Neck: Yes: WNL, Supple Cardiovascular: Yes: WNL, Regular Rate and Rhythm Respiratory: Yes: WNL, Regular, CTA Bilaterally Gastrointestinal: Yes: WNL, Normal Bowel Sounds, Soft Labs: CBC, BMP 12/05/16 08:55 12/05/16 08:55 INR, PTT INR 1.12 (0.82-1.09) 12/01/16 14:19 Problem List - Problems (1) Sepsis secondary to UTI Assessment/Plan: Due to UTI Cont iv zosynvfor 2 weeks Spoke to pt at length about need for PIC line and STR placement for IV antibx therapy and he has agreed Code(s): A41.9 - SEPSIS, UNSPECIFIED ORGANISM N39.0 - URINARY TRACT INFECTION, SITE NOT SPECIFIED (2) HTN (hypertension) Assessment/Plan: BP stable Code(s): I10 - ESSENTIAL (PRIMARY) HYPERTENSION Qualifiers: Hypertension type: essential hypertension Qualified Code(s): I10 - Essential (primary) hypertension (3) Anemia Assessment/Plan: H/H stable Cont feoso4 Code(s): D64.9 - ANEMIA, UNSPECIFIED Qualifiers: Anemia type: unspecified type Qualified Code(s): D64.9 - Anemia, unspecified (4) CKD (chronic kidney disease) Code(s): N18.9 - CHRONIC KIDNEY DISEASE, UNSPECIFIED (5) GERD (gastroesophageal reflux disease) Code(s): K21.9 - GASTRO-ESOPHAGEAL REFLUX DISEASE WITHOUT ESOPHAGITIS (6) BPH (benign prostatic hyperplasia) Code(s): N40.0 - BENIGN PROSTATIC HYPERPLASIA WITHOUT LOWER URINRY TRACT SYMP
[2016-12-06] MEDS ORDERED: PICC LINE 8 ML FLUSH PROTOCOL IVPUSH PRN (22:39)
[2016-12-07] MEDS ORDERED: DEXTROSE 5%-WATER - 50 ML IVPB ONE ×3 (00:32→17:35)
[2016-12-07] MEDS ORDERED: PIPERACILLIN/TAZOBACTAM 3.375 GM VIAL IVPB ONE ×3 (00:32→17:35)
[2016-12-07] MEDS: PIPERACILLIN/TAZOB 3.375 GM 3.375 GM in DEXTROSE 5%-WATER - 50 ML IVPB SCH ×3 (01:04→17:41)
[2016-12-07] MEDS ORDERED: PT OWN MED DRAWER 7, Y5N ONE ×2 (06:31→09:22)
[2016-12-07] MEDS: BRIMONIDINE TARTRATE 0.2% OPHTHALMIC 5 ML BOTTLE OD SCH ×3 (07:35→21:25)
[2016-12-07] MEDS: ACETAMINOPHEN 325 MG TABLET (FP) PO PRN ×2 (09:04→18:27)
[2016-12-07] MEDS: oxyCODONE HCL 5 MG TABLET PO PRN ×2 (09:04→18:27)
[2016-12-07] MEDS: METOPROLOL TARTRATE 25 MG TABLET (FP) PO SCH ×2 (09:52→21:22)
[2016-12-07] MEDS: RANITIDINE HCL 150 MG TABLET (FP) PO SCH ×2 (09:52→21:22)
[2016-12-07] MEDS: TAMSULOSIN HCL 0.4 MG CAP.ER.24H (FP) PO SCH ×2 (09:52→21:21)
[2016-12-07] MEDS: TIMOLOL 0.5% OPHTHALMIC SOL 5 ML BOTTLE OU SCH ×2 (09:52→21:24)
[2016-12-07] MEDS: HEPARIN NA (PORCINE) 5,000 UNITS/ML 1ML VIAL SQ SCH ×2 (09:52→21:22)
[2016-12-07] MEDS: FERROUS SO4 325 MG TABLET (FP) PO SCH (09:52)
[2016-12-07] MEDS: MICONAZOLE NITRATE 28 GM TUBE TP SCH ×2 (11:08→21:25)
[2016-12-07] MEDS: DORZOLAMIDE 2% HCL OPHTHALMIC SOLUTION 10 ML BOTTLE OU SCH ×2 (11:26→21:24)
--- NOTE | 2016-12-07 15:53 | PN ---
Progress Note, Physician History of Present Illness: patient doing well no complaints - Current Medication List Current Medications: Active Medications Acetaminophen (Tylenol -) 650 mg PO Q6H PRN PRN Reason: FEVER OR PAIN Last Admin: 12/07/16 09:04 Dose: 650 mg Atorvastatin Calcium (Lipitor -) 10 mg PO HS [facility], [facility] Last Admin: 12/06/16 22:10 Dose: 10 mg Brimonidine Tartrate (Alphagan 0.2% -) 1 drop OD TID [facility], [facility]1983 Last Admin: 12/07/16 14:31 Dose: 1 drop Dorzolamide HCl (Trusopt 2%) 1 drop OU BID [facility], [facility] Last Admin: 12/07/16 11:26 Dose: 1 drop Ferrous Sulfate (Feosol -) 325 mg PO DAILY [facility]1983 Last Admin: 12/07/16 09:52 Dose: 325 mg Heparin Sodium (Porcine) (Heparin -) 5,000 unit SQ BID [facility], [facility]1983 Last Admin: 12/07/16 09:52 Dose: 5,000 unit IV Flush (Picc Line Flush) 8 ml IVPUSH PRN PRN PRN Reason: Protocol Piperacillin Sod/Tazobactam (Sod 3.375 gm/ Dextrose) 50 mls @ 100 mls/hr IVPB Q8H-IV [place] PRN Reason: Protocol Last Admin: 12/07/16 09:53 Dose: 100 mls/hr Latanoprost (Xalatan 0.005% Eye Drops -) 1 drop OU [facility] Last Admin: 12/06/16 22:11 Dose: 1 drop Metoprolol Tartrate (Lopressor -) 25 mg PO BID [facility] Last Admin: 12/07/16 09:52 Dose: 25 mg Miconazole Nitrate (Miconazole Nitrate) 1 applic TP BID [facility] Last Admin: 12/07/16 11:08 Dose: 1 applic Oxycodone HCl (Roxicodone -) 5 mg PO Q6H PRN PRN Reason: PAIN Last Admin: 12/07/16 09:04 Dose: 5 mg Ranitidine HCl (Zantac -) 150 mg PO BID [facility] Last Admin: 12/07/16 09:52 Dose: 150 mg Tamsulosin HCl (Flomax -) 0.4 mg PO BID [facility] Last Admin: 12/07/16 09:52 Dose: 0.4 mg Timolol Maleate (Timoptic 0.5%) 1 drop OU BID [facility] Last Admin: 12/07/16 09:52 Dose: 1 drop - Objective Vital Signs: Vital Signs Temperature 97.9 F 12/07/16 14:55 Pulse Rate 97 H 12/07/16 14:55 Respiratory Rate 20 12/07/16 10:00 Blood Pressure 131/83 12/07/16 14:55 O2 Sat by Pulse Oximetry (%) 98 12/06/16 21:00 Constitutional: Yes: No Distress, Calm Neck: Yes: Supple Cardiovascular: Yes: Regular Rate and Rhythm Respiratory: Yes: Regular, CTA Bilaterally Gastrointestinal: Yes: Normal Bowel Sounds, Soft Musculoskeletal: Yes: WNL Extremities: Yes: WNL Neurological: Yes: Alert, Oriented Psychiatric: Yes: Alert, Oriented Labs: CBC, BMP 12/05/16 08:55 12/05/16 08:55 INR, PTT INR 1.12 (0.82-1.09) 12/01/16 14:19 Assessment/Plan one thing which is worrisoem in the patient is that if he has prostatitis he has bph and he did come in wiht septic looking picture Problem List - Problems (1) Sepsis secondary to UTI Code(s): A41.9 - SEPSIS, UNSPECIFIED ORGANISM N39.0 - URINARY TRACT INFECTION, SITE NOT SPECIFIED (2) Candidiasis of perineum Code(s): B37.49 - OTHER UROGENITAL CANDIDIASIS (3) Cellulitis Code(s): L03.90 - CELLULITIS, UNSPECIFIED Qualifiers: Site of cellulitis: extremity Site of cellulitis of extremity: lower extremity Laterality: unspecified laterality Qualified Code(s): L03.119 - Cellulitis of unspecified part of limb (4) Urinary retention Code(s): R33.9 - RETENTION OF URINE, UNSPECIFIED (5) Urinary tract infection Code(s): N39.0 - URINARY TRACT INFECTION, SITE NOT SPECIFIED Qualifiers: Urinary tract infection type: acute cystitis Hematuria presence: with hematuria Qualified Code(s): N30.01 - Acute cystitis with hematuria all cx results noted complete 2 weeks of abx rest as per primary team
--- NOTE | 2016-12-07 16:48 | DS ---
Physical Examination Vital Signs: Vital Signs Temperature 97.9 F 12/07/16 14:55 Pulse Rate 97 H 12/07/16 14:55 Respiratory Rate 20 12/07/16 10:00 Blood Pressure 131/83 12/07/16 14:55 O2 Sat by Pulse Oximetry (%) 98 12/06/16 21:00 Labs: CBC, BMP 12/05/16 08:55 12/05/16 08:55 Discharge Summary Reason For Visit: SEPSIS DUE TO UTI/ACUTE RENAL FAILURE Current Active Problems BPH (benign prostatic hyperplasia) (Acute) Sepsis secondary to UTI (Acute) Sinus tachycardia (Acute) Hospital Course: 71yom with PMHx HTN, HLD, osteoarthritis recently hospitalized for BLE cellulitis and pseudomanas UTI. Pt was admitted to the hospital now w/ sepsis and initially admitted to ICU. Pt found to have (+) urine cultures for psuedomonas and proteus. Pt was followed by ID/uro. Pt now to get another 10 days of IV atnibxs PIC line was placed today Condition: Good - Instructions Disposition: [facility] - Home Medications Comprehensive Discharge Medication List: Ambulatory Orders Acetaminophen [Pain Relief] 650 mg PO Q6H PRN 09/13/16 Bimatoprost [Lumigan] 1 drop IO DAILY 09/13/16 Brimonidine Tartrate [Alphagan 0.2% -] 1 drop OD TID 09/13/16 Cholecalciferol (Vitamin D3) [Vitamin D3] 50,000 unit PO WEEKLY 09/13/16 Dorzolamide/Timolol/Pf [Cosopt Pf Eye Drops] 1 each OP BID 09/13/16 Ferrous Sulfate 325 mg PO DAILY 09/13/16 Omeprazole 20 mg PO DAILY 09/13/16 Simvastatin 10 mg PO HS 09/13/16 Metoprolol Tartrate [Lopressor -] 25 mg PO BID #60 tablet 09/19/16 Tamsulosin HCl 0.4 mg PO BID #30 cap.er.24h 10/10/16 Zosyn 3.375mg IV q8 for 10 days
[2016-12-07] MEDS: ATORVASTATIN CA 10 MG TABLET (FP) PO SCH (21:22)
[2016-12-07] MEDS: LATANOPROST 0.005% OPHTH SOLN 2.5ML BOTTLE OU SCH (21:24)
[2016-12-08] MEDS ORDERED: DEXTROSE 5%-WATER - 50 ML IVPB ONE ×2 (02:34→11:05)
[2016-12-08] MEDS ORDERED: PIPERACILLIN/TAZOBACTAM 3.375 GM VIAL IVPB ONE ×2 (02:34→11:04)
[2016-12-08] MEDS: PIPERACILLIN/TAZOB 3.375 GM 3.375 GM in DEXTROSE 5%-WATER - 50 ML IVPB SCH ×2 (02:35→11:06)
[2016-12-08 05:44] VITALS: BP 140/89; PULSE 82; TEMP 98.2
[2016-12-08] MEDS: BRIMONIDINE TARTRATE 0.2% OPHTHALMIC 5 ML BOTTLE OD SCH (05:51)
[2016-12-08] MEDS: ACETAMINOPHEN 325 MG TABLET (FP) PO PRN (08:47)
[2016-12-08] MEDS: oxyCODONE HCL 5 MG TABLET PO PRN (08:47)
[2016-12-08] MEDS ORDERED: PT OWN MED DRAWER 7, Y5N ONE (10:31)
[2016-12-08] MEDS: METOPROLOL TARTRATE 25 MG TABLET (FP) PO SCH (10:33)
[2016-12-08] MEDS: TIMOLOL 0.5% OPHTHALMIC SOL 5 ML BOTTLE OU SCH (10:33)
[2016-12-08] MEDS: TAMSULOSIN HCL 0.4 MG CAP.ER.24H (FP) PO SCH (10:33)
[2016-12-08] MEDS: HEPARIN NA (PORCINE) 5,000 UNITS/ML 1ML VIAL SQ SCH (10:33)
[2016-12-08] MEDS: RANITIDINE HCL 150 MG TABLET (FP) PO SCH (10:33)
[2016-12-08] MEDS: FERROUS SO4 325 MG TABLET (FP) PO SCH (10:33)
[2016-12-08] MEDS: DORZOLAMIDE 2% HCL OPHTHALMIC SOLUTION 10 ML BOTTLE OU SCH (10:34)
[2016-12-08] MEDS: MICONAZOLE NITRATE 28 GM TUBE TP SCH (10:34)
== END 2016-12-08 11:48 | DRG 872 ==
LOC: JER 12:08 → JERBED 17:40 → JICU 21:07 → J2W 12-02 20:04 → J6S 12-04 09:25
PROVIDERS: ADMIT Internal Medicine; ATTEND Internal Medicine
PROC: 02HV33Z Insertion of Infusion Device into Superior Vena Cava, Percutaneous Approach (ICD-10-PCS; principal; 2016-12-08)
DX: A41.9 Sepsis, unspecified organism (principal); L03.116 Cellulitis of left lower limb; L03.115 Cellulitis of right lower limb; N39.0 Urinary tract infection, site not specified; B37.49 Other urogenital candidiasis; N17.9 Acute kidney failure, unspecified; E87.2 Acidosis; I82.5Z3 Chronic embolism and thrombosis of unspecified deep veins of distal lower extremity, bilateral; J98.11 Atelectasis; I13.0 Hypertensive heart and chronic kidney disease with heart failure and stage 1 through stage 4 chronic kidney disease, or unspecified chronic kidney disease; I50.30 Unspecified diastolic (congestive) heart failure; E78.5 Hyperlipidemia, unspecified; K21.9 Gastro-esophageal reflux disease without esophagitis; N40.0 Benign prostatic hyperplasia without lower urinary tract symptoms; M17.0 Bilateral primary osteoarthritis of knee; R33.9 Retention of urine, unspecified; B96.5 Pseudomonas (aeruginosa) (mallei) (pseudomallei) as the cause of diseases classified elsewhere; I87.2 Venous insufficiency (chronic) (peripheral); R00.0 Tachycardia, unspecified; D64.9 Anemia, unspecified; I87.8 Other specified disorders of veins; R21 Rash and other nonspecific skin eruption; K44.9 Diaphragmatic hernia without obstruction or gangrene; N18.9 Chronic kidney disease, unspecified; R09.02 Hypoxemia; E66.8 Other obesity; Z68.32 Body mass index [BMI] 32.0-32.9, adult
CPT/HCPCS: 36415; 36569; 71010-TC; 71250-TC; 77001-TC; 80053; 80061; 81003; 81015; 82803; 83605; 83721; 83735; 83880; 84100; 84443; 84484; 85025; 85027; 85610; 85730; 86850; 86900; 86901; 87040; 87086; 87186; 93005; 93010; 93306-TC; 93970-TC; 97116-GP; 97161-GP; 99285-25; C1751; J1644